=== PATIENT | female | born 1970 ===

== ENCOUNTER 2017-08-05 23:22 | Inpatient (IN) | payer OTHER ==
[2017-08-05 23:23] VITALS: BMI 22.8
--- NOTE | 2017-08-05 23:32 | ED PDOC ---
HPI:STROKE - Time Time: 23:30 Past Medical History - Allergies Allergies/Adverse Reactions: Allergies Allergy/AdvReac Type Severity Reaction Status Date / Time Unobtainable Allergy Verified 08/05/17 23:23 Disposition - Disposition
--- NOTE | 2017-08-05 23:36 | ED PDOC ---
HPI:STROKE - Time Time: 23:19 - Historian Historian: Partner (friend) - Chief Complaint Chief Complaint: other (Headache, Nausea, Vomiting) - Onset Date: 08/05/17 Time: 10:45 Onset: Today - Timing Timing: Currently Symptomatic - Notes: Notes:: 46 year old female who presents to the ED via EMS due to stroke x30 minutes. Per friend, patient was at a democr[employer] when she complained of a headache then fell to the ground at 22:45. Friend also reports nausea and vomiting en route to ED. As per friend, patient has no medical problems. PMD: Provider TBD NIHSS Stroke Scale - Date/Time Evaluation Performed Date Performed: 08/05/17 Time Performed: 23:19 When Was NIHSS Performed: Code Stroke - How Severe is the Stroke Level of Consciousness: 1=Drowsy LOC to Questions: 1=One correct LOC to commands: 0=Obeys both correctly Best Gaze: 0=Normal Visual: 0=No visual loss Facial: 3=Complete unilateral paralysis Motor Arm - Left: 4=No movement Motor Arm - Right: 0=No drift Motor Leg - Left: 3=No effort against gravity (falls immediately) Motor Leg - Right: 0=No drift Limb Ataxia: 0=Absent Sensory: 0=Normal Best Language: 0=No aphasia Dysarthia: 1=Mild to moderate slurring Extinction & Inattention (Neglect): 0=Normal, no object Score: 13 rTPA Inclusion/Exclusion - Refusal of Treatment Patient Refused Treatment: No - Inclusion Criteria for Altepase Patient is 18 years or Older: Yes The Clinical Diagnosis of Ischemic Stroke That is Causing a Potentially Disabling Neurological Deficit: Yes Time of Onset is Well Established to be Less Than 270 Minute Before Treatment Would Begin: Yes Risk/Benefit Discussed With Patient/Family Member Present: No - Exclusion Criteria for Altepase Evidence of an Intracranial Hemorrhage: Yes Past Medical History Reviewed: Historical Data, Nursing Documentation, Vital Signs - Medical History PMH: No Chronic Diseases - Surgical History Surgical History: No Surg Hx - Family History Family History: States: Unknown Family Hx - Home Medications Home Medications: Ambulatory Orders Medication Instructions Recorded Multivitamins [Hexavitamin] 1 tab PO DAILY 08/06/17 - Allergies Allergies/Adverse Reactions: Allergies Allergy/AdvReac Type Severity Reaction Status Date / Time No Known Allergies Allergy Verified 08/06/17 08:39 Review of Systems ROS Statement: Except As Marked, All Systems Reviewed And Found Negative Gastrointestinal: Positive for: Nausea, Vomiting Neurological: Positive for: Headache Physical Exam - Reviewed Nursing Documentation Reviewed: Yes Vital Signs Reviewed: Yes - Physical Exam Appears: Positive for: Non-toxic, No Acute Distress (drowsy, but responsive to verbal stimuli) Head Exam: Positive for: ATRAUMATIC, NORMAL INSPECTION, NORMOCEPHALIC Skin: Positive for: Normal Color, Warm, Dry. Negative for: Rash Eye Exam: Positive for: EOMI, Normal appearance, PERRL Neck: Positive for: Normal, Painless ROM, Supple Cardiovascular/Chest: Positive for: Regular Rate, Rhythm. Negative for: Murmur Respiratory: Positive for: Normal Breath Sounds. Negative for: Respiratory Distress Gastrointestinal/Abdominal: Positive for: Normal Exam, Bowel Sounds, Soft. Negative for: Tenderness Back: Positive for: Normal Inspection. Negative for: L CVA Tenderness, R CVA Tenderness, Vertebral Tenderness Extremity: Positive for: Other (not moving LLE/LUE). Negative for: Pedal Edema , Deformity Neurologic/Psych: Positive for: Alert (drowsy, but responsive to verbal stimuli) , Oriented, Motor/Sensory Deficits (not moving LUE or LLE), Facial Droop (left) - Laboratory Results Result Diagrams: 08/10/17 04:30 08/10/17 04:30 - ECG O2 Sat by Pulse Oximetry: 100 (RA) Pulse Ox Interpretation: Normal - Core Measure Core Measure Indicators: Code Stroke - Critical Care Total Time (In Min): 60 Medical Decision Making Medical Decision Making: Time: 23:19 Code stroke called. Time: 23:24 Initial Impression: Stroke Initial Plan: --CT Head w/o contrast --EKG --Alcohol serum --CMP --Drug screen --Lipid panel --Troponin I --CBC w/ differential --PTT/PT --Accucheck --Swallow screen --Morejon catheter --Urinalysis --Reevaluation Time: 23:26 Spoke to benoit Salmon stroke. Time: 23:[address] Ribeiro. Recommends transfer. Accession No. 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 no. Patient Name: JUAN JOSE CHAN Pt. Address: [facility] #: [id number] Ordering Dr: Ree MIN,Miguel Ángel Johnson Pt Phone: Order Location: [facility] [place] : 1970 Female Age: 46 Order #: [id number] Reason for exam: CVA CT Scan HEAD W/O CONTRAST Exam Date: 08/05/17 This imaging exam was performed at [facility] ADDENDUM Addendum created by Alden Loyd MD on 08/05/2017 11:48:24 PM EDT THIS REPORT CONTAINS FINDINGS THAT MAY BE CRITICAL TO PATIENT CARE. The findings were verbally communicated via telephone conference with Dr. Song at 11:48 PM EDT on 08/05/2017. The findings were acknowledged and understood. Initial report created on 08/05/2017 11:45:02 PM EDT EXAM: CT Head Without Intravenous Contrast CLINICAL HISTORY: 46 years old, female; Signs and symptoms; Other: Lt weakness n v; Patient HX : Stroke; Additional info: CVA TECHNIQUE: Axial computed tomography images of the head/brain without intravenous contrast. All CT scans at this facility use one or more dose reduction techniques, viz.: automated exposure control; ma/kV adjustment per patient size (including targeted exams where dose is matched to indication; i.e. head); or iterative reconstruction technique. Coronal and sagittal reformatted images were created and reviewed. COMPARISON: No relevant prior studies available. FINDINGS: Limitations: Motion artifact - mild. Brain: Minimal atrophy. 3.5 x 2.7 x 3.9 cm hemorrhage within right basal ganglia. Few smaller satellite areas of hemorrhage and minimal surrounding edema. No mass. Grossly preserved leigh-white matter differentiation. Midline shift: 0.4 cm RIGHT to LEFT shift. Ventricles: No hydrocephalus. Bones/joints: No acute fracture. Soft tissues: Unremarkable. Sinuses: No acute sinusitis. Mastoid air cells: No mastoid effusion. Orbits: Unremarkable as visualized. IMPRESSION: 1. Intraparenchymal hemorrhage within right basal ganglia, likely hypertensive. 2. Incidental/non-acute findings are described above. Addendum Dictated By: Alden Loyd MD Addendum Dictated Date Time:08/05/17 Addendum Signed by:Alden Loyd MD Addendum signed Date Time: 08/05/172347 Addendum Transcribed By: LAURA Addendum Transcribed Date Time: 08/05/17 ACYP02/VRD EXAM: CT Head Without Intravenous Contrast CLINICAL HISTORY: 46 years old, female; Signs and symptoms; Other: Lt weakness n v; Patient HX : Stroke; Additional info: CVA TECHNIQUE: Axial computed tomography images of the head/brain without intravenous contrast. All CT scans at this facility use one or more dose reduction techniques, viz.: automated exposure control; ma/kV adjustment per patient size (including targeted exams where dose is matched to indication; i.e. head); or iterative reconstruction technique. Coronal and sagittal reformatted images were created and reviewed. COMPARISON: No relevant prior studies available. FINDINGS: Limitations: Motion artifact - mild. Brain: Minimal atrophy. 3.5 x 2.7 x 3.9 cm hemorrhage within right basal ganglia. Few smaller satellite areas of hemorrhage and minimal surrounding edema. No mass. Grossly preserved leigh-white matter differentiation. Midline shift: 0.4 cm RIGHT to LEFT shift. Ventricles: No hydrocephalus. Bones/joints: No acute fracture. Soft tissues: Unremarkable. Sinuses: No acute sinusitis. Mastoid air cells: No mastoid effusion. Orbits: Unremarkable as visualized. IMPRESSION: 1. Intraparenchymal hemorrhage within right basal ganglia, likely hypertensive. 2. Incidental/non-acute findings are described above. Dictated By: Alden Loyd MD Dictated Date/Time: 08/05/172344 Signed By: Alden Loyd MD Date Signed: [id number] Transcribed By: LAURA Transcribe Date/Time : 08/05/172344 ACYP02/REMIGIO Time: 23:40 Dr. Keenan spoke with Dr. Sheppard, Neurointerventionalist. Will view images remotely and report back. Time: 23:50 --Swallow eval Time: 23:[address] Shepp[address]. [address] CT consistent with a hypertensive bleed. Wants BP to remain 100-140. If higher, start Cardene drip. Neuro checks. Repeat CT in [address] Ribeiro notified by Dr. Sheppard. Scribe Attestation: Documented by Bienvenido Jaeger, acting as a scribe for Sandy Song MD. Provider Scribe Attestation: All medical record entries made by the Scribe were at my direction and personally dictated by me. I have reviewed the chart and agree that the record accurately reflects my personal performance of the history, physical exam, medical decision making, and the department course for this patient. I have also personally directed, reviewed, and agree with the discharge instructions and disposition. Disposition - Clinical Impression Clinical Impression: Hemorrhagic cerebrovascular accident (CVA) - Disposition Disposition Time: 23:55 Condition: CRITICAL - Pt Status Changed To: Hospital Disposition Of: Inpatient - Admit Certification Admit to Inpatient:: After my assessment, the patient will require hospitalization for at least two midnights. This is because of the severity of symptoms shown, intensity of services needed, and/or the medical risk in this patient being treated as an outpatient. - POA Present On Arrival: None
--- NOTE | 2017-08-05 23:45 | CT ---
EXAM: CT Head Without Intravenous Contrast CLINICAL HISTORY: 46 years old, female; Signs and symptoms; Other: Lt weakness n v; Patient HX: Stroke; Additional info: CVA TECHNIQUE: Axial computed tomography images of the head/brain without intravenous contrast. All CT scans at this facility use one or more dose reduction techniques, viz.: automated exposure control; ma/kV adjustment per patient size (including targeted exams where dose is matched to indication; i.e. head); or iterative reconstruction technique. Coronal and sagittal reformatted images were created and reviewed. COMPARISON: No relevant prior studies available. FINDINGS: Limitations: Motion artifact - mild. Brain: Minimal atrophy. 3.5 x 2.7 x 3.9 cm hemorrhage within right basal ganglia. Few smaller satellite areas of hemorrhage and minimal surrounding edema. No mass. Grossly preserved leigh-white matter differentiation. Midline shift: 0.4 cm RIGHT to LEFT shift. Ventricles: No hydrocephalus. Bones/joints: No acute fracture. Soft tissues: Unremarkable. Sinuses: No acute sinusitis. Mastoid air cells: No mastoid effusion. Orbits: Unremarkable as visualized. IMPRESSION: 1. Intraparenchymal hemorrhage within right basal ganglia, likely hypertensive. 2. Incidental/non-acute findings are described above.
[2017-08-05 23:51] LABS: BASO % 0.3 % (0.0-2.0); EOS # 0.2 K/uL (0.0-0.7); EOS % 1.5 % (0.0-4.0); LYMPH # 1.9 K/uL (1.0-4.3); LYMPH % 17.9 % (20.0-40.0); MEAN CELL VOLUME 92.8 fl (81.0-99.0); MEAN CORPUSCULAR HGB CONC 33.4 g/dL (33.0-37.0); MEAN PLATELET VOLUME 9.5 fl (7.2-11.7); MONO # 0.5 K/uL (0.0-0.8); NEUT # 7.8 K/uL (1.8-7.0); NEUT % 75.3 % (50.0-75.0); RBC 4.51 Mil/uL (3.80-5.20); RED CELL DISTRIBUTION WIDTH 13.3 % (11.5-14.5); WHITE BLOOD COUNT 10.4 K/uL (4.8-10.8)
[2017-08-06 00:03] LABS: PROTHROMBIN TIME 11.3 Seconds (9.8-13.1)
[2017-08-06 00:04] LABS: PARTIAL THROMBOPLASTIN TIME 25.4 Seconds (25.6-37.1)
--- NOTE | 2017-08-06 00:21 | CP.PCM.HP ---
History of Present Illness - History of Present Illness History of Present Illness: PMD: None Chief Complaint: Headache with left side weakness The patient was seen and examined in the ED HPI: The Hx is obtained from thee patients friend and after review of the medical records. She is a 46 years old female with no significant past medical Hx, brought to the ED with less than one hour of new unset headache and left side weakness. 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 She fell to the ground with nausea and vomits. The EMS noted that she had a right gaze, left facial droop and left side weakness. In the ED she was alert but not answering questioning and her NIHSS was 13. PMH: Pre Diabetic PSH: C Section X2; Hysterectomy? SH: never smoked; No illegal drug use; Frequent Alcohol use;; FH: No known Family hx Allergies: Unobtainable Medications: Unobtainable Present on Admission - Present on Admission Any Indicators Present on Admission: No History of DVT/PE: No History of Uncontrolled Diabetes: No Urinary Catheter: No Decubitus Ulcer Present: No Review of Systems - Review of Systems Review of Systems: Review of systems is limited as the patient is with severe headache and Probably with motor aphasia. Past Patient History - Past Medical History & Family History Past Medical History?: Yes - Past Social History Smoking Status: Never Smoked Chewing Tobacco Use: No Cigar Use: No Alcohol: Occasional Home Situation {Lives}: With Family - CARDIAC Hx Cardiac Disorders: No - PULMONARY Hx Respiratory Disorders: No - NEUROLOGICAL Hx Neurological Disorder: No - HEENT Hx HEENT Problems: No - RENAL Hx Chronic Kidney Disease: No - ENDOCRINE/METABOLIC Hx Endocrine Disorders: Yes Other/Comment: Pre Diabetes - HEMATOLOGICAL/ONCOLOGICAL Hx Blood Disorders: No - INTEGUMENTARY Hx Dermatological Problems: No - MUSCULOSKELETAL/RHEUMATOLOGICAL Hx Musculoskeletal Disorders: No - GASTROINTESTINAL Hx Gastrointestinal Disorders: No Meds Allergies/Adverse Reactions: Allergies Allergy/AdvReac Type Severity Reaction Status Date / Time Unobtainable Allergy Verified 08/05/17 23:23 Physical Exam - Constitutional Appears: No Acute Distress - Head Exam Head Exam: ATRAUMATIC, NORMOCEPHALIC - Eye Exam Additional comments: Right pupil two centimeters in diameter while the left pupil is 4cm. - ENT Exam ENT Exam: Mucous Membranes Moist, Normal Exam, Normal External Ear Exam, Normal Oropharynx - Neck Exam Neck exam: Positive for: Full Rom, Normal Inspection. Negative for: Lymphadenopathy, Tenderness - Respiratory Exam Respiratory Exam: Clear to Auscultation Bilateral. absent: Rales, Rhonchi, Wheezes - Cardiovascular Exam Cardiovascular Exam: REGULAR RHYTHM, RRR, +S1, +S2. absent: Gallop - GI/Abdominal Exam GI & Abdominal Exam: Normal Bowel Sounds, Soft. absent: Mass, Tenderness - Rectal Exam Rectal Exam: Deferred - Extremities Exam Extremities exam: Positive for: normal capillary refill, normal inspection. Negative for: calf tenderness, pedal edema - Back Exam Back exam: NORMAL INSPECTION. absent: CVA tenderness (L), CVA tenderness (R) - Neurological Exam Additional comments: Awake and alert. Understand when being spoken to. follow some commands with the left side of the body but she is non verbal. Left facial droop, motor strength is 0/5 at the left upper extremity and 1/5 at the left lower extremity. left plantar reflex is upward while at the right side it is down wards . - Psychiatric Exam Psychiatric exam: Normal Affect, Normal Mood - Skin Skin Exam: Dry, Intact, Normal Color, Warm Results - Vital Signs Recent Vital Signs: Last Vital Signs Temp 98.6 F 08/05/17 23:31 Pulse 63 08/05/17 23:31 Resp 19 08/05/17 23:31 BP 137/79 08/05/17 23:31 Pulse Ox 100 08/06/17 00:13 - Labs Result Diagrams: 08/05/17 23:47 08/05/17 23:40 Labs: Laboratory Results - last 24 hr 08/05/17 08/05/17 23:47 23:47 WBC 10.4 RBC 4.51 Hgb 14.0 Hct 41.9 MCV 92.8 MCH 31.0 MCHC 33.4 RDW 13.3 Plt Count 185 MPV 9.5 Neut % (Auto) 75.3 H Lymph % (Auto) 17.9 L [place] % (Auto) 5.0 Eos % (Auto) 1.5 Baso % (Auto) 0.3 Neut # (Auto) 7.8 H Lymph # (Auto) 1.9 [place] # (Auto) 0.5 Eos # (Auto) 0.2 Baso # (Auto) 0.0 PT 11.3 INR 1.0 APTT 25.4 L - Imaging and Cardiology CT scan - head Status: Image reviewed by me, Report reviewed by me Additional comment: EXAM: CT Head Without Intravenous Contrast FINDINGS: Limitations: Motion artifact - mild. Brain: Minimal atrophy. 3.5 x 2.7 x 3.9 cm hemorrhage within right basal ganglia. Few smaller satellite areas of hemorrhage and minimal surrounding edema. No mass. Grossly preserved graywhite matter differentiation. Midline shift: 0.4 cm RIGHT to LEFT shift. Ventricles: No hydrocephalus. Bones/joints: No acute fracture. Soft tissues: Unremarkable. Sinuses: No acute sinusitis. Mastoid air cells: No mastoid effusion. Orbits: Unremarkable as visualized. IMPRESSION: 1. Intraparenchymal hemorrhage within right basal ganglia, likely hypertensive. 2. Incidental/non-acute findings are described above. Assessment & Plan - Assessment and Plan (Free Text) Plan: 46 years old female with no significant past medical Hx, brought to the ED with less than one hour of new unset headache and left side weakness. 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 She fell to the ground with nausea and vomits. The EMS noted that she had a right gaze, left facial droop and left side weakness. In the ED she was alert but not answering questioning and her NIHSS was 13. #. Hemorrhagic CVA with left Hemiplegia - Consult Neurology Dr Ribeiro - consult Neuro surgery Dr Sheppard - Admit to ICU - Neuro checks Q1H - Maintain Systolic Blood pressure 100-140mmHg. If higher start Cardene as per neuro surgery - IV fluids D5/NS at 44Mls/hr. could increase if SBP falls below 100mmHg - Tylenol Supp for Headache - Swallow eval - Speech therapy - PT/OT - Follow lipid panel/RPR #. Stress Ulcer prophylaxis with Pantoprazole #. DVT prophylaxis with SCD #. Code Status: Full Critical Care Time: 55 minutes Willaim Nation MD - Date & Time Date: 08/06/17 Time: 00:21
[2017-08-06 01:50] LABS: ALB/GLOB RATIO 1.3 (1.0-2.1); ALBUMIN 4.3 g/dL (3.5-5.0); ALT/SGPT 34 U/L (9-52); AST/SGOT 25 U/L (14-36); BLOOD UREA NITROGEN 15 mg/dl (7-17); CALCIUM 8.7 mg/dL (8.4-10.2); GFR AFRICAN-AMERICAN > 60; GFR NON-AFRICAN AMERICAN > 60; HDL CHOLESTEROL 43 MG/DL (30-70)
[2017-08-06 02:01] LABS: LDL CHOLESTEROL 124 mg/dL (0-129)
[2017-08-06] MEDS: Dextrose 5%/0.9% NS 1,000 ML IV SCH (02:55)
[2017-08-06 03:33] LABS: BARBITURATES, UR NEGATIVE (NEGATIVE); BENZODIAZEPINES, UR NEGATIVE (NEGATIVE); OPIATES, UR NEGATIVE (NEGATIVE); PHENCYCLIDINE, UR NEGATIVE (NEGATIVE)
[2017-08-06 03:40] LABS: SQUAMOUS EPITHIAL 1 /hpf (0-5); URINE BACTERIA RARE (<OCC); URINE BILIRUBIN NEGATIVE (NEGATIVE); URINE BLOOD NEGATIVE (NEGATIVE); URINE CLARITY CLOUDY (Clear); URINE COLOR YELLOW (YELLOW); URINE GLUCOSE (UA) NEG (Normal); URINE LEUKOCYTE ESTERASE NEG Leu/uL (Negative); URINE PROTEIN NEGATIVE (NEGATIVE); URINE UROBILINOGEN 0.2-1.0 mg/dL (0.2-1.0)
[2017-08-06 07:11] LABS: BLOOD UREA NITROGEN 12 mg/dl (7-17); CALCIUM 8.4 mg/dL (8.4-10.2); GFR AFRICAN-AMERICAN > 60; GFR NON-AFRICAN AMERICAN > 60
--- NOTE | 2017-08-06 08:22 | RAD ---
HISTORY: CVA COMPARISON: No prior. FINDINGS: LUNGS: No active pulmonary disease. PLEURA: No significant pleural effusion identified, no pneumothorax apparent. CARDIOVASCULAR: Normal. OSSEOUS STRUCTURES: No significant abnormalities. VISUALIZED UPPER ABDOMEN: Normal. OTHER FINDINGS: None. IMPRESSION: No active disease.
--- NOTE | 2017-08-06 09:08 | CARD ---
APPROVED REPORT EKG Measurement Heart [id number] <Conclusion> Normal sinus rhythm Normal ECG
[2017-08-06] MEDS ORDERED: Dexamethasone 10 MG in Sodium Chloride 0.9% 50 ML IVPB ONE (09:20)
--- NOTE | 2017-08-06 09:24 | CP.PCM.PN ---
Subjective - Date & Time of Evaluation Date of Evaluation: 08/06/17 Time of Evaluation: 09:00 - Subjective Subjective: Patient seen and examined bedside. With left side hemiplegia , left facial droop. Complains of headache. waiting on CTA head and neck and repeat CT head ( still imaging in process after speaking with central sterile supply technician. BP controlled 114/72 afebrile , saturating well in RA Objective - Vital Signs/Intake and Output Vital Signs (last 24 hours): Temp Pulse Resp BP Pulse Ox 98.4 F 59 L 16 114/72 100 08/06/17 06:49 08/06/17 06:49 08/06/17 06:49 08/06/17 06:49 08/06/17 06:49 Intake and Output: 08/06/17 08/06/17 06:59 18:59 Intake Total 100 Output Total 360 Balance -260 - Medications Medications: Current Medications Acetaminophen (Tylenol 650 Mg Supp) 650 mg CO Q4 PRN PRN Reason: Headache Last Admin: 08/06/17 02:55 Dose: 650 mg Dextrose/Sodium Chloride (Dextrose 5%/0.9% Ns 1000 Ml) 1,000 mls @ 44 mls/hr IV .[id number] [facility] Stop: 08/07/17 01:25 Last Admin: 08/06/17 02:55 Dose: 44 mls/hr Dexamethasone 10 mg/ Sodium (Chloride) 51 mls @ 102 mls/hr IVPB ONCE ONE Stop: 08/06/17 09:49 Magnesium Sulfate 2 gm/ Sodium (Chloride) 104 mls @ 104 mls/hr IVPB ONCE ONE PRN Reason: 2 GM/HR Stop: 08/06/17 10:20 Pantoprazole Sodium (Protonix Inj) 40 mg IVP DAILY CYN - Labs Labs: 08/05/17 23:47 08/06/17 06:15 PT 11.3 Seconds (9.8-13.1) 08/05/17 23:47 INR 1.0 (0.9-1.2) 08/05/17 23:47 APTT 25.4 Seconds (25.6-37.1) L 08/05/17 23:47 - Constitutional Appears: Non-toxic, No Acute Distress - Head Exam Head Exam: ATRAUMATIC, NORMOCEPHALIC - Eye Exam Eye Exam: EOMI, PERRL Pupil Exam: NORMAL ACCOMODATION - ENT Exam ENT Exam: Mucous Membranes Moist, Normal Exam - Neck Exam Neck Exam: Full ROM, Normal Inspection - Respiratory Exam Respiratory Exam: Clear to Ausculation Bilateral, NORMAL BREATHING PATTERN. absent: Rales, Rhonchi, Wheezes - Cardiovascular Exam Cardiovascular Exam: REGULAR RHYTHM, RRR, +S1, +S2. absent: JVD - GI/Abdominal Exam GI & Abdominal Exam: Soft, Normal Bowel Sounds. absent: Distended, Guarding, Tenderness, Rebound - Rectal Exam Rectal Exam: Deferred - Extremities Exam Extremities Exam: Full ROM, Normal Capillary Refill, Normal Inspection. absent : Calf Tenderness, Pedal Edema - Neurological Exam Neurological Exam: Alert, Awake Additional comments: left facial droop left side hemiplegia - Psychiatric Exam Psychiatric exam: Flat Affect - Skin Skin Exam: Dry, Intact, Normal Color, Warm Assessment and Plan - Assessment and Plan (Free Text) Assessment: 46 years old female with no significant past medical history , brought to the ED with less than one hour of new unset headache and left side weakness. According to the friend the patient was at a alliance party when she complained of headache. She fell to the ground with nausea and vomits. The EMS noted that she had a right gaze, left facial droop and left side weakness. In the ED she was alert but not answering questioning and her NIHSS was 13.CT head showed left basal ganglia bleed. Neurology and neuro internationalist were consulted. 1.Left basal ganglia Hemorrhagic CVA with left Hemiplegia after sudden headache most likely aneurismal rupture or AVM ( patient does not have hypertension ) CTA head and neck still pending results ( spoke with tech to send imaging [facility]ANG to [facility] and be notified with the readings) Neurology and interventional neuro were consulted. Called and discussed case with Dr. Ribeiro about delay in CTA imaging. Will give 2 unit FFP to try slow down the bleeding.Will give Decadron IV and Magnesium sulfate for JACKSON BP is well controlled so there is no need for any antihypertensives at present waiting CTA report . Will make decision about patient dispo after results Avoid any ASa, anticoagulations Speech / swallow eval IVF 2. DVt prophylaxis SCD 3. Stress Ulcer prophylaxis with Pantoprazole
[2017-08-06] MEDS ORDERED: Magnesium Sulfate 2 gm/50 ml 2 GM/50 ML BAG IVPB ONE (10:15)
[2017-08-06] MEDS ORDERED: Magnesium Sulfate 2 gm/50 ml 2 GM/50 ML BAG ONE (10:27)
--- NOTE | 2017-08-06 13:58 | CP.PCM.CON ---
History of Present Illness - History of Present Illness History of Present Illness: Patient was admitted last night, now transferred to ICU. She is a 46 years old female with no significant past medical Hx, brought to the ED with less than one hour of new unset headache and left side weakness. Patient was at a constitution party when she complained of headache. She fell to the ground with nausea and vomits. The EMS noted that she had a right gaze, left facial droop and left side weakness. In the ED she was alert but not answering questioning and her NIHSS was 13.Hd a CT head done which showed she had left basal ganglia heamorrhage . Pt did not have high BP and even now BP is stable 128/72. Review of Systems - Constitutional Constitutional: As Per HPI - EENT Eyes: As Per HPI Nose/Mouth/Throat: As Per HPI - Cardiovascular Cardiovascular: As Per HPI - Neurological Neurological: Numbness, Focal Weakness, Headaches Past Patient History - Past Medical History & Family History Past Medical History?: Yes - Past Social History Smoking Status: Never Smoked - CARDIAC Hx Cardiac Disorders: No - PULMONARY Hx Respiratory Disorders: No - NEUROLOGICAL Hx Neurological Disorder: No - HEENT Hx HEENT Problems: No - RENAL Hx Chronic Kidney Disease: No - ENDOCRINE/METABOLIC Hx Endocrine Disorders: Yes - HEMATOLOGICAL/ONCOLOGICAL Hx Blood Disorders: No Hx AIDS: No Hx Human Immunodeficiency Virus (HIV): No - INTEGUMENTARY Hx Dermatological Problems: No - MUSCULOSKELETAL/RHEUMATOLOGICAL Hx Musculoskeletal Disorders: No Hx Falls: No - GASTROINTESTINAL Hx Gastrointestinal Disorders: No - PSYCHIATRIC Hx Substance Use: No - SURGICAL HISTORY Hx Surgeries: Yes Hx Section: Yes Meds Allergies/Adverse Reactions: Allergies Allergy/AdvReac Type Severity Reaction Status Date / Time No Known Allergies Allergy Verified 08/06/17 08:39 - Medications Medications: Current Medications Acetaminophen (Tylenol 650 Mg Supp) 650 mg [place] Q4 PRN PRN Reason: Headache Last Admin: 08/06/17 02:55 Dose: 650 mg Dextrose/Sodium Chloride (Dextrose 5%/0.9% Ns 1000 Ml) 1,000 mls @ 44 mls/hr IV .[id number] [facility] Stop: 08/07/17 01:25 Last Admin: 08/06/17 02:55 Dose: 44 mls/hr Pantoprazole Sodium (Protonix Inj) 40 mg IVP DAILY [facility] Last Admin: 08/06/17 10:33 Dose: 40 mg Physical Exam - Head Exam Head Exam: ATRAUMATIC - ENT Exam ENT Exam: Normal Exam - Neck Exam Neck exam: Positive for: Full Rom - Respiratory Exam Respiratory Exam: NORMAL BREATHING PATTERN - Cardiovascular Exam Cardiovascular Exam: REGULAR RHYTHM Results - Vital Signs Recent Vital Signs: Last Vital Signs Temp 97.6 F 08/06/17 12:00 Pulse 60 08/06/17 12:00 Resp 16 08/06/17 12:00 BP 132/63 08/06/17 12:00 Pulse Ox 100 08/06/17 12:11 - Labs Result Diagrams: 08/05/17 23:47 08/06/17 06:15 Labs: Laboratory Results - last 24 hr 08/05/17 08/05/17 08/05/17 03:00 23:40 23:47 WBC 10.4 RBC 4.51 Hgb 14.0 Hct 41.9 MCV 92.8 MCH 31.0 MCHC 33.4 RDW 13.3 Plt Count 185 MPV 9.5 Neut % (Auto) 75.3 H Lymph % (Auto) 17.9 L [place] % (Auto) 5.0 Eos % (Auto) 1.5 Baso % (Auto) 0.3 Neut # (Auto) 7.8 H Lymph # (Auto) 1.9 [place] # (Auto) 0.5 Eos # (Auto) 0.2 Baso # (Auto) 0.0 PT INR APTT Sodium 139 Potassium 3.8 Chloride 99 Carbon Dioxide 25 Anion Gap 19 BUN 15 Creatinine 0.6 L Est GFR ( Amer) > 60 Est GFR (Non-Af Amer) > 60 Random Glucose 104 Calcium 8.7 Total Bilirubin 0.3 AST 25 ALT 34 Alkaline Phosphatase 66 Troponin I < 0.0120 Total Protein 7.5 Albumin 4.3 Globulin 3.2 Albumin/Globulin Ratio 1.3 Triglycerides 210 H Cholesterol 192 LDL Cholesterol Direct 124 HDL Cholesterol 43 Urine Color Urine Clarity Urine pH Ur Specific [place] Urine Protein Urine Glucose (UA) Urine Ketones Urine Blood Urine Nitrate Urine Bilirubin Urine Urobilinogen Ur Leukocyte Esterase Urine RBC (Auto) Urine Microscopic WBC Ur Squamous Epith Cells Urine Bacteria Urine Opiates Screen Negative Urine Methadone Screen Negative Ur Barbiturates Screen Negative Ur Phencyclidine Scrn Negative Ur Amphetamines Screen Negative U Benzodiazepines Scrn Negative U Oth Cocaine Metabols Negative U Cannabinoids Screen Negative Alcohol, Quantitative < 10 Blood Type Blood Type Confirm Antibody Screen BBK History Checked 08/05/17 08/06/17 08/06/17 23:47 03:00 06:15 WBC RBC Hgb Hct MCV MCH MCHC RDW Plt Count MPV Neut % (Auto) Lymph % (Auto) [place] % (Auto) Eos % (Auto) Baso % (Auto) Neut # (Auto) Lymph # (Auto) [place] # (Auto) Eos # (Auto) Baso # (Auto) PT 11.3 INR 1.0 APTT 25.4 L Sodium 138 Potassium 3.9 Chloride 101 Carbon Dioxide 22 Anion Gap 19 BUN 12 Creatinine 0.4 L Est GFR ( Amer) > 60 Est GFR (Non-Af Amer) > 60 Random Glucose 115 H Calcium 8.4 Total Bilirubin AST ALT Alkaline Phosphatase Troponin I Total Protein Albumin Globulin Albumin/Globulin Ratio Triglycerides Cholesterol LDL Cholesterol Direct HDL Cholesterol Urine Color Yellow Urine Clarity Cloudy Urine pH 7.0 Ur Specific [place] 1.016 Urine Protein Negative Urine Glucose (UA) Neg Urine Ketones Negative Urine Blood Negative Urine Nitrate Negative Urine Bilirubin Negative Urine Urobilinogen 0.2-1.0 Ur Leukocyte Esterase Neg Urine RBC (Auto) 3 Urine Microscopic WBC < 1 Ur Squamous Epith Cells 1 Urine Bacteria Rare Urine Opiates Screen Urine Methadone Screen Ur Barbiturates Screen Ur Phencyclidine Scrn Ur Amphetamines Screen U Benzodiazepines Scrn U Oth Cocaine Metabols U Cannabinoids Screen Alcohol, Quantitative Blood Type Blood Type Confirm Antibody Screen BBK History Checked 08/06/17 08/06/17 09:29 09:30 WBC RBC Hgb Hct MCV MCH MCHC RDW Plt Count MPV Neut % (Auto) Lymph % (Auto) [place] % (Auto) Eos % (Auto) Baso % (Auto) Neut # (Auto) Lymph # (Auto) [place] # (Auto) Eos # (Auto) Baso # (Auto) PT INR APTT Sodium Potassium Chloride Carbon Dioxide Anion Gap BUN Creatinine Est GFR ( Amer) Est GFR (Non-Af Amer) Random Glucose Calcium Total Bilirubin AST ALT Alkaline Phosphatase Troponin I Total Protein Albumin Globulin Albumin/Globulin Ratio Triglycerides Cholesterol LDL Cholesterol Direct HDL Cholesterol Urine Color Urine Clarity Urine pH Ur Specific [place] Urine Protein Urine Glucose (UA) Urine Ketones Urine Blood Urine Nitrate Urine Bilirubin Urine Urobilinogen Ur Leukocyte Esterase Urine RBC (Auto) Urine Microscopic WBC Ur Squamous Epith Cells Urine Bacteria Urine Opiates Screen Urine Methadone Screen Ur Barbiturates Screen Ur Phencyclidine Scrn Ur Amphetamines Screen U Benzodiazepines Scrn U Oth Cocaine Metabols U Cannabinoids Screen Alcohol, Quantitative Blood Type O POSITIVE Blood Type Confirm O POSITIVE Antibody Screen Negative BBK History Checked No verified bt Assessment & Plan - Assessment and Plan (Free Text) Assessment: Assessment: 1.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 CTA head and neck still pending results, neurosurgery and neurologist following. Will give 2 unit FFP to try slow down the bleeding.Will give Decadron IV and Magnesium sulfate for [place] BP is well controlled so there is no need for any antihypertensives at present waiting CTA report . Will make decision about patient dispo after results IVF : avoid hypotonic fluid 2. DVt prophylaxis SCD 3. Stress Ulcer prophylaxis with Pantoprazole
--- NOTE | 2017-08-06 15:50 | CT ---
PROCEDURE: CT HEAD WITHOUT CONTRAST. HISTORY: stroke COMPARISON: CT scan yesterday. CT angiography 08/06/2017 TECHNIQUE: Axial computed tomography images were obtained through the head/brain without intravenous contrast. Radiation dose: Total exam DLP = 854 mGy-cm. This CT exam was performed using one or more of the following dose reduction techniques: Automated exposure control, adjustment of the mA and/or kV according to patient size, and/or use of iterative reconstruction technique. FINDINGS: HEMORRHAGE: There is once again evidence of a large right basal ganglia hemorrhage with mass effect on the surrounding structures. There appears to be mild interval increase in size of the hemorrhage with interval increase in mass effect from the prior study. Area of hemorrhage now measures 5.1 x 3.3 x 4.2 cm versus 4.1 x 2.9 x 3.8 cm. There is interval increase in right to left midline shift and effacement of the right frontal horn and right lateral ventricle. Shift now measures 7 millimeters versus 4-5 millimeters. No other new area of hemorrhage is noted. There is increasing edema noted in the white matter tracts superior to the hemorrhage as well as some new areas of effacement of the right sylvian fissure. Posterior fossa is unchanged. Bony structures are stable. BRAIN: See above. See above. VENTRICLES: See above. CALVARIUM: Unremarkable. PARANASAL SINUSES: Unremarkable as visualized. No significant inflammatory changes. MASTOID AIR CELLS: Unremarkable as visualized. No inflammatory changes. OTHER FINDINGS: None. IMPRESSION: Interval increase in a large right basal ganglia hemorrhage. There is interval increase in mass effect and midline shift. This represents a critical finding and was called to the patient's Nurse Joelle at the time of this dictation. Report was repeated back and confirmed.
[2017-08-06] MEDS ORDERED: levETIRAcetam 1,000 MG in Sodium Chloride 0.9% 100 ML IVPB STA (16:39)
[2017-08-06] MEDS: Mannitol 12.5 gm/50 ml Inj IV SCH (16:44)
[2017-08-06] MEDS ORDERED: Mannitol 12.5 gm/50 ml Inj IV SCH (17:00)
--- NOTE | 2017-08-06 17:09 | CP.PCM.CON ---
History of Present Illness - History of Present Illness History of Present Illness: 46 yr old woman with no past medical history presents to the ER as a code stroke, and found to have a intracerebral bleed. Patient was at a republican when she complained of severe headache and collapsed at 22:45, with nausea and vomiting following shortly thereafter. There was no seizure noted, and she was not a TPA candidate as she had an intracerebral bleed. Miss Lobo was admitted to the ICU and is being monitored, with FFPS running currenlty. I spoke to Dr. Sheppard, neurointerventionalist who did not recommend intervention at this time, and we admitted her to ICU. On examination today, she has severe headache, and some nausea, as well as complete left plegia with left facial droop. PMH/PSH: borderline DM FH/SH:drinks alcohol, no tobacco, profession not known All: nkda on exam: lethargic but barely arouseable. she is able to tell me her name and that she is in pain, and is following commands in tuvaluan. Pupils 3mm-2mm with light. +gag, +corneals, Has left sided neglect. +dolls eyes , left facial droop, left sided plegia, 0/0, arm and leg. There is no finger or toe movement on the left side, whereas on the right side, the patient has 5/5 strength. She is quite drowsy so sensory exam is not possible. +2 dtr ul and ll bl. Toes downgoing, bilateral clonus. Past Patient History - Past Medical History & Family History Past Medical History?: Yes - Past Social History Smoking Status: Never Smoked - CARDIAC Hx Cardiac Disorders: No - PULMONARY Hx Respiratory Disorders: No - NEUROLOGICAL Hx Neurological Disorder: No - HEENT Hx HEENT Problems: No - RENAL Hx Chronic Kidney Disease: No - ENDOCRINE/METABOLIC Hx Endocrine Disorders: Yes - HEMATOLOGICAL/ONCOLOGICAL Hx Blood Disorders: No Hx AIDS: No Hx Human Immunodeficiency Virus (HIV): No - INTEGUMENTARY Hx Dermatological Problems: No - MUSCULOSKELETAL/RHEUMATOLOGICAL Hx Musculoskeletal Disorders: No Hx Falls: No - GASTROINTESTINAL Hx Gastrointestinal Disorders: No - PSYCHIATRIC Hx Substance Use: No - SURGICAL HISTORY Hx Surgeries: Yes Hx Section: Yes Meds Allergies/Adverse Reactions: Allergies Allergy/AdvReac Type Severity Reaction Status Date / Time No Known Allergies Allergy Verified 08/06/17 08:39 - Medications Medications: Current Medications Acetaminophen (Tylenol 650 Mg Supp) 650 mg [place] Q4 PRN PRN Reason: Headache Last Admin: 08/06/17 02:55 Dose: 650 mg Dextrose/Sodium Chloride (Dextrose 5%/0.9% Ns 1000 Ml) 1,000 mls @ 44 mls/hr IV .[id number] [facility] Stop: 08/07/17 01:25 Last Admin: 08/06/17 02:55 Dose: 44 mls/hr Pantoprazole Sodium (Protonix Inj) 40 mg IVP DAILY [facility] Last Admin: 08/06/17 10:33 Dose: 40 mg Results - Vital Signs Recent Vital Signs: Last Vital Signs Temp 97.6 F 08/06/17 12:00 Pulse 64 08/06/17 14:00 Resp 18 08/06/17 14:00 BP 124/71 08/06/17 14:00 Pulse Ox 100 08/06/17 14:00 - Labs Result Diagrams: 08/05/17 23:47 08/06/17 06:15 Labs: Laboratory Results - last 24 hr 08/05/17 08/05/17 08/05/17 03:00 23:40 23:47 WBC 10.4 RBC 4.51 Hgb 14.0 Hct 41.9 MCV 92.8 MCH 31.0 MCHC 33.4 RDW 13.3 Plt Count 185 MPV 9.5 Neut % (Auto) 75.3 H Lymph % (Auto) 17.9 L [place] % (Auto) 5.0 Eos % (Auto) 1.5 Baso % (Auto) 0.3 Neut # (Auto) 7.8 H Lymph # (Auto) 1.9 [place] # (Auto) 0.5 Eos # (Auto) 0.2 Baso # (Auto) 0.0 PT INR APTT Sodium 139 Potassium 3.8 Chloride 99 Carbon Dioxide 25 Anion Gap 19 BUN 15 Creatinine 0.6 L Est GFR ( Amer) > 60 Est GFR (Non-Af Amer) > 60 Random Glucose 104 Calcium 8.7 Total Bilirubin 0.3 AST 25 ALT 34 Alkaline Phosphatase 66 Troponin I < 0.0120 Total Protein 7.5 Albumin 4.3 Globulin 3.2 Albumin/Globulin Ratio 1.3 Triglycerides 210 H Cholesterol 192 LDL Cholesterol Direct 124 HDL Cholesterol 43 Urine Color Urine Clarity Urine pH Ur Specific [place] Urine Protein Urine Glucose (UA) Urine Ketones Urine Blood Urine Nitrate Urine Bilirubin Urine Urobilinogen Ur Leukocyte Esterase Urine RBC (Auto) Urine Microscopic WBC Ur Squamous Epith Cells Urine Bacteria Urine Opiates Screen Negative Urine Methadone Screen Negative Ur Barbiturates Screen Negative Ur Phencyclidine Scrn Negative Ur Amphetamines Screen Negative U Benzodiazepines Scrn Negative U Oth Cocaine Metabols Negative U Cannabinoids Screen Negative Alcohol, Quantitative < 10 Blood Type Blood Type Confirm Antibody Screen BBK History Checked 08/05/17 08/06/17 08/06/17 23:47 03:00 06:15 WBC RBC Hgb Hct MCV MCH MCHC RDW Plt Count MPV Neut % (Auto) Lymph % (Auto) [place] % (Auto) Eos % (Auto) Baso % (Auto) Neut # (Auto) Lymph # (Auto) [place] # (Auto) Eos # (Auto) Baso # (Auto) PT 11.3 INR 1.0 APTT 25.4 L Sodium 138 Potassium 3.9 Chloride 101 Carbon Dioxide 22 Anion Gap 19 BUN 12 Creatinine 0.4 L Est GFR ( Amer) > 60 Est GFR (Non-Af Amer) > 60 Random Glucose 115 H Calcium 8.4 Total Bilirubin AST ALT Alkaline Phosphatase Troponin I Total Protein Albumin Globulin Albumin/Globulin Ratio Triglycerides Cholesterol LDL Cholesterol Direct HDL Cholesterol Urine Color Yellow Urine Clarity Cloudy Urine pH 7.0 Ur Specific [place] 1.016 Urine Protein Negative Urine Glucose (UA) Neg Urine Ketones Negative Urine Blood Negative Urine Nitrate Negative Urine Bilirubin Negative Urine Urobilinogen 0.2-1.0 Ur Leukocyte Esterase Neg Urine RBC (Auto) 3 Urine Microscopic WBC < 1 Ur Squamous Epith Cells 1 Urine Bacteria Rare Urine Opiates Screen Urine Methadone Screen Ur Barbiturates Screen Ur Phencyclidine Scrn Ur Amphetamines Screen U Benzodiazepines Scrn U Oth Cocaine Metabols U Cannabinoids Screen Alcohol, Quantitative Blood Type Blood Type Confirm Antibody Screen BBK History Checked 08/06/17 08/06/17 09:29 09:30 WBC RBC Hgb Hct MCV MCH MCHC RDW Plt Count MPV Neut % (Auto) Lymph % (Auto) [place] % (Auto) Eos % (Auto) Baso % (Auto) Neut # (Auto) Lymph # (Auto) [place] # (Auto) Eos # (Auto) Baso # (Auto) PT INR APTT Sodium Potassium Chloride Carbon Dioxide Anion Gap BUN Creatinine Est GFR ( Amer) Est GFR (Non-Af Amer) Random Glucose Calcium Total Bilirubin AST ALT Alkaline Phosphatase Troponin I Total Protein Albumin Globulin Albumin/Globulin Ratio Triglycerides Cholesterol LDL Cholesterol Direct HDL Cholesterol Urine Color Urine Clarity Urine pH Ur Specific [place] Urine Protein Urine Glucose (UA) Urine Ketones Urine Blood Urine Nitrate Urine Bilirubin Urine Urobilinogen Ur Leukocyte Esterase Urine RBC (Auto) Urine Microscopic WBC Ur Squamous Epith Cells Urine Bacteria Urine Opiates Screen Urine Methadone Screen Ur Barbiturates Screen Ur Phencyclidine Scrn Ur Amphetamines Screen U Benzodiazepines Scrn U Oth Cocaine Metabols U Cannabinoids Screen Alcohol, Quantitative Blood Type O POSITIVE Blood Type Confirm O POSITIVE Antibody Screen Negative BBK History Checked No verified bt - Imaging and Cardiology CT scan - head Status: Image reviewed by me, Report reviewed by me (CTA: reviewed by myself and ,--no aneurysm intracranial portionm) Additional comment: CT head: first one last night: shows medium sized intracranial hemorrhage, within in the basal ganglia, with some mild mass effect. Ventricles are open, no herniation noted. CT head : from one hour ago: shows interval increase in size of above intracranial hemorrhage in basal ganglia, and more significant mass effect and midline shift, with no herniation. Hemorrhagic products varying ages, from my evaluation. MRI/MRA Brain: pending. Assessment & Plan - Assessment and Plan (Free Text) Assessment: 46 yr old woman who has a moderately large sized, circumscribed basal ganglia hemorrhage that may be secondary to cavernoma burst, differntial of aneurysmal burst, hypertensive bleed or intracranial lesion ( less likely). She is progressively becoming more lethargic due to mass effect and midline shift, and we have evaluated for possible intubation. At this time, I will start mannitol, and decadron and antiseizure medication. If LOC deteriorates, would intubate and hyperventilate to decrease cerebral edema. In addition, MRI MRA brain would be helpful to clearly delineate the etiology of this bleed. plan: 1. Mannitol 1gm/kg IV 2. Start decadron IV 8 mg q 8 hours. 3. Start keppra IV 1000 mg now and continue on 500 mg IV keppra bid. 4. EEG for one hour in am. 5. Repeat CT scan head in AM 6. MRI/MRA Brain with and without contrast. Thank you for this consult. Our team will follow. Dr. Quintin MD, DPN
[2017-08-06] MEDS ORDERED: Gadodiamide 287 MG/ML VIAL (15ML) IV ONE (17:19)
--- NOTE | 2017-08-06 20:15 | CP.PCM.PN ---
Subjective - Date & Time of Evaluation Date of Evaluation: 08/06/17 Time of Evaluation: 20:13 - Subjective Subjective: 46 r o female with large R lat basal ganglion hemmorhage Second CT shows slight increas in size Pt remains awake at present This needs to be maximmally treated medically before any surgical consideration At this time no indication for any type of surgery Objective - Vital Signs/Intake and Output Vital Signs (last 24 hours): Temp Pulse Resp BP Pulse Ox 98.6 F 60 12 120/71 100 08/06/17 16:27 08/06/17 18:00 08/06/17 18:00 08/06/17 18:00 08/06/17 18:00 Intake and Output: 08/06/17 08/07/17 18:59 06:59 Intake Total 1336 Output Total 800 Balance 536 - Medications Medications: Current Medications Acetaminophen (Tylenol 650 Mg Supp) 650 mg [place] Q4 PRN PRN Reason: Headache Last Admin: 08/06/17 02:55 Dose: 650 mg Dextrose/Sodium Chloride (Dextrose 5%/0.9% Ns 1000 Ml) 1,000 mls @ 44 mls/hr IV .[id number] [facility] Stop: 08/07/17 01:25 Last Admin: 08/06/17 02:55 Dose: 44 mls/hr Levetiracetam 500 mg/ Sodium (Chloride) 105 mls @ 105 mls/hr IVPB Q12 CYN Mannitol (Mannitol) 37.5 gm IV Q8 CYN Last Admin: 08/06/17 16:44 Dose: 37.5 gm Pantoprazole Sodium (Protonix Inj) 40 mg IVP DAILY [facility] Last Admin: 08/06/17 10:33 Dose: 40 mg - Labs Labs: 08/05/17 23:47 08/06/17 06:15 PT 11.3 Seconds (9.8-13.1) 08/05/17 23:47 INR 1.0 (0.9-1.2) 08/05/17 23:47 APTT 25.4 Seconds (25.6-37.1) L 08/05/17 23:47
[2017-08-06] MEDS: levETIRAcetam 500 MG in Sodium Chloride 0.9% 100 ML IVPB SCH (22:12)
[2017-08-07] MEDS: Mannitol 12.5 gm/50 ml Inj IV SCH ×3 (01:45→16:44)
[2017-08-07 05:21] LABS: HEMOGLOBIN 13.4 g/dL (12.0-16.0); MEAN CELL VOLUME 92.5 fl (81.0-99.0); MEAN CORPUSCULAR HEMOGLOBIN 31.2 pg (27.0-31.0); MEAN CORPUSCULAR HGB CONC 33.7 g/dL (33.0-37.0); RBC 4.31 Mil/uL (3.80-5.20); RED CELL DISTRIBUTION WIDTH 13.9 % (11.5-14.5); WHITE BLOOD COUNT 9.5 K/uL (4.8-10.8)
[2017-08-07 05:31] LABS: BLOOD UREA NITROGEN 8 mg/dl (7-17); CALCIUM 8.6 mg/dL (8.4-10.2); GFR AFRICAN-AMERICAN > 60; GFR NON-AFRICAN AMERICAN > 60
--- NOTE | 2017-08-07 07:27 | CP.PCM.PN ---
Subjective - Date & Time of Evaluation Date of Evaluation: 08/07/17 Time of Evaluation: 07:30 - Subjective Subjective: Patient seen and examined bedside. Lying in bed in NAD.Appears sleepy.Easily responsive to verbal command, opens eyes and responds to questions.Complains of headache but better than yesterday with left facial droop , left hemiplegia and left neglect No acute issues overnight Repeat CT head today showed stable right basal ganglia bleed with midline shift and edema on scheduled decadron and manitol IV Objective - Vital Signs/Intake and Output Vital Signs (last 24 hours): Temp Pulse Resp BP Pulse Ox 97.6 F 59 L 20 130/80 100 08/07/17 04:00 08/07/17 06:00 08/07/17 06:00 08/07/17 06:00 08/07/17 06:00 Intake and Output: 08/07/17 08/07/17 06:59 18:59 Intake Total 502 Balance 502 - Medications Medications: Current Medications Acetaminophen (Tylenol 650 Mg Supp) 650 mg [place] Q4 PRN PRN Reason: Headache Last Admin: 08/06/17 02:55 Dose: 650 mg Levetiracetam 500 mg/ Sodium (Chloride) 105 mls @ 105 mls/hr IVPB Q12 CYN Last Admin: 08/06/17 22:12 Dose: 105 mls/hr Mannitol (Mannitol) 37.5 gm IV Q8 CYN Last Admin: 08/07/17 01:45 Dose: 37.5 gm Pantoprazole Sodium (Protonix Inj) 40 mg IVP DAILY [facility] Last Admin: 08/06/17 10:33 Dose: 40 mg - Labs Labs: 08/07/17 04:45 08/07/17 04:45 PT 11.3 Seconds (9.8-13.1) 08/05/17 23:47 INR 1.0 (0.9-1.2) 08/05/17 23:47 APTT 25.4 Seconds (25.6-37.1) L 08/05/17 23:47 - Constitutional Appears: No Acute Distress - Head Exam Head Exam: ATRAUMATIC, NORMOCEPHALIC - Eye Exam Eye Exam: EOMI Additional comments: right pupil sluggish - ENT Exam ENT Exam: Mucous Membranes Moist, Normal Exam - Neck Exam Neck Exam: Full ROM, Normal Inspection - Respiratory Exam Respiratory Exam: Clear to Ausculation Bilateral, NORMAL BREATHING PATTERN. absent: Rales, Rhonchi, Wheezes - Cardiovascular Exam Cardiovascular Exam: REGULAR RHYTHM, RRR, +S1, +S2. absent: JVD - GI/Abdominal Exam GI & Abdominal Exam: Soft, Normal Bowel Sounds. absent: Distended, Guarding, Tenderness, Rebound - Rectal Exam Rectal Exam: Deferred - Extremities Exam Extremities Exam: Full ROM, Normal Capillary Refill, Normal Inspection. absent : Pedal Edema - Neurological Exam Neurological Exam: Alert, Awake Additional comments: left facial droop left hemiplegia left neglect - Psychiatric Exam Psychiatric exam: Flat Affect - Skin Skin Exam: Dry, Normal Color, Warm Assessment and Plan - Assessment and Plan (Free Text) Assessment: 46 years old female with no significant past medical history , brought to the ED with less than one hour of new unset headache and left side weakness. According to the friend the patient was at a libertarian when she complained of headache. She fell to the ground with nausea and vomits. The EMS noted that she had a right gaze, left facial droop and left side weakness. In the ED she was alert but not answering questioning and her NIHSS was 13.CT head showed right basal ganglia bleed. Neurology , neurosurgery and neuro internationalist were consulted. repeat Ct head showed increased bleed with edema and midline shift CTA head and neck showed no aneurysmal dilatation nor AVM MRI showed no underlying lesion At present in ICU . hemodynamically stable, with left hemiplegia and neglect, on manitol and decadron IV 1.Right basal ganglia Hemorrhagic CVA with left Hemiplegia after sudden headache with edema and midline shift with left hemiplegia and neglect CTA head and neck showing no aneurysm , no AVM Repeat CT head showed increased bleed , edema and midline shift received 2 unit FFP Neuro, neurosurgery and interventional neuro consulted. patient is not a candidate for any surgery or intervention MRI showed no underlying lesion Started on Decadron and manitol IV Continue neurochecks, icu monitoring Check serum Osm Q4 hours and urine output Started Keppra for seizure prophylaxis passed swallow eval Start PT Avoid any ASa, anticoagulations 2. DVt prophylaxis SCD 3. Stress Ulcer prophylaxis with Pantoprazole
--- NOTE | 2017-08-07 07:40 | CP.CCUPN ---
CCU Subjective - Physician Review Events Since Last Encounter (Free Text): 08/07/17 13:49 The patient was Seen/interviewed and examined by me at the bedside during ICU round, Medical records reviewed and Management issues were discussed and formulated with the house staff. Events reviewed Doing better, Awake, Evaluated by Joseph therepist, pt passed swallow evaluation Evaluated by PT/OT No Vasopressors Awake, comfortable, NAD No neuro deficits, Alert, follows commands Scheduled for 2 units of FFP Scheduled for repeat CT head CCU Objective - Vital Signs / Intake & Output Vital Signs (Last 4 hours): Vital Signs Temp Pulse Resp BP Pulse Ox 08/07/17 06:00 59 L 20 130/80 100 08/07/17 04:00 97.6 F 89 32 H 120/63 99 Intake and Output (Last 8hrs): Intake & Output 08/06/17 08/07/17 08/07/17 22:59 06:59 14:59 Intake Total 814 502 Output Total 500 700 Balance 314 -198 Intake: IV 264 352 Intake, Piggyback 250 150 Blood Product 300 Output: Urine 500 700 Urethral ([place]jon) 500 700 - Physical Exam Physical Exam Limitations: Positive for: Altered Mental Status Head: Positive for: Atraumatic, Normocephalic Pupils: Positive for: PERRL Extroacular Muscles: Positive for: EOMI Conjunctiva: Positive for: Normal. Negative for: Injected, Icteric Nose (Internal): Positive for: Normal Inspection Neck: Positive for: Normal Range of Motion, Trachea Midline. Negative for: Meningeal Signs, MIDLINE TENDERNESS, Paraspinal Tenderness, JVD, Lymphadenopathy , Bruit, Other Respiratory/Chest: Positive for: Clear to Auscultation, Good Air Exchange. Negative for: Respiratory Distress, Accessory Muscle Use, Decreased Breath Sounds, Rales, Retracting, Rhonchi Cardiovascular: Positive for: Regular Rate and Rhythm, Normal S1, S2, Peripheal Pulses Present. Negative for: Murmurs, Irregular Rhythm, Tachycardic, Bradycardic Abdomen: Positive for: Normal Bowel Sounds. Negative for: Tenderness, Distention Back: Positive for: Normal Inspection. Negative for: CVA Tenderness, Midline Tenderness Upper Extremity: Positive for: Normal Inspection, NORMAL PULSES. Negative for: Cyanosis, Edema, Normal ROM Lower Extremity: Positive for: Normal Inspection, NORMAL PULSES. Negative for: Edema, CALF TENDERNESS Neurological: Negative for: Motor Func Grossly Intact (Left hemiparesis), Normal Sensory Function - Medications Active Medications: Active Medications Generic Name Dose Route Start Last Admin Trade Name Freq PRN Reason Stop Dose Admin Acetaminophen 650 mg 08/06/17 02:01 08/06/17 02:55 Tylenol 650 Mg Supp [place] 650 mg Q4 PRN Administration Headache Levetiracetam 500 mg/ Sodium 105 mls @ 105 mls/hr 08/06/17 21:00 08/06/17 22: 12 Chloride IVPB 105 mls/hr Q12 CYN Administration Mannitol 37.5 gm 08/06/17 17:00 08/07/17 01:45 Mannitol IV 37.5 gm Q8 CYN Administration Pantoprazole Sodium 40 mg 08/06/17 09:00 08/06/17 10:33 Protonix Inj IVP 40 mg DAILY CYN Administration - Patient Studies Lab Studies: Lab Studies 08/07/17 08/07/17 08/06/17 Range/Units 04:45 04:45 09:30 WBC 9.5 (4.8-10.8) K/uL RBC 4.31 (3.80-5.20) Mil/uL Hgb 13.4 (12.0-16.0) g/dL Hct 39.8 (34.0-47.0) % MCV 92.5 (81.0-99.0) fl MCH 31.2 H (27.0-31.0) pg MCHC 33.7 (33.0-37.0) g/dL RDW 13.9 (11.5-14.5) % Plt Count 186 (130-400) K/uL Sodium 143 (132-148) mmol/l Potassium 3.7 (3.6-5.0) MMOL/L Chloride 105 (98-107) mmol/L Carbon Dioxide 23 (22-30) mmol/L Anion Gap 19 (10-20) BUN 8 (7-17) mg/dl Creatinine 0.4 L (0.7-1.2) mg/dl Est GFR ( Amer) > 60 Est GFR (Non-Af Amer) > 60 Random Glucose 114 H (65-105) mg/dL Calcium 8.6 (8.4-10.2) mg/dL RPR (NONREACTIVE) Blood Type Blood Type Confirm O POSITIVE Antibody Screen BBK History Checked 08/06/17 08/06/17 Range/Units 09:29 06:15 WBC (4.8-10.8) K/uL RBC (3.80-5.20) Mil/uL Hgb (12.0-16.0) g/dL Hct (34.0-47.0) % MCV (81.0-99.0) fl MCH (27.0-31.0) pg MCHC (33.0-37.0) g/dL RDW (11.5-14.5) % Plt Count (130-400) K/uL Sodium (132-148) mmol/l Potassium (3.6-5.0) MMOL/L Chloride (98-107) mmol/L Carbon Dioxide (22-30) mmol/L Anion Gap (10-20) BUN (7-17) mg/dl Creatinine (0.7-1.2) mg/dl Est GFR ( Amer) Est GFR (Non-Af Amer) Random Glucose (65-105) mg/dL Calcium (8.4-10.2) mg/dL RPR Nonreactive (NONREACTIVE) Blood Type O POSITIVE Blood Type Confirm Antibody Screen Negative BBK History Checked No verified bt Laboratory Results - last 24 hr 08/06/17 08/06/17 08/06/17 06:15 09:29 09:30 WBC RBC Hgb Hct MCV MCH MCHC RDW Plt Count Sodium Potassium Chloride Carbon Dioxide Anion Gap BUN Creatinine Est GFR ( Amer) Est GFR (Non-Af Amer) Random Glucose Calcium RPR Nonreactive Blood Type O POSITIVE Blood Type Confirm O POSITIVE Antibody Screen Negative BBK History Checked No verified bt 08/07/17 08/07/17 04:45 04:45 WBC 9.5 RBC 4.31 Hgb 13.4 Hct 39.8 MCV 92.5 MCH 31.2 H MCHC 33.7 RDW 13.9 Plt Count 186 Sodium 143 Potassium 3.7 Chloride 105 Carbon Dioxide 23 Anion Gap 19 BUN 8 Creatinine 0.4 L Est GFR ( Amer) > 60 Est GFR (Non-Af Amer) > 60 Random Glucose 114 H Calcium 8.6 RPR Blood Type Blood Type Confirm Antibody Screen BBK History Checked Fingerstick Blood Sugar Results: 109 Critical Care Progress Note - Nutrition Nutrition: Nutrition Category Date Time Status NPO Diet [DIET] Diets 08/06/17 Breakfast Active Assessment/Plan (1) Intracerebral bleed Current Visit: Yes Status: Acute Priority: High Comment: Scheduled for 2 units of FFP Scheduled for repeat CT head Physical and occupational therapies Speech therapies Continue Mannitol 37.5 gm IV Q8 Continue frequent neuro check (2) Prophylactic measure Current Visit: Yes Status: Acute Priority: Medium Comment: SCD Stress Ulcer prophylaxis with Pantoprazole
[2017-08-07] MEDS: levETIRAcetam 500 MG in Sodium Chloride 0.9% 100 ML IVPB SCH ×2 (08:47→21:54)
--- NOTE | 2017-08-07 09:10 | CP.PCM.PN ---
Subjective - Date & Time of Evaluation Date of Evaluation: 08/07/17 Time of Evaluation: 09:09 - Subjective Subjective: Ms. Lobo was seen and examined at the bedside in ICU. She is awake, able to answer yes and no to some questions. She claims of experiencing headache in the right side of her head, non-radiating, with pain scale 7/10, pressure-like in character. She denies any blurred vision, but left sided neglect, positive dolls eyes, left facial droop,left sided plegia, 0/0, arm and leg. There is no finger or toe movement on the left side. Her pupils are 3 mm with the left eye brisk in response and right eye is very sluggish. She is able to follow some commands such as raising her right side extremities. There was no untoward events overnight. Objective - Vital Signs/Intake and Output Vital Signs (last 24 hours): Temp Pulse Resp BP Pulse Ox 98.9 F 62 20 120/75 98 08/07/17 08:00 08/07/17 08:00 08/07/17 06:00 08/07/17 08:00 08/07/17 08:00 Intake and Output: 08/07/17 08/07/17 06:59 18:59 Intake Total 590 Output Total 700 Balance -110 - Medications Medications: Current Medications Acetaminophen (Tylenol 650 Mg Supp) 650 mg RI Q4 PRN PRN Reason: Headache Last Admin: 08/06/17 02:55 Dose: 650 mg Levetiracetam 500 mg/ Sodium (Chloride) 105 mls @ 105 mls/hr IVPB Q12 [facility] Last Admin: 08/07/17 08:47 Dose: 105 mls/hr Mannitol (Mannitol) 37.5 gm IV Q8 CYN Last Admin: 08/07/17 08:48 Dose: 37.5 gm Pantoprazole Sodium (Protonix Inj) 40 mg IVP DAILY [facility] Last Admin: 08/07/17 08:49 Dose: 40 mg - Labs Labs: 08/07/17 04:45 08/07/17 04:45 PT 11.3 Seconds (9.8-13.1) 08/05/17 23:47 INR 1.0 (0.9-1.2) 08/05/17 23:47 APTT 25.4 Seconds (25.6-37.1) L 08/05/17 23:47 - Constitutional Appears: No Acute Distress - Head Exam Head Exam: NORMAL INSPECTION - Eye Exam Pupil Exam: Irregular Additional comments: left eye- brisk in response and right eye very sluggish. Assessment and Plan (1) Intracerebral bleed Assessment & Plan: Case discussed with Dr. Ribeiro, continue all current medical, physical, occupational, and speech therapies. Pending results of repeat CT scan of the head. Recommend EEG. Recommend blood pressure control with systolic blood pressure not above 160 and diastolic blood pressure not above 110. Status: Acute (2) Headache Assessment & Plan: Case discussed with Dr. Ribeiro, recommend Magnesium 2 gms IVPB for one dose. The patient is receiving schedule dexamethasone dose. Recommend to repeat CT scan of the head if the headache worsen. Status: Acute
[2017-08-07] MEDS ORDERED: Magnesium Sulfate 2 gm/50 ml 2 GM/50 ML BAG IVPB ONE (09:17)
--- NOTE | 2017-08-07 09:41 | CT ---
PROCEDURE: CT HEAD WITHOUT CONTRAST. HISTORY: follow hemorrhagic CVA COMPARISON: Unenhanced head CT 08/06/2017 TECHNIQUE: Axial computed tomography images were obtained through the head/brain without intravenous contrast. Radiation dose: Total exam DLP = 858.86 mGy-cm. This CT exam was performed using one or more of the following dose reduction techniques: Automated exposure control, adjustment of the mA and/or kV according to patient size, and/or use of iterative reconstruction technique. FINDINGS: HEMORRHAGE: Right basal ganglia intraparenchymal hemorrhage is again identified and measures 4.8 x 3.1 x 4.5 cm (anteroposterior by transverse by superoinferior dimensions). Limited leftward midline shift is again appreciated of 5.6 mm compared to 7 mm previously, not significantly changed. Mild local edema is appreciated once again with partial face of the right lateral ventricle and 3rd ventricle. Right cerebral hemisphere diminished sulcation persists reflecting relatively limited but widespread mass effect at the right cerebral hemisphere. BRAIN: Basilar cisterns remain adequately patent. No interval brain parenchymal findings appreciated at this time. VENTRICLES: Unremarkable. No hydrocephalus. CALVARIUM: Unremarkable. PARANASAL SINUSES: Unremarkable as visualized. No significant inflammatory changes. MASTOID AIR CELLS: Unremarkable as visualized. No inflammatory changes. OTHER FINDINGS: None. IMPRESSION: Stable right basal ganglia intraparenchymal hemorrhage with local edema and mass effect as described above. Possibly diminished leftward midline shift stable. No significant interval change in volume of hemorrhagic collection or extent of mass effect.
--- NOTE | 2017-08-07 10:03 | CT ---
PROCEDURE: CT Angiography of the Brain. HISTORY: Hemorrhagic CVA COMPARISON: None available. TECHNIQUE: CT angiography of the intracranial and cervical arteries was performed. Coronal and sagittal maximum intensity projection reformated images were generated. Contrast Dose: Omnipaque 300, 98 cc Radiation dose:Total exam DLP = 497.68 mGy-cm. This CT exam was performed using one or more of the following dose reduction techniques: Automated exposure control, adjustment of the mA and/or kV according to patient size, and/or use of iterative reconstruction technique. FINDINGS: INTERNAL CEREBRAL ARTERIES: Unremarkable. The bilateral skull base, petrous, cavernous and left supraclinoid segment are widely patent. A 2 mm aneurysm is difficult to differentiate from potential infundibulum of a branching artery related to the inferior margins of the right ICA supraclinoid segment. ANTERIOR CEREBRAL ARTERIES: Unremarkable. A1 and A2 segments are widely patent. Smaller distal branches unremarkable, as visualized. MIDDLE CEREBRAL ARTERIES: Unremarkable. M1 and M2 segments are widely patent. Perisylvian branches grossly symmetric. POSTERIOR CIRCULATION: Basilar Artery: Unremarkable. Distal Vertebral Arteries: Unremarkable. Posterior Cerebral Arteries: Unremarkable. Posterior Inferior Cerebellar Arteries: Unremarkable. NECK CTA: Common Carotid arteries: The bilateral common carotid appear widely patent from their origins to their bifurcations with no significant stenosis appreciated. No evidence to suggest common carotid artery dissection. Internal Carotid arteries: No significant stenosis is appreciated throughout the cervical internal carotid artery segments bilaterally and there is no evidence of dissection either. External Carotid arteries: Appear unremarkable bilaterally. Vertebral arteries: The bilateral vertebral arteries appear normal in caliber from their origins to their junction with the basilar artery. No significant stenosis or definite pattern of dissection. ANEURYSM/ VASCULAR MALFORMATIONS: None. OTHER FINDINGS: None. IMPRESSION: Potential 2 mm supraclinoid right ICA segment aneurysm versus infundibulum of a branching artery. Remainder the intracranial CT angiogram appears normal. This was not be considered at the origin of the patient's intracranial hemorrhage right basal ganglia. Unremarkable CT Angiography of the Neck. Concordant preliminary report from [facility], 08/06/2017.
--- NOTE | 2017-08-07 11:38 | MRI ---
PROCEDURE: MRI of the brain dated 08/06/2017 1st HISTORY: Rule out aneurysm COMPARISON: Comparison made with concurrent MRA of the brain and prior CT scan and CTA of the brain both dated 08/06/2017. TECHNIQUE: Multiplanar, multisequence MR images of the brain were obtained with and without intravenous contrast enhancement. Approximately 13 cc of Omniscan contrast material injected for this examination FINDINGS: HEMORRHAGE: Re- demonstrated is a large (approximately 5.2 x 3.5 x 4.5 cm) elliptical shaped hemorrhage located within the epicenter of which appears to be located in the right basal ganglia. There is a small intra hemorrhage fluid levels which can be seen in a coagulopathy and therefore clinical correlation recommended. History history of bleeding diathesis in this patient? . Clinical correlation recommended. The hemorrhage and a thin rim of surrounding edema exert considerable mass effect with overlying sulcal effacement and compression of the right lateral ventricle which is shifted to the right of midline. Septum pellucidum is shifted from right to left by approximately 7.3 mm. No obstructive hydrocephalus. No evidence of underlying abnormal enhancement. There are no additional hemorrhages. There are multiple tiny focal areas of nonspecific nonenhancing increased T2 signal scattered about the subcortical white matter both frontal lobes ; rule out sequela of small vessel disease. . Differential diagnosis would include sequela of migraine headache, old trauma, post infectious/inflammatory etiologies. Atypical presentation of a demyelinating disease process would be less likely in the absence of a pertinent clinical history however not completely excluded. DWI: No evidence of an acute or early subacute infarction seen on diffusion imaging. . BRAIN PARENCHYMA: No mass,mass effect or edema. No atrophy or chronic microvascular ischemic changes. ENHANCEMENT: No abnormal intracranial enhancement. VENTRICLES: Unremarkable. No hydrocephalus. CRANIUM: Unremarkable. ORBITS: Grossly unremarkable. PARANASAL SINUSES/MASTOIDS: Clear VASCULAR SYSTEM: Skull base flow voids intact. OTHER FINDINGS: None . IMPRESSION: Large elliptical shaped hemorrhage right basal ganglia with fluid fluid level ; is there a history of coagulopathy in this patient? . The hematoma and its attendant surrounding edema exert considerable mass effect with overlying sulcal effacement and compression of the right lateral ventricle with mild shift of the septum pellucidum from right to left as above. Multiple small nonspecific nonenhancing foci of increased T2 signal scattered about the subcortical white matter both frontal lobes of uncertain etiology though changes may represent sequela of small vessel disease. . See above discussion for additional differential diagnostic considerations
--- NOTE | 2017-08-07 12:40 | MRI ---
PROCEDURE: Magnetic Resonance Angiography Brain HISTORY: intracranial bleed COMPARISON: None available. TECHNIQUE: 3D time of flight MR angiography of the intracranial arteries was performed. Rotating maximum intensity projection images were generated. FINDINGS: INTERNAL CAROTID ARTERIES: The skull base, petrous, cavernous and right supraclinoid segments are bilaterally widely patient. However, it remains difficult to exclude a small 2 mm aneurysm at the inferoposterior intracranial left ICA segment. A small vessel may be extending inferiorly off this segment of the left ICA and therefore this may represent a small infundibulum. ANTERIOR CEREBRAL ARTERIES: Unremarkable. A1 and A2 segments are widely patent. Smaller distal branches unremarkable, as visualized. MIDDLE CEREBRAL ARTERIES: Unremarkable. M1 and M2 segments are widely patent. Perisylvian branches grossly symmetric. POSTERIOR CIRCULATION: Basilar Artery: Unremarkable. Distal Vertebral Arteries: Unremarkable. Posterior Cerebral Arteries: Unremarkable. Posterior Inferior Cerebellar Arteries: Unremarkable. ANEURYSM/ VASCULAR MALFORMATIONS: None. OTHER FINDINGS: None. IMPRESSION: A small 2 mm aneurysm is difficult to exclude at the intracranial left ICA segment just proximal to its bifurcation though this may represent an infundibulum. This is separate from the area of hemorrhage at the right basal ganglia ganglia epicenter a follow-up Digital Subtraction Angiography is advised for more definitive diagnosis here. The remainder the examination is unremarkable.
[2017-08-07] MEDS: Acetaminophen 650mg/20.3ml solution UD PO PRN ×2 (16:46→22:57)
[2017-08-07] MEDS: Metoclopramide 10 mg/10 ml Cup PO SCH (21:54)
[2017-08-08] MEDS: Dextrose 5%/0.9% NS 1,000 ML IV SCH (00:25)
[2017-08-08] MEDS: Mannitol 12.5 gm/50 ml Inj IV SCH ×3 (02:15→20:08)
[2017-08-08 05:32] LABS: HEMOGLOBIN 12.4 g/dL (12.0-16.0); MEAN CELL VOLUME 93.2 fl (81.0-99.0); MEAN CORPUSCULAR HEMOGLOBIN 31.3 pg (27.0-31.0); MEAN CORPUSCULAR HGB CONC 33.5 g/dL (33.0-37.0); RBC 3.95 Mil/uL (3.80-5.20); RED CELL DISTRIBUTION WIDTH 13.7 % (11.5-14.5); WHITE BLOOD COUNT 5.9 K/uL (4.8-10.8)
[2017-08-08 05:35] LABS: BLOOD UREA NITROGEN 7 mg/dl (7-17); CALCIUM 8.3 mg/dL (8.4-10.2); GFR AFRICAN-AMERICAN > 60; GFR NON-AFRICAN AMERICAN > 60
[2017-08-08] MEDS: Metoclopramide 10 mg/10 ml Cup PO SCH ×4 (06:57→21:57)
--- NOTE | 2017-08-08 08:54 | CP.CCUPN ---
CCU Subjective - Physician Review Events Since Last Encounter (Free Text): 08/08/17 16:44 The patient was Seen/interviewed and examined by me at the bedside during ICU round, Medical records reviewed and Management issues were discussed and formulated with the house staff. Events reviewed Doing better, Hemodynamically stable No Vasopressors More Awake, comfortable, NAD No neuro deficits, Alert, follows commands One episode of c/o headache 10/29 at 2257 AM, resolved by Tylenol 650mg susp Evaluated by Joseph molina, pt passed swallow evaluation, Tolerating Dysphagia diet Evaluated by Physical and Occupational therapy Received 2 more units of FFP yesterday Scheduled for repeat CT head # 4 today Patient is a candidate for [facility] CCU Objective - Vital Signs / Intake & Output Vital Signs (Last 4 hours): Vital Signs Temp Pulse Resp BP Pulse Ox 08/08/17 08:00 98.9 F 71 18 130/76 99 08/08/17 06:00 64 10 L 125/76 100 Intake and Output (Last 8hrs): Intake & Output 08/07/17 08/08/17 08/08/17 22:59 06:59 14:59 Intake Total 752 502 Output Total 200 1000 Balance 552 -498 Intake: IV 352 352 Intake, Piggyback 250 150 Oral 150 Output: Urine 200 1000 Urethral ([place]) 200 1000 - Physical Exam Head: Positive for: Atraumatic, Normocephalic Pupils: Positive for: PERRL Extroacular Muscles: Positive for: EOMI Conjunctiva: Positive for: Normal. Negative for: Injected, Icteric Nose (Internal): Positive for: Normal Inspection Neck: Positive for: Normal Range of Motion, Trachea Midline. Negative for: Meningeal Signs, MIDLINE TENDERNESS, Paraspinal Tenderness, JVD, Lymphadenopathy , Bruit, Other Respiratory/Chest: Positive for: Clear to Auscultation, Good Air Exchange. Negative for: Respiratory Distress, Accessory Muscle Use, Decreased Breath Sounds, Rales, Retracting, Rhonchi Cardiovascular: Positive for: Regular Rate and Rhythm, Normal S1, S2, Peripheal Pulses Present. Negative for: Murmurs, Irregular Rhythm, Tachycardic, Bradycardic Abdomen: Positive for: Normal Bowel Sounds. Negative for: Tenderness, Distention Back: Positive for: Normal Inspection. Negative for: CVA Tenderness, Midline Tenderness Upper Extremity: Positive for: Normal Inspection, NORMAL PULSES. Negative for: Cyanosis, Edema, Normal ROM Lower Extremity: Positive for: Normal Inspection, NORMAL PULSES. Negative for: Edema, CALF TENDERNESS Neurological: Negative for: Motor Func Grossly Intact (Left hemiparesis), Normal Sensory Function - Medications Active Medications: Active Medications Generic Name Dose Route Start Last Admin Trade Name Freq PRN Reason Stop Dose Admin Acetaminophen 650 mg 08/07/17 16:39 08/07/17 22:57 Tylenol 650mg/20.3ml Solution Ud PO 650 mg Q4 PRN Administration Headache Levetiracetam 500 mg/ Sodium 105 mls @ 105 mls/hr 08/06/17 21:00 08/07/17 21: 54 Chloride IVPB 105 mls/hr Q12 CYN Administration Mannitol 37.5 gm 08/06/17 17:00 08/08/17 02:15 Mannitol IV 37.5 gm Q8 CYN Administration Metoclopramide HCl 10 mg 08/07/17 22:00 08/08/17 06:57 Reglan PO 10 mg ACHS CYN Administration Pantoprazole Sodium 40 mg 08/06/17 09:00 08/07/17 08:49 Protonix Inj IVP 40 mg DAILY CYN Administration Potassium Chloride 40 meq 08/08/17 09:00 Potassium Chloride Oral Soln PO 08/08/17 09:01 ONCE ONE - Patient Studies Lab Studies: Microbiology Studies 08/06/17 17:29 MRSA Culture (Admit) - Final Nose MRSA NOT DETECTED Lab Studies 08/08/17 08/08/17 08/07/17 Range/Units 04:45 04:45 16:43 WBC 5.9 (4.8-10.8) K/uL RBC 3.95 (3.80-5.20) Mil/uL Hgb 12.4 (12.0-16.0) g/dL Hct 36.9 (34.0-47.0) % MCV 93.2 (81.0-99.0) fl MCH 31.3 H (27.0-31.0) pg MCHC 33.5 (33.0-37.0) g/dL RDW 13.7 (11.5-14.5) % Plt Count 163 (130-400) K/uL Sodium 143 (132-148) mmol/l Potassium 3.3 L (3.6-5.0) MMOL/L Chloride 108 H (98-107) mmol/L Carbon Dioxide 24 (22-30) mmol/L Anion Gap 14 (10-20) BUN 7 (7-17) mg/dl Creatinine 0.4 L (0.7-1.2) mg/dl Est GFR ( Amer) > 60 Est GFR (Non-Af Amer) > 60 Random Glucose 100 (65-105) mg/dL Serum Osmolality 294 (272-300) mosm/kg Calcium 8.3 L (8.4-10.2) mg/dL Laboratory Results - last 24 hr 08/07/17 08/08/17 08/08/17 16:43 04:45 04:45 WBC 5.9 RBC 3.95 Hgb 12.4 Hct 36.9 MCV 93.2 MCH 31.3 H MCHC 33.5 RDW 13.7 Plt Count 163 Sodium 143 Potassium 3.3 L Chloride 108 H Carbon Dioxide 24 Anion Gap 14 BUN 7 Creatinine 0.4 L Est GFR ( Amer) > 60 Est GFR (Non-Af Amer) > 60 Random Glucose 100 Serum Osmolality 294 Calcium 8.3 L Fingerstick Blood Sugar Results: 109 Critical Care Progress Note - Nutrition Nutrition: Nutrition Category Date Time Status Dysphagia/Modified Consistency Diet [DIET] Diets 08/07/17 Lunch Active Assessment/Plan (1) Intracerebral bleed Current Visit: Yes Status: Acute Priority: High Comment: Scheduled for 2 units of FFP Scheduled for repeat CT head Physical and occupational therapies Speech therapies Continue Mannitol 37.5 gm IV Q8 Continue frequent neuro check (2) Prophylactic measure Current Visit: Yes Status: Acute Priority: Medium Comment: SCD Stress Ulcer prophylaxis with Pantoprazole
[2017-08-08] MEDS ORDERED: Potassium Chloride 20 mEq/15 ml LIQ UD PO ONE (09:00)
[2017-08-08] MEDS: levETIRAcetam 500 MG in Sodium Chloride 0.9% 100 ML IVPB SCH ×2 (09:02→20:09)
[2017-08-08] MEDS ORDERED: Iohexol 300 100 ML IJ ONE (12:41)
--- NOTE | 2017-08-08 12:48 | CP.PCM.PN ---
Subjective - Date & Time of Evaluation Date of Evaluation: 08/08/17 Time of Evaluation: 12:00 - Subjective Subjective: no fever lethargic responds appropriately to questions oriented x 3 denies headache has left sided weakness denies CP no SOB no abd pain Objective - Vital Signs/Intake and Output Vital Signs (last 24 hours): Temp Pulse Resp BP Pulse Ox 98.7 F 89 20 100/56 L 100 08/08/17 12:00 08/08/17 12:00 08/08/17 12:00 08/08/17 12:00 08/08/17 12:00 Intake and Output: 08/08/17 08/08/17 06:59 18:59 Intake Total 778 870 Output Total 1000 500 Balance -222 370 - Medications Medications: Current Medications Acetaminophen (Tylenol 650mg/20.3ml Solution Ud) 650 mg PO Q4 PRN PRN Reason: Headache Last Admin: 08/07/17 22:57 Dose: 650 mg Levetiracetam 500 mg/ Sodium (Chloride) 105 mls @ 105 mls/hr IVPB Q12 [facility] Last Admin: 08/08/17 09:02 Dose: 105 mls/hr Mannitol (Mannitol) 37.5 gm IV Q8 CYN Last Admin: 08/08/17 09:02 Dose: 37.5 gm Metoclopramide HCl (Reglan) 10 mg PO ACHS [facility] Last Admin: 08/08/17 06:57 Dose: 10 mg Pantoprazole Sodium (Protonix Inj) 40 mg IVP DAILY [facility] Last Admin: 08/08/17 09:03 Dose: 40 mg - Labs Labs: 08/08/17 04:45 08/08/17 04:45 PT 11.3 Seconds (9.8-13.1) 08/05/17 23:47 INR 1.0 (0.9-1.2) 08/05/17 23:47 APTT 25.4 Seconds (25.6-37.1) L 08/05/17 23:47 - Constitutional Appears: No Acute Distress - Head Exam Head Exam: NORMAL INSPECTION, NORMOCEPHALIC - Eye Exam Eye Exam: EOMI, Normal appearance, PERRL Pupil Exam: NORMAL ACCOMODATION - Neck Exam Neck Exam: Full ROM. absent: Meningismus - Respiratory Exam Respiratory Exam: NORMAL BREATHING PATTERN. absent: Respiratory Distress - Cardiovascular Exam Cardiovascular Exam: REGULAR RHYTHM, +S1, +S2 - GI/Abdominal Exam GI & Abdominal Exam: Soft, Normal Bowel Sounds. absent: Tenderness - Extremities Exam Extremities Exam: Normal Capillary Refill. absent: Calf Tenderness, Pedal Edema - Neurological Exam Neurological Exam: Awake, Oriented x3 Neuro motor strength exam: Left Upper Extremity: 0, Right Upper Extremity: 5, Left Lower Extremity: 0, Right Lower Extremity: 5 Additional comments: lethargic dysarthric but comprehensible - Psychiatric Exam Psychiatric exam: Flat Affect - Skin Skin Exam: Dry, Normal Color, Warm Assessment and Plan - Assessment and Plan (Free Text) Assessment: 46 years old female with no significant past medical history , brought to the ED with less than one hour of new onset headache and left side weakness. According to the friend the patient was at a [employer] when she complained of headache. She fell to the ground had nausea and vomited. The EMS noted that she had a right gaze, left facial droop and left side weakness. In the ED she was alert but not answering questions and her NIHSS was 13. CT head showed right basal ganglia bleed. 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 after sudden headache with edema and midline shift with left hemiplegia and neglect CTA head and neck showing no aneurysm , no AVM Repeat CT head 08/07 showed increased bleed , edema and midline shift- today rpt CT of head did not show any change received 2 unit FFP Neuro, neurosurgery and interventional neuro consulted - patient is not a candidate for any surgery or intervention MRI showed no underlying lesion cont Mannitol IV and IV Decadron Continue neurochecks, icu monitoring Check serum Osm Q4 hours and urine output cont Keppra for seizure prophylaxis passed Swallow eval, tolerating diet Avoid any ASa, anticoagulations Physical, Occupational and Speech therapy 2. DVt prophylaxis SCD - no anticoag sec to bleed 3. Stress Ulcer prophylaxis with Pantoprazole
--- NOTE | 2017-08-08 13:57 | CT ---
PROCEDURE: CT HEAD WITHOUT CONTRAST. HISTORY: subfalcine shift monitoring COMPARISON: 08/05/2017 CT head, 08/06/2018 CT head and MRI brain, 08/07/2017 CT head TECHNIQUE: Axial computed tomography images were obtained through the head/brain without intravenous contrast. Radiation dose: Total exam DLP = 860.78 mGy-cm. This CT exam was performed using one or more of the following dose reduction techniques: Automated exposure control, adjustment of the mA and/or kV according to patient size, and/or use of iterative reconstruction technique. FINDINGS: HEMORRHAGE: Stable parenchymal hemorrhagic process right basal ganglia. BRAIN: Considerable edema, mass effect. Stable midline shift. No atrophy or chronic microvascular ischemic changes. VENTRICLES: Unremarkable. No hydrocephalus. CALVARIUM: Unremarkable. PARANASAL SINUSES: Unremarkable as visualized. No significant inflammatory changes. MASTOID AIR CELLS: Unremarkable as visualized. No inflammatory changes. OTHER FINDINGS: None. IMPRESSION: Stable, acute intracranial right basal ganglia hemorrhage with associated edema and midline shift. No appreciable interval change compared to the prior CT scan 08/07/2017.
[2017-08-08] MEDS: Dexamethasone 4 mg/1 ml IVP SCH (16:48)
[2017-08-09] MEDS: Dexamethasone 4 mg/1 ml IVP SCH ×3 (00:11→16:13)
[2017-08-09] MEDS: Mannitol 12.5 gm/50 ml Inj IV SCH ×3 (00:12→16:35)
[2017-08-09 05:28] LABS: BLOOD UREA NITROGEN 8 mg/dl (7-17); CALCIUM 9.1 mg/dL (8.4-10.2); GFR AFRICAN-AMERICAN > 60; GFR NON-AFRICAN AMERICAN > 60
[2017-08-09] MEDS: Metoclopramide 10 mg/10 ml Cup PO SCH ×4 (06:36→21:01)
--- NOTE | 2017-08-09 08:40 | CT ---
PROCEDURE: CT HEAD WITHOUT CONTRAST. HISTORY: hemorrhagic CVA COMPARISON: 08/08/2017 at 12:44 hours TECHNIQUE: Axial computed tomography images were obtained through the head/brain without intravenous contrast. Radiation dose: Total exam DLP = 782 mGy-cm. This CT exam was performed using one or more of the following dose reduction techniques: Automated exposure control, adjustment of the mA and/or kV according to patient size, and/or use of iterative reconstruction technique. FINDINGS: HEMORRHAGE: The large right intraparenchymal basal ganglionic centered hemorrhage/hematoma with prominent surrounding edema and approximately 6 to 7 mm leftward midline shift/ mass effect on the right lateral ventricle is similar appearing no interval areas of new please or definitive increased edema noted. A right ipsilateral sulci here are effaced. BRAIN: As above VENTRICLES: As above. No increased ventricular dilatation suggested CALVARIUM: Unremarkable. PARANASAL SINUSES: Unremarkable as visualized. No significant inflammatory changes. MASTOID AIR CELLS: Unremarkable as visualized. No inflammatory changes. OTHER FINDINGS: None. IMPRESSION: Large right basal ganglionic ganglionic centered hemorrhage/hematoma with similar prominent surrounding edema, mass effect on the right lateral ventricle and similar leftward midline shift.
--- NOTE | 2017-08-09 08:57 | CP.CCUPN ---
CCU Subjective - Physician Review Subjective (Free Text): Already returned from repeat CT Brain this AM (unable to view images due to PACS failure). Awake, and when asleep, easily arousable, no distress, speech still slightly slurred, + facial; droop and left hemiplegia persists. Other Vitals and I/Os reviewed. No Fever spikes overnight. ROS: No other pertinent negs or positives on 10+ system review. PMSFH: All other historical Nursing and physician documentation reviewed to date; no new pertinent info noted relevant to current medical problems. CT head unable to be accessed due to PACS failure. EXAM- HEENT: no icterus, no gaze preference, pupils equal and reactive, no icterus NECK: No JVD, supple, carotids equal upstroke bilat/no bruits CHEST: decreased BS bases, otherwise clear bilat, no wheezes audible HEART: regular distant, S1S2, no rubs. ABD: soft, no distention, no tympany, no palp tenderness, BS hypoactive EXT: No edema. No peripheral/ digital cyanosis, no calf tenderness or palpable cords, distal pulses intact and symmetrical. NEURO: as above, Left hemiplegia, some spontaneous withdrawal of LUE to pain, Left facial asymmetry SKIN: no rashes, warm and dry. LABS: CBC yesterday: WBC= 5.9 HGB= 12.4 PLTs= 163K Na= 144 K= 4.0 CL= 108 HCO3= 22 BUN/Cr= 8/0.4 BS= 144 Serum Osmo 291 yesterday MAJOR PROBLEMS: 1. R basal ganglia ICH with local edema and midline shift 2. ICH etiology TBD PLAN: 1. Awaiting on this AMs serum osmo regarding any need to attenuate Mannitol dosing. 2. Maintain Neurochecks, HOB elevation, Seizure precautions. Airway reflexes appear intact and she is tolerating PO diet. 3. Prophylactic AED and steroids as per Neuro. 4. No definitive etiological pathology seen on multiple brain imaging to account for R-sided ICH 5. Daily PT/ OT CCU Objective - Vital Signs / Intake & Output Vital Signs (Last 4 hours): Vital Signs Pulse Resp BP Pulse Ox 08/09/17 06:00 62 15 108/59 L 99 08/09/17 05:00 61 18 106/62 99 Intake and Output (Last 8hrs): Intake & Output 03/08/09/17 08/09/17 22:59 06:59 14:59 Intake Total 1408 596 Output Total 200 1200 Balance 1208 -604 Intake: IV 308 396 Intake, Piggyback 400 150 Oral 700 50 Output: Urine 200 1200 Urethral (Morejon) 200 1200 - Physical Exam Head: Positive for: Atraumatic, Normocephalic Pupils: Positive for: PERRL Extroacular Muscles: Positive for: EOMI Conjunctiva: Positive for: Normal. Negative for: Injected, Icteric Nose (Internal): Positive for: Normal Inspection Neck: Positive for: Normal Range of Motion, Trachea Midline. Negative for: Meningeal Signs, MIDLINE TENDERNESS, Paraspinal Tenderness, JVD, Lymphadenopathy , Bruit, Other Respiratory/Chest: Positive for: Clear to Auscultation, Good Air Exchange. Negative for: Respiratory Distress, Accessory Muscle Use, Decreased Breath Sounds, Rales, Retracting, Rhonchi Cardiovascular: Positive for: Regular Rate and Rhythm, Normal S1, S2, Peripheal Pulses Present. Negative for: Murmurs, Irregular Rhythm, Tachycardic, Bradycardic Abdomen: Positive for: Normal Bowel Sounds. Negative for: Tenderness, Distention Back: Positive for: Normal Inspection. Negative for: CVA Tenderness, Midline Tenderness Upper Extremity: Positive for: Normal Inspection, NORMAL PULSES. Negative for: Cyanosis, Edema, Normal ROM Lower Extremity: Positive for: Normal Inspection, NORMAL PULSES. Negative for: Edema, CALF TENDERNESS Neurological: Negative for: Motor Func Grossly Intact (Left hemiparesis), Normal Sensory Function - Medications Active Medications: Active Medications Generic Name Dose Route Start Last Admin Trade Name Freq PRN Reason Stop Dose Admin Acetaminophen 650 mg 08/07/17 16:39 08/07/17 22:57 Tylenol 650mg/20.3ml Solution Ud PO 650 mg Q4 PRN Administration Headache Dexamethasone 8 mg 08/08/17 17:00 08/09/17 00:11 Decadron Inj IVP 8 mg Q8 CYN Administration Levetiracetam 500 mg/ Sodium 105 mls @ 105 mls/hr 08/06/17 21:00 08/08/17 20: 09 Chloride IVPB 105 mls/hr Q12 CYN Administration Mannitol 37.5 gm 08/06/17 17:00 08/09/17 00:12 Mannitol IV 37.5 gm Q8 CYN Administration Metoclopramide HCl 10 mg 08/07/17 22:00 08/09/17 06:36 Reglan PO 10 mg ACHS CYN Administration Pantoprazole Sodium 40 mg 08/06/17 09:00 08/08/17 09:03 Protonix Inj IVP 40 mg DAILY CYN Administration - Patient Studies Lab Studies: Lab Studies 08/09/17 08/09/17 08/08/17 Range/Units 08:04 04:40 08:36 Sodium 144 (132-148) mmol/l Potassium 4.0 (3.6-5.0) MMOL/L Chloride 108 H (98-107) mmol/L Carbon Dioxide 22 (22-30) mmol/L Anion Gap 18 (10-20) BUN 8 (7-17) mg/dl Creatinine 0.4 L (0.7-1.2) mg/dl Est GFR ( Amer) > 60 Est GFR (Non-Af Amer) > 60 Random Glucose 144 H (65-105) mg/dL Serum Osmolality 293 291 (272-300) mosm/kg Calcium 9.1 (8.4-10.2) mg/dL Phosphorus 3.0 (2.5-4.5) mg/dl Magnesium 2.1 (1.6-2.3) MG/DL Laboratory Results - last 24 hr 08/08/17 08/09/17 08/09/17 08:36 04:40 08:04 Sodium 144 Potassium 4.0 Chloride 108 H Carbon Dioxide 22 Anion Gap 18 BUN 8 Creatinine 0.4 L Est GFR ( Amer) > 60 Est GFR (Non-Af Amer) > 60 Random Glucose 144 H Serum Osmolality 291 293 Calcium 9.1 Phosphorus 3.0 Magnesium 2.1 Fingerstick Blood Sugar Results: 109 Review of Systems - Review of Systems All systems: reviewed and no additional remarkable complaints except (as above) Critical Care Progress Note - Ventilator Checklist Head of Bed 30 Degrees: Yes - Extremities/Vascular Does the Patient have a Central Venous Catheter?: No Does the Patient need a Central Venous Catheter?: No Does the Patient have a [place] Catheter?: Yes Does the Patient need a [place] Catheter?: Yes Catheter Insertion Criteria: Need for accurate measurement of output in critically ill patient - Prophylaxis GI Prophylaxis GI: PPI - Prophylaxis DVT Prophylaxis DVT: SCDs - Nutrition Nutrition: Nutrition Category Date Time Status Dysphagia/Modified Consistency Diet [DIET] Diets 08/07/17 Lunch Active
[2017-08-09] MEDS: levETIRAcetam 500 MG in Sodium Chloride 0.9% 100 ML IVPB SCH ×2 (09:26→20:30)
--- NOTE | 2017-08-09 11:33 | CP.PCM.PN ---
Subjective - Date & Time of Evaluation Date of Evaluation: 08/09/17 Time of Evaluation: 11:00 - Subjective Subjective: Pt seem better today , more alert follows commands she was sitted on a chair Left sided weakness Daughter at bedside - updated regarding test results and treatment plan denies CP no SOB no abd pain Tolerating Po diet Objective - Vital Signs/Intake and Output Vital Signs (last 24 hours): Temp Pulse Resp BP Pulse Ox 98.4 F 86 17 111/66 99 08/09/17 08:00 08/09/17 10:00 08/09/17 10:00 08/09/17 10:00 08/09/17 10:00 Intake and Output: 08/09/17 08/09/17 06:59 18:59 Intake Total 1028 1044 Output Total 1200 200 Balance -172 844 - Medications Medications: Current Medications Acetaminophen (Tylenol 650mg/20.3ml Solution Ud) 650 mg PO Q4 PRN PRN Reason: Headache Last Admin: 08/07/17 22:57 Dose: 650 mg Dexamethasone (Decadron Inj) 8 mg IVP Q8 [facility] Last Admin: 08/09/17 09:26 Dose: 8 mg Levetiracetam 500 mg/ Sodium (Chloride) 105 mls @ 105 mls/hr IVPB Q12 CYN Last Admin: 08/09/17 09:26 Dose: 105 mls/hr Mannitol (Mannitol) 37.5 gm IV Q8 [facility] Last Admin: 08/09/17 09:27 Dose: 37.5 gm Metoclopramide HCl (Reglan) 10 mg PO ACHS [facility] Last Admin: 08/09/17 06:36 Dose: 10 mg Pantoprazole Sodium (Protonix Inj) 40 mg IVP DAILY [facility] Last Admin: 08/09/17 09:27 Dose: 40 mg - Labs Labs: 08/08/17 04:45 08/09/17 04:40 PT 11.3 Seconds (9.8-13.1) 08/05/17 23:47 INR 1.0 (0.9-1.2) 08/05/17 23:47 APTT 25.4 Seconds (25.6-37.1) L 08/05/17 23:47 - Constitutional Appears: No Acute Distress - Head Exam Head Exam: NORMAL INSPECTION, NORMOCEPHALIC - Eye Exam Eye Exam: EOMI, Normal appearance, PERRL Pupil Exam: NORMAL ACCOMODATION - Neck Exam Neck Exam: Full ROM. absent: Meningismus - Respiratory Exam Respiratory Exam: NORMAL BREATHING PATTERN. absent: Respiratory Distress - Cardiovascular Exam Cardiovascular Exam: REGULAR RHYTHM, +S1, +S2 - GI/Abdominal Exam GI & Abdominal Exam: Soft, Normal Bowel Sounds. absent: Tenderness - Extremities Exam Extremities Exam: Normal Capillary Refill. absent: Calf Tenderness, Pedal Edema - Neurological Exam Neurological Exam: Awake, Oriented x3 Neuro motor strength exam: Left Upper Extremity: 0, Right Upper Extremity: 5, Left Lower Extremity: 0, Right Lower Extremity: 5 Additional comments: dysarthric but comprehensible - Psychiatric Exam Psychiatric exam: Flat Affect - Skin Skin Exam: Dry, Normal Color, Warm Assessment and Plan - Assessment and Plan (Free Text) Assessment: 46 years old female with no significant past medical history , brought to the ED with less than one hour of new onset headache and left side weakness. 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 She fell to the ground had nausea and vomited. The EMS noted that she had a right gaze, left facial droop and left side weakness. In the ED she was alert but not answering questions and her NIHSS was 13. CT head showed right basal ganglia bleed. 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 after sudden headache with edema and midline shift with left hemiplegia and neglect CTA head and neck showing no aneurysm , no AVM 08/[address] of head did not show any change received 2 unit FFP - Dr Ribeiro recs another 2 units FFP today since rpt CT did not show decrease in bleed ( unchanged) Neuro, neurosurgery and interventional neuro consulted - patient is not a candidate for any surgery or intervention MRI showed no underlying lesion cont Mannitol IV and IV Decadron Continue neurochecks, icu monitoring Check serum Osm Q4 hours and urine output cont Keppra for seizure prophylaxis passed Swallow eval, tolerating diet Avoid any ASa, anticoagulations Physical, Occupational and Speech therapy 2. DVt prophylaxis SCD - no anticoag sec to bleed 3. Stress Ulcer prophylaxis with Pantoprazole
[2017-08-10 05:36] LABS: HEMOGLOBIN 11.8 g/dL (12.0-16.0); MEAN CELL VOLUME 93.1 fl (81.0-99.0); MEAN CORPUSCULAR HGB CONC 33.2 g/dL (33.0-37.0); RBC 3.81 Mil/uL (3.80-5.20); RED CELL DISTRIBUTION WIDTH 13.5 % (11.5-14.5); WHITE BLOOD COUNT 13.3 K/uL (4.8-10.8)
[2017-08-10 05:52] LABS: BLOOD UREA NITROGEN 12 mg/dl (7-17); GFR AFRICAN-AMERICAN > 60; GFR NON-AFRICAN AMERICAN > 60
[2017-08-10] MEDS: Metoclopramide 10 mg/10 ml Cup PO SCH ×4 (06:32→21:11)
[2017-08-10 06:33] LABS: INR 1.1 (0.9-1.2); PARTIAL THROMBOPLASTIN TIME 24.8 Seconds (25.6-37.1)
[2017-08-10] MEDS: Dexamethasone 4 mg/1 ml IVP SCH ×3 (08:34→17:55)
[2017-08-10] MEDS: levETIRAcetam 500 MG in Sodium Chloride 0.9% 100 ML IVPB SCH ×2 (08:35→20:24)
--- NOTE | 2017-08-10 09:17 | CP.PCM.PN ---
Subjective - Date & Time of Evaluation Date of Evaluation: 08/10/17 Time of Evaluation: 09:17 - Subjective Subjective: Ms. Lobo was seen and examined at the bedside in ICU. She is awake, oriented able to verbalize place, time and person. She denies any headache, blurred vision,diplopia but left sided neglect, positive dolls eyes, left facial droop, left sided plegia, 0/0, arm and leg. There is no finger or toe movement on the left side. Her pupils are 3 mm with the left eye brisk in response and right eye is very sluggish. She is able to follow some commands such as raising her right side extremities. According to the daughter, she is able to tolerate physical therapy session.CT scan result from 08/09/2080 showed large right basal ganglionic centered hemorrhagic/hematoma with similar prominent surrounding edema, mass effect on the right lateral ventricle and similar leftward midline shift. The latest serum osmolality is 300.There was no untoward events overnight. Objective - Vital Signs/Intake and Output Vital Signs (last 24 hours): Temp Pulse Resp BP Pulse Ox 98.5 F 60 25 H 102/62 96 08/10/17 08:00 08/10/17 08:00 08/10/17 08:00 08/10/17 08:00 08/10/17 08:00 Intake and Output: 08/10/17 08/10/17 06:59 18:59 Intake Total 400 360 Output Total 900 Balance -500 360 - Medications Medications: Current Medications Acetaminophen (Tylenol 650mg/20.3ml Solution Ud) 650 mg PO Q4 PRN PRN Reason: Headache Last Admin: 08/07/17 22:57 Dose: 650 mg Dexamethasone (Decadron Inj) 8 mg IVP Q8 [facility] Last Admin: 08/10/17 08:34 Dose: 8 mg Levetiracetam 500 mg/ Sodium (Chloride) 105 mls @ 105 mls/hr IVPB Q12 [facility] Last Admin: 08/10/17 08:35 Dose: 105 mls/hr Mannitol (Mannitol) 37.5 gm IV Q8 CYN Last Admin: 08/10/17 00:00 Dose: 37.5 gm Metoclopramide HCl (Reglan) 10 mg PO ACHS [facility] Last Admin: 08/10/17 06:32 Dose: 10 mg Pantoprazole Sodium (Protonix Inj) 40 mg IVP DAILY CYN Last Admin: 08/10/17 08:30 Dose: 40 mg - Labs Labs: 08/10/17 04:30 08/10/17 04:30 PT 12.0 Seconds (9.8-13.1) 08/10/17 04:30 INR 1.1 (0.9-1.2) 08/10/17 04:30 APTT 24.8 Seconds (25.6-37.1) L 08/10/17 04:30 - Constitutional Appears: No Acute Distress - Head Exam Head Exam: NORMAL INSPECTION - Neurological Exam Neurological Exam: Alert, Awake, Oriented x3 Neuro motor strength exam: Left Upper Extremity: 0, Right Upper Extremity: 4, Left Lower Extremity: 0, Right Lower Extremity: 4 Additional comments: She is awake, oriented able to verbalize place, time and person. She denies any headache, blurred vision,diplopia but left sided neglect, positive dolls eyes, left facial droop,left sided plegia, 0/0, arm and leg. There is no finger or toe movement on the left side. Her pupils are 3 mm with the left eye brisk in response and right eye is very sluggish. She is able to follow some commands such as raising her right side extremities. Assessment and Plan (1) Intracerebral bleed Assessment & Plan: Case discussed with Dr. Hammer, continue all current medical, physical, occupational, and speech therapies. Recommend blood pressure control, monitoring serum osmolality. Status: Acute
--- NOTE | 2017-08-10 10:20 | CT ---
PROCEDURE: CT HEAD WITHOUT CONTRAST. HISTORY: hemorrhagic CVA COMPARISON: Unenhanced head CT 08/09/2017. TECHNIQUE: Axial computed tomography images were obtained through the head/brain without intravenous contrast. Radiation dose: Total exam DLP = 1530.68 mGy-cm. This CT exam was performed using one or more of the following dose reduction techniques: Automated exposure control, adjustment of the mA and/or kV according to patient size, and/or use of iterative reconstruction technique. FINDINGS: HEMORRHAGE: Note interval changes appreciated in right basal ganglia intraparenchymal hemorrhage measuring 4.7 x 3.1 x 3.4 cm with stable localized, peripheral edema and mass effect primarily exerted at the right cerebral hemisphere with sulci remaining effaced. Limited of edema is identified extending into the upper right temporal lobe. This is also a stable finding. No interval change in leftward approximate 7 mm midline shift. No interval acute intracranial hemorrhage is appreciable otherwise. BRAIN: Mass-effect is described above caused by right intracranial hemorrhage. Remaining brain parenchyma is stable in overall density with corticomedullary differentiation remaining good. No significant crowding of the basilar cisterns is appreciated. No atrophy or chronic microvascular ischemic changes. VENTRICLES: Unremarkable. No hydrocephalus. CALVARIUM: Unremarkable. PARANASAL SINUSES: Unremarkable as visualized. No significant inflammatory changes. MASTOID AIR CELLS: Unremarkable as visualized. No inflammatory changes. OTHER FINDINGS: None. IMPRESSION: Stable intraparenchymal hemorrhage right basal ganglia with local edema and mass-effect appearing unchanged including a limited leftward midline shift of approximately 7 mm.
[2017-08-10] MEDS: Mannitol 12.5 gm/50 ml Inj IV SCH ×3 (10:36→18:25)
--- NOTE | 2017-08-10 12:30 | CP.PCM.PN ---
Subjective - Date & Time of Evaluation Date of Evaluation: 08/10/17 Time of Evaluation: 11:45 - Subjective Subjective: Pt is more alert, sitted on chair denies headache mild dysarthria follows commands, answers questions appropriately denies headache nor dizzines denies CP, no SOB no abd pain Objective - Vital Signs/Intake and Output Vital Signs (last 24 hours): Temp Pulse Resp BP Pulse Ox 98.5 F 84 19 102/59 L 100 08/10/17 08:00 08/10/17 10:00 08/10/17 10:00 08/10/17 10:00 08/10/17 10:21 Intake and Output: 08/10/17 08/10/17 06:59 18:59 Intake Total 400 360 Output Total 900 Balance -500 360 - Medications Medications: Current Medications Acetaminophen (Tylenol 650mg/20.3ml Solution Ud) 650 mg PO Q4 PRN PRN Reason: Headache Last Admin: 08/07/17 22:57 Dose: 650 mg Dexamethasone (Decadron Inj) 8 mg IVP Q8 [facility] Last Admin: 08/10/17 08:34 Dose: 8 mg Fluticasone Propionate (Flonase) 1 spr TREE BID [facility] Levetiracetam 500 mg/ Sodium (Chloride) 105 mls @ 105 mls/hr IVPB Q12 [facility] Last Admin: 08/10/17 08:35 Dose: 105 mls/hr Loratadine (Claritin) 10 mg PO DAILY [facility] Mannitol (Mannitol) 37.5 gm IV Q8 [facility] Last Admin: 08/10/17 10:36 Dose: 37.5 gm Metoclopramide HCl (Reglan) 10 mg PO ACHS [facility] Last Admin: 08/10/17 06:32 Dose: 10 mg Pantoprazole Sodium (Protonix Inj) 40 mg IVP DAILY [facility] Last Admin: 08/10/17 08:30 Dose: 40 mg - Labs Labs: 08/10/17 04:30 08/10/17 04:30 PT 12.0 Seconds (9.8-13.1) 08/10/17 04:30 INR 1.1 (0.9-1.2) 08/10/17 04:30 APTT 24.8 Seconds (25.6-37.1) L 08/10/17 04:30 - Constitutional Appears: No Acute Distress - Head Exam Head Exam: NORMAL INSPECTION, NORMOCEPHALIC - Eye Exam Eye Exam: EOMI, Normal appearance, PERRL Pupil Exam: NORMAL ACCOMODATION - Neck Exam Neck Exam: Full ROM. absent: Meningismus - Respiratory Exam Respiratory Exam: NORMAL BREATHING PATTERN. absent: Respiratory Distress - Cardiovascular Exam Cardiovascular Exam: REGULAR RHYTHM, +S1, +S2 - GI/Abdominal Exam GI & Abdominal Exam: Soft, Normal Bowel Sounds. absent: Tenderness - Extremities Exam Extremities Exam: Normal Capillary Refill. absent: Calf Tenderness, Pedal Edema - Neurological Exam Neurological Exam: Awake, Oriented x3 Neuro motor strength exam: Left Upper Extremity: 0, Right Upper Extremity: 5, Left Lower Extremity: 0, Right Lower Extremity: 5 Additional comments: mild dysarthria - Psychiatric Exam Psychiatric exam: Flat Affect - Skin Skin Exam: Dry, Normal Color, Warm Assessment and Plan - Assessment and Plan (Free Text) Assessment: 46 years old female with no significant past medical history , brought to the ED with less than one hour of new onset headache and left side weakness. According to the friend the patient was at a [employer] when she complained of headache. She fell to the ground had nausea and vomited. The EMS noted that she had a right gaze, left facial droop and left side weakness. In the ED she was alert but not answering questions and her NIHSS was 13. CT head showed right basal ganglia bleed. 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 after sudden headache with edema and midline shift with left hemiplegia and neglect CTA head and neck showing no aneurysm , no AVM 08/[address] of head did not show any change received 6 units FFP total Neuro, neurosurgery and interventional neuro consulted - patient is not a candidate for any surgery or intervention MRI showed no underlying lesion cont Mannitol IV and IV Decadron Continue neurochecks, icu monitoring Check serum Osm and urine output while on Mannitol cont Keppra for seizure prophylaxis passed Swallow eval, tolerating diet Avoid any ASa, anticoagulations Physical, Occupational and Speech therapy consulted 2. DVt prophylaxis SCD - no anticoag sec to bleed 3. Stress Ulcer prophylaxis with Pantoprazole
--- NOTE | 2017-08-10 13:40 | CP.CCUPN ---
CCU Subjective - Physician Review Subjective (Free Text): Continues to be able to get out of bed with physical therapy assistance; had another repeat CT of the brain today, remains on mannitol. Other Vitals and I/Os reviewed. No Fever spikes overnight. ROS: No other pertinent negs or positives on 10+ system review. PMSFH: All other historical Nursing and physician documentation reviewed to date; no new pertinent info noted relevant to current medical problems. EXAM- HEENT: no icterus, no gaze preference, pupils equal and reactive, no icterus NECK: No JVD, supple, carotids equal upstroke bilat/no bruits CHEST: decreased BS bases, otherwise clear bilat, no wheezes audible HEART: regular distant, S1S2, no rubs. ABD: soft, no distention, no tympany, no palp tenderness, BS hypoactive EXT: No edema. No peripheral/ digital cyanosis, no calf tenderness or palpable cords, distal pulses intact and symmetrical. NEURO: as above, Left hemiplegia, some spontaneous withdrawal of LUE to pain, Left facial asymmetry SKIN: no rashes, warm and dry. LABS: WBC= 13.3 HGB= 11.8 PLTs= 159 K Na= 144 K= 3.7 CL= 107 HCO3= 23 BUN/Cr= 12/0.4 BS= 28 Serum Osmo 301 MAJOR PROBLEMS: 1. R basal ganglia ICH with local edema and midline shift 2. ICH etiology TBD PLAN: 1. Will continue mannitol unless serum osmolarity exceeds 325. 2. Maintain Neurochecks, HOB elevation, Seizure precautions. Airway reflexes appear intact and she is tolerating PO diet. 3. Prophylactic AED and steroids as per Neuro. 4. No definitive etiological pathology seen on multiple brain imaging to account for R-sided ICH 5. Daily PT/ OT CCU Objective - Vital Signs / Intake & Output Vital Signs (Last 4 hours): Vital Signs Temp Pulse Resp BP Pulse Ox 08/10/17 12:00 98.5 F 81 18 112/51 L 99 08/10/17 10:21 100 08/10/17 10:00 84 19 102/59 L 98 Intake and Output (Last 8hrs): Intake & Output 08/09/17 08/10/17 08/10/17 22:59 06:59 14:59 Intake Total 1250 250 360 Output Total 300 900 Balance 950 -650 360 Intake: Intake, Piggyback 100 150 120 Oral 550 100 240 Tube Feeding 0 Blood Product 600 Output: Urine 300 900 Urethral (Morejon) 300 900 Critical Care Progress Note - Nutrition Nutrition: Nutrition Category Date Time Status Dysphagia/Modified Consistency Diet [DIET] Diets 08/07/17 Lunch Active
[2017-08-11] MEDS: Dexamethasone 4 mg/1 ml IVP SCH ×3 (00:02→17:20)
[2017-08-11] MEDS: Mannitol 12.5 gm/50 ml Inj IV SCH ×3 (00:04→18:18)
[2017-08-11 05:41] LABS: HEMOGLOBIN 12.4 g/dL (12.0-16.0); MEAN CELL VOLUME 93.1 fl (81.0-99.0); MEAN CORPUSCULAR HEMOGLOBIN 31.1 pg (27.0-31.0); MEAN CORPUSCULAR HGB CONC 33.4 g/dL (33.0-37.0); RBC 3.98 Mil/uL (3.80-5.20); RED CELL DISTRIBUTION WIDTH 13.5 % (11.5-14.5)
[2017-08-11 05:46] LABS: BLOOD UREA NITROGEN 13 mg/dl (7-17); CALCIUM 8.6 mg/dL (8.4-10.2); GFR AFRICAN-AMERICAN > 60; GFR NON-AFRICAN AMERICAN > 60
[2017-08-11] MEDS: Metoclopramide 10 mg/10 ml Cup PO SCH ×4 (06:31→23:08)
--- NOTE | 2017-08-11 08:22 | CP.PCM.PN ---
Subjective - Date & Time of Evaluation Date of Evaluation: 08/11/17 Time of Evaluation: 08:22 - Subjective Subjective: doing well this morning answering questions appropriately states she feels the same, no neurological changes from yesterday HD stable NAD CT head unchanged. Objective - Vital Signs/Intake and Output Vital Signs (last 24 hours): Temp Pulse Resp BP Pulse Ox 97.6 F 66 17 102/66 97 08/11/17 08:00 08/11/17 08:00 08/11/17 08:00 08/11/17 08:00 08/11/17 08:00 GEN: WDWN, ALERT, COOPERATIVE HEENT: NCAT, PERRL, EOMI HEART: RRR, +S1S2, NO MRG LUNG: CTAB, NO WRR ABD: SOFT, NT, ND, NO HSM, NO MASSES EXT: NORMAL PEDAL PULSES, GOOD CAPILLARY REFILL NEURO: L SIDED NEGLECT, +L FACIAL DROOP, L SIDED PLEGIA SKIN: WARM, DRY PSYCH: NORMAL MOOD, NORMAL AFFECT Intake and Output: 08/11/17 08/11/17 06:59 18:59 Intake Total 382 Output Total 1999 Balance -1618 - Medications Medications: Current Medications Acetaminophen (Tylenol 650mg/20.3ml Solution Ud) 650 mg PO Q4 PRN PRN Reason: Headache Last Admin: 08/07/17 22:57 Dose: 650 mg Dexamethasone (Decadron Inj) 8 mg IVP Q8 [facility] Last Admin: 08/11/17 00:02 Dose: 8 mg Fluticasone Propionate (Flonase) 1 spr TREE BID [facility] Last Admin: 08/10/17 17:52 Dose: 1 spr Levetiracetam 500 mg/ Sodium (Chloride) 105 mls @ 105 mls/hr IVPB Q12 [facility] Last Admin: 08/10/17 20:24 Dose: 105 mls/hr Loratadine (Claritin) 10 mg PO DAILY [facility] Last Admin: 08/10/17 13:59 Dose: 10 mg Mannitol (Mannitol) 37.5 gm IV Q8 [facility] Last Admin: 08/11/17 00:04 Dose: 37.5 gm Metoclopramide HCl (Reglan) 10 mg PO ACHS [facility] Last Admin: 08/11/17 06:31 Dose: 10 mg Pantoprazole Sodium (Protonix Inj) 40 mg IVP DAILY [facility] Last Admin: 08/10/17 08:30 Dose: 40 mg - Labs Labs: 08/11/17 04:40 08/11/17 04:40 PT 12.0 Seconds (9.8-13.1) 08/10/17 04:30 INR 1.1 (0.9-1.2) 08/10/17 04:30 APTT 24.8 Seconds (25.6-37.1) L 08/10/17 04:30 Assessment and Plan - Assessment and Plan (Free Text) Plan: 46 years old female with no significant past medical history , brought to the ED with less than one hour of new onset headache and left side weakness. According to the friend the patient was at a [employer] party when she complained of headache. She fell to the ground had nausea and vomited. The EMS noted that she had a right gaze, left facial droop and left side weakness. In the ED she was alert but not answering questions and her NIHSS was 13. CT head showed right basal ganglia bleed. 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 after sudden headache with edema and midline shift with left hemiplegia and neglect CTA head and neck showing no aneurysm , no AVM 08/[address] of head did not show any change received 6 units FFP total Neuro, neurosurgery and interventional neuro consulted - patient is not a candidate for any surgery or intervention MRI showed no underlying lesion cont Mannitol IV and IV Decadron with serial serium Osm checks and urine output Continue neurochecks, icu monitoring cont Keppra for seizure prophylaxis passed Swallow eval, tolerating diet Avoid any ASa, anticoagulations Physical, Occupational and Speech therapy consulted 2. DVt prophylaxis SCD - no anticoag sec to bleed 3. Stress Ulcer prophylaxis with Pantoprazole
[2017-08-11] MEDS: levETIRAcetam 500 MG in Sodium Chloride 0.9% 100 ML IVPB SCH ×2 (09:27→20:54)
--- NOTE | 2017-08-11 10:49 | CP.PCM.PN ---
Subjective - Date & Time of Evaluation Date of Evaluation: 08/11/17 Time of Evaluation: 10:48 - Subjective Subjective: Ms. Lobo was seen and examined at the bedside in ICU. She is awake, oriented able to verbalize place, time and person. She denies any headache, blurred vision,diplopia but left sided neglect, positive dolls eyes, left facial droop, left sided plegia, 0/0, arm and leg. There is no finger or toe movement on the left side. Her pupils are 3 mm with the left eye brisk in response and right eye is very sluggish. She is able to follow some commands such as raising her right side extremities and finger to nose test. Serum osmolality today is 300. CT scan done yesterday showed stable intraparenchymal hemorrhage in the right basal ganglia with local edema and mass effect appearing unchanged including a limited leftward midline shift of approx. 7 mm.There was no untoward events overnight. Objective - Vital Signs/Intake and Output Vital Signs (last 24 hours): Temp Pulse Resp BP Pulse Ox 97.6 F 66 17 102/66 97 08/11/17 08:00 08/11/17 08:00 08/11/17 08:00 08/11/17 08:00 08/11/17 08:00 Intake and Output: 08/11/17 08/11/17 06:59 18:59 Intake Total 382 Output Total 2000 Balance -1618 - Medications Medications: Current Medications Acetaminophen (Tylenol 650mg/20.3ml Solution Ud) 650 mg PO Q4 PRN PRN Reason: Headache Last Admin: 08/07/17 22:57 Dose: 650 mg Dexamethasone (Decadron Inj) 8 mg IVP Q8 [facility] Last Admin: 08/11/17 09:26 Dose: 8 mg Fluticasone Propionate (Flonase) 1 spr TREE BID [facility] Last Admin: 08/11/17 09:26 Dose: 1 spr Levetiracetam 500 mg/ Sodium (Chloride) 105 mls @ 105 mls/hr IVPB Q12 [facility] Last Admin: 08/11/17 09:27 Dose: 105 mls/hr Loratadine (Claritin) 10 mg PO DAILY [facility] Last Admin: 08/11/17 09:25 Dose: 10 mg Mannitol (Mannitol) 37.5 gm IV Q8 [facility] Last Admin: 08/11/17 09:28 Dose: 37.5 gm Metoclopramide HCl (Reglan) 10 mg PO ACHS [facility] Last Admin: 08/11/17 06:31 Dose: 10 mg Pantoprazole Sodium (Protonix Inj) 40 mg IVP DAILY [facility] Last Admin: 08/11/17 09:28 Dose: 40 mg - Labs Labs: 08/11/17 04:40 08/11/17 04:40 PT 12.0 Seconds (9.8-13.1) 08/10/17 04:30 INR 1.1 (0.9-1.2) 08/10/17 04:30 APTT 24.8 Seconds (25.6-37.1) L 08/10/17 04:30 - Constitutional Appears: No Acute Distress - Head Exam Head Exam: NORMAL INSPECTION - Eye Exam Pupil Exam: PERRL Additional comments: 3 mm, sluggish to response. Assessment and Plan (1) Intracerebral bleed Assessment & Plan: CAse discussed with Dr. Hammer, continue all current medical, physical, occupational, and speech therapies. Recommend blood pressure control and repeat CT scan of the head without contrast to follow up intraparenchymal hemorrhage. Status: Acute
--- NOTE | 2017-08-11 17:26 | CT ---
PROCEDURE: NONCONTRAST HEAD CT HISTORY: hemorrhagic CVA COMPARISON: Unenhanced head CT 08/10/2017. TECHNIQUE: Axial computed tomography images were obtained through the head/brain without intravenous contrast. Radiation dose: Total exam DLP = 872.23 mGy-cm. This CT exam was performed using one or more of the following dose reduction techniques: Automated exposure control, adjustment of the mA and/or kV according to patient size, and/or use of iterative reconstruction technique. FINDINGS: Right-sided intracranial hemorrhage with an epicenter at the right basal ganglia is again appreciated with overall measurements of 4.7 x 3.3 x 3.2 cm, not simply changed in volume in the interval overall. Various densities of hemorrhagic degradation products are reiterated as well as peripheral edema and limited leftward shift of approximately 7 mm. Sulci throughout the right cerebral hemisphere for the most part remain effaced with exception of those entering the vertex region. No definitive interval acute hemorrhage appreciated bilaterally with the left cerebral hemisphere remaining unremarkable grossly other than the limited shift described above. No suspicious extra-axial fluid collection the posterior fossa contents stable. The basilar cisterns remain widely patent lucency at the right cerebral peduncle may reflect on set of Wallerian degeneration. IMPRESSION: No significant interval change in intraparenchymal hemorrhage centered at the right basal ganglia with local and limited leftward midline shift again evident. No interval acute intracranial hemorrhage. Continued clinical and CT vigilance is advised.
[2017-08-12] MEDS: Dexamethasone 4 mg/1 ml IVP SCH ×3 (00:28→16:56)
[2017-08-12] MEDS: Mannitol 12.5 gm/50 ml Inj IV SCH ×3 (00:32→17:31)
[2017-08-12 06:30] LABS: HEMOGLOBIN 12.7 g/dL (12.0-16.0); MEAN CELL VOLUME 93.6 fl (81.0-99.0); MEAN CORPUSCULAR HEMOGLOBIN 31.5 pg (27.0-31.0); MEAN CORPUSCULAR HGB CONC 33.6 g/dL (33.0-37.0); RBC 4.03 Mil/uL (3.80-5.20); RED CELL DISTRIBUTION WIDTH 13.7 % (11.5-14.5); WHITE BLOOD COUNT 10.2 K/uL (4.8-10.8)
[2017-08-12 06:36] LABS: BLOOD UREA NITROGEN 13 mg/dl (7-17); CALCIUM 8.7 mg/dL (8.4-10.2); GFR AFRICAN-AMERICAN > 60; GFR NON-AFRICAN AMERICAN > 60
--- NOTE | 2017-08-12 07:07 | CP.PCM.PN ---
Subjective - Date & Time of Evaluation Date of Evaluation: 08/12/17 Time of Evaluation: 07:06 - Subjective Subjective: pt states she is feeling well this morning no complaints states she does not feel worse, nor better participating wtih PT well anxious to be discharged to rehab HD stable NAD Objective - Vital Signs/Intake and Output Vital Signs (last 24 hours): Temp Pulse Resp BP Pulse Ox 98.1 F 56 L 24 99/49 L 96 08/12/17 04:00 08/12/17 06:00 08/12/17 06:00 08/12/17 06:00 08/12/17 06:00 Vitals Reviewed GEN: WDWN, alert, cooperative HEENT: NCAT, PERRL, EOMI HEART: RRR, +S1S2, NO MRG LUNG: CTAB, NO WRR ABD: soft, NT, ND, No HSM, No masses EXT: normal pedal pulses, normal capillary refill NEURO: awake, alert, no changes SKIN: warm, dry PSYCH: normal mood, normal affect Intake and Output: 08/12/17 08/12/17 06:59 18:59 Intake Total 490 Balance 490 - Medications Medications: Current Medications Acetaminophen (Tylenol 650mg/20.3ml Solution Ud) 650 mg PO Q4 PRN PRN Reason: Headache Last Admin: 08/07/17 22:57 Dose: 650 mg Dexamethasone (Decadron Inj) 8 mg IVP Q8 [facility] Last Admin: 08/12/17 00:28 Dose: 8 mg Fluticasone Propionate (Flonase) 1 spr TREE BID [facility] Last Admin: 08/11/17 17:21 Dose: 1 spr Levetiracetam 500 mg/ Sodium (Chloride) 105 mls @ 105 mls/hr IVPB Q12 [facility] Last Admin: 08/11/17 20:54 Dose: 105 mls/hr Loratadine (Claritin) 10 mg PO DAILY [facility] Last Admin: 08/11/17 09:25 Dose: 10 mg Mannitol (Mannitol) 37.5 gm IV Q8 [facility] Last Admin: 08/12/17 00:32 Dose: 37.5 gm Metoclopramide HCl (Reglan) 10 mg PO ACHS [facility] Last Admin: 08/11/17 23:08 Dose: 10 mg Pantoprazole Sodium (Protonix Inj) 40 mg IVP DAILY [facility] Last Admin: 08/11/17 09:28 Dose: 40 mg - Labs Labs: 08/12/17 05:30 08/12/17 05:30 PT 12.0 Seconds (9.8-13.1) 08/10/17 04:30 INR 1.1 (0.9-1.2) 08/10/17 04:30 APTT 24.8 Seconds (25.6-37.1) L 08/10/17 04:30 Assessment and Plan - Assessment and Plan (Free Text) Plan: 46 years old female with no significant past medical history , brought to the ED with less than one hour of new onset headache and left side weakness. 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 She fell to the ground had nausea and vomited. The EMS noted that she had a right gaze, left facial droop and left side weakness. In the ED she was alert but not answering questions and her NIHSS was 13. CT head showed right basal ganglia bleed. 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 after sudden headache with edema and midline shift with left hemiplegia and neglect CTA head and neck showing no aneurysm , no AVM 08/[address] of head did not show any change received 6 units FFP total Neuro, neurosurgery and interventional neuro consulted - patient is not a candidate for any surgery or intervention MRI showed no underlying lesion cont Mannitol IV and IV Decadron with serial serium Osm checks and urine output Continue neurochecks, icu monitoring cont Keppra for seizure prophylaxis passed Swallow eval, tolerating diet Avoid any ASa, anticoagulations Physical, Occupational and Speech therapy consulted 2. DVt prophylaxis SCD - no anticoag sec to bleed 3. Stress Ulcer prophylaxis with Pantoprazole
[2017-08-12] MEDS: Metoclopramide 10 mg/10 ml Cup PO SCH ×4 (09:19→21:09)
[2017-08-12] MEDS: levETIRAcetam 500 MG in Sodium Chloride 0.9% 100 ML IVPB SCH ×2 (09:38→20:29)
--- NOTE | 2017-08-12 12:04 | CP.CCUPN ---
CCU Subjective - Physician Review Events Since Last Encounter (Free Text): 08/12/17 11:58 alert and awake, in no distress, no headache, CCU Objective - Vital Signs / Intake & Output Vital Signs (Last 4 hours): Vital Signs Temp Pulse Resp BP Pulse Ox 08/12/17 10:00 61 16 98/53 L 97 08/12/17 08:00 97.8 F 73 22 101/61 98 Intake and Output (Last 8hrs): Intake & Output 08/11/17 08/12/17 08/12/17 22:59 06:59 14:59 Intake Total 580 390 150 Output Total 500 Balance 80 390 150 Weight 115 lb 0.4 oz Intake: Intake, Piggyback 400 150 150 Oral 180 240 Output: Urine 500 Urine, Voided 500 Other: # Voids Urethral ([place]jon) 1 1 # Bowel Movements 0 1 - Physical Exam Narrative Physical Exam (Free Text): 08/12/17 11:58 P/E Neck; No JVD Lungs: No ronchi and crackles Abdomen: soft, non-tender Ext: No edema Heart: No gallop Head: Positive for: Atraumatic, Normocephalic Pupils: Positive for: PERRL Extroacular Muscles: Positive for: EOMI Conjunctiva: Positive for: Normal. Negative for: Injected, Icteric Nose (Internal): Positive for: Normal Inspection Neck: Positive for: Normal Range of Motion, Trachea Midline. Negative for: Meningeal Signs, MIDLINE TENDERNESS, Paraspinal Tenderness, JVD, Lymphadenopathy , Bruit, Other Respiratory/Chest: Positive for: Clear to Auscultation, Good Air Exchange. Negative for: Respiratory Distress, Accessory Muscle Use, Decreased Breath Sounds, Rales, Retracting, Rhonchi Cardiovascular: Positive for: Regular Rate and Rhythm, Normal S1, S2, Peripheal Pulses Present. Negative for: Murmurs, Irregular Rhythm, Tachycardic, Bradycardic Abdomen: Positive for: Normal Bowel Sounds. Negative for: Tenderness, Distention Back: Positive for: Normal Inspection. Negative for: CVA Tenderness, Midline Tenderness Upper Extremity: Positive for: Normal Inspection, NORMAL PULSES. Negative for: Cyanosis, Edema, Normal ROM Lower Extremity: Positive for: Normal Inspection, NORMAL PULSES. Negative for: Edema, CALF TENDERNESS Neurological: Negative for: Motor Func Grossly Intact (Left hemiparesis), Normal Sensory Function - Medications Active Medications: Active Medications Generic Name Dose Route Start Last Admin Trade Name Freq PRN Reason Stop Dose Admin Acetaminophen 650 mg 08/07/17 16:39 08/07/17 22:57 Tylenol 650mg/20.3ml Solution Ud PO 650 mg Q4 PRN Administration Headache Dexamethasone 8 mg 08/08/17 17:00 08/12/17 09:16 Decadron Inj IVP 8 mg Q8 [facility] Administration Fluticasone Propionate 1 spr 08/10/17 10:00 08/12/17 09:15 Flonase TREE 1 spr BID [facility] Administration Levetiracetam 500 mg/ Sodium 105 mls @ 105 mls/hr 08/06/17 21:00 08/12/17 09: 38 Chloride IVPB 105 mls/hr Q12 [facility] Administration Loratadine 10 mg 08/10/17 10:00 08/12/17 09:17 Claritin PO 10 mg DAILY [facility] Administration Mannitol 37.5 gm 08/06/17 17:00 08/12/17 09:17 Mannitol IV 37.5 gm Q8 [facility] Administration Metoclopramide HCl 10 mg 08/07/17 22:00 08/12/17 09:19 Reglan PO 10 mg ACHS [facility] Administration Pantoprazole Sodium 40 mg 08/06/17 09:00 08/12/17 09:18 Protonix Inj IVP 40 mg DAILY [facility] Administration - Patient Studies Lab Studies: Lab Studies 08/12/17 08/12/17 08/12/17 Range/Units 05:30 05:30 05:30 WBC 10.2 (4.8-10.8) K/uL RBC 4.03 (3.80-5.20) Mil/uL Hgb 12.7 (12.0-16.0) g/dL Hct 37.7 (34.0-47.0) % MCV 93.6 (81.0-99.0) fl MCH 31.5 H (27.0-31.0) pg MCHC 33.6 (33.0-37.0) g/dL RDW 13.7 (11.5-14.5) % Plt Count 182 (130-400) K/uL Sodium 139 (132-148) mmol/l Potassium 4.1 (3.6-5.0) MMOL/L Chloride 99 (98-107) mmol/L Carbon Dioxide 26 (22-30) mmol/L Anion Gap 18 (10-20) BUN 13 (7-17) mg/dl Creatinine 0.4 L (0.7-1.2) mg/dl Est GFR ( Amer) > 60 Est GFR (Non-Af Amer) > 60 Random Glucose 123 H (65-105) mg/dL Serum Osmolality 297 (272-300) mosm/kg Calcium 8.7 (8.4-10.2) mg/dL Laboratory Results - last 24 hr 08/12/17 08/12/17 08/12/17 05:30 05:30 05:30 WBC 10.2 RBC 4.03 Hgb 12.7 Hct 37.7 MCV 93.6 MCH 31.5 H MCHC 33.6 RDW 13.7 Plt Count 182 Sodium 139 Potassium 4.1 Chloride 99 Carbon Dioxide 26 Anion Gap 18 BUN 13 Creatinine 0.4 L Est GFR ( Amer) > 60 Est GFR (Non-Af Amer) > 60 Random Glucose 123 H Serum Osmolality 297 Calcium 8.7 Fingerstick Blood Sugar Results: 109 Critical Care Progress Note - Nutrition Nutrition: Nutrition Category Date Time Status Dysphagia/Modified Consistency Diet [DIET] Diets 08/07/17 Lunch Active Assessment/Plan - Assessment and Plan (Free Text) Assessment: 1.Right basal ganglia Hemorrhagic CVA with left hemiplegia and neglect CTA head and neck showing no aneurysm , no AVM , daily CT, today;s CT will be done shortly Yesterdays CT: no change Neuro, neurosurgery and interventional neuro consulted - patient is not a candidate for any surgery or intervention MRI showed no underlying lesion On Mannitol IV and IV Decadron with serial serium Osm checks and urine output: monitoring serum osmolality: 297 this AM Continue neurochecks, icu monitoring On [facility] for seizure prophylaxis Physical, Occupational and Speech therapy consulted 2. DVt prophylaxis SCD - no anticoag sec to bleed 3. Stress Ulcer prophylaxis with Pantoprazole
--- NOTE | 2017-08-12 12:26 | CT ---
PROCEDURE: CT HEAD WITHOUT CONTRAST. HISTORY: Hemorrhagic CVA COMPARISON: Comparison made with prior CT scan brain 08/11/2017. . Comparison also made with MRI brain dated 08/06/2017 TECHNIQUE: Axial computed tomography images were obtained through the head/brain without intravenous contrast. Radiation dose: Total exam DLP = 973.97 mGy-cm. This CT exam was performed using one or more of the following dose reduction techniques: Automated exposure control, adjustment of the mA and/or kV according to patient size, and/or use of iterative reconstruction technique. FINDINGS: HEMORRHAGE: Current study re- demonstrates a large elliptical shaped hematoma with the epicenter of which located in the right basal ganglia. The hemorrhage exhibits varying degrees of evolution. There is a prominent rim of surrounding low-attenuation edema and or necrotic brain tissue again noted. The hematoma and surrounding low-attenuation edema or necrotic brain tissue exert considerable mass effect resulting in overlying sulcal effacement and compression of the right lateral ventricle. Re- demonstrated is shift of the midline from right to left estimated approximately 8.3 mm. No new hemorrhages. No obstructive hydrocephalus. Previously noted tiny focal areas of increased T2 signal that were seen scattered about the subcortical white matter on prior MRI and not appreciated on this exam. BRAIN: No mass effect or edema. No atrophy or chronic microvascular ischemic changes. VENTRICLES: Unremarkable. No hydrocephalus. CALVARIUM: Unremarkable. PARANASAL SINUSES: Unremarkable as visualized. No significant inflammatory changes. MASTOID AIR CELLS: Unremarkable as visualized. No inflammatory changes. OTHER FINDINGS: None. IMPRESSION: Expected unremarkable evolution of large right basal ganglia at hemorrhage surrounded by a fairly with prominent rim of low-attenuation edema and or necrotic brain tissue. Persistent surrounding mass effect with compression of the overlying sulci and right lateral ventricle and shift of midline from right to left. . No new hemorrhages or hydrocephalus. Chest bold
[2017-08-13] MEDS: Dexamethasone 4 mg/1 ml IVP SCH ×2 (00:18→09:47)
[2017-08-13] MEDS: Mannitol 12.5 gm/50 ml Inj IV SCH ×3 (00:32→20:38)
[2017-08-13 06:04] LABS: MEAN CELL VOLUME 92.9 fl (81.0-99.0); MEAN CORPUSCULAR HEMOGLOBIN 31.5 pg (27.0-31.0); MEAN CORPUSCULAR HGB CONC 33.9 g/dL (33.0-37.0); RBC 4.13 Mil/uL (3.80-5.20); RED CELL DISTRIBUTION WIDTH 13.4 % (11.5-14.5); WHITE BLOOD COUNT 11.9 K/uL (4.8-10.8)
[2017-08-13 06:17] LABS: BLOOD UREA NITROGEN 16 mg/dl (7-17); CALCIUM 8.5 mg/dL (8.4-10.2); GFR AFRICAN-AMERICAN > 60; GFR NON-AFRICAN AMERICAN > 60
[2017-08-13] MEDS: Metoclopramide 10 mg/10 ml Cup PO SCH ×4 (06:36→21:08)
--- NOTE | 2017-08-13 09:14 | CP.PCM.PN ---
Subjective - Date & Time of Evaluation Date of Evaluation: 08/13/17 Time of Evaluation: 09:14 - Subjective Subjective: Ms. Lobo was seen and examined at the bedside in ICU. She is awake, oriented able to verbalize place, time and person. She denies any headache, blurred vision,diplopia but left sided neglect, left facial droop,left sided plegia, 0/0 , arm and leg. There is no finger or toe movement on the left side. Her pupils are 3 mm with the left eye brisk in response and right eye is very sluggish. She is able to follow some commands such as raising her right side extremities and finger to nose test. The latest serum osmolality is 294. CT scan of the head done 08/12/2017 showed expected unremarkable evolution of large right basal ganglia at hemorrhage surrounded by a fairly with prominent rim of low- attenuation edema and or necrotic brain tissue. Persistent surrounding mass effect with compression of the overlying sulci and right lateral ventricle and shift of midline from right to left. No new hemorrhages or hydrocephalus. There was no untoward events overnight. Objective - Vital Signs/Intake and Output Vital Signs (last 24 hours): Temp Pulse Resp BP Pulse Ox 98.6 F 67 19 92/64 L 96 08/13/17 08:00 08/13/17 08:00 08/13/17 08:00 08/13/17 08:00 08/13/17 08:00 Intake and Output: 08/13/17 08/13/17 06:59 18:59 Intake Total 409 10 Output Total 1100 Balance -691 10 - Medications Medications: Current Medications Acetaminophen (Tylenol 650mg/20.3ml Solution Ud) 650 mg PO Q4 PRN PRN Reason: Headache Last Admin: 08/07/17 22:57 Dose: 650 mg Dexamethasone (Decadron Inj) 8 mg IVP Q8 [facility] Last Admin: 08/13/17 00:18 Dose: 8 mg Fluticasone Propionate (Flonase) 1 spr TREE BID [facility] Last Admin: 08/12/17 16:56 Dose: 1 spr Levetiracetam 500 mg/ Sodium (Chloride) 105 mls @ 105 mls/hr IVPB Q12 [facility] Last Admin: 08/12/17 20:29 Dose: 105 mls/hr Loratadine (Claritin) 10 mg PO DAILY [facility] Last Admin: 08/12/17 09:17 Dose: 10 mg Mannitol (Mannitol) 37.5 gm IV Q8 [facility] Last Admin: 08/13/17 00:32 Dose: 37.5 gm Metoclopramide HCl (Reglan) 10 mg PO ACHS [facility] Last Admin: 08/13/17 06:36 Dose: 10 mg - Labs Labs: 08/13/17 05:04 08/13/17 05:04 PT 12.0 Seconds (9.8-13.1) 08/10/17 04:30 INR 1.1 (0.9-1.2) 08/10/17 04:30 APTT 24.8 Seconds (25.6-37.1) L 08/10/17 04:30 - Constitutional Appears: No Acute Distress - Head Exam Head Exam: NORMAL INSPECTION - Neurological Exam Neurological Exam: Alert, Awake, Oriented x3 Neuro motor strength exam: Left Upper Extremity: 0, Right Upper Extremity: 4, Left Lower Extremity: 0, Right Lower Extremity: 4 Additional comments: Neurological unchanged from previous examination. Assessment and Plan (1) Intracerebral bleed Assessment & Plan: Case is discussed with Dr. Hammer, continue all current medical, physical, occupational therapies. Recommend decreasing dexamethasone 8 mg IV Q 12 and Mannitol 37.5 gm IV Q 12. Recommend continuous monitor cerebral hemorrhage through CT scan of the head. Status: Acute
[2017-08-13] MEDS: levETIRAcetam 500 MG in Sodium Chloride 0.9% 100 ML IVPB SCH ×2 (09:41→22:04)
--- NOTE | 2017-08-13 10:38 | CP.PCM.PN ---
Subjective - Date & Time of Evaluation Date of Evaluation: 08/13/17 Time of Evaluation: 10:38 - Subjective Subjective: feeling improved from yesterday hd stable no neuro changes nad may be downgraded to tele Objective - Vital Signs/Intake and Output Vital Signs (last 24 hours): Temp Pulse Resp BP Pulse Ox 98.6 F 67 19 92/64 L 96 08/13/17 08:00 08/13/17 08:00 08/13/17 08:00 08/13/17 08:00 08/13/17 08:00 vVitals Reviewed GEN: WDWN, alert, cooperative HEENT: NCAT, PERRL, EOMI HEART: RRR, +S1S2, NO MRG LUNG: CTAB, NO WRR ABD: soft, NT, ND, No HSM, No masses EXT: normal pedal pulses, normal capillary refill NEURO: awake, alert SKIN: warm, dry PSYCH: normal mood, normal affect Intake and Output: 08/13/17 08/13/17 06:59 18:59 Intake Total 409 10 Output Total 1100 Balance -691 10 - Medications Medications: Current Medications Acetaminophen (Tylenol 650mg/20.3ml Solution Ud) 650 mg PO Q4 PRN PRN Reason: Headache Last Admin: 08/07/17 22:57 Dose: 650 mg Dexamethasone (Decadron) 8 mg PO Q12 [facility] Fluticasone Propionate (Flonase) 1 spr TREE BID [facility] Last Admin: 08/13/17 09:49 Dose: 1 spr Levetiracetam 500 mg/ Sodium (Chloride) 105 mls @ 105 mls/hr IVPB Q12 [facility] Last Admin: 08/13/17 09:41 Dose: 105 mls/hr Loratadine (Claritin) 10 mg PO DAILY [facility] Last Admin: 08/13/17 09:49 Dose: 10 mg Mannitol (Mannitol) 37.5 gm IV Q12 [facility] Metoclopramide HCl (Reglan) 10 mg PO ACHS [facility] Last Admin: 08/13/17 06:36 Dose: 10 mg - Labs Labs: 08/13/17 05:04 08/13/17 05:04 PT 12.0 Seconds (9.8-13.1) 08/10/17 04:30 INR 1.1 (0.9-1.2) 08/10/17 04:30 APTT 24.8 Seconds (25.6-37.1) L 08/10/17 04:30 Assessment and Plan - Assessment and Plan (Free Text) Plan: 46 years old female with no significant past medical history , brought to the ED with less than one hour of new onset headache and left side weakness. According to the friend the patient was at a constitution party when she complained of headache. She fell to the ground had nausea and vomited. The EMS noted that she had a right gaze, left facial droop and left side weakness. In the ED she was alert but not answering questions and her NIHSS was 13. CT head showed right basal ganglia bleed. 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 after sudden headache with edema and midline shift with left hemiplegia and neglect CTA head and neck showing no aneurysm , no AVM 08/[address] of head did not show any change received 6 units FFP total Neuro, neurosurgery and interventional neuro consulted - patient is not a candidate for any surgery or intervention MRI showed no underlying lesion cont Mannitol IV and IV Decadron with serial serium Osm checks and urine output Continue neurochecks, icu monitoring cont Keppra for seizure prophylaxis passed Swallow eval, tolerating diet Avoid any ASa, anticoagulations Physical, Occupational and Speech therapy consulted 2. DVt prophylaxis SCD - no anticoag sec to bleed 3. Stress Ulcer prophylaxis with Pantoprazole
--- NOTE | 2017-08-13 14:48 | CT ---
PROCEDURE: CT brain dated 08/13/2017. HISTORY: Hemorrhage. COMPARISON: Comparison made with prior CT scan brain 08/12/2017 TECHNIQUE: Contiguous helical/transaxial computed tomography images were obtained through the head/brain without intravenous contrast. Radiation dose: Total exam DLP = 842.75 mGy-cm. This CT exam was performed using one or more of the following dose reduction techniques: Automated exposure control, adjustment of the mA and/or kV according to patient size, and/or use of iterative reconstruction technique. FINDINGS: Re- demonstrated is a large elliptical shaped hematoma the epicenter of which is located in the right basal ganglia. There is a rim of low-attenuation edema and or necrotic brain tissue surrounding the hemorrhage. Hemorrhage and its attendant edema continue to exert considerable mass effect with overlying sulcal effacement and compression of the right lateral ventricle as well as mild [id number] midline shift. No new hemorrhages or hydrocephalus. The the No other changes. IMPRESSION: Re- demonstrated is a large elliptical shaped right basal ganglia hematoma with surrounding rim of low-attenuation edema or necrotic brain tissue. Persistent mass-effect and mild shift of the midline from right to left as above. .
[2017-08-14 05:32] LABS: BASO % 0.1 % (0.0-2.0); LYMPH % 8.5 % (20.0-40.0); MEAN CORPUSCULAR HEMOGLOBIN 31.2 pg (27.0-31.0); MEAN CORPUSCULAR HGB CONC 33.5 g/dL (33.0-37.0); MEAN PLATELET VOLUME 10.5 fl (7.2-11.7); MONO # 0.7 K/uL (0.0-0.8); MONO % 5.6 % (0.0-10.0); NEUT # 10.3 K/uL (1.8-7.0); NEUT % 85.8 % (50.0-75.0); NRBC % 0.3 % (0.0-0.0); PLATELET COUNT 177 K/uL (130-400); RBC 4.17 Mil/uL (3.80-5.20); RED CELL DISTRIBUTION WIDTH 13.3 % (11.5-14.5)
[2017-08-14] MEDS: Metoclopramide 10 mg/10 ml Cup PO SCH ×4 (06:32→23:51)
[2017-08-14 07:50] LABS: LYMPHOCYTE 7 % (20-50); MONOCYTE 5 % (0-10); NEUTROPHIL 88 % (42-75); PLATELET ESTIMATE NORMAL (NORMAL); TOTAL CELLS COUNTED 100
[2017-08-14] MEDS: levETIRAcetam 500 MG in Sodium Chloride 0.9% 100 ML IVPB SCH ×2 (08:18→23:51)
[2017-08-14] MEDS: Mannitol 12.5 gm/50 ml Inj IV SCH ×2 (08:20→23:49)
--- NOTE | 2017-08-14 08:48 | CP.PCM.PN ---
Subjective - Date & Time of Evaluation Date of Evaluation: 08/14/17 Time of Evaluation: 08:48 - Subjective Subjective: Ms. Lobo was seen and examined at the bedside in ICU. She is awake, oriented able to verbalize place, time and person. She denies any headache, blurred vision,diplopia but left sided neglect, left facial droop,left sided plegia, 0/0 , arm and leg. There is no finger or toe movement on the left side. Her sensation remains dimish in her left side.Her pupils are 3 mm with the left eye brisk in response and right eye is very sluggish. She is able to follow some commands such as raising her right side extremities and finger to nose test. She is able to tolerate PO intake with no s/s of aspiration.The latest serum osmolality is 294. CT scan of the head done 08/13/2017 showed re-demonstration of a large elliptical shaped right basal ganglia hematoma with surrounding rim of low-attentuation edema or necrotic brain tissue. Persistent mass-effect and mild shift of the midline from right to left. Objective - Vital Signs/Intake and Output Vital Signs (last 24 hours): Temp Pulse Resp BP Pulse Ox 98.2 F 56 L 16 110/58 L 97 08/14/17 06:00 08/14/17 06:00 08/14/17 06:00 08/14/17 06:00 08/14/17 06:00 Intake and Output: 08/14/17 08/14/17 06:59 18:59 Intake Total 430 Output Total 1050 Balance -620 - Medications Medications: Current Medications Acetaminophen (Tylenol 650mg/20.3ml Solution Ud) 650 mg PO Q4 PRN PRN Reason: Headache Last Admin: 08/07/17 22:57 Dose: 650 mg Dexamethasone (Decadron) 8 mg PO Q12 [facility] Last Admin: 08/13/17 21:08 Dose: 8 mg Fluticasone Propionate (Flonase) 1 spr TREE BID [facility] Last Admin: 08/14/17 08:19 Dose: 1 spr Levetiracetam 500 mg/ Sodium (Chloride) 105 mls @ 105 mls/hr IVPB Q12 [facility] Last Admin: 08/14/17 08:18 Dose: 105 mls/hr Loratadine (Claritin) 10 mg PO DAILY [facility] Last Admin: 08/14/17 08:19 Dose: 10 mg Mannitol (Mannitol) 37.5 gm IV Q12 [facility] Last Admin: 08/14/17 08:20 Dose: 37.5 gm Metoclopramide HCl (Reglan) 10 mg PO ACHS [facility] Last Admin: 08/14/17 06:32 Dose: 10 mg - Labs Labs: 08/14/17 05:05 08/14/17 05:05 PT 12.0 Seconds (9.8-13.1) 08/10/17 04:30 INR 1.1 (0.9-1.2) 08/10/17 04:30 APTT 24.8 Seconds (25.6-37.1) L 08/10/17 04:30 - Constitutional Appears: No Acute Distress - Head Exam Head Exam: NORMAL INSPECTION - Neurological Exam Neurological Exam: Alert, Awake, Oriented x3 Neuro motor strength exam: Left Upper Extremity: 0, Right Upper Extremity: 5, Left Lower Extremity: 0, Right Lower Extremity: 5 Additional comments: Neurological unchanged from previous examination. Assessment and Plan (1) Intracerebral bleed Assessment & Plan: Case is discussed with Dr. Hammer, continue all current medical, physical, occupational therapies. Recommend continuous monitor cerebral hemorrhage through CT scan of the head without contrast and continuos serum osmolality level monitoring. Status: Acute
[2017-08-14 08:52] LABS: BLOOD UREA NITROGEN 21 mg/dl (7-17); CALCIUM 8.3 mg/dL (8.4-10.2); GFR AFRICAN-AMERICAN > 60; GFR NON-AFRICAN AMERICAN > 60
--- NOTE | 2017-08-14 09:28 | CP.PCM.PN ---
Subjective - Date & Time of Evaluation Date of Evaluation: 08/14/17 Time of Evaluation: 09:30 - Subjective Subjective: Patient seen and examined bedside. Lying in bed in NAD. Denies any pain or discomfort . Still with left side hemiplegia, left facial droop, sensory loss Hemodynamically stable afebrile No acute issues overnight Tolerating Po intake CT head still showing right basal ganglia hematoma with edema and midline shift Objective - Vital Signs/Intake and Output Vital Signs (last 24 hours): Temp Pulse Resp BP Pulse Ox 97.9 F 79 20 103/59 L 96 08/14/17 08:00 08/14/17 08:00 08/14/17 08:00 08/14/17 08:00 08/14/17 08:00 Intake and Output: 08/14/17 08/14/17 06:59 18:59 Intake Total 430 Output Total 1050 Balance -620 - Medications Medications: Current Medications Acetaminophen (Tylenol 650mg/20.3ml Solution Ud) 650 mg PO Q4 PRN PRN Reason: Headache Last Admin: 08/07/17 22:57 Dose: 650 mg Dexamethasone (Decadron) 8 mg PO Q12 [facility] Last Admin: 08/13/17 21:08 Dose: 8 mg Fluticasone Propionate (Flonase) 1 spr TREE BID [facility] Last Admin: 08/14/17 08:19 Dose: 1 spr Levetiracetam 500 mg/ Sodium (Chloride) 105 mls @ 105 mls/hr IVPB Q12 [facility] Last Admin: 08/14/17 08:18 Dose: 105 mls/hr Loratadine (Claritin) 10 mg PO DAILY [facility] Last Admin: 08/14/17 08:19 Dose: 10 mg Mannitol (Mannitol) 37.5 gm IV Q12 [facility] Last Admin: 08/14/17 08:20 Dose: 37.5 gm Metoclopramide HCl (Reglan) 10 mg PO ACHS [facility] Last Admin: 08/14/17 06:32 Dose: 10 mg - Labs Labs: 08/14/17 05:05 08/14/17 05:05 PT 12.0 Seconds (9.8-13.1) 08/10/17 04:30 INR 1.1 (0.9-1.2) 08/10/17 04:30 APTT 24.8 Seconds (25.6-37.1) L 08/10/17 04:30 - Constitutional Appears: Non-toxic, No Acute Distress - Head Exam Head Exam: ATRAUMATIC, NORMAL INSPECTION, NORMOCEPHALIC - Eye Exam Eye Exam: EOMI, PERRL Pupil Exam: NORMAL ACCOMODATION - ENT Exam ENT Exam: Mucous Membranes Moist, Normal Exam - Neck Exam Neck Exam: Full ROM, Normal Inspection - Respiratory Exam Respiratory Exam: Clear to Ausculation Bilateral, NORMAL BREATHING PATTERN. absent: Rales, Rhonchi, Wheezes - Cardiovascular Exam Cardiovascular Exam: REGULAR RHYTHM, RRR, +S1, +S2. absent: JVD - GI/Abdominal Exam GI & Abdominal Exam: Soft, Normal Bowel Sounds. absent: Distended, Guarding, Tenderness, Rebound - Rectal Exam Rectal Exam: Deferred - Extremities Exam Extremities Exam: Full ROM, Normal Capillary Refill, Normal Inspection. absent : Calf Tenderness, Pedal Edema - Back Exam Back Exam: NORMAL INSPECTION - Neurological Exam Neurological Exam: Alert, Awake Additional comments: left facial droop left side hemiplegia - Psychiatric Exam Psychiatric exam: Normal Affect - Skin Skin Exam: Dry, Intact, Normal Color, Warm Assessment and Plan - Assessment and Plan (Free Text) Assessment: 46 years old female with no significant past medical history , brought to the ED with less than one hour of new onset headache and left side weakness. According to the friend the patient was at a [place] party when she complained of headache. She fell to the ground had nausea and vomited. The EMS noted that she had a right gaze, left facial droop and left side weakness. In the ED she was alert but not answering questions and her NIHSS was 13. CT head showed right basal ganglia bleed. Neurology , neurosurgery , Neuro-interventionalist consulted. 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 after sudden headache with edema and midline shift with left hemiplegia, left facial droop and neglect CTA head and neck showing no aneurysm , no AVM received total 6 units FFP Neuro, neurosurgery and interventional neuro consulted - patient is not a candidate for any surgical intervention MRI showed no underlying lesion Repeat CT head today still showing basal ganglia bleed with edema and midline shift cont Mannitol IV and IV Decadron with serial serium Osmolality monitor Transferred to telemetry cont Lea for seizure prophylaxis passed Swallow eval, tolerating diet Avoid any ASa, anticoagulations continue Physical, Occupational and Speech therapy Follow up with neuro for clearance before transfer to rehab 2. DVt prophylaxis SCD - no anticoag sec to bleed 3. Stress Ulcer prophylaxis with Pantoprazole
--- NOTE | 2017-08-14 15:04 | CP.CCUPN ---
CCU Subjective - Physician Review Subjective (Free Text): 08/14/17 18:31 The patient was Seen/interviewed and examined by me at the bedside during ICU round, Medical records reviewed and Management issues were discussed and formulated with the house staff. Events reviewed Doing better, Hemodynamically stable No Vasopressors More Awake, comfortable, NAD No neuro deficits, Alert, follows commands No further episodes of c/o headache Evaluated by Speach therepist, pt passed swallow evaluation, Tolerating PO diet Evaluated by Physical and Occupational therapy Rerepeat CT head: Persistent mass-effect and mild shift of the midline from right to left. Continue Mannitol and continuos serum osmolality level monitoring. Patient is a candidate for [facility] CCU Objective - Vital Signs / Intake & Output Vital Signs (Last 4 hours): Vital Signs Temp Pulse Resp BP Pulse Ox 08/14/17 13:55 73 96/54 L 96 08/14/17 12:00 98.4 F 73 21 96/54 L 96 Intake and Output (Last 8hrs): Intake & Output 08/14/17 08/14/17 08/14/17 06:59 14:59 22:59 Intake Total 160 260 Output Total 600 400 Balance -440 -140 Weight 112 lb Intake: IV 0 10 Intake, Piggyback 100 250 Oral 60 Output: Urine 600 400 Urine, Voided 600 400 - Physical Exam Head: Positive for: Atraumatic, Normocephalic Pupils: Positive for: PERRL Extroacular Muscles: Positive for: EOMI Conjunctiva: Positive for: Normal. Negative for: Injected, Icteric Nose (Internal): Positive for: Normal Inspection Neck: Positive for: Normal Range of Motion, Trachea Midline. Negative for: Meningeal Signs, MIDLINE TENDERNESS, Paraspinal Tenderness, JVD, Lymphadenopathy , Bruit, Other Respiratory/Chest: Positive for: Clear to Auscultation, Good Air Exchange. Negative for: Respiratory Distress, Accessory Muscle Use, Decreased Breath Sounds, Rales, Retracting, Rhonchi Cardiovascular: Positive for: Regular Rate and Rhythm, Normal S1, S2, Peripheal Pulses Present. Negative for: Murmurs, Irregular Rhythm, Tachycardic, Bradycardic Abdomen: Positive for: Normal Bowel Sounds. Negative for: Tenderness, Distention Back: Positive for: Normal Inspection. Negative for: CVA Tenderness, Midline Tenderness Upper Extremity: Positive for: Normal Inspection, NORMAL PULSES. Negative for: Cyanosis, Edema, Normal ROM Lower Extremity: Positive for: Normal Inspection, NORMAL PULSES. Negative for: Edema, CALF TENDERNESS Neurological: Negative for: Motor Func Grossly Intact (Left hemiparesis), Normal Sensory Function - Medications Active Medications: Active Medications Generic Name Dose Route Start Last Admin Trade Name Freq PRN Reason Stop Dose Admin Acetaminophen 650 mg 08/07/17 16:39 08/07/17 22:57 Tylenol 650mg/20.3ml Solution Ud PO 650 mg Q4 PRN Administration Headache Dexamethasone 8 mg 08/13/17 21:00 08/13/17 21:08 Decadron PO 8 mg Q12 [facility] Administration Fluticasone Propionate 1 spr 08/10/17 10:00 08/14/17 08:19 Flonase TREE 1 spr BID [facility] Administration Levetiracetam 500 mg/ Sodium 105 mls @ 105 mls/hr 08/06/17 21:00 08/14/17 08: 18 Chloride IVPB 105 mls/hr Q12 [facility] Administration Loratadine 10 mg 08/10/17 10:00 08/14/17 08:19 Claritin PO 10 mg DAILY [facility] Administration Mannitol 37.5 gm 08/13/17 21:00 08/14/17 08:20 Mannitol IV 37.5 gm Q12 [facility] Administration Metoclopramide HCl 10 mg 08/07/17 22:00 08/14/17 11:55 Reglan PO 10 mg ACHS [facility] Administration - Patient Studies Lab Studies: Lab Studies 08/14/17 08/14/17 08/14/17 Range/Units 06:00 05:05 05:05 WBC 12.0 H (4.8-10.8) K/uL RBC 4.17 (3.80-5.20) Mil/uL Hgb 13.0 (12.0-16.0) g/dL Hct 38.7 (34.0-47.0) % MCV 93.0 (81.0-99.0) fl MCH 31.2 H (27.0-31.0) pg MCHC 33.5 (33.0-37.0) g/dL RDW 13.3 (11.5-14.5) % Plt Count 177 (130-400) K/uL MPV 10.5 (7.2-11.7) fl Neut % (Auto) 85.8 H (50.0-75.0) % Lymph % (Auto) 8.5 L (20.0-40.0) % Long % (Auto) 5.6 (0.0-10.0) % Eos % (Auto) 0.0 (0.0-4.0) % Baso % (Auto) 0.1 (0.0-2.0) % Neut # (Auto) 10.3 H (1.8-7.0) K/uL Lymph # (Auto) 1.0 (1.0-4.3) K/uL Long # (Auto) 0.7 (0.0-0.8) K/uL Eos # (Auto) 0.0 (0.0-0.7) K/uL Baso # (Auto) 0.0 (0.0-0.2) K/uL Neutrophils % (Manual) 88 H (42-75) % Lymphocytes % (Manual) 7 L (20-50) % Monocytes % (Manual) 5 (0-10) % Platelet Estimate Normal (NORMAL) RBC Morphology Normal (NORMAL) Sodium 137 (132-148) mmol/l Potassium 4.2 (3.6-5.0) MMOL/L Chloride 98 (98-107) mmol/L Carbon Dioxide 28 (22-30) mmol/L Anion Gap 15 (10-20) BUN 21 H (7-17) mg/dl Creatinine 0.6 L (0.7-1.2) mg/dl Est GFR ( Amer) > 60 Est GFR (Non-Af Amer) > 60 Random Glucose 134 H (65-105) mg/dL Serum Osmolality 295 (272-300) mosm/kg Calcium 8.3 L (8.4-10.2) mg/dL Laboratory Results - last 24 hr 08/14/17 08/14/17 08/14/17 05:05 05:05 06:00 WBC 12.0 H RBC 4.17 Hgb 13.0 Hct 38.7 MCV 93.0 MCH 31.2 H MCHC 33.5 RDW 13.3 Plt Count 177 MPV 10.5 Neut % (Auto) 85.8 H Lymph % (Auto) 8.5 L Long % (Auto) 5.6 Eos % (Auto) 0.0 Baso % (Auto) 0.1 Neut # (Auto) 10.3 H Lymph # (Auto) 1.0 Long # (Auto) 0.7 Eos # (Auto) 0.0 Baso # (Auto) 0.0 Neutrophils % (Manual) 88 H Lymphocytes % (Manual) 7 L Monocytes % (Manual) 5 Platelet Estimate Normal RBC Morphology Normal Sodium 137 Potassium 4.2 Chloride 98 Carbon Dioxide 28 Anion Gap 15 BUN 21 H Creatinine 0.6 L Est GFR ( Amer) > 60 Est GFR (Non-Af Amer) > 60 Random Glucose 134 H Serum Osmolality 295 Calcium 8.3 L Fingerstick Blood Sugar Results: 109 Critical Care Progress Note - Nutrition Nutrition: Nutrition Category Date Time Status Dysphagia/Modified Consistency Diet [DIET] Diets 08/07/17 Lunch Active Assessment/Plan (1) Intracerebral bleed Current Visit: Yes Status: Acute Priority: High Comment: Physical and occupational therapies Speech therapies Continue Mannitol and continues serum osmolality level monitoring for Persistent mass-effect and mild shift of the midline from right to left. Continue frequent neuro check On Keppra for seizure prophylaxis (2) Prophylactic measure Current Visit: Yes Status: Acute Priority: Medium Comment: SCD On Keppra for seizure prophylaxis
--- NOTE | 2017-08-14 15:09 | CT ---
PROCEDURE: CT HEAD WITHOUT CONTRAST. HISTORY: hemorrhagic CVA COMPARISON: 08/07/2017-08/13/[address] scans of the brain TECHNIQUE: Axial computed tomography images were obtained through the head/brain without intravenous contrast. Radiation dose: Total exam DLP = 843.88 mGy-cm. This CT exam was performed using one or more of the following dose reduction techniques: Automated exposure control, adjustment of the mA and/or kV according to patient size, and/or use of iterative reconstruction technique. FINDINGS: HEMORRHAGE: Stable parenchymal hemorrhage right hemisphere. Adjacent edema, effacement of cortical sulci, midline shift and the impression upon the lateral ventricle again identified. No new areas of hemorrhage or additional abnormalities identified. BRAIN: No mass effect or edema. No atrophy or chronic microvascular ischemic changes. VENTRICLES: Unremarkable. No hydrocephalus. CALVARIUM: Unremarkable. PARANASAL SINUSES: Unremarkable as visualized. No significant inflammatory changes. MASTOID AIR CELLS: Unremarkable as visualized. No inflammatory changes. OTHER FINDINGS: None. IMPRESSION: Stable intracranial hemorrhage with adjacent edema and mass effect as well as midline shift. No new intracranial abnormalities
[2017-08-15 05:56] LABS: BLOOD UREA NITROGEN 17 mg/dl (7-17); CALCIUM 8.5 mg/dL (8.4-10.2); GFR AFRICAN-AMERICAN > 60; GFR NON-AFRICAN AMERICAN > 60
[2017-08-15 06:02] LABS: HEMOGLOBIN 12.9 g/dL (12.0-16.0); MEAN CELL VOLUME 92.6 fl (81.0-99.0); MEAN CORPUSCULAR HEMOGLOBIN 31.4 pg (27.0-31.0); MEAN CORPUSCULAR HGB CONC 33.9 g/dL (33.0-37.0); RBC 4.11 Mil/uL (3.80-5.20); RED CELL DISTRIBUTION WIDTH 13.6 % (11.5-14.5); WHITE BLOOD COUNT 11.5 K/uL (4.8-10.8)
--- NOTE | 2017-08-15 07:24 | CP.PCM.PN ---
Objective - Vital Signs/Intake and Output Vital Signs (last 24 hours): Temp Pulse Resp BP Pulse Ox 98.0 F 56 L 18 99/56 L 97 08/15/17 05:27 08/15/17 05:27 08/15/17 05:27 08/15/17 05:27 08/15/17 05:27 - Medications Medications: Current Medications Acetaminophen (Tylenol 650mg/20.3ml Solution Ud) 650 mg PO Q4 PRN PRN Reason: Headache Last Admin: 08/07/17 22:57 Dose: 650 mg Dexamethasone (Decadron) 8 mg PO Q12 [facility] Last Admin: 08/14/17 23:50 Dose: 8 mg Fluticasone Propionate (Flonase) 1 spr TREE BID [facility] Last Admin: 08/14/17 17:10 Dose: 1 spr Levetiracetam 500 mg/ Sodium (Chloride) 105 mls @ 105 mls/hr IVPB Q12 [facility] Last Admin: 08/14/17 23:51 Dose: 105 mls/hr Loratadine (Claritin) 10 mg PO DAILY [facility] Last Admin: 08/14/17 08:19 Dose: 10 mg Mannitol (Mannitol) 37.5 gm IV Q12 [facility] Last Admin: 08/14/17 23:49 Dose: 37.5 gm Metoclopramide HCl (Reglan) 10 mg PO ACHS [facility] Last Admin: 08/14/17 23:51 Dose: 10 mg - Labs Labs: 08/15/17 04:20 08/15/17 04:20 PT 12.0 Seconds (9.8-13.1) 08/10/17 04:30 INR 1.1 (0.9-1.2) 08/10/17 04:30 APTT 24.8 Seconds (25.6-37.1) L 08/10/17 04:30 Assessment and Plan - Assessment and Plan (Free Text) Assessment: 46 years old female with no significant past medical history , brought to the ED with less than one hour of new onset headache and left side weakness. According to the friend the patient was at a [employer] when she complained of headache. She fell to the ground had nausea and vomited. The EMS noted that she had a right gaze, left facial droop and left side weakness. In the ED she was alert but not answering questions and her NIHSS was 13. CT head showed right basal ganglia bleed. Neurology , neurosurgery , Neuro-interventionalist consulted. 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 after sudden headache with edema and midline shift with left hemiplegia, left facial droop and neglect CTA head and neck showing no aneurysm , no AVM received total 6 units FFP Neuro, neurosurgery and interventional neuro consulted - patient is not a candidate for any surgical intervention MRI showed no underlying lesion Repeat CT head today still showing basal ganglia bleed with edema and midline shift cont Mannitol IV and IV Decadron with serial serium Osmolality monitor Transferred to telemetry cont [facility] for seizure prophylaxis passed Swallow eval, tolerating diet Avoid any ASa, anticoagulations continue Physical, Occupational and Speech therapy Follow up with neuro for clearance before transfer to rehab 2. DVt prophylaxis SCD - no anticoag sec to bleed 3. Stress Ulcer prophylaxis with Pantoprazole
[2017-08-15] MEDS: Mannitol 12.5 gm/50 ml Inj IV SCH (08:50)
[2017-08-15] MEDS: levETIRAcetam 500 MG in Sodium Chloride 0.9% 100 ML IVPB SCH (08:51)
[2017-08-15] MEDS: Metoclopramide 10 mg/10 ml Cup PO SCH ×2 (08:51→12:30)
[2017-08-15] MEDS: Acetaminophen 650mg/20.3ml solution UD PO PRN (09:03)
--- NOTE | 2017-08-15 11:59 | CT ---
PROCEDURE: CT HEAD WITHOUT CONTRAST. HISTORY: hemorrhagic CVA COMPARISON: Noncontrast head CT 08/14/2017. TECHNIQUE: Axial computed tomography images were obtained through the head/brain without intravenous contrast. Radiation dose: Total exam DLP = 839.19 mGy-cm. This CT exam was performed using one or more of the following dose reduction techniques: Automated exposure control, adjustment of the mA and/or kV according to patient size, and/or use of iterative reconstruction technique. FINDINGS: HEMORRHAGE: A stable right basal ganglia intraparenchymal hemorrhage is appreciated with an epicenter the right basal ganglia causing stable sub cm leftward midline shift, local parenchymal edema/ gliosis and right hemispheric sulcal loss. No interval new acute intracranial hemorrhage. BRAIN: Stable mass effect as described above with no interval lucency or hemorrhage noted separate from the right basal ganglia including the entire left cerebral hemisphere, posterior fossa contents and brainstem. Mass effect is again seen insert on the right lateral ventricle with the ventricular assist remaining patent nevertheless overall. No atrophy or chronic microvascular ischemic changes. VENTRICLES: As above CALVARIUM: Unremarkable. PARANASAL SINUSES: Unremarkable as visualized. No significant inflammatory changes. MASTOID AIR CELLS: Unremarkable as visualized. No inflammatory changes. OTHER FINDINGS: None. IMPRESSION: Stable intracranial hemorrhage centered at the right basal ganglia once again with local mass effect and minimal leftward midline shift again evident. Continued clinical and CT monitoring are advised.
[2017-08-15 12:14] VITALS: BP 100/44; PULSE 79; RESP 20; TEMP 98.3; O2SAT 96
--- NOTE | 2017-08-15 13:46 | CP.PCM.DIS ---
Provider - Provider Date of Admission: 08/05/17 23:55 Attending physician: William Nation Primary care physician: None Consults: neurology consult Neurosurgery consult Neuro IR consult Critical care consult PT/OT / speech therapy consult Time Spent in preparation of Discharge (in minutes): 20 Hospital Course - Lab Results Lab Results: Micro Results 08/06/17 17:29 Nose MRSA Culture (Admit) - Final MRSA NOT DETECTED Most Recent Lab Values WBC 11.5 K/uL (4.8-10.8) H 08/15/17 04:20 RBC 4.11 Mil/uL (3.80-5.20) 08/15/17 04:20 Hgb 12.9 g/dL (12.0-16.0) 08/15/17 04:20 Hct 38.1 % (34.0-47.0) 08/15/17 04:20 MCV 92.6 fl (81.0-99.0) 08/15/17 04:20 MCH 31.4 pg (27.0-31.0) H 08/15/17 04:20 MCHC 33.9 g/dL (33.0-37.0) 08/15/17 04:20 RDW 13.6 % (11.5-14.5) 08/15/17 04:20 Plt Count 179 K/uL (130-400) 08/15/17 04:20 MPV 10.5 fl (7.2-11.7) 08/14/17 05:05 Neut % (Auto) 85.8 % (50.0-75.0) H 08/14/17 05:05 Lymph % (Auto) 8.5 % (20.0-40.0) L 08/14/17 05:05 [place] % (Auto) 5.6 % (0.0-10.0) 08/14/17 05:05 Eos % (Auto) 0.0 % (0.0-4.0) 08/14/17 05:05 Baso % (Auto) 0.1 % (0.0-2.0) 08/14/17 05:05 Neut # (Auto) 10.3 K/uL (1.8-7.0) H 08/14/17 05:05 Lymph # (Auto) 1.0 K/uL (1.0-4.3) 08/14/17 05:05 [place] # (Auto) 0.7 K/uL (0.0-0.8) 08/14/17 05:05 Eos # (Auto) 0.0 K/uL (0.0-0.7) 08/14/17 05:05 Baso # (Auto) 0.0 K/uL (0.0-0.2) 08/14/17 05:05 Neutrophils % (Manual) 88 % (42-75) H 08/14/17 05:05 Lymphocytes % (Manual) 7 % (20-50) L 08/14/17 05:05 Monocytes % (Manual) 5 % (0-10) 08/14/17 05:05 Platelet Estimate Normal (NORMAL) 08/14/17 05:05 RBC Morphology Normal (NORMAL) 08/14/17 05:05 PT 12.0 Seconds (9.8-13.1) 08/10/17 04:30 INR 1.1 (0.9-1.2) 08/10/17 04:30 APTT 24.8 Seconds (25.6-37.1) L 08/10/17 04:30 Sodium 139 mmol/l (132-148) 08/15/17 04:20 Potassium 4.1 MMOL/L (3.6-5.0) 08/15/17 04:20 Chloride 99 mmol/L (98-107) 08/15/17 04:20 Carbon Dioxide 26 mmol/L (22-30) 08/15/17 04:20 Anion Gap 18 (10-20) 08/15/17 04:20 BUN 17 mg/dl (7-17) 08/15/17 04:20 Creatinine 0.4 mg/dl (0.7-1.2) L 08/15/17 04:20 Est GFR ( Amer) > 60 08/15/17 04:20 Est GFR (Non-Af Amer) > 60 08/15/17 04:20 Random Glucose 123 mg/dL (65-105) H 08/15/17 04:20 Serum Osmolality 293 mosm/kg (272-300) 08/15/17 04:20 Calcium 8.5 mg/dL (8.4-10.2) 08/15/17 04:20 Phosphorus 3.0 mg/dl (2.5-4.5) 08/09/17 04:40 Magnesium 2.1 MG/DL (1.6-2.3) 08/09/17 04:40 Total Bilirubin 0.3 mg/dl (0.2-1.3) 08/05/17 23:40 AST 25 U/L (14-36) 08/05/17 23:40 ALT 34 U/L (9-52) 08/05/17 23:40 Alkaline Phosphatase 66 U/L (38-126) 08/05/17 23:40 Troponin I < 0.0120 ng/mL (0.00-0.120) 08/05/17 23:40 Total Protein 7.5 G/DL (6.3-8.2) 08/05/17 23:40 Albumin 4.3 g/dL (3.5-5.0) 08/05/17 23:40 Globulin 3.2 gm/dL (2.2-3.9) 08/05/17 23:40 Albumin/Globulin Ratio 1.3 (1.0-2.1) 08/05/17 23:40 Triglycerides 210 mg/DL (0-149) H 08/05/17 23:40 Cholesterol 192 mg/dL (0-199) 08/05/17 23:40 LDL Cholesterol Direct 124 mg/dL (0-129) 08/05/17 23:40 HDL Cholesterol 43 MG/DL (30-70) 08/05/17 23:40 Urine Color Yellow (YELLOW) 08/06/17 03:00 Urine Clarity Cloudy (Clear) 08/06/17 03:00 Urine pH 7.0 (5.0-8.0) 08/06/17 03:00 Ur Specific [place] 1.016 (1.003-1.030) 08/06/17 03:00 Urine Protein Negative mg/dL (NEGATIVE) 08/06/17 03:00 Urine Glucose (UA) Neg mg/dL (Normal) 08/06/17 03:00 Urine Ketones Negative mg/dL (NEGATIVE) 08/06/17 03:00 Urine Blood Negative (NEGATIVE) 08/06/17 03:00 Urine Nitrate Negative (NEGATIVE) 08/06/17 03:00 Urine Bilirubin Negative (NEGATIVE) 08/06/17 03:00 Urine Urobilinogen 0.2-1.0 mg/dL (0.2-1.0) 08/06/17 03:00 Ur Leukocyte Esterase Neg [place]/uL (Negative) 08/06/17 03:00 Urine RBC (Auto) 3 /hpf (0-3) 08/06/17 03:00 Urine Microscopic WBC < 1 /hpf (0-5) 08/06/17 03:00 Ur Squamous Epith Cells 1 /hpf (0-5) 08/06/17 03:00 Urine Bacteria Rare (<OCC) 08/06/17 03:00 Urine Opiates Screen Negative (NEGATIVE) 08/05/17 03:00 Urine Methadone Screen Negative (NEGATIVE) 08/05/17 03:00 Ur Barbiturates Screen Negative (NEGATIVE) 08/05/17 03:00 Ur Phencyclidine Scrn Negative (NEGATIVE) 08/05/17 03:00 Ur Amphetamines Screen Negative (NEGATIVE) 08/05/17 03:00 U Benzodiazepines Scrn Negative (NEGATIVE) 08/05/17 03:00 U Oth Cocaine Metabols Negative (NEGATIVE) 08/05/17 03:00 U Cannabinoids Screen Negative (NEGATIVE) 08/05/17 03:00 Alcohol, Quantitative < 10 mg/dl (0-10) 08/05/17 23:40 RPR Nonreactive (NONREACTIVE) 08/06/17 06:15 Blood Type O POSITIVE 08/06/17 09:29 Blood Type Confirm O POSITIVE 08/06/17 09:30 Antibody Screen Negative 08/06/17 09:29 BBK History Checked No verified bt 08/06/17 09:29 - Hospital Course Hospital Course: 46 years old female with no significant past medical history , brought to the ED with less than one hour of new onset headache and left side weakness. 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 She fell to the ground had nausea and vomited. The EMS noted that she had a right gaze, left facial droop and left side weakness. In the ED she was alert but not answering questions and her NIHSS was 13. CT head showed right basal ganglia bleed. Neurology , neurosurgery , Neuro-interventionalist consulted. Patient was not a surgical candidate Repeat CT head showed increased bleed with edema and midline shift CTA head and neck showed no aneurysmal dilatation nor AVM MRI showed no underlying lesion She was started on Mannitol drip and Decadron IV Repeat CT head 08/14 still showing basal ganglia bleed with edema and midline shift Still with left facial droop and left side hemiplegia . 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 after sudden headache with edema and midline shift with left hemiplegia, left facial droop and neglect CTA head and neck showing no aneurysm , no AVM received total 6 units FFP Neuro, neurosurgery and interventional neuro consulted - patient is not a candidate for any surgical intervention MRI showed no underlying lesion Repeat CT head 08/14 still showing basal ganglia bleed with edema and midline shift Received Mannitol IV and IV Decadron with serial serium Osmolality monitoring cont Keppra for seizure prophylaxis passed Swallow eval, tolerating diet Avoid any ASA, anticoagulations continue Physical, Occupational and Speech therapy in acute rehab Cleared by neuro for discharge . Will d/c manitol Neuro to follow up patient in rehab 2. DVt prophylaxis SCD - no anticoag sec to bleed 3. Stress Ulcer prophylaxis with Pantoprazole Discharge Exam - Head Exam Head Exam: ATRAUMATIC, NORMAL INSPECTION, NORMOCEPHALIC - Eye Exam Eye Exam: EOMI, PERRL Pupil Exam: NORMAL ACCOMODATION - ENT Exam ENT Exam: Mucous Membranes Moist, Normal Exam - Neck Exam Neck exam: Full Rom, Normal Inspection - Respiratory Exam Respiratory Exam: Clear to PA & Lateral, NORMAL BREATHING PATTERN. absent: Rales, Rhonchi, Wheezes - Cardiovascular Exam Cardiovascular Exam: REGULAR RHYTHM, RRR, +S1, +S2. absent: JVD - GI/Abdominal Exam GI & Abdominal Exam: Normal Bowel Sounds, Soft. absent: Distended, Guarding, Rebound, Tenderness - Rectal Exam Rectal Exam: Deferred - Extremities Exam Extremities exam: normal capillary refill, normal inspection, pedal pulses present - Back Exam Back exam: NORMAL INSPECTION - Neurological Exam Neurological exam: Alert, Oriented x3 Additional comments: left facial droop left side hemiplegia - Psychiatric Exam Psychiatric exam: Normal Affect, Normal Mood - Skin Skin Exam: Dry, Normal Color, Warm Discharge Plan - Discharge Medications Prescriptions: levETIRAcetam [Keppra] 500 mg PO BID #60 tab - Follow Up Plan Condition: CRITICAL Disposition: REHAB FACILITY/REHAB UNIT Patient education suggested?: Yes Instructions: Stroke (DC), Hemorrhagic Stroke Referrals: Tay Hammer MD [Medical Doctor] -
== END 2017-08-15 13:50 | DRG 810 ==
LOC: H.ER 23:22 → H.ERHOLD 23:55 → H.ICU/CCU 08-06 11:50 → H.TEL 08-14 18:27
PROVIDERS: ADMIT Internal Medicine; ATTEND Internal Medicine
PROC: F07 Physical Rehabilitation and Diagnostic Audiology, Rehabilitation, Motor Treatment (ICD-10-PCS; principal; 2017-08-07)
PROC: F07M6FZ Therapeutic Exercise Treatment of Musculoskeletal System - Whole Body using Assistive, Adaptive, Supportive or Protective Equipment (ICD-10-PCS; 2017-08-07)
PROC: F08Z4FZ Home Management Treatment using Assistive, Adaptive, Supportive or Protective Equipment (ICD-10-PCS; 2017-08-07)
DX: I61.0 Nontraumatic intracerebral hemorrhage in hemisphere, subcortical (principal); G93.6 Cerebral edema; G81.94 Hemiplegia, unspecified affecting left nondominant side; R41.4 Neurologic neglect syndrome; R29.810 Facial weakness; R73.03 Prediabetes; Z91.81 History of falling; R47.1 Dysarthria and anarthria

== ENCOUNTER 2017-08-15 12:34 | Inpatient (IN) | payer OTHER ==
[2017-08-15 12:43] VITALS: BMI 27.0
[2017-08-15] MEDS ORDERED: Acetaminophen 325 MG/10.15 ML PO PRN (16:02)
[2017-08-15] MEDS: Metoclopramide 10 mg/10 ml Cup PO SCH ×2 (17:00→21:46)
[2017-08-16] MEDS: Metoclopramide 10 mg/10 ml Cup PO SCH ×4 (07:03→22:18)
--- NOTE | 2017-08-16 07:22 | CON ---
DATE: 08/15/2017 PHYSIATRY CONSULTATION HISTORY OF PRESENT ILLNESS: The patient is a 46-year-old friendly female admitted for acute Inpatient Rehab Program. The patient with left lower extremity weakness with status post right basal ganglia hemorrhage ICD code 02.1, also history of diabetes, and hypertension. PAST SURGICAL HISTORY: Cesarian section and hysterectomy. ALLERGIES: NO KNOWN ALLERGIES. MEDICATIONS: As per medical physician. FUNCTIONAL STATUS: The patient was independent in all activities previously at home, employed as [employer]. The patient status post acute onset of headache and left-sided weakness. The patient was at [employer] party and started to complain of headache and fell to the ground with vomiting and facial droop. REVIEW OF SYSTEMS: The patient with left arm and left leg weakness. No other acute complaint at present. PHYSICAL EXAMINATION: VITAL SIGNS: Stable. NECK: Supple. CHEST: Symmetrical. HEART: S1 and S2. ABDOMEN: Benign. EXTREMITIES: No clubbing, cyanosis or edema. Left upper and left lower extremity tone is decreased, range of motion is limited, and muscle strength is zero. Right upper and right lower extremity, tone normal, range of motion is functional, and muscle strength is good. Sensation to pinprick, light touch intact. Deep tendon reflexes 1+ left upper, left lower extremity and 2+ right upper and right lower extremity. Sensation grossly intact. IMPRESSION: Right basal ganglia hemorrhage, left hemiplegia, history of diabetes, hypertension, and gait difficulty. PLAN: Physical Therapy, Occupational Therapy, Recreational Therapy, Speech Therapy, full range of motion, strengthening, transfers, ambulation, gait training. Estimated length to stay for this patient is 3 weeks. Anticipated discharge plan to go back to live at home with supportive service. Treatment goal is independent to supervision, function and positional changes, supervision and contact guard for bed mobility, supervision and contract guard for simple transverse, contact guard to min assist for complex transverse, contact guard to min assist to ambulation with assisted devices. Further goals to be modified depending on the patient's return on muscle strength in the left arm and left leg. Jasen Muniz MD
--- NOTE | 2017-08-16 11:23 | CP.PCM.HP ---
History of Present Illness - History of Present Illness History of Present Illness: 46 yo female with no significant PMH was brought to [facility] ED because of sudden onset of headache associated with left sided weakness and left facial droop. CT of head showed right basal ganglia bleed with mass effect and left midline shift. Neurosurgery was consulted and advised conservative management. Neurology was consulted and advised initially IV Mannitol and Decadron. She was later transferred to Acute Rehab for PT/OT. Present on Admission - Present on Admission Any Indicators Present on Admission: No History of DVT/PE: No History of Uncontrolled Diabetes: No Urinary Catheter: No Decubitus Ulcer Present: No Review of Systems - Review of Systems All systems: reviewed and no additional remarkable complaints except (aside from those mentioned above, 12 point system review were negative by me) Past Patient History - Past Medical History & Family History Past Medical History?: Yes - Past Social History Smoking Status: Never Smoked Alcohol: Social Drugs: Denies - CARDIAC Hx Cardiac Disorders: No - PULMONARY Hx Respiratory Disorders: No - NEUROLOGICAL Hx Neurological Disorder: No - HEENT Hx HEENT Problems: No - RENAL Hx Chronic Kidney Disease: No - HEMATOLOGICAL/ONCOLOGICAL Hx Blood Disorders: No Hx AIDS: No Hx Human Immunodeficiency Virus (HIV): No - INTEGUMENTARY Hx Dermatological Problems: No - MUSCULOSKELETAL/RHEUMATOLOGICAL Hx Musculoskeletal Disorders: No Hx Falls: No - GASTROINTESTINAL Hx Gastrointestinal Disorders: No - GENITOURINARY/GYNECOLOGICAL Hx Genitourinary Disorders: No - PSYCHIATRIC Hx Psychophysiologic Disorder: No Hx Substance Use: No - SURGICAL HISTORY Hx Surgeries: Yes Hx Section: Yes - ANESTHESIA Hx Anesthesia: Yes Hx Anesthesia Reactions: No Meds Allergies/Adverse Reactions: Allergies Allergy/AdvReac Type Severity Reaction Status Date / Time No Known Allergies Allergy Verified 08/06/17 08:39 Physical Exam - Constitutional Appears: No Acute Distress - Head Exam Head Exam: ATRAUMATIC - Eye Exam Eye Exam: absent: Scleral icterus - ENT Exam ENT Exam: Mucous Membranes Moist - Neck Exam Neck exam: Negative for: Meningismus - Respiratory Exam Respiratory Exam: absent: Rales, Rhonchi, Wheezes, Respiratory Distress - Cardiovascular Exam Cardiovascular Exam: REGULAR RHYTHM, +S1, +S2 - GI/Abdominal Exam GI & Abdominal Exam: Soft. absent: Tenderness - Rectal Exam Rectal Exam: Deferred - Back Exam Back exam: NORMAL INSPECTION - Neurological Exam Neurological exam: Alert (appeared sleepy but very responsive), Oriented x3 - Psychiatric Exam Psychiatric exam: Normal Affect - Skin Skin Exam: Dry, Intact Results - Vital Signs Recent Vital Signs: Last Vital Signs Temp 97.3 F L 08/16/17 10:11 Pulse 76 08/16/17 10:11 Resp 19 08/16/17 10:11 BP 102/62 08/16/17 10:11 Pulse Ox 96 08/16/17 08:29 Assessment & Plan - Assessment and Plan (Free Text) Assessment: 46 yo female with no significant PMH was brought to [facility] ED because of sudden onset of headache associated with left sided weakness and left facial droop. CT of head showed right basal ganglia bleed with mass effect and left midline shift. Neurosurgery was consulted and advised conservative management. Neurology was consulted and advised initially IV Mannitol and Decadron. She was later transferred to Acute Rehab for PT/OT. 1. Right basal ganglia hemorrhage with mass effect and left midline shift appeared sleepy today but promptly responsive CTA head and neck: no aneurysm, no AVM patient received a total 6 units FFP neurosurgery advised no surgical intervention initially received IV Mannitol and IV Decadron on [facility] for seizure prophylaxis tolerating diet avoid antiplatelets and anticoagulants continue PT/OT Dr Hammer on neuro consults 2. DVT prophylaxis venodyne boots while in bed
--- NOTE | 2017-08-16 12:31 | PSY.TMCNF ---
Nursing - Vital Signs Vital Signs (Last 8 hours): Vital Signs 08/16/17 08/16/17 08:29 10:11 Temperature 97.3 F L 97.3 F L Pulse Rate 76 76 Respiratory 19 19 Rate Blood Pressure 102/62 102/62 O2 Sat by Pulse 96 Oximetry Pain: 0 - Precautions: Precautions: Fall Prevention, Aspiration - Medications/Other Issues Comment: Flat affect - Consults Comment: Dr. Muniz - Skin Incision Site: Intact - Toileting Toileting: Dependent - Bladder Management Bladder Pattern: Normal Voiding Method: Toilet, Bedpan Bladder Management: Maximal Assistance Frequency of Accidents: 0 - Bowel Management Bowel Pattern: Normal Bowel Management: Maximal Assistance Frequency of Accidents: 0 - Transfers Transfers: Maximal Assistance - ADL's ADL's: Maximal Assistance - Patient/Family Teaching Comments: Care post CVA and safety precautions - Goals/Time Frame Comments: Per multidisciplinary care plan and goals - Provider Provider: Bessy PATRICK RN CRRN Physical Therapy - Pain Management Techniques: Position Change - Assessment/Plan Assessment: Alberta Lobo presents with 1.) mild-moderate dysarthria characterized by L facial droop resulting in impaired articulatory precision, as well as impaired respiration for phonation with low vocal volume, all negatively impacting intelligibility; 2.) mild cognitive deficits characterized by mildly impaired short-term recall, higher level problem solving, and thought organization; and 3.) moderate oral dysphagia characterized by prolonged mastication and A-P transit, impaired bolus control with suspected posterior leakage, and impaired oral clearance with L sided buccal pocketing for solids; no overt s/s aspiration on PO trials tested, though pt is at risk for aspiration secondary to oral deficits. Pt's speech and swallow skills were WFL prior to hemorrhage. She would benefit from speech and dysphagia tx with NMES 3- 5x/week to address deficits in these areas. - Provider Therapist: evelyn License Number: [id number] Occupational Therapy - Arousal/Attention/Orientation Patient Orientation: Person, Place, Time, Appropriate to Age, Appropriate to Situation - Pain Alleviating Techniques: Position Change - Assessment/Plan Assessment: Alberta Lobo presents with 1.) mild-moderate dysarthria characterized by L facial droop resulting in impaired articulatory precision, as well as impaired respiration for phonation with low vocal volume, all negatively impacting intelligibility; 2.) mild cognitive deficits characterized by mildly impaired short-term recall, higher level problem solving, and thought organization; and 3.) moderate oral dysphagia characterized by prolonged mastication and A-P transit, impaired bolus control with suspected posterior leakage, and impaired oral clearance with L sided buccal pocketing for solids; no overt s/s aspiration on PO trials tested, though pt is at risk for aspiration secondary to oral deficits. Pt's speech and swallow skills were WFL prior to hemorrhage. She would benefit from speech and dysphagia tx with NMES 3- 5x/week to address deficits in these areas. - Provider Therapist: DANITZA Wolff[facility] - Consult Information Patient on Program: Yes Medical Diagnosis: R hemorrhage Treatment Diagnosis: -mild cognitive deficits. -mild-moderate dysarthria. - moderate oral dysphagia - Assessment Problem Solving Impairment: Mild Memory Impairment: Mild Speech/Articulation Impairment: Moderate Dysphagia/Swallowing Impairment: Moderate Comment: finely chopped solids/thin liquids - Plan Assessment: Alberta Lobo presents with 1.) mild-moderate dysarthria characterized by L facial droop resulting in impaired articulatory precision, as well as impaired respiration for phonation with low vocal volume, all negatively impacting intelligibility; 2.) mild cognitive deficits characterized by mildly impaired short-term recall, higher level problem solving, and thought organization; and 3.) moderate oral dysphagia characterized by prolonged mastication and A-P transit, impaired bolus control with suspected posterior leakage, and impaired oral clearance with L sided buccal pocketing for solids; no overt s/s aspiration on PO trials tested, though pt is at risk for aspiration secondary to oral deficits. Pt's speech and swallow skills were WFL prior to hemorrhage. She would benefit from speech and dysphagia tx with NMES 3- 5x/week to address deficits in these areas. Plan: Continue Dysphagia Therapy, Continue Speech/Language Therapy Frequency: 3-5 times per week Duration: 1 week Goals/Timeframe: Please see IE completed 08/16/17 for complete tx goals/POC Recommendations: -Speech tx and dysphagia tx with VitalStim 3-5x/week. -Finely chopped solids/thin liquids - Provider Therapist: Vivian Veliz License Number: [id number] Recreational Therapy - Assessment Assessment/Plan: Alberta Lobo presents with 1.) mild-moderate dysarthria characterized by L facial droop resulting in impaired articulatory precision, as well as impaired respiration for phonation with low vocal volume, all negatively impacting intelligibility; 2.) mild cognitive deficits characterized by mildly impaired short-term recall, higher level problem solving, and thought organization; and 3.) moderate oral dysphagia characterized by prolonged mastication and A-P transit, impaired bolus control with suspected posterior leakage, and impaired oral clearance with L sided buccal pocketing for solids; no overt s/s aspiration on PO trials tested, though pt is at risk for aspiration secondary to oral deficits. Pt's speech and swallow skills were WFL prior to hemorrhage. She would benefit from speech and dysphagia tx with NMES 3- 5x/week to address deficits in these areas. Nutrition - Current Diet Current Diet/ Supplement/ Feedings: 2 gm Na, mech altered (finely chop) diet with thin liquids - Appetite Percent Meal Consumed: 75-100% - Comments Comments: Care post CVA and safety precautions - Assessment/Goals/Time Frame Assessment/Goals/Time Frame: Flat affect - Provider Provider: Fay Parikh MS, RD Case Management - Discharge Plan Discharge Plan: Home with significant other/family Rehabilitation Plan - Treatment Plan Treatment Plan: Physical Therapy, Occupational Therapy, Speech, Dietary - Recommendation Recommendation: Physical Therapy, Occupational Therapy, Speech, Dietary, Patient /Family Education - Discharge Plan Discharge to: Subacute
--- NOTE | 2017-08-16 14:35 | CP.PCM.PN ---
Subjective - Date & Time of Evaluation Date of Evaluation: 08/16/17 Time of Evaluation: 11:00 - Subjective Subjective: no acute complaints except being sleepy and tired Objective - Vital Signs/Intake and Output Vital Signs (last 24 hours): Temp Pulse Resp BP Pulse Ox 97.3 F L 76 19 102/62 96 08/16/17 10:11 08/16/17 10:11 08/16/17 10:11 08/16/17 10:11 08/16/17 08:29 - Medications Medications: Current Medications Acetaminophen (Tylenol 325mg/10.15ml Ud) 650 mg PO Q4 PRN PRN Reason: Headache Dexamethasone (Decadron) 4 mg PO Q12 [facility] Fluticasone Propionate (Flonase) 1 spr TREE Q12 [facility] Last Admin: 08/16/17 08:20 Dose: 1 spr Levetiracetam (Keppra) 500 mg PO BID [facility] Last Admin: 08/16/17 08:21 Dose: 500 mg Loratadine (Claritin) 10 mg PO DAILY [facility] Last Admin: 08/16/17 08:21 Dose: 10 mg Metoclopramide HCl (Reglan) 10 mg PO ACHS [facility] Last Admin: 08/16/17 12:25 Dose: 10 mg Nystatin (Nystatin Oral Susp) 5 ml PO QID [facility] - Head Exam Head Exam: ATRAUMATIC, NORMAL INSPECTION, NORMOCEPHALIC - Eye Exam Eye Exam: EOMI, Normal appearance, PERRL Pupil Exam: NORMAL ACCOMODATION - ENT Exam ENT Exam: Mucous Membranes Moist, Normal Exam - Neck Exam Neck Exam: Full ROM, Normal Inspection - Respiratory Exam Respiratory Exam: Clear to Ausculation Bilateral, NORMAL BREATHING PATTERN - Cardiovascular Exam Cardiovascular Exam: Gallop, REGULAR RHYTHM - GI/Abdominal Exam GI & Abdominal Exam: Soft, Normal Bowel Sounds - Rectal Exam Rectal Exam: NORMAL INSPECTION - Exam External exam: NORMAL EXTERNAL EXAM - Extremities Exam Extremities Exam: Full ROM, Normal Capillary Refill, Normal Inspection - Back Exam Back Exam: NORMAL INSPECTION - Neurological Exam Neurological Exam: Alert, Awake Neuro motor strength exam: Left Upper Extremity: 0, Right Upper Extremity: 3, Left Lower Extremity: 0, Right Lower Extremity: 3 - Psychiatric Exam Psychiatric exam: Normal Affect, Normal Mood - Skin Skin Exam: Dry, Intact Assessment and Plan (1) Headache Status: Acute (2) Hemorrhagic cerebrovascular accident (CVA) Assessment & Plan: plan for physical, occupational, rec therapy for patient for neurology consult regarding provigil Status: Acute (3) Intracerebral bleed Status: Acute (4) Prophylactic measure Status: Acute (5) Prophylactic measure Status: Acute
--- NOTE | 2017-08-16 15:53 | CP.PCM.CON ---
History of Present Illness - History of Present Illness History of Present Illness: Neurology Consultation Note: Mrs. Lobo is a 46-year-old woman who recently suffered a large right basal ganglia hemorrhage, with midline shift and significant edema resulting in left side hemiplegia and neglect. She was stabilized in the ICU and inpatient unit, and is now transferred to acute rehab for recovery efforts. I am familiar with the patient from the inpatient side and was consulted for continuity of care. The patient has been on hypertonics and decadron for edema. She developed oral thrush, likely due to steroids, which have been decreased and will be tapered off. She continues to have left side hemiplegia, with little improvement. Review of Systems - Review of Systems All systems: reviewed and no additional remarkable complaints except Past Patient History - Past Medical History & Family History Past Medical History?: Yes - Past Social History Smoking Status: Never Smoked Alcohol: Social Drugs: Denies - CARDIAC Hx Hypertension: Yes - PULMONARY Hx Respiratory Disorders: No - NEUROLOGICAL Hx Neurological Disorder: No - HEENT Hx HEENT Problems: No - RENAL Hx Chronic Kidney Disease: No - ENDOCRINE/METABOLIC Hx Diabetes Mellitus Type 2: Yes - HEMATOLOGICAL/ONCOLOGICAL Hx Blood Disorders: No Hx AIDS: No Hx Human Immunodeficiency Virus (HIV): No - INTEGUMENTARY Hx Dermatological Problems: No - MUSCULOSKELETAL/RHEUMATOLOGICAL Hx Musculoskeletal Disorders: No Hx Falls: No - GASTROINTESTINAL Hx Gastrointestinal Disorders: No - GENITOURINARY/GYNECOLOGICAL Hx Genitourinary Disorders: No - PSYCHIATRIC Hx Psychophysiologic Disorder: No Hx Substance Use: No - SURGICAL HISTORY Hx Surgeries: Yes Hx Section: Yes - ANESTHESIA Hx Anesthesia: Yes Hx Anesthesia Reactions: No Meds Allergies/Adverse Reactions: Allergies Allergy/AdvReac Type Severity Reaction Status Date / Time No Known Allergies Allergy Verified 08/06/17 08:39 - Medications Medications: Current Medications Acetaminophen (Tylenol 325mg/10.15ml Ud) 650 mg PO Q4 PRN PRN Reason: Headache Dexamethasone (Decadron) 4 mg PO Q12 [facility] Fluticasone Propionate (Flonase) 1 spr TREE Q12 [facility] Last Admin: 08/16/17 08:20 Dose: 1 spr Levetiracetam (Keppra) 500 mg PO BID [facility] Last Admin: 08/16/17 08:21 Dose: 500 mg Loratadine (Claritin) 10 mg PO DAILY [facility] Last Admin: 08/16/17 08:21 Dose: 10 mg Metoclopramide HCl (Reglan) 10 mg PO ACHS [facility] Last Admin: 08/16/17 12:25 Dose: 10 mg Nystatin (Nystatin Oral Susp) 5 ml PO QID [facility] Physical Exam - Constitutional Appears: Well - Respiratory Exam Respiratory Exam: Clear to Auscultation Bilateral, NORMAL BREATHING PATTERN - Cardiovascular Exam Cardiovascular Exam: REGULAR RHYTHM - GI/Abdominal Exam GI & Abdominal Exam: Normal Bowel Sounds, Soft. absent: Tenderness - Rectal Exam Rectal Exam: Deferred - Extremities Exam Extremities exam: Positive for: normal inspection - Neurological Exam Neurological exam: Alert, CN II-XII Intact, Oriented x3 Additional comments: Left side hemiplegia, but withdraws to painful stimulus. Sensation is diminished on the left to the degree of anesthesia. Reflexes are brisk on the left C5/6 and L4/5. Gait cannot be assessed. NIHSS = 10 - Psychiatric Exam Psychiatric exam: Depressed Results - Vital Signs Recent Vital Signs: Last Vital Signs Temp 97.3 F L 08/16/17 10:11 Pulse 76 08/16/17 10:11 Resp 19 08/16/17 10:11 BP 102/62 08/16/17 10:11 Pulse Ox 96 08/16/17 08:29 Assessment & Plan (1) Hemorrhagic cerebrovascular accident (CVA) Assessment and Plan: Likely due to hypertension. I recommend the followin. Taper off of decadron: decrease dose to 4 mg Q12 for one week, then decrease to 2 mg daily for one week, then decrease to 1 mg daily for one week. 2. May start SQ heparin for DVT Px 3. Control BP to normal range 4. PT/OT per rehab team 5. Avoid antiplatelet agents Neurology will follow. Thank you for this consultation. Status: Acute
[2017-08-16] MEDS ORDERED: Lactulose 10 gm/15 ml Syrup PO ONE (16:30)
[2017-08-16] MEDS: Nystatin 100,000 Units/ml Oral Susp 5 ml UD PO SCH ×2 (16:59→22:18)
[2017-08-17] MEDS: Metoclopramide 10 mg/10 ml Cup PO SCH ×4 (06:50→21:21)
[2017-08-17] MEDS: Nystatin 100,000 Units/ml Oral Susp 5 ml UD PO SCH ×4 (08:54→21:21)
--- NOTE | 2017-08-17 11:52 | CP.PCM.PN ---
Subjective - Date & Time of Evaluation Date of Evaluation: 08/17/17 Time of Evaluation: 11:47 - Subjective Subjective: ms. Lobo was seen and examined at the bedside. She is alert, oriented in all spheres but very sleepy. She is able to participate during assessment, but unable to maintain her eyes open. She is able to.follow simple commands. There was no untoward events overnight. Objective - Vital Signs/Intake and Output Vital Signs (last 24 hours): Temp Pulse Resp BP Pulse Ox 97 F L 62 20 97/54 L 98 08/17/17 07:30 08/17/17 07:30 08/17/17 07:30 08/17/17 07:30 08/17/17 07:30 - Medications Medications: Current Medications Acetaminophen (Tylenol 325mg/10.15ml Ud) 650 mg PO Q4 PRN PRN Reason: Headache Dexamethasone (Decadron) 4 mg PO Q12 [facility] Last Admin: 08/17/17 08:54 Dose: 4 mg Fluticasone Propionate (Flonase) 1 spr TREE Q12 [facility] Last Admin: 08/17/17 08:55 Dose: 1 spr Heparin Sodium (Porcine) (Heparin) 2,000 units SC Q12 [facility] PRN Reason: Protocol Levetiracetam (Keppra) 500 mg PO BID [facility] Last Admin: 08/17/17 08:55 Dose: 500 mg Loratadine (Claritin) 10 mg PO DAILY [facility] Last Admin: 08/17/17 08:55 Dose: 10 mg Metoclopramide HCl (Reglan) 10 mg PO ACHS [facility] Last Admin: 08/17/17 06:50 Dose: 10 mg Nystatin (Nystatin Oral Susp) 5 ml PO QID [facility] Last Admin: 08/17/17 08:54 Dose: 5 ml - Constitutional Appears: No Acute Distress - Head Exam Head Exam: NORMAL INSPECTION - Neurological Exam Neurological Exam: Alert, Awake, Oriented x3 Neuro motor strength exam: Left Upper Extremity: 0, Right Upper Extremity: 5, Left Lower Extremity: 0, Right Lower Extremity: 5 Additional comments: Left side hemiplegia, but withdraws to painful stimulus. Sensation is diminished on the left to the degree of anesthesia. Reflexes are brisk on the left C5/6 and L4/5. Assessment and Plan (1) Hemorrhagic cerebrovascular accident (CVA) Assessment & Plan: Case discussed with Dr. Hammer, continue all current medical, physical, occupational therapies. Recommend low dose of heparin 2000 units SC q 12 for DVT prophylaxis, repeat CT scan of the head after heparin started to evaluate both CVA and any after effect of heparin. Recommend Amantadine 100 mg PO Q 12 to help stay awake her during therapy session. Status: Acute
[2017-08-18] MEDS: Metoclopramide 10 mg/10 ml Cup PO SCH ×4 (06:53→21:11)
[2017-08-18] MEDS: Nystatin 100,000 Units/ml Oral Susp 5 ml UD PO SCH ×4 (08:16→21:11)
--- NOTE | 2017-08-18 10:10 | CP.PCM.PN ---
Subjective - Date & Time of Evaluation Date of Evaluation: 08/18/17 Time of Evaluation: 10:10 - Subjective Subjective: Ms. Lobo was seen and examined at the bedside. She is alert, oriented in all spheres but very sleepy. She is able to participate during assessment, but unable to maintain her eyes open. She further states of unable to help herself maintaining wakefulness. She is able to.follow simple commands. There was no untoward events overnight. Objective - Vital Signs/Intake and Output Vital Signs (last 24 hours): Temp Pulse Resp BP Pulse Ox 97.2 F L 53 L 18 96/55 L 97 08/18/17 07:35 08/18/17 07:35 08/18/17 07:35 08/18/17 07:35 08/18/17 07:35 - Medications Medications: Current Medications Acetaminophen (Tylenol 325mg/10.15ml Ud) 650 mg PO Q4 PRN PRN Reason: Headache Amantadine HCl (Amantadine 100 Mg Cap) 100 mg PO Q12 [facility] Last Admin: 08/18/17 08:16 Dose: 100 mg Dexamethasone (Decadron) 4 mg PO Q12 [facility] Last Admin: 08/18/17 08:14 Dose: 4 mg Fluticasone Propionate (Flonase) 1 spr TREE Q12 [facility] Last Admin: 08/18/17 08:15 Dose: 1 spr Heparin Sodium (Porcine) (Heparin) 2,000 units SC Q12 [facility] PRN Reason: Protocol Last Admin: 08/18/17 08:15 Dose: 2,000 units Levetiracetam (Keppra) 500 mg PO BID [facility] Last Admin: 08/18/17 08:16 Dose: 500 mg Loratadine (Claritin) 10 mg PO DAILY [facility] Last Admin: 08/18/17 08:37 Dose: Not Given Metoclopramide HCl (Reglan) 10 mg PO ACHS [facility] Last Admin: 08/18/17 06:53 Dose: 10 mg Nystatin (Nystatin Oral Susp) 5 ml PO QID [facility] Last Admin: 08/18/17 08:16 Dose: 5 ml - Constitutional Appears: No Acute Distress - Head Exam Head Exam: NORMAL INSPECTION - Neurological Exam Neurological Exam: Awake Neuro motor strength exam: Left Upper Extremity: 0, Right Upper Extremity: 4, Left Lower Extremity: 0, Right Lower Extremity: 4 Additional comments: She is very sleepy, but able to follow commands. Assessment and Plan (1) Hemorrhagic cerebrovascular accident (CVA) Assessment & Plan: Case discussed with Dr. Hammer, continue all current medical, physical, occupational therapies. Recommend a repeat CT scan of head to evaluate any brain pathology. Status: Acute
--- NOTE | 2017-08-18 10:40 | CT ---
PROCEDURE: CT HEAD WITHOUT CONTRAST. HISTORY: change of mental status COMPARISON: CT head dated 08/15/2017. TECHNIQUE: Axial computed tomography images were obtained through the head/brain without intravenous contrast. Radiation dose: Total exam DLP = 863.8 mGy-cm. This CT exam was performed using one or more of the following dose reduction techniques: Automated exposure control, adjustment of the mA and/or kV according to patient size, and/or use of iterative reconstruction technique. FINDINGS: HEMORRHAGE: Interval mild evolution of the right basal ganglia intraparenchymal hemorrhage causing stable leftward subfalcine herniation. BRAIN: Similar edema adjacent to the right basal ganglia hemorrhage causing mass effect and sulcal effacement. No atrophy or chronic microvascular ischemic changes. VENTRICLES: Mass-effect upon the right lateral ventricle by right basal ganglia intraparenchymal hemorrhage. No hydrocephalus. CALVARIUM: Unremarkable. PARANASAL SINUSES: Unremarkable as visualized. No significant inflammatory changes. MASTOID AIR CELLS: Unremarkable as visualized. No inflammatory changes. OTHER FINDINGS: None. IMPRESSION: Mild expected interval evolution of right basal ganglia parenchymal hemorrhage with similar mass effect and leftward subfalcine herniation. No new area of hemorrhage.
--- NOTE | 2017-08-18 12:33 | CP.PCM.PN ---
Subjective - Date & Time of Evaluation Date of Evaluation: 08/18/17 Time of Evaluation: 12:31 - Subjective Subjective: patient seen and examined bedside, appears to be mildly more lethargic despite ability to follow commands. Discussed with neurology, will send patient for repeat CAT scan of the head. Hemodynamically stable in no acute distress. Objective - Vital Signs/Intake and Output Vital Signs (last 24 hours): Temp Pulse Resp BP Pulse Ox 97.2 F L 53 L 18 96/55 L 97 08/18/17 07:35 08/18/17 07:35 08/18/17 07:35 08/18/17 07:35 08/18/17 07:35 Physical exam: Constitutional- cooperative, awake, alert Head- NCAT, PERRL Eye- PERRL, EOMI ENT- normal exam, MMM. Neck- normal inspection, supple, no JVD Respiratory- CTAB, no wheezes rales rhonchi Cardiovascular- RRR, +S1, +S2 no MRG GI/Abdominal- normal bowel sounds, soft, no mass, no hsm Skin- warm, dry Extremities Exam- normal capillary refill, normal inspection Neurological Exam- alert, awake, oriented Psych- normal mood, normal affect - Medications Medications: Current Medications Acetaminophen (Tylenol 325mg/10.15ml Ud) 650 mg PO Q4 PRN PRN Reason: Headache Amantadine HCl (Amantadine 100 Mg Cap) 100 mg PO Q12 [facility] Last Admin: 08/18/17 08:16 Dose: 100 mg Dexamethasone (Decadron) 4 mg PO Q12 [facility] Last Admin: 08/18/17 08:14 Dose: 4 mg Fluticasone Propionate (Flonase) 1 spr TREE Q12 [facility] Last Admin: 08/18/17 08:15 Dose: 1 spr Heparin Sodium (Porcine) (Heparin) 2,000 units SC Q12 [facility] PRN Reason: Protocol Last Admin: 08/18/17 08:15 Dose: 2,000 units Levetiracetam (Keppra) 500 mg PO BID [facility] Last Admin: 08/18/17 08:16 Dose: 500 mg Loratadine (Claritin) 10 mg PO DAILY [facility] Last Admin: 08/18/17 08:37 Dose: Not Given Metoclopramide HCl (Reglan) 10 mg PO ACHS [facility] Last Admin: 08/18/17 06:53 Dose: 10 mg Nystatin (Nystatin Oral Susp) 5 ml PO QID [facility] Last Admin: 08/18/17 08:16 Dose: 5 ml Assessment and Plan - Assessment and Plan (Free Text) Plan: 46 yo female with no significant PMH was brought to [facility] ED because of sudden onset of headache associated with left sided weakness and left facial droop. CT of head showed right basal ganglia bleed with mass effect and left midline shift. Neurosurgery was consulted and advised conservative management. Neurology was consulted and advised initially IV Mannitol and Decadron. She was later transferred to Acute Rehab for PT/OT. 1. Right basal ganglia hemorrhage with mass effect and left midline shift appearedmildly more lethargic, will send for repeat CAT scan of the head today. Discussed with neurology. CTA head and neck: no aneurysm, no AVM patient received a total 6 units FFP neurosurgery advised no surgical intervention initially received IV Mannitol and [facility] tolerating diet avoid antiplatelets and anticoagulants continue PT/OT Dr Hammer on neuro consults 2. DVT prophylaxis venodyne boots while in bed
--- NOTE | 2017-08-18 21:03 | PCM.OPOC ---
Physiatry Overall Plan of Care - Overall Plan of Care Estimated Length of Stay in Weeks: 3 Rehab Impairment: Mobility, Gait, Cognition, Balance, Coordination Etiologic Diagnosis: Cerebrovascular Accident Rehab/Medical Prognosis: Fair - Anticipated Interventions Physical Therapy:: Yes Occupational Therapy:: Yes Speech Therapy:: Yes Recreational Therapy:: Yes - Therapy Goals Bed Mobility: Independent Ambulation: Contact Guard Functional Positional Changes:: Supervision - Functional Outcomes Functional Outcomes: fair - Discharge Plan Identification of Barriers to Discharge: Cognition Discharge Destination: Subacute
--- NOTE | 2017-08-18 22:02 | CP.PCM.PN ---
Subjective - Date & Time of Evaluation Date of Evaluation: 08/18/17 Time of Evaluation: 20:10 - Subjective Subjective: patinet with no acute specific complaints Objective - Vital Signs/Intake and Output Vital Signs (last 24 hours): Temp Pulse Resp BP Pulse Ox 97.7 F 67 20 107/58 L 99 08/18/17 20:09 08/18/17 20:09 08/18/17 20:09 08/18/17 20:09 08/18/17 20:09 - Medications Medications: Current Medications Acetaminophen (Tylenol 325mg/10.15ml Ud) 650 mg PO Q4 PRN PRN Reason: Headache Amantadine HCl (Amantadine 100 Mg Cap) 100 mg PO Q12 [facility] [place] Last Admin: 08/18/17 21:09 Dose: 100 mg Dexamethasone (Decadron) 4 mg PO Q12 [facility] [place] Last Admin: 08/18/17 21:10 Dose: 4 mg Fluticasone Propionate (Flonase) 1 spr TREE Q12 [facility] [place] Last Admin: 08/18/17 21:10 Dose: 1 spr Heparin Sodium (Porcine) (Heparin) 2,000 units SC Q12 [facility] PRN Reason: Protocol Last Admin: 08/18/17 21:10 Dose: 2,000 units Levetiracetam (Keppra) 500 mg PO BID [facility] [place] Last Admin: 08/18/17 16:55 Dose: 500 mg Loratadine (Claritin) 10 mg PO DAILY [facility] [place] Last Admin: 08/18/17 08:37 Dose: Not Given Metoclopramide HCl (Reglan) 10 mg PO ACHS [facility] [place] Last Admin: 08/18/17 21:11 Dose: 10 mg Nystatin (Nystatin Oral Susp) 5 ml PO QID [facility] [place] Last Admin: 08/18/17 21:11 Dose: 5 ml - Head Exam Head Exam: ATRAUMATIC, NORMAL INSPECTION, NORMOCEPHALIC - Eye Exam Eye Exam: EOMI, Normal appearance Pupil Exam: NORMAL ACCOMODATION - ENT Exam ENT Exam: Mucous Membranes Moist - Neck Exam Neck Exam: Normal Inspection - Respiratory Exam Respiratory Exam: Clear to Ausculation Bilateral, NORMAL BREATHING PATTERN - Cardiovascular Exam Cardiovascular Exam: REGULAR RHYTHM - GI/Abdominal Exam GI & Abdominal Exam: Soft, Normal Bowel Sounds - Rectal Exam Rectal Exam: NORMAL INSPECTION - Exam External exam: NORMAL EXTERNAL EXAM - Extremities Exam Extremities Exam: Normal Capillary Refill - Back Exam Back Exam: CVA tenderness (R) - Neurological Exam Neurological Exam: Alert, Awake Neuro motor strength exam: Left Upper Extremity: 2/1, Right Upper Extremity: 4, Left Lower Extremity: 2/1, Right Lower Extremity: 4 - Psychiatric Exam Psychiatric exam: Normal Affect - Skin Skin Exam: Normal Color Assessment and Plan (1) Headache Status: Acute (2) Hemorrhagic cerebrovascular accident (CVA) Assessment & Plan: plan for physical, occupational, rec and speech therapy patinet for Ct scan as per medical, and nuerology . further medical treatment as per PMD and neurologist Status: Acute (3) Intracerebral bleed Status: Acute (4) Prophylactic measure Status: Acute (5) Prophylactic measure Status: Acute
[2017-08-19] MEDS: Metoclopramide 10 mg/10 ml Cup PO SCH ×4 (06:34→21:14)
[2017-08-19] MEDS: Nystatin 100,000 Units/ml Oral Susp 5 ml UD PO SCH ×4 (08:08→21:14)
--- NOTE | 2017-08-19 11:28 | CP.PCM.PN ---
Subjective - Date & Time of Evaluation Date of Evaluation: 08/19/17 Time of Evaluation: 10:15 - Subjective Subjective: st[place]ford is more alert Objective - Vital Signs/Intake and Output Vital Signs (last 24 hours): Temp Pulse Resp BP Pulse Ox 97.0 F L 55 L 20 98/56 L 97 08/19/17 07:53 08/19/17 07:53 08/19/17 07:53 08/19/17 07:53 08/19/17 07:53 - Medications Medications: Current Medications Acetaminophen (Tylenol 325mg/10.15ml Ud) 650 mg PO Q4 PRN PRN Reason: Headache Amantadine HCl (Amantadine 100 Mg Cap) 100 mg PO Q12 [facility] Last Admin: 08/19/17 08:06 Dose: 100 mg Dexamethasone (Decadron) 4 mg PO Q12 [facility] Last Admin: 08/19/17 08:07 Dose: 4 mg Fluticasone Propionate (Flonase) 1 spr TREE Q12 [facility] Last Admin: 08/19/17 08:07 Dose: 1 spr Heparin Sodium (Porcine) (Heparin) 2,000 units SC Q12 [facility] PRN Reason: Protocol Last Admin: 08/19/17 08:07 Dose: 2,000 units Levetiracetam (Keppra) 500 mg PO BID [facility] Last Admin: 08/19/17 08:08 Dose: 500 mg Loratadine (Claritin) 10 mg PO DAILY [facility] Last Admin: 08/19/17 08:07 Dose: Not Given Metoclopramide HCl (Reglan) 10 mg PO ACHS [facility] Last Admin: 08/19/17 06:34 Dose: 10 mg Nystatin (Nystatin Oral Susp) 5 ml PO QID [facility] Last Admin: 08/19/17 08:08 Dose: 5 ml - Head Exam Head Exam: ATRAUMATIC, NORMAL INSPECTION, NORMOCEPHALIC - Eye Exam Eye Exam: EOMI, Normal appearance, PERRL Pupil Exam: NORMAL ACCOMODATION - ENT Exam ENT Exam: Mucous Membranes Moist, Normal Exam - Neck Exam Neck Exam: Normal Inspection - Respiratory Exam Respiratory Exam: NORMAL BREATHING PATTERN - Cardiovascular Exam Cardiovascular Exam: REGULAR RHYTHM - GI/Abdominal Exam GI & Abdominal Exam: Soft, Normal Bowel Sounds - Rectal Exam Rectal Exam: NORMAL INSPECTION - Exam External exam: NORMAL EXTERNAL EXAM - Extremities Exam Extremities Exam: Full ROM, Normal Capillary Refill - Back Exam Back Exam: NORMAL INSPECTION - Neurological Exam Neurological Exam: Alert, Awake Neuro motor strength exam: Left Upper Extremity: 2/1, Right Upper Extremity: 4, Left Lower Extremity: 2/1, Right Lower Extremity: 4 - Psychiatric Exam Psychiatric exam: Normal Affect, Normal Mood - Skin Skin Exam: Intact, Normal Color Assessment and Plan (1) Headache Status: Acute (2) Hemorrhagic cerebrovascular accident (CVA) Assessment & Plan: pt, ot rec speech therapy neurology consult follow up Status: Acute (3) Intracerebral bleed Status: Acute (4) Prophylactic measure Status: Acute (5) Prophylactic measure Status: Acute
--- NOTE | 2017-08-19 14:41 | CP.PCM.PN ---
Subjective - Date & Time of Evaluation Date of Evaluation: 08/19/17 Time of Evaluation: 14:38 - Subjective Subjective: Mrs. Lobo was seen and examined today at bedside in acute rehab. According to report by nursing, the patient has been having increased somnolence that is intermittent. CT scan of the head was repeated yesterday and was normal. There were no acute events overnight. She was started on amantadine and it seems to be helping somewhat, but she continues to exhibit somnolence and may not be participating in rehab optimally. Objective - Vital Signs/Intake and Output Vital Signs (last 24 hours): Temp Pulse Resp BP Pulse Ox 97.0 F L 55 L 20 98/56 L 97 08/19/17 07:53 08/19/17 07:53 08/19/17 07:53 08/19/17 07:53 08/19/17 07:53 - Medications Medications: Current Medications Acetaminophen (Tylenol 325mg/10.15ml Ud) 650 mg PO Q4 PRN PRN Reason: Headache Amantadine HCl (Amantadine 100 Mg Cap) 100 mg PO Q12 [facility] Last Admin: 08/19/17 08:06 Dose: 100 mg Dexamethasone (Decadron) 4 mg PO Q12 [facility] Last Admin: 08/19/17 08:07 Dose: 4 mg Heparin Sodium (Porcine) (Heparin) 2,000 units SC Q12 [facility] PRN Reason: Protocol Last Admin: 08/19/17 08:07 Dose: 2,000 units Levetiracetam (Keppra) 500 mg PO BID [facility] Last Admin: 08/19/17 08:08 Dose: 500 mg Metoclopramide HCl (Reglan) 10 mg PO ACHS [facility] Last Admin: 08/19/17 11:30 Dose: 10 mg Nystatin (Nystatin Oral Susp) 5 ml PO QID [facility] Last Admin: 08/19/17 13:10 Dose: 5 ml - Neurological Exam Neurological Exam: Alert, Awake, CN II-XII Intact, Oriented x3 Neuro motor strength exam: Left Upper Extremity: 0, Right Upper Extremity: 4, Left Lower Extremity: 2/1, Right Lower Extremity: 4 Additional comments: Left facial droop. Assessment and Plan (1) Hemorrhagic cerebrovascular accident (CVA) Assessment & Plan: Continue current therapy. Will start methylphenidate 5 mg daily, in addition to amantadine to assist with wakefulness and improve participation in rehab. Status: Acute
[2017-08-20] MEDS: Metoclopramide 10 mg/10 ml Cup PO SCH ×4 (06:48→21:51)
[2017-08-20] MEDS: Nystatin 100,000 Units/ml Oral Susp 5 ml UD PO SCH ×4 (08:07→21:28)
[2017-08-21] MEDS: Metoclopramide 10 mg/10 ml Cup PO SCH ×4 (06:43→22:06)
[2017-08-21 07:13] LABS: BLOOD UREA NITROGEN 19 mg/dl (7-17); GFR AFRICAN-AMERICAN > 60; GFR NON-AFRICAN AMERICAN > 60
[2017-08-21 08:22] LABS: HEMOGLOBIN 12.9 g/dL (12.0-16.0); MEAN CELL VOLUME 94.8 fl (81.0-99.0); MEAN CORPUSCULAR HGB CONC 32.7 g/dL (33.0-37.0); RBC 4.18 Mil/uL (3.80-5.20); RED CELL DISTRIBUTION WIDTH 15.1 % (11.5-14.5); WHITE BLOOD COUNT 15.3 K/uL (4.8-10.8)
[2017-08-21] MEDS: Nystatin 100,000 Units/ml Oral Susp 5 ml UD PO SCH ×4 (09:03→22:05)
--- NOTE | 2017-08-21 10:12 | CP.PCM.PN ---
Subjective - Date & Time of Evaluation Date of Evaluation: 08/21/17 Time of Evaluation: 10:09 - Subjective Subjective: Ms. Lobo was seen and examined at the bedside. She is awake, oriented. She denies any headache, dizziness, lightheadedness, nausea, or vomiting. She still claims of inability to maintain her eyes open. She is able to participate during the assessment. She remains with left hemiplegia, but able to feed herself. There was no untoward events overnight. Objective - Vital Signs/Intake and Output Vital Signs (last 24 hours): Temp Pulse Resp BP Pulse Ox 97.3 F L 74 22 96/52 L 96 08/21/17 08:12 08/21/17 08:12 08/21/17 08:12 08/21/17 08:10 08/21/17 08:12 - Medications Medications: Current Medications Acetaminophen (Tylenol 325mg/10.15ml Ud) 650 mg PO Q4 PRN PRN Reason: Headache Amantadine HCl (Amantadine 100 Mg Cap) 100 mg PO BID [facility] Dexamethasone (Decadron) 4 mg PO Q12 [facility] Last Admin: 08/21/17 09:04 Dose: 4 mg Heparin Sodium (Porcine) (Heparin) 2,000 units SC Q12 [facility] PRN Reason: Protocol Last Admin: 08/21/17 09:04 Dose: 2,000 units Levetiracetam (Keppra) 500 mg PO BID [facility] Last Admin: 08/21/17 09:04 Dose: 500 mg Methylphenidate HCl (Ritalin) 5 mg PO DAILY@1700 [facility] Last Admin: 08/20/17 17:27 Dose: 5 mg Metoclopramide HCl (Reglan) 10 mg PO ACHS [facility] Last Admin: 08/21/17 06:43 Dose: 10 mg Nystatin (Nystatin Oral Susp) 5 ml PO QID [facility] Last Admin: 08/21/17 09:03 Dose: 5 ml - Labs Labs: 08/21/17 05:30 08/21/17 05:30 - Constitutional Appears: No Acute Distress - Head Exam Head Exam: NORMAL INSPECTION - Neurological Exam Neurological Exam: Awake Neuro motor strength exam: Left Upper Extremity: 0, Right Upper Extremity: 4, Left Lower Extremity: 0, Right Lower Extremity: 4 Additional comments: She is still sleepy, but able to participate during assessment. Assessment and Plan (1) Hemorrhagic cerebrovascular accident (CVA) Assessment & Plan: Case discussed with Dr. Ribeiro, continue all current medical, physical, occupational, and speech therapies. Recommend to monitor level of mental status , if patient getting lethargic to do a repeat CT scan of the head without contrast. Status: Acute
--- NOTE | 2017-08-21 18:21 | CP.PCM.PN ---
Subjective - Date & Time of Evaluation Date of Evaluation: 08/21/17 Time of Evaluation: 11:00 - Subjective Subjective: Patient seen and examined. Appeared more pleasant today and claimed her condition was improved. Objective - Vital Signs/Intake and Output Vital Signs (last 24 hours): Temp Pulse Resp BP Pulse Ox 97.3 F L 74 22 96/52 L 96 08/21/17 08:12 08/21/17 08:12 08/21/17 08:12 08/21/17 08:10 08/21/17 08:12 - Medications Medications: Current Medications Acetaminophen (Tylenol 325mg/10.15ml Ud) 650 mg PO Q4 PRN PRN Reason: Headache Amantadine HCl (Amantadine 100 Mg Cap) 100 mg PO BID [facility] Last Admin: 08/21/17 17:15 Dose: 100 mg Dexamethasone (Decadron) 4 mg PO Q12 [facility] Last Admin: 08/21/17 09:04 Dose: 4 mg Heparin Sodium (Porcine) (Heparin) 2,000 units SC Q12 [facility] PRN Reason: Protocol Last Admin: 08/21/17 09:04 Dose: 2,000 units Levetiracetam (Keppra) 500 mg PO BID [facility] Last Admin: 08/21/17 17:15 Dose: 500 mg Methylphenidate HCl (Ritalin) 5 mg PO DAILY@1700 [facility] Last Admin: 08/21/17 17:14 Dose: 5 mg Metoclopramide HCl (Reglan) 10 mg PO ACHS [facility] Last Admin: 08/21/17 17:15 Dose: 10 mg Nystatin (Nystatin Oral Susp) 5 ml PO QID [facility] Last Admin: 08/21/17 17:15 Dose: 5 ml - Labs Labs: 08/21/17 05:30 08/21/17 05:30 - Constitutional Appears: No Acute Distress - Head Exam Head Exam: ATRAUMATIC - Eye Exam Eye Exam: absent: Scleral icterus - ENT Exam ENT Exam: Mucous Membranes Moist - Neck Exam Neck Exam: absent: Meningismus - Respiratory Exam Respiratory Exam: absent: Rales, Rhonchi, Wheezes, Respiratory Distress - Cardiovascular Exam Cardiovascular Exam: REGULAR RHYTHM, +S1, +S2 - GI/Abdominal Exam GI & Abdominal Exam: Soft. absent: Tenderness - Rectal Exam Rectal Exam: Deferred - Back Exam Back Exam: NORMAL INSPECTION - Neurological Exam Neurological Exam: Alert, Oriented x3 - Psychiatric Exam Psychiatric exam: Normal Affect - Skin Skin Exam: Dry, Intact Assessment and Plan - Assessment and Plan (Free Text) Assessment: 46 yo female with no significant PMH was brought to [facility] ED because of sudden onset of headache associated with left sided weakness and left facial droop. CT of head showed right basal ganglia bleed with mass effect and left midline shift. Neurosurgery was consulted and advised conservative management. Neurology was consulted and advised initially IV Mannitol and Decadron. She was later transferred to Acute Rehab for PT/OT. 1. Right basal ganglia hemorrhage with mass effect and left midline shift appeared more active and admitted feeling better CTA head and neck: no aneurysm, no AVM patient received a total 6 units FFP neurosurgery advised no surgical intervention received IV Mannitol and IV Decadron, now on PO Decadron will taper Decadron tomorrow to 2mg PO q 12hrs continue Keppra for seizure prophylaxis avoid antiplatelets and anticoagulants continue PT/OT Dr Hammer on neuro consults 2. DVT prophylaxis venodyne boots while in bed
[2017-08-22] MEDS: Metoclopramide 10 mg/10 ml Cup PO SCH ×4 (07:20→22:10)
[2017-08-22] MEDS: Nystatin 100,000 Units/ml Oral Susp 5 ml UD PO SCH ×4 (08:16→22:10)
--- NOTE | 2017-08-22 15:39 | PN ---
DATE: PHYSIATRY PROGRESS NOTE SUBJECTIVE: The patient is a 46-year-old female with left-sided weakness. The patient is more alert. PHYSICAL EXAMINATION: VITAL SIGNS: Stable. NECK: Supple. CHEST: Symmetrical. HEART: Sounds S1 and S2. ABDOMEN: Abdominal area is benign. EXTREMITIES: No clubbing, cyanosis or edema. Left upper and left lower extremity tone is decreased, range of motion is limited, muscle strength is trace to zero. IMPRESSION: Left hemiplegia, secondary to basal ganglia hemorrhage, and diabetes. PLAN: Physical, occupational therapy, and speech therapy. Continue with range of motion, strengthening, transfers gait training and follow up with neurologist and medical physician as well. Jasen Muniz MD
[2017-08-23] MEDS: Metoclopramide 10 mg/10 ml Cup PO SCH ×4 (07:17→21:18)
[2017-08-23] MEDS: Nystatin 100,000 Units/ml Oral Susp 5 ml UD PO SCH ×4 (08:27→21:18)
--- NOTE | 2017-08-23 08:52 | CP.PCM.PN ---
Subjective - Date & Time of Evaluation Date of Evaluation: 08/23/17 Time of Evaluation: 08:49 - Subjective Subjective: Ms. Lobo was seen and examined at the bedside. She is awake, oriented. She denies any headache, dizziness, lightheadedness, nausea, or vomiting. She states of maintaining being wake during the day and sleep at nighttime.She is able to participate during the assessment. She remains with left hemiplegia, but able to feed herself. There was no untoward events overnight. Objective - Vital Signs/Intake and Output Vital Signs (last 24 hours): Temp Pulse Resp BP Pulse Ox 98.2 F 74 18 98/53 L 98 08/22/17 20:17 08/22/17 20:17 08/22/17 20:17 08/22/17 20:17 08/22/17 20:17 - Medications Medications: Current Medications Acetaminophen (Tylenol 325mg/10.15ml Ud) 650 mg PO Q4 PRN PRN Reason: Headache Amantadine HCl (Amantadine 100 Mg Cap) 100 mg PO BID [facility] Last Admin: 08/23/17 08:26 Dose: 100 mg Dexamethasone (Decadron) 4 mg PO Q12 [facility] Last Admin: 08/23/17 08:26 Dose: 4 mg Heparin Sodium (Porcine) (Heparin) 2,000 units SC Q12 [facility] PRN Reason: Protocol Last Admin: 08/23/17 08:26 Dose: 2,000 units Levetiracetam (Keppra) 500 mg PO BID [facility] Last Admin: 08/23/17 08:27 Dose: 500 mg Methylphenidate HCl (Ritalin) 5 mg PO DAILY@1700 [facility] Last Admin: 08/22/17 17:14 Dose: 5 mg Metoclopramide HCl (Reglan) 10 mg PO ACHS [facility] Last Admin: 08/23/17 07:17 Dose: 10 mg Nystatin (Nystatin Oral Susp) 5 ml PO QID [facility] Last Admin: 08/23/17 08:27 Dose: 5 ml - Labs Labs: 08/21/17 05:30 08/21/17 05:30 - Constitutional Appears: No Acute Distress - Head Exam Head Exam: NORMAL INSPECTION - Neurological Exam Neurological Exam: Alert, Awake, Oriented x3 Neuro motor strength exam: Left Upper Extremity: 0, Right Upper Extremity: 4, Left Lower Extremity: 0, Right Lower Extremity: 4 Additional comments: Neurological improved from previous examination. She is able to maintain being awake during the day, follows commands. Sensation remains asymmetrical especially her left side. Assessment and Plan (1) Hemorrhagic cerebrovascular accident (CVA) Assessment & Plan: Case discussed with Dr. Ribeiro, continue all current medical, physical, speech, and occupational therapies. Recommend MRI of the brain to monitor ICH. Status: Acute
--- NOTE | 2017-08-23 11:08 | MRI ---
PROCEDURE: MRI BRAIN WITHOUT CONTRAST HISTORY: Follow up ICH COMPARISON: Noncontrast head CT from 08/18 2017 and MRI brain without contrast from 08/06/2017. TECHNIQUE: Multiplanar, multisequence MR images of the brain were obtained without intravenous contrast enhancement. FINDINGS: HEMORRHAGE: Since the prior examination, there has been expected evolution of known large right basal ganglia hematoma which now demonstrates a peripheral T1 and T2 hyperintense signal with late subacute hemorrhagic products. DWI: No evidence of an acute or early subacute infarction. BRAIN PARENCHYMA: There is moderate vasogenic edema surrounding the right basal ganglia hematoma extending into the parietal and temporal lobes with local and regional mass effect, effacement of the ipsilateral cortical sulci and right lateral ventricle and 1.1 cm midline shift from right to left. No uncal or transtentorial herniation. The vasogenic edema also extends in the right internal capsule, thalamus and right cerebral peduncle. VENTRICLES: No hydrocephalus. CRANIUM: There is normal bone marrow signal pattern. ORBITS: Grossly unremarkable. PARANASAL SINUSES/MASTOIDS: Predominantly clear. VASCULAR SYSTEM: There are normal signal voids in the larger intracranial arteries. OTHER FINDINGS: None. IMPRESSION: Interval expected evolution of known large right basal ganglia subacute hematoma with moderate surrounding vasogenic edema, local and regional mass effect and 1.1 cm midline shift from right to left. No uncal or transtentorial herniation. No hydrocephalus.
--- NOTE | 2017-08-23 12:02 | CP.PCM.PN ---
Subjective - Date & Time of Evaluation Date of Evaluation: 08/23/17 Time of Evaluation: 09:00 - Subjective Subjective: no acute complaints of any pain Objective - Vital Signs/Intake and Output Vital Signs (last 24 hours): Temp Pulse Resp BP Pulse Ox 96.8 F L 72 20 99/50 L 98 08/23/17 09:49 08/23/17 09:49 08/23/17 09:49 08/23/17 09:49 08/22/17 20:17 - Medications Medications: Current Medications Acetaminophen (Tylenol 325mg/10.15ml Ud) 650 mg PO Q4 PRN PRN Reason: Headache Amantadine HCl (Amantadine 100 Mg Cap) 100 mg PO BID [facility] Last Admin: 08/23/17 08:26 Dose: 100 mg Dexamethasone (Decadron) 4 mg PO Q12 [facility] Last Admin: 08/23/17 08:26 Dose: 4 mg Heparin Sodium (Porcine) (Heparin) 2,000 units SC Q12 [facility] PRN Reason: Protocol Last Admin: 08/23/17 08:26 Dose: 2,000 units Levetiracetam (Keppra) 500 mg PO BID [facility] Last Admin: 08/23/17 08:27 Dose: 500 mg Methylphenidate HCl (Ritalin) 5 mg PO DAILY@1700 [facility] Last Admin: 08/22/17 17:14 Dose: 5 mg Metoclopramide HCl (Reglan) 10 mg PO ACHS [facility] [place] Last Admin: 08/23/17 07:17 Dose: 10 mg Nystatin (Nystatin Oral Susp) 5 ml PO QID [facility] Last Admin: 08/23/17 08:27 Dose: 5 ml - Labs Labs: 08/21/17 05:30 08/21/17 05:30 - Head Exam Head Exam: ATRAUMATIC, NORMAL INSPECTION, NORMOCEPHALIC - Eye Exam Eye Exam: EOMI, Normal appearance, PERRL Pupil Exam: NORMAL ACCOMODATION - ENT Exam ENT Exam: Mucous Membranes Moist, Normal Exam - Neck Exam Neck Exam: Normal Inspection - Respiratory Exam Respiratory Exam: NORMAL BREATHING PATTERN - Cardiovascular Exam Cardiovascular Exam: REGULAR RHYTHM - GI/Abdominal Exam GI & Abdominal Exam: Soft, Normal Bowel Sounds - Exam External exam: NORMAL EXTERNAL EXAM - Extremities Exam Extremities Exam: Full ROM, Normal Capillary Refill, Normal Inspection - Back Exam Back Exam: NORMAL INSPECTION - Neurological Exam Neurological Exam: Alert, Awake Neuro motor strength exam: Left Upper Extremity: 2/1, Right Upper Extremity: 3, Left Lower Extremity: 2/1, Right Lower Extremity: 3 - Psychiatric Exam Psychiatric exam: Normal Affect, Normal Mood Assessment and Plan (1) Headache Status: Acute (2) Hemorrhagic cerebrovascular accident (CVA) Assessment & Plan: plan for ot, pt, rec and speech for team conference Status: Acute (3) Intracerebral bleed Status: Acute (4) Prophylactic measure Status: Acute (5) Prophylactic measure Status: Acute
--- NOTE | 2017-08-23 12:12 | PSY.TMCNF ---
Nursing - Vital Signs Vital Signs (Last 8 hours): Vital Signs 08/23/17 09:49 Temperature 96.8 F L Pulse Rate 72 Respiratory 20 Rate Blood Pressure 99/50 L Pain: 0 - Precautions: Precautions: Fall Prevention, Aspiration - Medications/Other Issues Comment: - CT Scan done, no changes. Dr. Hammer started pt on Ritalin and Amantidine. Pt now fully awake during the day and sleeps well at night. - Repeat MRI done this am , result pending. - Consults Comment: Dr. Muniz, Dr. Hammer - Skin Incision Site: Intact - Toileting Toileting: Maximal Assistance - Bladder Management Bladder Pattern: Normal Voiding Method: Toilet, Bedpan Bladder Management: Maximal Assistance Frequency of Accidents: >5 - Bowel Management Bowel Pattern: Normal Bowel Management: Supervision Frequency of Accidents: 0 - Transfers Transfers: Maximal Assistance - ADL's ADL's: Maximal Assistance - Patient/Family Teaching Comments: Care post CVA and safety precautions - Goals/Time Frame Comments: Per multidisciplinary care plan and goals - Provider Provider: Bessy THACKERN RN CRRN Physical Therapy - Bed Mobility Bed Mobility: Moderate Assistance, Maximum Assistance - Transfers Wheelchair to Mat: Moderate Assistance, Maximum Assistance Sit to Stand: Verbal Cues, Minimal Assistance - Ambulation Level of Assistance: Maximum Assistance, Dependent Distance (ft.): 5 - Stair Negotiation Stairs: Level of Assistance: Not Tested - Standing Balance Static Stand: Moderate Assistance Dynamic Stand: Moderate Assistance, Maximal Assistance - Pain Pain (assessed during therapy session): 0 - Insight/Carryover Insight/Carryover: Fair - Patient/Family Education Comment: Pt education provided for increased safety awareness and proper techniques during functional mobility training. Pt /family ed with pts daughter on CVA recovery - Assessment/Plan Assessment: Pt participating in PT tx sessions focusing on BLE strengthening exercises, NMES to LLE, balance and endurance activities, and functional mobility training. Pt has not displayed motor return to LLE. Pt requires mod/ max A for bed mobility., min A for sit < > stand transfers, mod < > max A for pivot transfers, total A for ambulation. Alertness fluctuates during sessions, with pt continuing to report "I'm tired". Pt will continue to benefit from skilled PT intervention to address deficits, reduce fall risk, and maximize functional independence. - Goals Timeframe: 3 weeks Goals: Sit < > supine CGA. Sit < > stand transfers with CGA using AD. BEd < > chair trnasfers with CGA. Pt will ambulate 100 ft with min A using appropriate AD - Provider Therapist: Nicky Lopez PT DPT License Number: [id number] Occupational Therapy - Arousal/Attention/Orientation Patient Orientation: Person, Place, Time, Appropriate to Age - ADL/IADL Self Feeding: Independent, Verbal Cues, Set-up Help Grooming: Verbal Cues, Set-up Help, Minimal Assistance Bathing-Upper Extremity: Verbal Cues, Set-up Help, Moderate Assistance Bathing-Lower Extremity: Verbal Cues, Set-up Help, Maximum Assistance Dressing-Upper Extremity: Verbal Cues, Set-up Help, Moderate Assistance, Maximum Assistance Dressing-Lower Extremity: Maximum Assistance, Dependent - Sitting Balance Static Sitting: Minimal Assistance Dynamic Sitting: Reaches across midline, Reaches out of base of support, Reaches within base of support, Moderate Assistance, Maximal Assistance Comment: seated, unsupported at edge of bed - Transfers Wheelchair to Bed Transfers: Verbal Cues, Set-up Help, Moderate Assistance Toilet Transfers: Verbal Cues, Set-up Help, Moderate Assistance Comment: shower transfers: mod assist and verbal cues - Wheelchair Management Level of Assistance: Dependent Distance (ft.): 0 - Upper Extremity Status Right Upper Extremity Comment: AROM is WNLS Left Upper Extremity Comment: PROM IS WNLS; pt has NO AROM at this time ojeda to impaired motor control - Pain Pain (assessed during therapy session): 0 - Insight/Carryover Insight/Carryover: Fair - Patient/Family Education Comment: Pt education provided for increased safety awareness and proper techniques during functional mobility training. Pt /family ed with pts daughter on CVA recovery - Assessment/Plan Assessment: Pt participating in PT tx sessions focusing on BLE strengthening exercises, NMES to LLE, balance and endurance activities, and functional mobility training. Pt has not displayed motor return to LLE. Pt requires mod/ max A for bed mobility., min A for sit < > stand transfers, mod < > max A for pivot transfers, total A for ambulation. Alertness fluctuates during sessions, with pt continuing to report "I'm tired". Pt will continue to benefit from skilled PT intervention to address deficits, reduce fall risk, and maximize functional independence. - Goals Timeframe: 3 weeks Goals: Sit < > supine CGA. Sit < > stand transfers with CGA using AD. BEd < > chair trnasfers with CGA. Pt will ambulate 100 ft with min A using appropriate AD - Provider Therapist: DANITZA Malin/L License Number: [id number] Speech Therapy - Consult Information Patient on Program: Yes Medical Diagnosis: R hemorrhage Treatment Diagnosis: -mild cognitive deficits. -mild-moderate dysarthria. - moderate oral dysphagia - Assessment Problem Solving Impairment: Mild Memory Impairment: Mild Speech/Articulation Impairment: Moderate Comment: mild-moderate Dysphagia/Swallowing Impairment: Moderate - Plan Assessment: Pt participating in PT tx sessions focusing on BLE strengthening exercises, NMES to LLE, balance and endurance activities, and functional mobility training. Pt has not displayed motor return to LLE. Pt requires mod/ max A for bed mobility., min A for sit < > stand transfers, mod < > max A for pivot transfers, total A for ambulation. Alertness fluctuates during sessions, with pt continuing to report "I'm tired". Pt will continue to benefit from skilled PT intervention to address deficits, reduce fall risk, and maximize functional independence. - Provider Therapist: Vivian Veliz License Number: [id number] Recreational Therapy - Participation Participation: Participates in Individual and/or Group Sessions - Attendance Attendance: 3-5 times per week - Activities Leisure Activities: Television - Socialization Level of Socialization: Responds freely, but does not initiate, Requires 1:1 guidance to respond - Diversional Time Diversional Time: television, likes playing bingo - Assessment Assessment/Plan: Pt participating in PT tx sessions focusing on BLE strengthening exercises, NMES to LLE, balance and endurance activities, and functional mobility training. Pt has not displayed motor return to LLE. Pt requires mod/max A for bed mobility., min A for sit < > stand transfers, mod < > max A for pivot transfers, total A for ambulation. Alertness fluctuates during sessions, with pt continuing to report "I'm tired". Pt will continue to benefit from skilled PT intervention to address deficits, reduce fall risk, and maximize functional independence. - Provider Therapist: Adry Goldberg, [employer] OPERATOR #[id number] Nutrition - Current Diet Current Diet/ Supplement/ Feedings: 2 gram Na mech altered(finely chopped) thin liquids - Appetite Percent Meal Consumed: 75-100% - Comments Comments: Care post CVA and safety precautions - Assessment/Goals/Time Frame Assessment/Goals/Time Frame: - CT Scan done, no changes. Dr. Hammer started pt on Ritalin and Amantidine. Pt now fully awake during the day and sleeps well at night. - Repeat MRI done this am , result pending. - Provider Provider: Abril Coker RD Case Management - Psychosocial Assessment Support Systems: Daughter Keila/Mother Karly [phone] Psychological Interventions/Needs: Pt is alert and oriented x3, but with difficulty keeping eyes open Discharge Concerns: Pt has stairs to negotiate; May require [facility] Patient/Family Meeting: CM met with pt and rehab team Intervention/Goal/Outcome:: 1. Plan: Tentative d/c date to be determined; Will reteam 2. Continued stay review LAD 08/21/17 3. GOAL: Intermittent supervision 4. Caregiver training/educaiton 5. Plan: home with skilled homecare vs [facility] 6. DME needs TBD - Discharge Plan Discharge Plan: Home with services, Subacute snf Services: [facility] Care - Provider Provider: CHRIS Potter, [employer]EE RO[employer]ER License Number: [id number] Rehabilitation Plan - Treatment Plan Treatment Plan: Physical Therapy, Occupational Therapy, Speech, Dietary, Patient /Family Education - Recommendation Recommendation: Physical Therapy, Occupational Therapy, Speech, Dietary - Discharge Plan Discharge to: Subacute (dc 20)
--- NOTE | 2017-08-23 15:51 | CP.PCM.PN ---
Subjective - Date & Time of Evaluation Date of Evaluation: 08/23/17 Time of Evaluation: 14:00 - Subjective Subjective: Patient seen and examined today. Reports feeling weaker and more lethargic today than previous. Cooperating well with her therapy. States she is eating and drinking well. Denies any cp, sob, headache, n,v,d. Objective - Vital Signs/Intake and Output Vital Signs (last 24 hours): Temp Pulse Resp BP Pulse Ox 96.8 F L 74 20 99/50 L 99 08/23/17 09:49 08/23/17 13:36 08/23/17 09:49 08/23/17 09:49 08/23/17 13:36 - Medications Medications: Current Medications Acetaminophen (Tylenol 325mg/10.15ml Ud) 650 mg PO Q4 PRN PRN Reason: Headache Amantadine HCl (Amantadine 100 Mg Cap) 100 mg PO BID [facility] Last Admin: 08/23/17 08:26 Dose: 100 mg Dexamethasone (Decadron) 2 mg PO Q12 [facility] Heparin Sodium (Porcine) (Heparin) 2,000 units SC Q12 [facility] PRN Reason: Protocol Last Admin: 08/23/17 08:26 Dose: 2,000 units Levetiracetam (Keppra) 500 mg PO BID [facility] Last Admin: 08/23/17 08:27 Dose: 500 mg Methylphenidate HCl (Ritalin) 5 mg PO DAILY@1700 [facility] Last Admin: 08/22/17 17:14 Dose: 5 mg Metoclopramide HCl (Reglan) 10 mg PO ACHS [facility] Last Admin: 08/23/17 12:25 Dose: 10 mg Nystatin (Nystatin Oral Susp) 5 ml PO QID [facility] Last Admin: 08/23/17 12:37 Dose: 5 ml - Labs Labs: 08/21/17 05:30 08/21/17 05:30 - Additional Findings Additional findings: Physical exam: Constitutional- cooperative, awake, although less alert than previous. Head- NCAT, PERRL Eye- PERRL, EOMI ENT- normal exam, MMM. Neck- normal inspection, supple, no JVD Respiratory- CTAB, no wheezes rales rhonchi Cardiovascular- RRR, +S1, +S2 no MRG GI/Abdominal- normal bowel sounds, soft, no mass, no hsm Skin- warm, dry Extremities Exam- normal capillary refill, normal inspection Neurological Exam- alert, awake, oriented Psych- normal mood, normal affect Assessment and Plan - Assessment and Plan (Free Text) Plan: 46 yo female with no significant PMH was brought to [facility] ED because of sudden onset of headache associated with left sided weakness and left facial droop. CT of head showed right basal ganglia bleed with mass effect and left midline shift. Neurosurgery was consulted and advised conservative management. Neurology was consulted and advised initially IV Mannitol and Decadron. She was later transferred to Acute Rehab for PT/OT. 1. Right basal ganglia hemorrhage with mass effect and left midline shift - more lethargic today than when last seen, however overall her weakness has improved - MRI shows expected evolution of her hematoma with moderate surrounding vasogenic edema, local and regional mass effect and 1.1 cm midline shift from right to left. No uncal or transtentorial herniation. No hydrocephalus - CTA head and neck: no aneurysm, no AVM - patient received a total 6 units FFP - neurosurgery advised no surgical intervention - received IV Mannitol and IV Decadron, now on PO Decadron - Decadron tapered from 4 mg po q 12 hours to 2 mg po q 12 hours - continue Keppra for seizure prophylaxis - avoid antiplatelets and anticoagulants - continue PT/OT - Dr Hammer/Quintin on for neurology consultation 2. DVT prophylaxis venodyne boots while in bed
[2017-08-24] MEDS: Metoclopramide 10 mg/10 ml Cup PO SCH ×4 (06:33→21:32)
[2017-08-24 07:46] LABS: HEMOGLOBIN 12.6 g/dL (12.0-16.0); MEAN CELL VOLUME 95.1 fl (81.0-99.0); MEAN CORPUSCULAR HEMOGLOBIN 31.9 pg (27.0-31.0); MEAN CORPUSCULAR HGB CONC 33.5 g/dL (33.0-37.0); RBC 3.95 Mil/uL (3.80-5.20); RED CELL DISTRIBUTION WIDTH 15.2 % (11.5-14.5); WHITE BLOOD COUNT 12.6 K/uL (4.8-10.8)
[2017-08-24 08:02] LABS: BLOOD UREA NITROGEN 15 mg/dl (7-17); CALCIUM 8.1 mg/dL (8.4-10.2); GFR AFRICAN-AMERICAN > 60; GFR NON-AFRICAN AMERICAN > 60
--- NOTE | 2017-08-24 08:39 | CP.PCM.PN ---
Subjective - Date & Time of Evaluation Date of Evaluation: 08/24/17 Time of Evaluation: 08:39 - Subjective Subjective: Ms. Lobo was seen and examined at the bedside. She is awake, oriented. She denies any headache, dizziness, lightheadedness, nausea, or vomiting. She states of maintaining being wake during the day and sleep at nighttime.She is able to participate during the assessment. She remains with left hemiplegia, but able to feed herself. MRI of the brain showed interval expected evolution of known large right basal ganglia subacute hematoma with moderate surrounding vasogenic edema, local and regional mass effect and 1.1 cm mu=idline shift from right to left. No uncal or trantentorial herniation, or hydrocephalus. There was no untoward events overnight. Objective - Vital Signs/Intake and Output Vital Signs (last 24 hours): Temp Pulse Resp BP Pulse Ox 97.5 F L 84 19 86/51 L 96 08/24/17 08:17 08/24/17 08:17 08/24/17 08:17 08/24/17 08:17 08/24/17 08:17 - Medications Medications: Current Medications Acetaminophen (Tylenol 325mg/10.15ml Ud) 650 mg PO Q4 PRN PRN Reason: Headache Amantadine HCl (Amantadine 100 Mg Cap) 100 mg PO BID [facility] Dexamethasone (Decadron) 2 mg PO Q12 [facility] Last Admin: 08/23/17 21:18 Dose: 2 mg Heparin Sodium (Porcine) (Heparin) 2,000 units SC Q12 [facility] PRN Reason: Protocol Last Admin: 08/23/17 21:18 Dose: 2,000 units Levetiracetam (Keppra) 500 mg PO BID [facility] Last Admin: 08/23/17 16:48 Dose: 500 mg Methylphenidate HCl (Ritalin) 5 mg PO DAILY@1700 [facility] Last Admin: 08/23/17 16:47 Dose: 5 mg Metoclopramide HCl (Reglan) 10 mg PO ACHS [facility] Last Admin: 08/24/17 06:33 Dose: 10 mg Nystatin (Nystatin Oral Susp) 5 ml PO QID [facility] Last Admin: 08/23/17 21:18 Dose: 5 ml - Labs Labs: 08/24/17 05:30 08/24/17 05:30 Assessment and Plan (1) Hemorrhagic cerebrovascular accident (CVA) Assessment & Plan: Case discussed with Dr. Ribeiro, continue all current medical, physical, occupational, and speech therapies. If there is a change of mental status, to repeat CT of the head without contrast. Status: Acute
[2017-08-24] MEDS: Nystatin 100,000 Units/ml Oral Susp 5 ml UD PO SCH ×4 (08:53→21:32)
[2017-08-25] MEDS: Metoclopramide 10 mg/10 ml Cup PO SCH ×4 (06:54→21:48)
[2017-08-25] MEDS: Nystatin 100,000 Units/ml Oral Susp 5 ml UD PO SCH ×4 (08:00→21:48)
--- NOTE | 2017-08-25 08:54 | CP.PCM.PN ---
Subjective - Date & Time of Evaluation Date of Evaluation: 08/25/17 Time of Evaluation: 08:53 - Subjective Subjective: Ms. Lobo was seen and examined at the bedside. She is awake, oriented. She denies any headache, dizziness, lightheadedness, nausea, or vomiting. She states of maintaining being wake during the day and sleep at nighttime.She is able to participate during the assessment. She remains with left hemiplegia, but able to feed herself and able finished 100% of her breakfast tray. There was no untoward events overnight. Objective - Vital Signs/Intake and Output Vital Signs (last 24 hours): Temp Pulse Resp BP Pulse Ox 97.5 F L 54 L 20 93/53 L 99 08/25/17 08:04 08/25/17 08:04 08/25/17 08:04 08/25/17 08:04 08/25/17 08:04 - Medications Medications: Current Medications Acetaminophen (Tylenol 325mg/10.15ml Ud) 650 mg PO Q4 PRN PRN Reason: Headache Amantadine HCl (Amantadine 100 Mg Cap) 100 mg PO BID [facility] Last Admin: 08/25/17 08:00 Dose: 100 mg Dexamethasone (Decadron) 2 mg PO Q12 [facility] Last Admin: 08/25/17 08:00 Dose: 2 mg Heparin Sodium (Porcine) (Heparin) 2,000 units SC Q12 [facility] PRN Reason: Protocol Last Admin: 08/25/17 08:01 Dose: 2,000 units Levetiracetam (Keppra) 500 mg PO BID [facility] Last Admin: 08/25/17 08:00 Dose: 500 mg Methylphenidate HCl (Ritalin) 5 mg PO DAILY@1700 [facility] Last Admin: 08/24/17 17:26 Dose: 5 mg Metoclopramide HCl (Reglan) 10 mg PO ACHS [facility] Last Admin: 08/25/17 06:54 Dose: 10 mg Nystatin (Nystatin Oral Susp) 5 ml PO QID [facility] Last Admin: 08/25/17 08:00 Dose: 5 ml - Labs Labs: 08/24/17 05:30 08/24/17 05:30 - Constitutional Appears: No Acute Distress - Head Exam Head Exam: NORMAL INSPECTION - Neurological Exam Neurological Exam: Alert, Awake, Oriented x3 Neuro motor strength exam: Left Upper Extremity: 0, Right Upper Extremity: 4, Left Lower Extremity: 0, Right Lower Extremity: 4 Additional comments: Neurological unchanged from previous examination. Assessment and Plan (1) Hemorrhagic cerebrovascular accident (CVA) Assessment & Plan: Case discussed with Dr. Ribeiro, continue all current medical, physical, occupational, and speech therapies. If there is a change of mental status, to repeat CT of the head without contrast. Status: Acute
--- NOTE | 2017-08-25 11:55 | CP.PCM.PN ---
Subjective - Date & Time of Evaluation Date of Evaluation: 08/25/17 Time of Evaluation: 09:30 - Subjective Subjective: no acute complaints of nay headache or any pain Objective - Vital Signs/Intake and Output Vital Signs (last 24 hours): Temp Pulse Resp BP Pulse Ox 97.5 F L 54 L 20 93/53 L 99 08/25/17 08:04 08/25/17 08:04 08/25/17 08:04 08/25/17 08:04 08/25/17 08:04 - Medications Medications: Current Medications Acetaminophen (Tylenol 325mg/10.15ml Ud) 650 mg PO Q4 PRN PRN Reason: Headache Amantadine HCl (Amantadine 100 Mg Cap) 100 mg PO BID [facility] Last Admin: 08/25/17 08:00 Dose: 100 mg Dexamethasone (Decadron) 2 mg PO Q12 [facility] Last Admin: 08/25/17 08:00 Dose: 2 mg Heparin Sodium (Porcine) (Heparin) 2,000 units SC Q12 [facility] PRN Reason: Protocol Last Admin: 08/25/17 08:01 Dose: 2,000 units Levetiracetam (Keppra) 500 mg PO BID [facility] Last Admin: 08/25/17 08:00 Dose: 500 mg Methylphenidate HCl (Ritalin) 5 mg PO DAILY@1700 [facility] Last Admin: 08/24/17 17:26 Dose: 5 mg Metoclopramide HCl (Reglan) 10 mg PO ACHS [facility] Last Admin: 08/25/17 06:54 Dose: 10 mg Nystatin (Nystatin Oral Susp) 5 ml PO QID [facility] Last Admin: 08/25/17 08:00 Dose: 5 ml - Labs Labs: 08/24/17 05:30 08/24/17 05:30 - Head Exam Head Exam: ATRAUMATIC, NORMAL INSPECTION, NORMOCEPHALIC - Eye Exam Eye Exam: EOMI, Normal appearance, PERRL Pupil Exam: NORMAL ACCOMODATION - ENT Exam ENT Exam: Mucous Membranes Moist, Normal Exam - Neck Exam Neck Exam: Full ROM, Normal Inspection - Respiratory Exam Respiratory Exam: NORMAL BREATHING PATTERN - Cardiovascular Exam Cardiovascular Exam: REGULAR RHYTHM - GI/Abdominal Exam GI & Abdominal Exam: Soft, Normal Bowel Sounds - Rectal Exam Rectal Exam: NORMAL INSPECTION - Exam External exam: NORMAL EXTERNAL EXAM - Extremities Exam Extremities Exam: Full ROM, Normal Capillary Refill - Back Exam Back Exam: NORMAL INSPECTION - Neurological Exam Neurological Exam: Alert, Awake Neuro motor strength exam: Left Upper Extremity: 2/1, Right Upper Extremity: 3, Left Lower Extremity: 2/1, Right Lower Extremity: 3 - Psychiatric Exam Psychiatric exam: Normal Affect, Normal Mood - Skin Skin Exam: Dry, Intact, Normal Color Assessment and Plan (1) Headache Status: Acute (2) Hemorrhagic cerebrovascular accident (CVA) Assessment & Plan: plan for physical, occupational, rec and speech therapy for patient MRI for patien PMD and neurology following patinet and status post Ct previosly Status: Acute (3) Intracerebral bleed Status: Acute (4) Prophylactic measure Status: Acute (5) Prophylactic measure Status: Acute
--- NOTE | 2017-08-25 16:01 | CP.PCM.PN ---
Subjective - Date & Time of Evaluation Date of Evaluation: 08/25/17 Time of Evaluation: 13:40 - Subjective Subjective: Patient seen and examined. RN claimed she appeared lethargic and depressed but I do not agree. Patient appeared more awake and admitted feeling improvement. Objective - Vital Signs/Intake and Output Vital Signs (last 24 hours): Temp Pulse Resp BP Pulse Ox 97.5 F L 83 20 93/53 L 99 08/25/17 08:04 08/25/17 08:50 08/25/17 08:04 08/25/17 08:04 08/25/17 08:50 - Medications Medications: Current Medications Acetaminophen (Tylenol 325mg/10.15ml Ud) 650 mg PO Q4 PRN PRN Reason: Headache Amantadine HCl (Amantadine 100 Mg Cap) 100 mg PO BID [facility] Last Admin: 08/25/17 08:00 Dose: 100 mg Dexamethasone (Decadron) 2 mg PO Q12 [facility] Last Admin: 08/25/17 08:00 Dose: 2 mg Heparin Sodium (Porcine) (Heparin) 2,000 units SC Q12 [facility] PRN Reason: Protocol Last Admin: 08/25/17 08:01 Dose: 2,000 units Levetiracetam (Keppra) 500 mg PO BID [facility] Last Admin: 08/25/17 08:00 Dose: 500 mg Methylphenidate HCl (Ritalin) 5 mg PO DAILY@1700 [facility] Last Admin: 08/24/17 17:26 Dose: 5 mg Metoclopramide HCl (Reglan) 10 mg PO ACHS [facility] Last Admin: 08/25/17 06:54 Dose: 10 mg Nystatin (Nystatin Oral Susp) 5 ml PO QID [facility] Last Admin: 08/25/17 08:00 Dose: 5 ml - Labs Labs: 08/24/17 05:30 08/24/17 05:30 - Constitutional Appears: No Acute Distress - Head Exam Head Exam: ATRAUMATIC - Eye Exam Eye Exam: absent: Scleral icterus - ENT Exam ENT Exam: Mucous Membranes Moist - Neck Exam Neck Exam: absent: Meningismus - Respiratory Exam Respiratory Exam: absent: Rales, Rhonchi, Wheezes, Respiratory Distress - Cardiovascular Exam Cardiovascular Exam: REGULAR RHYTHM, +S1, +S2 - GI/Abdominal Exam GI & Abdominal Exam: Soft. absent: Tenderness - Rectal Exam Rectal Exam: Deferred - Neurological Exam Neurological Exam: Alert, Oriented x3 - Psychiatric Exam Psychiatric exam: Normal Affect - Skin Skin Exam: Dry, Intact Assessment and Plan - Assessment and Plan (Free Text) Assessment: 46 yo female with no significant PMH was brought to [facility] ED because of sudden onset of headache associated with left sided weakness and left facial droop. CT of head showed right basal ganglia bleed with mass effect and left midline shift. Neurosurgery was consulted and advised conservative management. Neurology was consulted and advised initially IV Mannitol and Decadron. She was later transferred to Acute Rehab for PT/OT. 1. Right basal ganglia hemorrhage with mass effect and left midline shift appeared more active but RN concerned that she appeared a little depressed CTA head and neck: no aneurysm, no AVM patient received a total 6 units FFP neurosurgery advised no surgical intervention Decadron 2mg PO q 12hrs continue Keppra for seizure prophylaxis avoid antiplatelets and anticoagulants continue PT/OT Dr Hammer on neuro consults 2. DVT prophylaxis venodyne boots while in bed
[2017-08-26] MEDS: Metoclopramide 10 mg/10 ml Cup PO SCH ×4 (06:29→21:47)
[2017-08-26] MEDS: Nystatin 100,000 Units/ml Oral Susp 5 ml UD PO SCH ×4 (09:28→21:47)
[2017-08-27] MEDS: Metoclopramide 10 mg/10 ml Cup PO SCH ×4 (06:33→21:32)
[2017-08-27] MEDS: Nystatin 100,000 Units/ml Oral Susp 5 ml UD PO SCH ×4 (09:35→21:32)
--- NOTE | 2017-08-27 17:10 | CP.PCM.PN ---
Subjective - Date & Time of Evaluation Date of Evaluation: 08/26/17 Time of Evaluation: 08:00 - Subjective Subjective: no acute complaints noted Objective - Vital Signs/Intake and Output Vital Signs (last 24 hours): Temp Pulse Resp BP Pulse Ox 97.5 F L 63 19 85/52 L 99 08/27/17 08:55 08/27/17 08:55 08/27/17 08:55 08/27/17 08:55 08/27/17 08:55 - Medications Medications: Current Medications Acetaminophen (Tylenol 325mg/10.15ml Ud) 650 mg PO Q4 PRN PRN Reason: Headache Amantadine HCl (Amantadine 100 Mg Cap) 100 mg PO BID [facility] Last Admin: 08/27/17 09:34 Dose: 100 mg Dexamethasone (Decadron) 2 mg PO Q12 [facility] Last Admin: 08/27/17 09:35 Dose: 2 mg Heparin Sodium (Porcine) (Heparin) 2,000 units SC Q12 [facility] PRN Reason: Protocol Last Admin: 08/27/17 09:35 Dose: 2,000 units Levetiracetam (Keppra) 500 mg PO BID [facility] Last Admin: 08/27/17 09:35 Dose: 500 mg Methylphenidate HCl (Ritalin) 5 mg PO DAILY@1700 [facility] Last Admin: 08/26/17 18:05 Dose: 5 mg Metoclopramide HCl (Reglan) 10 mg PO ACHS [facility] Last Admin: 08/27/17 12:31 Dose: 10 mg Nystatin (Nystatin Oral Susp) 5 ml PO QID [facility] Last Admin: 08/27/17 12:31 Dose: 5 ml - Labs Labs: 08/24/17 05:30 08/24/17 05:30 - Head Exam Head Exam: ATRAUMATIC, NORMAL INSPECTION, NORMOCEPHALIC - Eye Exam Eye Exam: EOMI, Normal appearance Pupil Exam: NORMAL ACCOMODATION, PERRL - ENT Exam ENT Exam: Mucous Membranes Moist - Neck Exam Neck Exam: Normal Inspection - Respiratory Exam Respiratory Exam: Clear to Ausculation Bilateral, NORMAL BREATHING PATTERN - Cardiovascular Exam Cardiovascular Exam: REGULAR RHYTHM - GI/Abdominal Exam GI & Abdominal Exam: Normal Bowel Sounds - Rectal Exam Rectal Exam: NORMAL INSPECTION - Exam External exam: Erythema - Extremities Exam Extremities Exam: Normal Capillary Refill, Normal Inspection - Back Exam Back Exam: rash noted - Neurological Exam Neurological Exam: Alert, Awake Neuro motor strength exam: Left Upper Extremity: 2/1, Right Upper Extremity: 3, Left Lower Extremity: 2/1, Right Lower Extremity: 3 - Psychiatric Exam Psychiatric exam: Normal Affect, Normal Mood - Skin Skin Exam: Normal Color Assessment and Plan (1) Headache Status: Acute (2) Hemorrhagic cerebrovascular accident (CVA) Assessment & Plan: plan to continue with physical, occupational, rec and speech therapy program status Ct and other testing followed up by PMd and neurology. Monitor skin. Status: Acute (3) Intracerebral bleed Status: Acute (4) Prophylactic measure Status: Acute (5) Prophylactic measure Status: Acute
[2017-08-28] MEDS: Metoclopramide 10 mg/10 ml Cup PO SCH ×3 (06:37→16:50)
--- NOTE | 2017-08-28 08:15 | CP.PCM.CON ---
History of Present Illness - History of Present Illness History of Present Illness: Pt is a 46 year old female admitted to [facility] and referred to the automobile and property underwriter for evaluation. Med history positive for CVA. See med record for complete medical history and medications. Social History: pt lives with her mother and two children 11 and 24. Pt reported positive relationships with friends and family members. Ed.Voc: pt raised in [facility], in the since [place]. 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 Psych history denied, pt denied a history of alcohol/substance abuse. Pt spoke of initial depression with the CVA , improved mood with improved physical functioning. MSE: Pt alert, oriented x1, unable to state month/day/date. Affect full in range, mood less dysphoric, no si no hi ideation, no psychosis. Pt spoke of need for recovery to return to lifestyle. Dx: Adjustment Dx Plan: Continued Sup therapy Past Patient History - Past Medical History & Family History Past Medical History?: Yes - Past Social History Smoking Status: Never Smoked Alcohol: Social Drugs: Denies - CARDIAC Hx Hypertension: Yes - PULMONARY Hx Respiratory Disorders: No - NEUROLOGICAL Hx Neurological Disorder: No - HEENT Hx HEENT Problems: No - RENAL Hx Chronic Kidney Disease: No - ENDOCRINE/METABOLIC Hx Diabetes Mellitus Type 2: Yes - HEMATOLOGICAL/ONCOLOGICAL Hx Blood Disorders: No Hx AIDS: No Hx Human Immunodeficiency Virus (HIV): No - INTEGUMENTARY Hx Dermatological Problems: No - MUSCULOSKELETAL/RHEUMATOLOGICAL Hx Musculoskeletal Disorders: No Hx Falls: No - GASTROINTESTINAL Hx Gastrointestinal Disorders: No - GENITOURINARY/GYNECOLOGICAL Hx Genitourinary Disorders: No - PSYCHIATRIC Hx Psychophysiologic Disorder: No Hx Substance Use: No - SURGICAL HISTORY Hx Surgeries: Yes Hx Section: Yes - ANESTHESIA Hx Anesthesia: Yes Hx Anesthesia Reactions: No Meds Allergies/Adverse Reactions: Allergies Allergy/AdvReac Type Severity Reaction Status Date / Time No Known Allergies Allergy Verified 08/06/17 08:39 - Medications Medications: Current Medications Acetaminophen (Tylenol 325mg/10.15ml Ud) 650 mg PO Q4 PRN PRN Reason: Headache Amantadine HCl (Amantadine 100 Mg Cap) 100 mg PO BID [facility] Last Admin: 08/27/17 17:39 Dose: 100 mg Dexamethasone (Decadron) 2 mg PO Q12 [facility] Last Admin: 08/27/17 21:32 Dose: 2 mg Heparin Sodium (Porcine) (Heparin) 2,000 units SC Q12 [facility] PRN Reason: Protocol Last Admin: 08/27/17 21:32 Dose: 2,000 units Levetiracetam (Keppra) 500 mg PO BID [facility] Last Admin: 08/27/17 17:39 Dose: 500 mg Methylphenidate HCl (Ritalin) 5 mg PO DAILY@1700 [facility] Last Admin: 08/27/17 17:42 Dose: 5 mg Metoclopramide HCl (Reglan) 10 mg PO ACHS [facility] Last Admin: 08/28/17 06:37 Dose: 10 mg Nystatin (Nystatin Oral Susp) 5 ml PO QID [facility] Last Admin: 08/27/17 21:32 Dose: 5 ml Results - Vital Signs Recent Vital Signs: Last Vital Signs Temp 97.7 F 08/27/17 22:00 Pulse 74 08/27/17 22:00 Resp 20 08/27/17 22:00 BP 95/55 L 08/27/17 22:00 Pulse Ox 100 08/27/17 22:00 - Labs Result Diagrams: 08/24/17 05:30 08/24/17 05:30
[2017-08-28] MEDS: Nystatin 100,000 Units/ml Oral Susp 5 ml UD PO SCH ×4 (08:59→21:57)
--- NOTE | 2017-08-28 11:37 | CP.PCM.PN ---
Subjective - Date & Time of Evaluation Date of Evaluation: 08/28/17 Time of Evaluation: 09:00 - Subjective Subjective: Patient was seen and examined. Patient states "I feel much better". She is awake and alert and states she feels well. No complaints today. Objective - Vital Signs/Intake and Output Vital Signs (last 24 hours): Temp Pulse Resp BP Pulse Ox 97.3 F L 63 20 87/52 L 99 08/28/17 09:33 08/28/17 09:33 08/28/17 09:33 08/28/17 09:33 08/28/17 09:33 - Medications Medications: Current Medications Acetaminophen (Tylenol 325mg/10.15ml Ud) 650 mg PO Q4 PRN PRN Reason: Headache Amantadine HCl (Amantadine 100 Mg Cap) 100 mg PO BID [facility] Last Admin: 08/28/17 08:58 Dose: 100 mg Dexamethasone (Decadron) 2 mg PO Q12 [facility] Last Admin: 08/28/17 08:58 Dose: 2 mg Heparin Sodium (Porcine) (Heparin) 2,000 units SC Q12 [facility] PRN Reason: Protocol Last Admin: 08/28/17 08:58 Dose: 2,000 units Levetiracetam (Keppra) 500 mg PO BID [facility] Last Admin: 08/28/17 08:59 Dose: 500 mg Methylphenidate HCl (Ritalin) 5 mg PO DAILY@1700 [facility] Last Admin: 08/27/17 17:42 Dose: 5 mg Metoclopramide HCl (Reglan) 10 mg PO ACHS [facility] Last Admin: 08/28/17 06:37 Dose: 10 mg Nystatin (Nystatin Oral Susp) 5 ml PO QID [facility] Last Admin: 08/28/17 08:59 Dose: 5 ml - Labs Labs: 08/24/17 05:30 08/24/17 05:30 - Additional Findings Additional findings: Physical exam: Constitutional- cooperative, awake, alert Head- NCAT, PERRL Eye- PERRL, EOMI ENT- normal exam, MMM. Neck- normal inspection, supple, no JVD Respiratory- CTAB, no wheezes rales rhonchi Cardiovascular- RRR, +S1, +S2 no MRG GI/Abdominal- normal bowel sounds, soft, no mass, no hsm Skin- warm, dry Extremities Exam- normal capillary refill, normal inspection Neurological Exam- alert, awake, oriented Psych- normal mood, normal affect Assessment and Plan - Assessment and Plan (Free Text) Plan: 46 yo female with no significant PMH was brought to [facility] ED because of sudden onset of headache associated with left sided weakness and left facial droop. CT of head showed right basal ganglia bleed with mass effect and left midline shift. Neurosurgery was consulted and advised conservative management. Neurology was consulted and advised initially IV Mannitol and Decadron. She was later transferred to Acute Rehab for PT/OT. 1. Right basal ganglia hemorrhage with mass effect and left midline shift More active, mood improved, clinically improved CTA head and neck: no aneurysm, no AVM MRI shows expected evolution of the right basal ganglia hemorrhage patient received a total 6 units FFP neurosurgery advised no surgical intervention Decadron 2mg PO q 12hrs continue Keppra for seizure prophylaxis avoid antiplatelets and anticoagulants continue PT/OT Dr Hammer on neuro consults 2. DVT prophylaxis venodyne boots while in bed
[2017-08-29] MEDS: Nystatin 100,000 Units/ml Oral Susp 5 ml UD PO SCH ×4 (08:20→21:27)
--- NOTE | 2017-08-29 13:34 | CP.PCM.PN ---
Subjective - Date & Time of Evaluation Date of Evaluation: 08/29/17 Time of Evaluation: 09:00 - Subjective Subjective: no acute complaints Objective - Vital Signs/Intake and Output Vital Signs (last 24 hours): Temp Pulse Resp BP Pulse Ox 98.3 F 60 19 82/46 L 99 08/29/17 08:29 08/29/17 08:29 08/29/17 08:29 08/29/17 08:29 08/29/17 08:29 - Medications Medications: Current Medications Acetaminophen (Tylenol 325mg/10.15ml Ud) 650 mg PO Q4 PRN PRN Reason: Headache Amantadine HCl (Amantadine 100 Mg Cap) 100 mg PO Q12H [facility] Last Admin: 08/29/17 12:28 Dose: Not Given Dexamethasone (Decadron) 2 mg PO Q12 [facility] Last Admin: 08/29/17 08:18 Dose: 2 mg Heparin Sodium (Porcine) (Heparin) 2,000 units SC Q12 [facility] PRN Reason: Protocol Last Admin: 08/29/17 08:19 Dose: 2,000 units Levetiracetam (Keppra) 500 mg PO BID [facility] Last Admin: 08/29/17 08:20 Dose: 500 mg Methylphenidate HCl (Ritalin) 5 mg PO DAILY@1700 [facility] Last Admin: 08/28/17 16:50 Dose: 5 mg Nystatin (Nystatin Oral Susp) 5 ml PO QID [facility] Last Admin: 08/29/17 08:20 Dose: 5 ml - Labs Labs: 08/24/17 05:30 08/24/17 05:30 - Head Exam Head Exam: ATRAUMATIC, NORMAL INSPECTION, NORMOCEPHALIC - Eye Exam Eye Exam: EOMI, Normal appearance, PERRL Pupil Exam: NORMAL ACCOMODATION - ENT Exam ENT Exam: Mucous Membranes Moist, Normal Exam - Neck Exam Neck Exam: Normal Inspection - Respiratory Exam Respiratory Exam: Clear to Ausculation Bilateral, NORMAL BREATHING PATTERN - Cardiovascular Exam Cardiovascular Exam: REGULAR RHYTHM - GI/Abdominal Exam GI & Abdominal Exam: Soft, Normal Bowel Sounds - Rectal Exam Rectal Exam: NORMAL INSPECTION - Exam External exam: NORMAL EXTERNAL EXAM - Extremities Exam Extremities Exam: Full ROM, Normal Capillary Refill, Normal Inspection - Back Exam Back Exam: NORMAL INSPECTION - Neurological Exam Neurological Exam: Alert, Awake Neuro motor strength exam: Left Upper Extremity: 2/1, Right Upper Extremity: 4, Left Lower Extremity: 2/1, Right Lower Extremity: 4 - Psychiatric Exam Psychiatric exam: Normal Affect, Normal Mood - Skin Skin Exam: Dry, Intact Assessment and Plan (1) Headache Status: Acute (2) Hemorrhagic cerebrovascular accident (CVA) Assessment & Plan: plan to continue with physical, occupational, rec and speech therapy for team conference tomorrow Status: Acute (3) Intracerebral bleed Status: Acute (4) Prophylactic measure Status: Acute (5) Prophylactic measure Status: Acute
[2017-08-30] MEDS: Nystatin 100,000 Units/ml Oral Susp 5 ml UD PO SCH (09:09)
--- NOTE | 2017-08-30 12:14 | PSY.TMCNF ---
Nursing - Vital Signs Vital Signs (Last 8 hours): Vital Signs 08/30/17 08:31 Temperature 97.8 F Pulse Rate 59 L Respiratory 19 Rate Blood Pressure 109/46 L O2 Sat by Pulse 97 Oximetry Pain: 0 - Precautions: Precautions: Fall Prevention, Aspiration - Medications/Other Issues Comment: Pt at moderate nutritional risk. goal: 1. Pt to consume 75-100% of meals(met, continue). Follow-up due on 08/31/2017 - Consults Comment: Dr. Muniz, Dr. Hammer - Skin Incision Site: Intact - Toileting Toileting: Maximal Assistance - Bladder Management Bladder Pattern: Normal Voiding Method: Toilet, Bedpan - Bowel Management Bowel Pattern: Normal Bowel Management: Supervision Frequency of Accidents: 0 - Transfers Transfers: Maximal Assistance - ADL's ADL's: Maximal Assistance - Patient/Family Teaching Comments: Care post CVA and safety precautions - Goals/Time Frame Comments: Per multidisciplinary care plan and goals - Provider Provider: Bessy THACKERN RN CRRN Physical Therapy - Bed Mobility Bed Mobility: Moderate Assistance - Transfers Sit to Stand: Minimal Assistance - Ambulation Level of Assistance: Maximum Assistance Assistive Devices: Narrow base quad cane - Stair Negotiation Stairs: Level of Assistance: Not Tested - Standing Balance Static Stand: Moderate Assistance Dynamic Stand: Maximal Assistance - Pain Pain (assessed during therapy session): 0 - Insight/Carryover Insight/Carryover: Good - Patient/Family Education Comment: Pt/family education for CVA recovery; pt education for increased safety awareness and proper techniques during functional mobility training - Assessment/Plan Assessment: Pt is actively participating in PT tx sessions focusing on BLE strengthening exercises, balance and endurance activities, and functional mobility training. Pt presents with overall improved alertness compared to prior week. Pt performs bed mobility with mod A, sit < > stand transfers with min A , stand pivot transfers with mod/max A, gait with max A with NBQC. Pt displays trace muscle contraction in L hip, 0/5 muscle strength in knee and ankle. Pt will continue to benefit from skilled PT intervention to address deficits, reduce fall risk, and maximize functional independence. - Goals Timeframe: 3 weeks Goals: Sit < > supine CGA. Sit < > stand CGA. Bed < > chair transfers with CGA. Pt will ambulate 100 ft with NBQC and min A - Provider Therapist: evelyn License Number: [id number] Occupational Therapy - Arousal/Attention/Orientation Patient Orientation: Person, Place, Time - ADL/IADL Self Feeding: Independent, Verbal Cues, Set-up Help Grooming: Verbal Cues, Set-up Help, Minimal Assistance Bathing-Upper Extremity: Verbal Cues, Set-up Help, Moderate Assistance Bathing-Lower Extremity: Verbal Cues, Set-up Help, Maximum Assistance Dressing-Upper Extremity: Verbal Cues, Set-up Help, Moderate Assistance Dressing-Lower Extremity: Verbal Cues, Set-up Help, Moderate Assistance Comment: lower bidy dressing long sitting in bed with adptive/compensatory strategies - Sitting Balance Static Sitting: Contact Guard Assist Dynamic Sitting: Reaches across midline, Reaches out of base of support, Reaches within base of support, Minimal Assistance, Moderate Assistance Comment: seated, unsupported at edge of bed - Transfers Wheelchair to Bed Transfers: Verbal Cues, Set-up Help, Moderate Assistance Toilet Transfers: Verbal Cues, Set-up Help, Moderate Assistance Comment: shower transfers: mod assist and verbal cues - Wheelchair Management Level of Assistance: Minimal Assistance, Moderate Assistance Distance (ft.): 150 - Upper Extremity Status Right Upper Extremity Comment: AROM is WNLS Left Upper Extremity Comment: PROM IS WNLS; pt has NO AROM at this time ojeda to impaired motor control - Pain Pain (assessed during therapy session): 0 - Insight/Carryover Insight/Carryover: Good - Patient/Family Education Comment: Pt/family education for CVA recovery; pt education for increased safety awareness and proper techniques during functional mobility training - Assessment/Plan Assessment: Pt is actively participating in PT tx sessions focusing on BLE strengthening exercises, balance and endurance activities, and functional mobility training. Pt presents with overall improved alertness compared to prior week. Pt performs bed mobility with mod A, sit < > stand transfers with min A , stand pivot transfers with mod/max A, gait with max A with NBQC. Pt displays trace muscle contraction in L hip, 0/5 muscle strength in knee and ankle. Pt will continue to benefit from skilled PT intervention to address deficits, reduce fall risk, and maximize functional independence. - Goals Timeframe: 3 weeks Goals: Sit < > supine CGA. Sit < > stand CGA. Bed < > chair transfers with CGA. Pt will ambulate 100 ft with NBQC and min A - Provider Therapist: DANITZA Malin/L License Number: [id number] Speech Therapy - Consult Information Patient on Program: Yes Medical Diagnosis: R hemorrhage Treatment Diagnosis: -mild dysarthria. -mild oral dysphagia - Assessment Speech/Articulation Impairment: Mild Dysphagia/Swallowing Impairment: Mild Comment: bite-sized/thin liquids - Plan Assessment: Pt is actively participating in PT tx sessions focusing on BLE strengthening exercises, balance and endurance activities, and functional mobility training. Pt presents with overall improved alertness compared to prior week. Pt performs bed mobility with mod A, sit < > stand transfers with min A , stand pivot transfers with mod/max A, gait with max A with NBQC. Pt displays trace muscle contraction in L hip, 0/5 muscle strength in knee and ankle. Pt will continue to benefit from skilled PT intervention to address deficits, reduce fall risk, and maximize functional independence. - Provider Therapist: Vivian Veliz License Number: [id number] Recreational Therapy - Participation Participation: Participates in Individual and/or Group Sessions - Attendance Attendance: 3-5 times per week - Activities Leisure Activities: Cards and Games - Socialization Level of Socialization: Initiates/interacts with caregivers but not with peer, Responds freely, but does not initiate - Diversional Time Diversional Time: television, likes playing binEpyon - Assessment Assessment/Plan: Pt is actively participating in PT tx sessions focusing on BLE strengthening exercises, balance and endurance activities, and functional mobility training. Pt presents with overall improved alertness compared to prior week. Pt performs bed mobility with mod A, sit < > stand transfers with min A , stand pivot transfers with mod/max A, gait with max A with NBQC. Pt displays trace muscle contraction in L hip, 0/5 muscle strength in knee and ankle. Pt will continue to benefit from skilled PT intervention to address deficits, reduce fall risk, and maximize functional independence. - Provider Therapist: Adry Goldberg, CRIMINAL JUSTICE PROFESSOR #[id number] Nutrition - Current Diet Current Diet/ Supplement/ Feedings: 2 gram Na advanced bite size thin liquids - Appetite Percent Meal Consumed: 75-100% - Comments Comments: Care post CVA and safety precautions - Assessment/Goals/Time Frame Assessment/Goals/Time Frame: Pt at moderate nutritional risk. goal: 1. Pt to consume 75-100% of meals(met, continue). Follow-up due on 08/31/2017 - Provider Provider: Abril Coker RD Case Management - Psychosocial Assessment Support Systems: Daughter Keila/Mother Karly [phone] Psychological Interventions/Needs: Pt is alert and oriented x3, but with difficulty keeping eyes open Discharge Concerns: Pt has stairs to negotiate; May require [facility] Patient/Family Meeting: CM met with pt and rehab team Intervention/Goal/Outcome:: 1. Plan: Tentative d/c date to be determined; Will reteam 2. Continued stay review LAD 08/21/17 3. GOAL: Intermittent supervision 4. Caregiver training/educaiton 5. Plan: home with skilled homecare vs [facility] 6. DME needs TBD - Discharge Plan Discharge Plan: Home with services, Subacute senior care Services: [facility] - Provider Provider: CHRIS Potter, FEEDER OPERATOR [employer] License Number: [id number] Rehabilitation Plan - Treatment Plan Treatment Plan: Physical Therapy, Occupational Therapy, Speech, Dietary - Recommendation Recommendation: Physical Therapy, Occupational Therapy, Speech, Dietary, Patient /Family Education - Discharge Plan Discharge to: Subacute Comment: Dc 20
--- NOTE | 2017-08-30 13:20 | CP.PCM.PN ---
Subjective - Date & Time of Evaluation Date of Evaluation: 08/30/17 Time of Evaluation: 10:00 - Subjective Subjective: no acute complaints at present Objective - Vital Signs/Intake and Output Vital Signs (last 24 hours): Temp Pulse Resp BP Pulse Ox 97.8 F 59 L 19 109/46 L 97 08/30/17 08:31 08/30/17 08:31 08/30/17 08:31 08/30/17 08:31 08/30/17 08:31 - Medications Medications: Current Medications Acetaminophen (Tylenol 325mg/10.15ml Ud) 650 mg PO Q4 PRN PRN Reason: Headache Amantadine HCl (Amantadine 100 Mg Cap) 100 mg PO Q12@0900,2100 [facility] Last Admin: 08/30/17 09:08 Dose: 100 mg Dexamethasone (Decadron) 2 mg PO Q12 [facility] Last Admin: 08/30/17 09:08 Dose: 2 mg Heparin Sodium (Porcine) (Heparin) 2,000 units SC Q12 [facility] PRN Reason: Protocol Last Admin: 08/30/17 09:08 Dose: 2,000 units Levetiracetam (Keppra) 500 mg PO BID [facility] Last Admin: 08/30/17 09:08 Dose: 500 mg Methylphenidate HCl (Ritalin) 5 mg PO DAILY@1700 [facility] Last Admin: 08/29/17 17:13 Dose: 5 mg - Labs Labs: 08/24/17 05:30 08/24/17 05:30 - Head Exam Head Exam: ATRAUMATIC, NORMAL INSPECTION, NORMOCEPHALIC - Eye Exam Eye Exam: EOMI, Normal appearance, PERRL Pupil Exam: NORMAL ACCOMODATION - ENT Exam ENT Exam: Mucous Membranes Moist, Normal Exam - Neck Exam Neck Exam: Full ROM, Normal Inspection - Respiratory Exam Respiratory Exam: NORMAL BREATHING PATTERN - Cardiovascular Exam Cardiovascular Exam: REGULAR RHYTHM - GI/Abdominal Exam GI & Abdominal Exam: Soft, Normal Bowel Sounds - Rectal Exam Rectal Exam: NORMAL INSPECTION - Exam External exam: NORMAL EXTERNAL EXAM - Extremities Exam Extremities Exam: Full ROM, Normal Capillary Refill, Normal Inspection - Back Exam Back Exam: NORMAL INSPECTION - Neurological Exam Neurological Exam: Alert, Awake Neuro motor strength exam: Left Upper Extremity: 2/1, Right Upper Extremity: 3, Left Lower Extremity: 2/1, Right Lower Extremity: 3 - Psychiatric Exam Psychiatric exam: Normal Affect, Normal Mood - Skin Skin Exam: Dry, Intact Assessment and Plan (1) Headache Status: Acute (2) Hemorrhagic cerebrovascular accident (CVA) Assessment & Plan: plan fo rpt, ot and rec for Dc for 09/08 then subacute Status: Acute (3) Intracerebral bleed Status: Acute (4) Prophylactic measure Status: Acute (5) Prophylactic measure Status: Acute
--- NOTE | 2017-08-30 15:17 | CP.PCM.PN ---
Subjective - Date & Time of Evaluation Date of Evaluation: 08/30/17 Time of Evaluation: 12:00 - Subjective Subjective: Patient seen and examined during physical therapy. States she is doing well with no complaints. Per PT and nursing staff patient is demonstrating improvement. Plan for KRYSTIAN on 09/08. Objective - Vital Signs/Intake and Output Vital Signs (last 24 hours): Temp Pulse Resp BP Pulse Ox 97.8 F 59 L 19 109/46 L 97 08/30/17 08:31 08/30/17 08:31 08/30/17 08:31 08/30/17 08:31 08/30/17 08:31 - Medications Medications: Current Medications Acetaminophen (Tylenol 325mg/10.15ml Ud) 650 mg PO Q4 PRN PRN Reason: Headache Amantadine HCl (Amantadine 100 Mg Cap) 100 mg PO Q12@0900,2100 [facility] Last Admin: 08/30/17 09:08 Dose: 100 mg Dexamethasone (Decadron) 2 mg PO Q12 [facility] Last Admin: 08/30/17 09:08 Dose: 2 mg Heparin Sodium (Porcine) (Heparin) 2,000 units SC Q12 [facility] PRN Reason: Protocol Last Admin: 08/30/17 09:08 Dose: 2,000 units Levetiracetam (Keppra) 500 mg PO BID [facility] Last Admin: 08/30/17 09:08 Dose: 500 mg Methylphenidate HCl (Ritalin) 5 mg PO DAILY@1700 [facility] Last Admin: 08/29/17 17:13 Dose: 5 mg - Labs Labs: 08/24/17 05:30 08/24/17 05:30 - Additional Findings Additional findings: Physical exam: Constitutional- cooperative, awake, alert Head- NCAT, PERRL Eye- PERRL, EOMI ENT- normal exam, MMM. Neck- normal inspection, supple, no JVD Respiratory- CTAB, no wheezes rales rhonchi Cardiovascular- RRR, +S1, +S2 no MRG GI/Abdominal- normal bowel sounds, soft, no mass, no hsm Skin- warm, dry Extremities Exam- normal capillary refill, normal inspection Neurological Exam- alert, awake, oriented Psych- normal mood, normal affect Assessment and Plan - Assessment and Plan (Free Text) Plan: 46 yo female with no significant PMH was brought to [facility] ED because of sudden onset of headache associated with left sided weakness and left facial droop. CT of head showed right basal ganglia bleed with mass effect and left midline shift. Neurosurgery was consulted and advised conservative management. Neurology was consulted and advised initially IV Mannitol and Decadron. She was later transferred to Acute Rehab for PT/OT. 1. Right basal ganglia hemorrhage with mass effect and left midline shift More active, mood improved, clinically improved CTA head and neck: no aneurysm, no AVM MRI shows expected evolution of the right basal ganglia hemorrhage patient received a total 6 units FFP neurosurgery advised no surgical intervention Decadron 2mg PO q 12hrs continue Lea for seizure prophylaxis avoid antiplatelets and anticoagulants continue PT/OT Dr Hammer on neuro consultation 2. DVT prophylaxis venodyne boots while in bed
[2017-08-31 06:50] LABS: HEMOGLOBIN 12.8 g/dL (12.0-16.0); MEAN CELL VOLUME 96.6 fl (81.0-99.0); MEAN CORPUSCULAR HEMOGLOBIN 32.3 pg (27.0-31.0); MEAN CORPUSCULAR HGB CONC 33.5 g/dL (33.0-37.0); RBC 3.95 Mil/uL (3.80-5.20); RED CELL DISTRIBUTION WIDTH 16.8 % (11.5-14.5); WHITE BLOOD COUNT 6.6 K/uL (4.8-10.8)
[2017-08-31 07:03] LABS: BLOOD UREA NITROGEN 15 mg/dl (7-17); CALCIUM 8.3 mg/dL (8.4-10.2); GFR AFRICAN-AMERICAN > 60; GFR NON-AFRICAN AMERICAN > 60
[2017-09-01] MEDS ORDERED: Acetaminophen 650mg/20.3ml solution UD PO PRN ×2 (06:07→06:11)
--- NOTE | 2017-09-01 08:05 | CP.PCM.CON ---
History of Present Illness - History of Present Illness History of Present Illness: Pt seen for supportive therapy. Pt discussed gratitude and feeling fortunate to "think, speak, and experience." Pt discussed discharge next week and looking forward to continued therapy a [employer]- her place of work. Dysphoria acknowledged but reduced. plan: Continued sup therapy Past Patient History - Past Medical History & Family History Past Medical History?: Yes - Past Social History Smoking Status: Never Smoked Alcohol: Social Drugs: Denies - CARDIAC Hx Hypertension: Yes - PULMONARY Hx Respiratory Disorders: No - NEUROLOGICAL Hx Neurological Disorder: No - HEENT Hx HEENT Problems: No - RENAL Hx Chronic Kidney Disease: No - ENDOCRINE/METABOLIC Hx Diabetes Mellitus Type 2: Yes - HEMATOLOGICAL/ONCOLOGICAL Hx Blood Disorders: No Hx AIDS: No Hx Human Immunodeficiency Virus (HIV): No - INTEGUMENTARY Hx Dermatological Problems: No - MUSCULOSKELETAL/RHEUMATOLOGICAL Hx Musculoskeletal Disorders: No Hx Falls: No - GASTROINTESTINAL Hx Gastrointestinal Disorders: No - GENITOURINARY/GYNECOLOGICAL Hx Genitourinary Disorders: No - PSYCHIATRIC Hx Psychophysiologic Disorder: No Hx Substance Use: No - SURGICAL HISTORY Hx Surgeries: Yes Hx Section: Yes - ANESTHESIA Hx Anesthesia: Yes Hx Anesthesia Reactions: No Meds Allergies/Adverse Reactions: Allergies Allergy/AdvReac Type Severity Reaction Status Date / Time No Known Allergies Allergy Verified 08/06/17 08:39 - Medications Medications: Current Medications Acetaminophen (Tylenol 325mg/10.15ml Ud) 650 mg PO Q4 PRN PRN Reason: Headache Acetaminophen (Tylenol 650mg/20.3ml Solution Ud) 650 mg PO Q4 PRN PRN Reason: Pain, moderate (4-7) Last Admin: 09/01/17 06:27 Dose: 650 mg Amantadine HCl (Amantadine 100 Mg Cap) 100 mg PO Q12@0900,2100 [facility] Last Admin: 08/31/17 20:10 Dose: 100 mg Dexamethasone (Decadron) 2 mg PO Q12 [facility] Last Admin: 08/31/17 20:10 Dose: 2 mg Heparin Sodium (Porcine) (Heparin) 2,000 units SC Q12 [facility] PRN Reason: Protocol Last Admin: 08/31/17 20:10 Dose: 2,000 units Levetiracetam (Keppra) 500 mg PO BID [facility] Last Admin: 08/31/17 17:16 Dose: 500 mg Methylphenidate HCl (Ritalin) 5 mg PO DAILY@1700 [facility] Last Admin: 08/31/17 17:15 Dose: 5 mg Results - Vital Signs Recent Vital Signs: Last Vital Signs Temp 96.8 F L 08/31/17 20:20 Pulse 74 08/31/17 20:20 Resp 20 08/31/17 20:20 BP 116/64 08/31/17 20:20 Pulse Ox 99 08/31/17 20:20 - Labs Result Diagrams: 08/31/17 05:25 08/31/17 05:25
--- NOTE | 2017-09-01 12:10 | CP.PCM.PN ---
Subjective - Date & Time of Evaluation Date of Evaluation: 09/01/17 Time of Evaluation: 09:30 - Subjective Subjective: stanford is more awake and alert Objective - Vital Signs/Intake and Output Vital Signs (last 24 hours): Temp Pulse Resp BP Pulse Ox 97.8 F 60 19 90/48 L 98 09/01/17 08:12 09/01/17 08:12 09/01/17 08:12 09/01/17 08:12 09/01/17 08:12 - Medications Medications: Current Medications Acetaminophen (Tylenol 325mg/10.15ml Ud) 650 mg PO Q4 PRN PRN Reason: Headache Acetaminophen (Tylenol 650mg/20.3ml Solution Ud) 650 mg PO Q4 PRN PRN Reason: Pain, moderate (4-7) Last Admin: 09/01/17 06:27 Dose: 650 mg Amantadine HCl (Amantadine 100 Mg Cap) 100 mg PO Q12@0900,2100 [facility] Last Admin: 09/01/17 08:43 Dose: 100 mg Dexamethasone (Decadron) 2 mg PO Q12 [facility] Last Admin: 09/01/17 08:43 Dose: 2 mg Heparin Sodium (Porcine) (Heparin) 2,000 units SC Q12 [facility] PRN Reason: Protocol Last Admin: 09/01/17 08:43 Dose: 2,000 units Levetiracetam (Keppra) 500 mg PO BID [facility] Last Admin: 09/01/17 08:43 Dose: 500 mg Methylphenidate HCl (Ritalin) 5 mg PO DAILY@1700 [facility] Last Admin: 08/31/17 17:15 Dose: 5 mg - Labs Labs: 08/31/17 05:25 08/31/17 05:25 - Head Exam Head Exam: ATRAUMATIC, NORMAL INSPECTION, NORMOCEPHALIC - Eye Exam Eye Exam: EOMI, Normal appearance, PERRL Pupil Exam: NORMAL ACCOMODATION - ENT Exam ENT Exam: Mucous Membranes Moist, Normal Exam - Neck Exam Neck Exam: Full ROM, Normal Inspection - Respiratory Exam Respiratory Exam: NORMAL BREATHING PATTERN - Cardiovascular Exam Cardiovascular Exam: REGULAR RHYTHM - GI/Abdominal Exam GI & Abdominal Exam: Soft, Normal Bowel Sounds - Rectal Exam Rectal Exam: NORMAL INSPECTION - Exam External exam: NORMAL EXTERNAL EXAM - Extremities Exam Extremities Exam: Full ROM, Normal Capillary Refill, Normal Inspection - Back Exam Back Exam: NORMAL INSPECTION - Neurological Exam Neurological Exam: Alert, Awake Neuro motor strength exam: Left Upper Extremity: 2/1, Right Upper Extremity: 3, Left Lower Extremity: 2/1, Right Lower Extremity: 3 - Psychiatric Exam Psychiatric exam: Normal Affect, Normal Mood - Skin Skin Exam: Dry, Intact Assessment and Plan (1) Headache Status: Acute (2) Hemorrhagic cerebrovascular accident (CVA) Assessment & Plan: plan to continue with physical, occupational, rec and speech therapy Status: Acute (3) Intracerebral bleed Status: Acute (4) Prophylactic measure Status: Acute (5) Prophylactic measure Status: Acute
--- NOTE | 2017-09-01 13:41 | CP.PCM.PN ---
Subjective - Date & Time of Evaluation Date of Evaluation: 09/01/17 Time of Evaluation: 14:30 - Subjective Subjective: Patient seen and examined .Sitting in chair in NAD. Feeling sad .Hemodynamically stable, afebrile Still with left side hemiplegia No acute issues overnight Objective - Vital Signs/Intake and Output Vital Signs (last 24 hours): Temp Pulse Resp BP Pulse Ox 97.8 F 60 19 90/48 L 98 09/01/17 08:12 09/01/17 08:12 09/01/17 08:12 09/01/17 08:12 09/01/17 08:12 - Medications Medications: Current Medications Acetaminophen (Tylenol 325mg/10.15ml Ud) 650 mg PO Q4 PRN PRN Reason: Headache Acetaminophen (Tylenol 650mg/20.3ml Solution Ud) 650 mg PO Q4 PRN PRN Reason: Pain, moderate (4-7) Last Admin: 09/01/17 06:27 Dose: 650 mg Amantadine HCl (Amantadine 100 Mg Cap) 100 mg PO Q12@0900,2100 [facility] Last Admin: 09/01/17 08:43 Dose: 100 mg Dexamethasone (Decadron) 2 mg PO Q12 [facility] Last Admin: 09/01/17 08:43 Dose: 2 mg Heparin Sodium (Porcine) (Heparin) 2,000 units SC Q12 [facility] PRN Reason: Protocol Last Admin: 09/01/17 08:43 Dose: 2,000 units Levetiracetam (Keppra) 500 mg PO BID [facility] Last Admin: 09/01/17 08:43 Dose: 500 mg Methylphenidate HCl (Ritalin) 5 mg PO DAILY@1700 [facility] Last Admin: 08/31/17 17:15 Dose: 5 mg - Labs Labs: 08/31/17 05:25 08/31/17 05:25 - Constitutional Appears: Non-toxic, No Acute Distress - Head Exam Head Exam: ATRAUMATIC, NORMAL INSPECTION, NORMOCEPHALIC - Eye Exam Eye Exam: EOMI, Normal appearance, PERRL Pupil Exam: NORMAL ACCOMODATION - ENT Exam ENT Exam: Mucous Membranes Moist, Normal Exam - Neck Exam Neck Exam: Full ROM, Normal Inspection - Respiratory Exam Respiratory Exam: Clear to Ausculation Bilateral, NORMAL BREATHING PATTERN. absent: Rales, Rhonchi, Wheezes - Cardiovascular Exam Cardiovascular Exam: REGULAR RHYTHM, RRR, +S1, +S2. absent: JVD - GI/Abdominal Exam GI & Abdominal Exam: Soft, Normal Bowel Sounds. absent: Distended, Guarding, Tenderness, Rebound - Rectal Exam Rectal Exam: Deferred - Extremities Exam Extremities Exam: Full ROM, Normal Capillary Refill, Normal Inspection. absent : Calf Tenderness, Pedal Edema - Back Exam Back Exam: NORMAL INSPECTION - Neurological Exam Neurological Exam: Alert, Awake, CN II-XII Intact Neuro motor strength exam: Left Upper Extremity: 0, Right Upper Extremity: 5, Left Lower Extremity: 0, Right Lower Extremity: 5 - Psychiatric Exam Psychiatric exam: Normal Affect - Skin Skin Exam: Dry, Normal Color, Warm Assessment and Plan - Assessment and Plan (Free Text) Assessment: 46 yo female with no significant PMH was brought to [facility] ED because of sudden onset of headache associated with left sided weakness and left facial droop. CT of head showed right basal ganglia bleed with mass effect and left midline shift. Neurosurgery was consulted and advised conservative management. Neurology was consulted and advised initially IV Mannitol and Decadron. She was later transferred to Acute Rehab for PT/OT. At present still with left side hemiplegia 1. 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 Started Amantadine and Ritalin since patient was very lethargic. D/c Ritalin since patient is more awake ands participating with PT 2. DVT prophylaxis venodyne boots while in bed Heparin
--- NOTE | 2017-09-02 14:37 | CP.PCM.PN ---
Subjective - Date & Time of Evaluation Date of Evaluation: 09/02/17 Time of Evaluation: 14:36 - Subjective Subjective: Mrs. Lobo was seen and examined today at bedside. She appeared to be more vibrant and awake. She did complain of difficulty with sleeping at night. She did not have significant improvement in left side weakness. There were no other complaints. Objective - Vital Signs/Intake and Output Vital Signs (last 24 hours): Temp Pulse Resp BP Pulse Ox 97.7 F 65 18 96/70 L 100 09/02/17 07:36 09/02/17 07:36 09/02/17 07:36 09/02/17 07:36 09/02/17 07:36 - Medications Medications: Current Medications Acetaminophen (Tylenol 325mg/10.15ml Ud) 650 mg PO Q4 PRN PRN Reason: Headache Acetaminophen (Tylenol 650mg/20.3ml Solution Ud) 650 mg PO Q4 PRN PRN Reason: Pain, moderate (4-7) Last Admin: 09/01/17 06:27 Dose: 650 mg Amantadine HCl (Amantadine 100 Mg Cap) 100 mg PO Q12@0900,2100 [facility] Last Admin: 09/02/17 08:36 Dose: 100 mg Dexamethasone (Decadron) 1 mg PO Q12 [facility] Heparin Sodium (Porcine) (Heparin) 2,000 units SC Q12 [facility] PRN Reason: Protocol Last Admin: 09/02/17 08:37 Dose: 2,000 units Levetiracetam (Keppra) 500 mg PO BID [facility] Last Admin: 09/02/17 08:37 Dose: 500 mg Trazodone HCl (Desyrel) 50 mg PO HS [facility] - Labs Labs: 08/31/17 05:25 08/31/17 05:25 - Neurological Exam Neurological Exam: Alert, Awake, Oriented x3 Neuro motor strength exam: Left Upper Extremity: 0, Right Upper Extremity: 4, Left Lower Extremity: 0, Right Lower Extremity: 4 Additional comments: Left facial droop Assessment and Plan (1) Hemorrhagic cerebrovascular accident (CVA) Assessment & Plan: May continue heparin for DVT Px. PT/OT per primary team. Will decrease decadron to 1 mg Q12 and continue amantadine. May start trazodone 50 mg QHS for insomnia. Status: Acute
--- NOTE | 2017-09-04 10:35 | CP.PCM.PN ---
Subjective - Date & Time of Evaluation Date of Evaluation: 09/04/17 Time of Evaluation: 10:34 - Subjective Subjective: spoke with patient at lent this morning regarding slow progress and adjustment post CVA. patient appears depressed, however redirected easily regarding condition hd stable nad Objective - Vital Signs/Intake and Output Vital Signs (last 24 hours): Temp Pulse Resp BP Pulse Ox 97.6 F 74 20 95/52 L 98 09/04/17 08:43 09/04/17 08:43 09/04/17 08:43 09/04/17 08:43 09/04/17 08:43 - Medications Medications: Current Medications Acetaminophen (Tylenol 325mg Tab) 650 mg PO Q4 PRN PRN Reason: Headache Acetaminophen (Tylenol 325mg Tab) 650 mg PO Q4 PRN PRN Reason: FOR PAIN LEVEL 4-10 Amantadine HCl (Amantadine 100 Mg Cap) 100 mg PO Q12@0900,2100 [facility] Last Admin: 09/04/17 08:21 Dose: 100 mg Dexamethasone (Decadron) 1 mg PO Q12 [facility] Last Admin: 09/04/17 08:21 Dose: 1 mg Heparin Sodium (Porcine) (Heparin) 2,000 units SC Q12 [facility] PRN Reason: Protocol Last Admin: 09/04/17 08:21 Dose: 2,000 units Levetiracetam (Keppra) 500 mg PO BID [facility] Last Admin: 09/04/17 08:21 Dose: 500 mg Trazodone HCl (Desyrel) 50 mg PO HS [facility] Last Admin: 09/03/17 21:11 Dose: 50 mg - Labs Labs: 08/31/17 05:25 08/31/17 05:25 - Constitutional Appears: Non-toxic, No Acute Distress - Head Exam Head Exam: ATRAUMATIC, NORMOCEPHALIC - Eye Exam Eye Exam: EOMI, Normal appearance, PERRL - ENT Exam ENT Exam: Mucous Membranes Moist, Normal Exam - Neck Exam Neck Exam: Full ROM, Normal Inspection - Respiratory Exam Respiratory Exam: Clear to Ausculation Bilateral, NORMAL BREATHING PATTERN - Cardiovascular Exam Cardiovascular Exam: RRR, +S1, +S2 - GI/Abdominal Exam GI & Abdominal Exam: Soft, Normal Bowel Sounds. absent: Tenderness, Mass - Extremities Exam Extremities Exam: Normal Capillary Refill. absent: Pedal Edema - Back Exam Back Exam: NORMAL INSPECTION. absent: rash noted - Neurological Exam Neurological Exam: Alert, Awake, Oriented x3 - Psychiatric Exam Psychiatric exam: Normal Affect, Normal Mood - Skin Skin Exam: Dry, Warm Assessment and Plan - Assessment and Plan (Free Text) Plan: Assessment: 46 yo female with no significant PMH was brought to [facility] ED because of sudden onset of headache associated with left sided weakness and left facial droop. CT of head showed right basal ganglia bleed with mass effect and left midline shift. Neurosurgery was consulted and advised conservative management. Neurology was consulted and advised initially IV Mannitol and Decadron. She was later transferred to Acute Rehab for PT/OT. At present still with left side hemiplegia, depressed/adjusting to post CVA. discussed with Psychiatry, Dr. Teresa, no psych rx indicated at this time, as pt requires time to adjust to new deficits post CVA. 1. 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 Started Amantadine and Ritalin since patient was very lethargic. D/c Ritalin since patient is more awake ands participating with PT 2. DVT prophylaxis venodyne boots while in bed Heparin
--- NOTE | 2017-09-04 10:46 | CP.PCM.CON ---
History of Present Illness - History of Present Illness History of Present Illness: Psychiatry consult note CC: "I'm sad." HPI: 46 yo female admitted to acute rehab s/p large right basal ganglia hemorrhage, with midline shift and significant edema resulting in left side hemiplegia and neglect. Patient reports that she feels depressed since having the CVA. She reports that sometimes she feels that life isn't worth living because she does not want to be a burden to her family, but denies active SI. She reports normal appetite. She reports poor sleep at times. No AH/VH/ paranoia/delusions. PMHx: CVA PPHx: No h/o psychiatric treatment or hospitalizations. SHx: Lives w/ mother and children (24 and 11). 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 No drugs/etoh/ MSE: A + O x 3, calm, cooperative, psychomotor retarded due to physical limitations, good eye contact, tearful at times, well groomed, speech slurred at times, mood "sad", affect- constricted, thought process- linear coherent, thought content- no delusions, no AH/VH/SI/HI, good I/J Impression: 46 yo female s/p CVA, now with adjustment disorder w/ depressive features. -Continue Trazodone 50 mg PO HS for treatment of insomnia and depression; can consider increasing dosage if patient continues to have depressive symptoms -No acute inpatient psychiatric admission or 1:1 indicated at this time Past Patient History - Past Medical History & Family History Past Medical History?: Yes - Past Social History Smoking Status: Never Smoked Alcohol: Social Drugs: Denies - CARDIAC Hx Hypertension: Yes - PULMONARY Hx Respiratory Disorders: No - NEUROLOGICAL Hx Neurological Disorder: No - HEENT Hx HEENT Problems: No - RENAL Hx Chronic Kidney Disease: No - ENDOCRINE/METABOLIC Hx Diabetes Mellitus Type 2: Yes - HEMATOLOGICAL/ONCOLOGICAL Hx Blood Disorders: No Hx AIDS: No Hx Human Immunodeficiency Virus (HIV): No - INTEGUMENTARY Hx Dermatological Problems: No - MUSCULOSKELETAL/RHEUMATOLOGICAL Hx Musculoskeletal Disorders: No Hx Falls: No - GASTROINTESTINAL Hx Gastrointestinal Disorders: No - GENITOURINARY/GYNECOLOGICAL Hx Genitourinary Disorders: No - PSYCHIATRIC Hx Psychophysiologic Disorder: No Hx Substance Use: No - SURGICAL HISTORY Hx Surgeries: Yes Hx Section: Yes - ANESTHESIA Hx Anesthesia: Yes Hx Anesthesia Reactions: No Meds Allergies/Adverse Reactions: Allergies Allergy/AdvReac Type Severity Reaction Status Date / Time No Known Allergies Allergy Verified 08/06/17 08:39 - Medications Medications: Current Medications Acetaminophen (Tylenol 325mg Tab) 650 mg PO Q4 PRN PRN Reason: Headache Acetaminophen (Tylenol 325mg Tab) 650 mg PO Q4 PRN PRN Reason: FOR PAIN LEVEL 4-10 Amantadine HCl (Amantadine 100 Mg Cap) 100 mg PO Q12@0900,2100 [facility] Last Admin: 09/04/17 08:21 Dose: 100 mg Dexamethasone (Decadron) 1 mg PO Q12 [facility] Last Admin: 09/04/17 08:21 Dose: 1 mg Heparin Sodium (Porcine) (Heparin) 2,000 units SC Q12 [facility] PRN Reason: Protocol Last Admin: 09/04/17 08:21 Dose: 2,000 units Levetiracetam (Keppra) 500 mg PO BID [facility] Last Admin: 09/04/17 08:21 Dose: 500 mg Trazodone HCl (Desyrel) 50 mg PO HS [facility] Last Admin: 09/03/17 21:11 Dose: 50 mg Results - Vital Signs Recent Vital Signs: Last Vital Signs Temp 97.6 F 09/04/17 08:43 Pulse 74 09/04/17 08:43 Resp 20 09/04/17 08:43 BP 95/52 L 09/04/17 08:43 Pulse Ox 98 09/04/17 08:43 - Labs Result Diagrams: 08/31/17 05:25 08/31/17 05:25
--- NOTE | 2017-09-04 12:19 | CP.PCM.PN ---
Subjective - Date & Time of Evaluation Date of Evaluation: 09/04/17 Time of Evaluation: 12:16 - Subjective Subjective: Ms. Lobo was seen and examined at the therapy room. She is alert, oriented x 3, denies any headache, dizziness, lightheadedness, blurred vision, diplopia, but claims of having episodes of crying. There is a psychiatry consult. She is able to follow simple commands with her left side paraplegia and left facial droop. She is participating during her therapy session. There was no untoward events overnight. Objective - Vital Signs/Intake and Output Vital Signs (last 24 hours): Temp Pulse Resp BP Pulse Ox 97.6 F 74 20 95/52 L 98 09/04/17 08:43 09/04/17 08:43 09/04/17 08:43 09/04/17 08:43 09/04/17 08:43 - Medications Medications: Current Medications Acetaminophen (Tylenol 325mg Tab) 650 mg PO Q4 PRN PRN Reason: Headache Acetaminophen (Tylenol 325mg Tab) 650 mg PO Q4 PRN PRN Reason: FOR PAIN LEVEL 4-10 Amantadine HCl (Amantadine 100 Mg Cap) 100 mg PO Q12@0900,2100 [facility] Last Admin: 09/04/17 08:21 Dose: 100 mg Dexamethasone (Decadron) 1 mg PO Q12 [facility] Last Admin: 09/04/17 08:21 Dose: 1 mg Heparin Sodium (Porcine) (Heparin) 2,000 units SC Q12 [facility] PRN Reason: Protocol Last Admin: 09/04/17 08:21 Dose: 2,000 units Levetiracetam (Keppra) 500 mg PO BID [facility] Last Admin: 09/04/17 08:21 Dose: 500 mg Trazodone HCl (Desyrel) 50 mg PO HS [facility] Last Admin: 09/03/17 21:11 Dose: 50 mg - Labs Labs: 08/31/17 05:25 08/31/17 05:25 - Constitutional Appears: No Acute Distress - Head Exam Head Exam: NORMAL INSPECTION - Neurological Exam Neurological Exam: Alert, Awake Neuro motor strength exam: Left Upper Extremity: 0, Right Upper Extremity: 4, Left Lower Extremity: 0, Right Lower Extremity: 4 Additional comments: Neurological examination unchanged from previous examination. Assessment and Plan (1) Hemorrhagic cerebrovascular accident (CVA) Assessment & Plan: Case discussed with Dr. Hammer, continue all current medical, physical, occupational, and speech therapies. Recommend repeat CT of the head without contrast to evaluate ICH. Dexamethasone was already decrease to ease some of her crying spells. Recommend to follow any orders from psychiatry. Status: Acute
--- NOTE | 2017-09-04 17:41 | CT ---
PROCEDURE: CT HEAD WITHOUT CONTRAST. HISTORY: follow up [facility] COMPARISON: 08/18/2017. CT head. 08/23/2017 MRI brain TECHNIQUE: Axial computed tomography images were obtained through the head/brain without intravenous contrast. Coronal and sagittal reconstructed images. Radiation dose: Total exam DLP = 770.52 mGy-cm. This CT exam was performed using one or more of the following dose reduction techniques: Automated exposure control, adjustment of the mA and/or kV according to patient size, and/or use of iterative reconstruction technique. FINDINGS: HEMORRHAGE: Involving acute parenchymal hemorrhage affecting right basal ganglia and adjacent brain parenchyma. BRAIN: Vasogenic edema has diminished slightly. VENTRICLES: Diminished midline shift. The adjacent anterior horn of the right lateral ventricle is less effaced on the current study. CALVARIUM: Unremarkable. PARANASAL SINUSES: Unremarkable as visualized. No significant inflammatory changes. MASTOID AIR CELLS: Unremarkable as visualized. No inflammatory changes. OTHER FINDINGS: None. IMPRESSION: Involving parenchymal hemorrhage right hemisphere. Modest diminution a in midline shift and effacement of the ipsilateral right lateral ventricle. No new/ acute findings.
--- NOTE | 2017-09-06 10:16 | CP.PCM.PN ---
Subjective - Date & Time of Evaluation Date of Evaluation: 09/06/17 Time of Evaluation: 10:16 - Subjective Subjective: Ms. Lboo was seen and examined at the therapy room. She is alert, oriented x 3, denies any headache, dizziness, lightheadedness, blurred vision, diplopia. She is able to follow simple commands with her left side paraplegia and left facial droop. She is participating during her therapy session. There was no untoward events overnight. Objective - Vital Signs/Intake and Output Vital Signs (last 24 hours): Temp Pulse Resp BP Pulse Ox 97.5 F L 62 20 94/61 L 97 09/06/17 08:19 09/06/17 08:19 09/06/17 08:19 09/06/17 08:19 09/06/17 08:19 - Medications Medications: Current Medications Acetaminophen (Tylenol 325mg Tab) 650 mg PO Q4 PRN PRN Reason: Headache Acetaminophen (Tylenol 325mg Tab) 650 mg PO Q4 PRN PRN Reason: FOR PAIN LEVEL 4-10 Amantadine HCl (Amantadine 100 Mg Cap) 100 mg PO Q12@0900,2100 [facility] Last Admin: 09/06/17 08:47 Dose: 100 mg Dexamethasone (Decadron) 1 mg PO Q12 [facility] Last Admin: 09/06/17 08:46 Dose: 1 mg Heparin Sodium (Porcine) (Heparin) 2,000 units SC Q12 [facility] PRN Reason: Protocol Last Admin: 09/06/17 08:47 Dose: 2,000 units Levetiracetam (Keppra) 500 mg PO BID [facility] Last Admin: 09/06/17 08:46 Dose: 500 mg Trazodone HCl (Desyrel) 50 mg PO HS [facility] Last Admin: 09/05/17 21:48 Dose: 50 mg - Labs Labs: 08/31/17 05:25 08/31/17 05:25 - Constitutional Appears: No Acute Distress - Head Exam Head Exam: NORMAL INSPECTION - Neurological Exam Neurological Exam: Alert, Awake Neuro motor strength exam: Left Upper Extremity: 0, Right Upper Extremity: 4, Left Lower Extremity: 0, Right Lower Extremity: 4 Additional comments: Neurological unchanged from previous examination. Assessment and Plan (1) Hemorrhagic cerebrovascular accident (CVA) Assessment & Plan: Case discussed with Dr. Ribeiro, continue all current medical, physical, occupational, and speech therapies. There is no new recommendations from neurology. Status: Acute
--- NOTE | 2017-09-06 12:04 | PSY.TMCNF ---
Nursing - Vital Signs Vital Signs (Last 8 hours): Vital Signs 09/06/17 09/06/17 08:19 11:44 Temperature 97.5 F L 97.5 F L Pulse Rate 62 62 Respiratory 20 20 Rate Blood Pressure 94/61 L 94/61 L O2 Sat by Pulse 97 Oximetry Pain: 0 - Precautions: Precautions: Fall Prevention, Aspiration - Medications/Other Issues Comment: Safety - Consults Comment: Dr. Muniz, Dr. Hammer - Skin Incision Site: Intact - Toileting Toileting: Maximal Assistance - Bladder Management Bladder Pattern: Normal Voiding Method: Toilet Bladder Management: Minimal Assistance - Bowel Management Bowel Pattern: Normal Bowel Management: Supervision Frequency of Accidents: 0 - Transfers Transfers: Moderate Assistance - ADL's ADL's: Moderate Assistance - Pain Management Comments: denies pain - Patient/Family Teaching Comments: Care post CVA and safety precautions - Goals/Time Frame Comments: Per multidisciplinary care plan and goals - Provider Provider: Bessy PATRICK RN CRRN Physical Therapy - Bed Mobility Bed Mobility: Moderate Assistance - Transfers Wheelchair to Mat: Moderate Assistance Sit to Stand: Minimal Assistance - Ambulation Level of Assistance: Maximum Assistance Distance (ft.): 40 Assistive Devices: Narrow base quad cane Orthoses: LUE GivMohr sling and LLE dorsiflex assist GRECIA wrap or trial AFO donned - Stair Negotiation Stairs: Level of Assistance: Not Tested - Standing Balance Static Stand: Minimal Assistance Dynamic Stand: Moderate Assistance, Maximal Assistance - Pain Pain (assessed during therapy session): 0 - Insight/Carryover Insight/Carryover: Good - Patient/Family Education Comment: safety awareness, CVA recovery, proper techniques during functional mobility training - Assessment/Plan Assessment: Pt is actively participating in PT tx sessions focusing on BLE strengthening exercises, balance and endurance activities, and functional mobiltiy training. Pt with trace muscle strength return to L hip, 0/5 to L knee and L ankle, limiting her progress in functional mobility skills. Pt currently requires mod A bed mobility, min/mod A transfers, max A for ambulating with NBQC. Pt will continue to benefit from skilled PT intervention to address deficits, reduce fall risk, and maximize functional independence. Pt will benefit from d/c to [facility] following acute rehab stay to continue to progress towards rehab goals. - Goals Timeframe: 3 weeks Goals: SIt < > supine CGA. Sit < > stand CGA. BEd < > chair transfers with CGA. Pt will ambulate 100 ft with NBQC and CGA - Provider License Number: [id number] Occupational Therapy - Arousal/Attention/Orientation Patient Orientation: Person, Place, Time, Appropriate to Age, Appropriate to Situation - ADL/IADL Self Feeding: Independent, Verbal Cues, Set-up Help Grooming: Verbal Cues, Set-up Help, Minimal Assistance Bathing-Upper Extremity: Verbal Cues, Set-up Help, Moderate Assistance Bathing-Lower Extremity: Verbal Cues, Set-up Help, Maximum Assistance Dressing-Upper Extremity: Verbal Cues, Set-up Help, Moderate Assistance Dressing-Lower Extremity: Verbal Cues, Set-up Help, Moderate Assistance Comment: lower body dressing seateds at eob with compensatory strategies - Sitting Balance Static Sitting: Contact Guard Assist Dynamic Sitting: Reaches across midline, Reaches out of base of support, Reaches within base of support, Minimal Assistance, Moderate Assistance - Transfers Wheelchair to Bed Transfers: Verbal Cues, Set-up Help, Minimal Assistance, Moderate Assistance Toilet Transfers: Verbal Cues, Set-up Help, Minimal Assistance, Moderate Assistance Comment: shower transfers: mod assist and verbal cues - Wheelchair Management Level of Assistance: Minimal Assistance, Moderate Assistance - Upper Extremity Status Right Upper Extremity Comment: AROM is WNLS Left Upper Extremity Comment: PROM IS WNLS; pt has NO AROM at this time ojeda to impaired motor control - Pain Pain (assessed during therapy session): 0 - Insight/Carryover Insight/Carryover: Good - Patient/Family Education Comment: safety awareness, CVA recovery, proper techniques during functional mobility training - Assessment/Plan Assessment: Pt is actively participating in PT tx sessions focusing on BLE strengthening exercises, balance and endurance activities, and functional mobiltiy training. Pt with trace muscle strength return to L hip, 0/5 to L knee and L ankle, limiting her progress in functional mobility skills. Pt currently requires mod A bed mobility, min/mod A transfers, max A for ambulating with NBQC. Pt will continue to benefit from skilled PT intervention to address deficits, reduce fall risk, and maximize functional independence. Pt will benefit from d/c to [facility] following acute rehab stay to continue to progress towards rehab goals. - Goals Timeframe: 3 weeks Goals: SIt < > supine CGA. Sit < > stand CGA. BEd < > chair transfers with CGA. Pt will ambulate 100 ft with NBQC and CGA - Provider Therapist: sourav Speech Therapy - Consult Information Patient on Program: Yes Medical Diagnosis: R hemorrhage Treatment Diagnosis: -minimal to mild dysarthria. -mild oral dysphagia - Assessment Speech/Articulation Impairment: Mild Comment: minimal-mild dysarthria Dysphagia/Swallowing Impairment: Mild - Plan Assessment: Pt is actively participating in PT tx sessions focusing on BLE strengthening exercises, balance and endurance activities, and functional mobiltiy training. Pt with trace muscle strength return to L hip, 0/5 to L knee and L ankle, limiting her progress in functional mobility skills. Pt currently requires mod A bed mobility, min/mod A transfers, max A for ambulating with NBQC. Pt will continue to benefit from skilled PT intervention to address deficits, reduce fall risk, and maximize functional independence. Pt will benefit from d/c to [facility] following acute rehab stay to continue to progress towards rehab goals. - Provider Therapist: Vivian Veliz License Number: [id number] Recreational Therapy - Participation Participation: Participates in Individual and/or Group Sessions - Attendance Attendance: 3-5 times per week - Activities Leisure Activities: Cards and Games - Socialization Level of Socialization: Initiates/interacts freely with care givers and peer - Diversional Time Diversional Time: television, likes playing [employer] - Assessment Assessment/Plan: Pt is actively participating in PT tx sessions focusing on BLE strengthening exercises, balance and endurance activities, and functional mobiltiy training. Pt with trace muscle strength return to L hip, 0/5 to L knee and L ankle, limiting her progress in functional mobility skills. Pt currently requires mod A bed mobility, min/mod A transfers, max A for ambulating with NBQC. Pt will continue to benefit from skilled PT intervention to address deficits, reduce fall risk, and maximize functional independence. Pt will benefit from d/c to [facility] following acute rehab stay to continue to progress towards rehab goals. - Provider Therapist: Adry Goldberg, MAINTENANCE PERSON #[id number] Nutrition - Current Diet Current Diet/ Supplement/ Feedings: 2 gram Na advanced bite size thin liquids - Appetite Percent Meal Consumed: 75-100% - Comments Comments: Care post CVA and safety precautions - Assessment/Goals/Time Frame Assessment/Goals/Time Frame: Safety - Provider Provider: Abril Coker RD Case Management - Psychosocial Assessment Support Systems: Daughter Keila/Mother Karly [phone] Psychological Interventions/Needs: Pt is alert and oriented x3, but with difficulty keeping eyes open Discharge Concerns: Pt has stairs to negotiate; May require [facility] Patient/Family Meeting: CM met with pt and rehab team Intervention/Goal/Outcome:: 1. Plan: Tentative d/c date to be determined; Will reteam 2. Continued stay review LAD 08/21/17 3. GOAL: Intermittent supervision 4. Caregiver training/educaiton 5. Plan: home with skilled homecare vs [facility] 6. DME needs TBD - Discharge Plan Discharge Plan: Home with services, Subacute group home Services: [facility] - Provider Provider: Shannan Carlson, MINING TEACHER, CLIENT DELIVERY MANAGER License Number: [id number] Rehabilitation Plan - Treatment Plan Treatment Plan: Physical Therapy, Occupational Therapy, Speech, Dietary, Patient /Family Education - Recommendation Recommendation: Physical Therapy, Occupational Therapy, Speech, Dietary, Patient /Family Education - Discharge Plan Discharge to: Subacute ([facility] [place])
--- NOTE | 2017-09-06 12:33 | CP.PCM.PN ---
Subjective - Date & Time of Evaluation Date of Evaluation: 09/06/17 Time of Evaluation: 12:15 - Subjective Subjective: Patient seen and examined. Admitted feeling better although still with weakness on the left limbs with paresthesia on the left leg and left facial droop. Objective - Vital Signs/Intake and Output Vital Signs (last 24 hours): Temp Pulse Resp BP Pulse Ox 97.5 F L 62 20 94/61 L 97 09/06/17 11:44 09/06/17 11:44 09/06/17 11:44 09/06/17 11:44 09/06/17 08:19 - Medications Medications: Current Medications Acetaminophen (Tylenol 325mg Tab) 650 mg PO Q4 PRN PRN Reason: Headache Acetaminophen (Tylenol 325mg Tab) 650 mg PO Q4 PRN PRN Reason: FOR PAIN LEVEL 4-10 Amantadine HCl (Amantadine 100 Mg Cap) 100 mg PO Q12@0900,2100 [facility] Last Admin: 09/06/17 08:47 Dose: 100 mg Dexamethasone (Decadron) 1 mg PO Q12 [facility] Heparin Sodium (Porcine) (Heparin) 2,000 units SC Q12 [facility] PRN Reason: Protocol Last Admin: 09/06/17 08:47 Dose: 2,000 units Levetiracetam (Keppra) 500 mg PO BID [facility] Last Admin: 09/06/17 08:46 Dose: 500 mg Trazodone HCl (Desyrel) 50 mg PO HS [facility] Last Admin: 09/05/17 21:48 Dose: 50 mg - Labs Labs: 08/31/17 05:25 08/31/17 05:25 - Constitutional Appears: No Acute Distress - Head Exam Head Exam: ATRAUMATIC - Eye Exam Eye Exam: absent: Scleral icterus - ENT Exam ENT Exam: Mucous Membranes Moist - Neck Exam Neck Exam: absent: Meningismus - Respiratory Exam Respiratory Exam: absent: Rales, Rhonchi, Wheezes, Respiratory Distress - Cardiovascular Exam Cardiovascular Exam: REGULAR RHYTHM, +S1, +S2 - GI/Abdominal Exam GI & Abdominal Exam: Soft. absent: Tenderness - Rectal Exam Rectal Exam: Deferred - Extremities Exam Extremities Exam: absent: Full ROM (weakness on right upper and lower extremities, worse on the lower limb) - Neurological Exam Neurological Exam: Alert, Oriented x3 - Psychiatric Exam Psychiatric exam: Normal Affect - Skin Skin Exam: Dry, Intact Assessment and Plan - Assessment and Plan (Free Text) Assessment: 46 yo female with no significant PMH was brought to [facility] ED because of sudden onset of headache associated with left sided weakness and left facial droop. CT of head showed right basal ganglia bleed with mass effect and left midline shift. Neurosurgery was consulted and advised conservative management only. Neurology on board advised initially IV Mannitol and Decadron. She was later transferred to Acute Rehab for PT/OT. 1. Right basal ganglia hemorrhage with mass effect and left midline shift appeared more active and uplifted. Aware she will be discharged to [facility] for continued rehabilitation on Monday CTA head and neck: no aneurysm, no AVM patient received a total 6 units FFP neurosurgery advised no surgical intervention Decadron 1mg PO q 12hrs continue [facility] for seizure prophylaxis continue PT/OT Dr Hammer on neuro consults 2. DVT prophylaxis Heparin 2000 units SC q 12hrs
--- NOTE | 2017-09-06 13:58 | CP.PCM.PN ---
Subjective - Date & Time of Evaluation Date of Evaluation: 09/05/17 Time of Evaluation: 20:00 - Subjective Subjective: no acute complaints at present Objective - Vital Signs/Intake and Output Vital Signs (last 24 hours): Temp Pulse Resp BP Pulse Ox 97.5 F L 62 20 94/61 L 97 09/06/17 11:44 09/06/17 11:44 09/06/17 11:44 09/06/17 11:44 09/06/17 08:19 - Medications Medications: Current Medications Acetaminophen (Tylenol 325mg Tab) 650 mg PO Q4 PRN PRN Reason: Headache Acetaminophen (Tylenol 325mg Tab) 650 mg PO Q4 PRN PRN Reason: FOR PAIN LEVEL 4-10 Amantadine HCl (Amantadine 100 Mg Cap) 100 mg PO Q12@0900,2100 [facility] Last Admin: 09/06/17 08:47 Dose: 100 mg Dexamethasone (Decadron) 1 mg PO Q12 [facility] Heparin Sodium (Porcine) (Heparin) 2,000 units SC Q12 [facility] PRN Reason: Protocol Last Admin: 09/06/17 08:47 Dose: 2,000 units Levetiracetam (Keppra) 500 mg PO BID [facility] Last Admin: 09/06/17 08:46 Dose: 500 mg Trazodone HCl (Desyrel) 50 mg PO HS [facility] Last Admin: 09/05/17 21:48 Dose: 50 mg - Labs Labs: 08/31/17 05:25 08/31/17 05:25 - Head Exam Head Exam: ATRAUMATIC, NORMAL INSPECTION, NORMOCEPHALIC - Eye Exam Eye Exam: EOMI, Normal appearance, PERRL Pupil Exam: NORMAL ACCOMODATION - ENT Exam ENT Exam: Mucous Membranes Moist, Normal Exam - Neck Exam Neck Exam: Full ROM, Normal Inspection - Respiratory Exam Respiratory Exam: Clear to Ausculation Bilateral, NORMAL BREATHING PATTERN - Cardiovascular Exam Cardiovascular Exam: REGULAR RHYTHM - GI/Abdominal Exam GI & Abdominal Exam: Soft, Normal Bowel Sounds - Rectal Exam Rectal Exam: NORMAL INSPECTION - Exam External exam: NORMAL EXTERNAL EXAM - Extremities Exam Extremities Exam: Full ROM, Normal Capillary Refill, Normal Inspection Additional comments: left leg and left arm weakness - Back Exam Back Exam: NORMAL INSPECTION - Neurological Exam Neurological Exam: Alert, Awake Neuro motor strength exam: Left Upper Extremity: 2/1, Right Upper Extremity: 3, Left Lower Extremity: 2/1, Right Lower Extremity: 3 - Psychiatric Exam Psychiatric exam: Normal Affect, Normal Mood - Skin Skin Exam: Dry, Intact Assessment and Plan (1) Headache Status: Acute (2) Hemorrhagic cerebrovascular accident (CVA) Assessment & Plan: plan for pt, ot rec and speech therapy Status: Acute (3) Intracerebral bleed Status: Acute (4) Prophylactic measure Status: Acute (5) Prophylactic measure Status: Acute
--- NOTE | 2017-09-06 14:01 | CP.PCM.PN ---
Subjective - Date & Time of Evaluation Date of Evaluation: 09/06/17 Time of Evaluation: 11:00 - Subjective Subjective: no complaints of any pain Objective - Vital Signs/Intake and Output Vital Signs (last 24 hours): Temp Pulse Resp BP Pulse Ox 97.5 F L 62 20 94/61 L 97 09/06/17 11:44 09/06/17 11:44 09/06/17 11:44 09/06/17 11:44 09/06/17 08:19 - Medications Medications: Current Medications Acetaminophen (Tylenol 325mg Tab) 650 mg PO Q4 PRN PRN Reason: Headache Acetaminophen (Tylenol 325mg Tab) 650 mg PO Q4 PRN PRN Reason: FOR PAIN LEVEL 4-10 Amantadine HCl (Amantadine 100 Mg Cap) 100 mg PO Q12@0900,2100 [facility] Last Admin: 09/06/17 08:47 Dose: 100 mg Dexamethasone (Decadron) 1 mg PO Q12 [facility] Heparin Sodium (Porcine) (Heparin) 2,000 units SC Q12 [facility] PRN Reason: Protocol Last Admin: 09/06/17 08:47 Dose: 2,000 units Levetiracetam (Keppra) 500 mg PO BID [facility] Last Admin: 09/06/17 08:46 Dose: 500 mg Trazodone HCl (Desyrel) 50 mg PO HS [facility] Last Admin: 09/05/17 21:48 Dose: 50 mg - Labs Labs: 08/31/17 05:25 08/31/17 05:25 - Head Exam Head Exam: ATRAUMATIC, NORMAL INSPECTION, NORMOCEPHALIC - Eye Exam Eye Exam: EOMI, Normal appearance, PERRL Pupil Exam: NORMAL ACCOMODATION - ENT Exam ENT Exam: Mucous Membranes Moist, Normal Exam - Neck Exam Neck Exam: Full ROM, Normal Inspection - Respiratory Exam Respiratory Exam: Clear to Ausculation Bilateral, NORMAL BREATHING PATTERN - Cardiovascular Exam Cardiovascular Exam: REGULAR RHYTHM - GI/Abdominal Exam GI & Abdominal Exam: Soft, Normal Bowel Sounds - Rectal Exam Rectal Exam: NORMAL INSPECTION - Exam External exam: NORMAL EXTERNAL EXAM - Extremities Exam Extremities Exam: Normal Capillary Refill - Back Exam Back Exam: NORMAL INSPECTION - Neurological Exam Neurological Exam: Alert, Awake Neuro motor strength exam: Left Upper Extremity: 2/1, Right Upper Extremity: 3, Left Lower Extremity: 2/1, Right Lower Extremity: 3 - Psychiatric Exam Psychiatric exam: Normal Affect, Normal Mood - Skin Skin Exam: Dry, Intact Assessment and Plan (1) Headache Status: Acute (2) Hemorrhagic cerebrovascular accident (CVA) Assessment & Plan: plan fo rpt, ot and rec and speech therapy for subacute reahab on monday patinet and family agreeable Status: Acute (3) Intracerebral bleed Status: Acute (4) Prophylactic measure Status: Acute (5) Prophylactic measure Status: Acute
--- NOTE | 2017-09-06 14:08 | CP.PCM.PN ---
Subjective - Date & Time of Evaluation Date of Evaluation: 09/03/17 Time of Evaluation: 20:00 - Subjective Subjective: no acute complaints Objective - Vital Signs/Intake and Output Vital Signs (last 24 hours): Temp Pulse Resp BP Pulse Ox 97.5 F L 62 20 94/61 L 97 09/06/17 11:44 09/06/17 11:44 09/06/17 11:44 09/06/17 11:44 09/06/17 08:19 - Medications Medications: Current Medications Acetaminophen (Tylenol 325mg Tab) 650 mg PO Q4 PRN PRN Reason: Headache Acetaminophen (Tylenol 325mg Tab) 650 mg PO Q4 PRN PRN Reason: FOR PAIN LEVEL 4-10 Amantadine HCl (Amantadine 100 Mg Cap) 100 mg PO Q12@0900,2100 [facility] Last Admin: 09/06/17 08:47 Dose: 100 mg Dexamethasone (Decadron) 1 mg PO Q12 [facility] Heparin Sodium (Porcine) (Heparin) 2,000 units SC Q12 [facility] PRN Reason: Protocol Last Admin: 09/06/17 08:47 Dose: 2,000 units Levetiracetam (Keppra) 500 mg PO BID [facility] Last Admin: 09/06/17 08:46 Dose: 500 mg Trazodone HCl (Desyrel) 50 mg PO HS [facility] Last Admin: 09/05/17 21:48 Dose: 50 mg - Labs Labs: 08/31/17 05:25 08/31/17 05:25 - Head Exam Head Exam: ATRAUMATIC, NORMAL INSPECTION, NORMOCEPHALIC - Eye Exam Eye Exam: EOMI, Normal appearance, PERRL Pupil Exam: NORMAL ACCOMODATION - ENT Exam ENT Exam: Mucous Membranes Moist, Normal Exam - Neck Exam Neck Exam: Full ROM, Normal Inspection - Respiratory Exam Respiratory Exam: Clear to Ausculation Bilateral, NORMAL BREATHING PATTERN - Cardiovascular Exam Cardiovascular Exam: REGULAR RHYTHM - GI/Abdominal Exam GI & Abdominal Exam: Soft, Normal Bowel Sounds - Rectal Exam Rectal Exam: NORMAL INSPECTION - Exam External exam: NORMAL EXTERNAL EXAM - Extremities Exam Extremities Exam: Full ROM, Normal Capillary Refill - Back Exam Back Exam: NORMAL INSPECTION - Neurological Exam Neurological Exam: Alert, Awake Neuro motor strength exam: Left Upper Extremity: 2/1, Right Upper Extremity: 3, Left Lower Extremity: 2/1, Right Lower Extremity: 3 - Psychiatric Exam Psychiatric exam: Normal Affect, Normal Mood - Skin Skin Exam: Dry Assessment and Plan (1) Headache Status: Acute (2) Hemorrhagic cerebrovascular accident (CVA) Assessment & Plan: plan for physical, occupational rec and speech therapy continue to monitor skin and vitals Status: Acute (3) Intracerebral bleed Status: Acute (4) Prophylactic measure Status: Acute (5) Prophylactic measure Status: Acute
--- NOTE | 2017-09-07 10:20 | CP.PCM.PN ---
Subjective - Date & Time of Evaluation Date of Evaluation: 09/07/17 Time of Evaluation: 10:20 - Subjective Subjective: Ms. Lobo was seen and examined at the therapy room. She is alert, oriented x 3, denies any headache, dizziness, lightheadedness, blurred vision, diplopia. She participates well during her therapy. She is able to follow simple commands with her left side paraplegia and left facial droop. She is participating during her therapy session. There was no untoward events overnight. Objective - Vital Signs/Intake and Output Vital Signs (last 24 hours): Temp Pulse Resp BP Pulse Ox 98.4 F 72 20 104/66 97 09/06/17 20:32 09/06/17 20:32 09/06/17 20:32 09/06/17 20:32 09/06/17 20:32 - Medications Medications: Current Medications Acetaminophen (Tylenol 325mg Tab) 650 mg PO Q4 PRN PRN Reason: Headache Acetaminophen (Tylenol 325mg Tab) 650 mg PO Q4 PRN PRN Reason: FOR PAIN LEVEL 4-10 Amantadine HCl (Amantadine 100 Mg Cap) 100 mg PO Q12@0900,2100 [facility] Last Admin: 09/07/17 08:36 Dose: 100 mg Dexamethasone (Decadron) 1 mg PO Q12 [facility] Stop: 09/08/17 22:00 Last Admin: 09/07/17 08:36 Dose: 1 mg Heparin Sodium (Porcine) (Heparin) 2,000 units SC Q12 [facility] PRN Reason: Protocol Last Admin: 09/07/17 08:36 Dose: 2,000 units Levetiracetam (Keppra) 500 mg PO BID [facility] Last Admin: 09/07/17 08:37 Dose: 500 mg Trazodone HCl (Desyrel) 50 mg PO HS [facility] Last Admin: 09/06/17 21:54 Dose: 50 mg - Labs Labs: 08/31/17 05:25 08/31/17 05:25 - Constitutional Appears: No Acute Distress - Head Exam Head Exam: NORMAL INSPECTION - Neurological Exam Neurological Exam: Alert, Awake, Oriented x3 Neuro motor strength exam: Left Upper Extremity: 0, Right Upper Extremity: 4, Left Lower Extremity: 0, Right Lower Extremity: 4 Additional comments: Neurological unchanged from previous examination. Assessment and Plan (1) Hemorrhagic cerebrovascular accident (CVA) Assessment & Plan: Case discussed with Dr. Ribeiro, continue all current medical, physical, occupational, and speech therapies. Recommend to follow up with an outpatient neurologist upon discharge with Dr. Hammer at [address] [place] [address]. [address] [facility], [address]. Tel. [phone]. Status: Acute
--- NOTE | 2017-09-08 11:07 | CP.PCM.PN ---
Subjective - Date & Time of Evaluation Date of Evaluation: 09/08/17 Time of Evaluation: 11:04 - Subjective Subjective: Ms. Lobo was seen and examined at the therapy room. She is alert, oriented x 3, denies any headache, dizziness, lightheadedness, blurred vision, diplopia. She participates well during her therapy. She is able to follow simple commands with her left side paraplegia and left facial droop. She is participating during her therapy session. There was no untoward events overnight. Objective - Vital Signs/Intake and Output Vital Signs (last 24 hours): Temp Pulse Resp BP Pulse Ox 97.7 F 58 L 18 98/61 L 99 09/08/17 07:37 09/08/17 07:37 09/08/17 07:37 09/08/17 07:37 09/08/17 07:37 - Medications Medications: Current Medications Acetaminophen (Tylenol 325mg Tab) 650 mg PO Q4 PRN PRN Reason: Headache Acetaminophen (Tylenol 325mg Tab) 650 mg PO Q4 PRN PRN Reason: FOR PAIN LEVEL 4-10 Amantadine HCl (Amantadine 100 Mg Cap) 100 mg PO Q12@0900,2100 [facility] Last Admin: 09/08/17 08:04 Dose: 100 mg Dexamethasone (Decadron) 1 mg PO Q12 [facility] Stop: 09/10/17 10:00 Heparin Sodium (Porcine) (Heparin) 2,000 units SC Q12 [facility] PRN Reason: Protocol Levetiracetam (Keppra) 500 mg PO BID [facility] Last Admin: 09/08/17 08:03 Dose: 500 mg Trazodone HCl (Desyrel) 50 mg PO HS [facility] Last Admin: 09/07/17 21:37 Dose: 50 mg - Labs Labs: 08/31/17 05:25 08/31/17 05:25 - Constitutional Appears: No Acute Distress - Head Exam Head Exam: NORMAL INSPECTION - Neurological Exam Neurological Exam: Alert, Awake, Oriented x3 Neuro motor strength exam: Left Upper Extremity: 0, Right Upper Extremity: 5, Left Lower Extremity: 0, Right Lower Extremity: 5 Additional comments: Neurological examination from previous examination. Assessment and Plan (1) Hemorrhagic cerebrovascular accident (CVA) Assessment & Plan: Case discussed with Dr. Ribeiro, continue all current medical, physical, occupational, and speech therapies. Recommend CT scan of the head without contrast on Monday to evaluate and follow up ICH. Status: Acute
--- NOTE | 2017-09-08 12:07 | CP.PCM.PN ---
Subjective - Date & Time of Evaluation Date of Evaluation: 09/08/17 Time of Evaluation: 10:00 - Subjective Subjective: no acute complaints at present Objective - Vital Signs/Intake and Output Vital Signs (last 24 hours): Temp Pulse Resp BP Pulse Ox 97.7 F 58 L 18 98/61 L 99 09/08/17 07:37 09/08/17 07:37 09/08/17 07:37 09/08/17 07:37 09/08/17 07:37 - Medications Medications: Current Medications Acetaminophen (Tylenol 325mg Tab) 650 mg PO Q4 PRN PRN Reason: Headache Acetaminophen (Tylenol 325mg Tab) 650 mg PO Q4 PRN PRN Reason: FOR PAIN LEVEL 4-10 Amantadine HCl (Amantadine 100 Mg Cap) 100 mg PO Q12@0900,2100 [facility] Last Admin: 09/08/17 08:04 Dose: 100 mg Dexamethasone (Decadron) 1 mg PO Q12 [facility] Stop: 09/10/17 10:00 Heparin Sodium (Porcine) (Heparin) 2,000 units SC Q12 [facility] PRN Reason: Protocol Levetiracetam (Keppra) 500 mg PO BID [facility] Last Admin: 09/08/17 08:03 Dose: 500 mg Trazodone HCl (Desyrel) 50 mg PO HS [facility] Last Admin: 09/07/17 21:37 Dose: 50 mg - Labs Labs: 08/31/17 05:25 08/31/17 05:25 - Head Exam Head Exam: ATRAUMATIC, NORMAL INSPECTION, NORMOCEPHALIC - Eye Exam Eye Exam: EOMI, Normal appearance, PERRL Pupil Exam: NORMAL ACCOMODATION - ENT Exam ENT Exam: Mucous Membranes Moist, Normal Exam - Neck Exam Neck Exam: Full ROM, Normal Inspection - Respiratory Exam Respiratory Exam: NORMAL BREATHING PATTERN - Cardiovascular Exam Cardiovascular Exam: REGULAR RHYTHM - GI/Abdominal Exam GI & Abdominal Exam: Soft, Normal Bowel Sounds - Rectal Exam Rectal Exam: NORMAL INSPECTION - Exam Exam: NORMAL INSPECTION External exam: NORMAL EXTERNAL EXAM - Extremities Exam Extremities Exam: Full ROM, Normal Capillary Refill, Normal Inspection - Back Exam Back Exam: NORMAL INSPECTION - Neurological Exam Neurological Exam: Alert, Awake Neuro motor strength exam: Left Upper Extremity: 2/1, Right Upper Extremity: 3, Left Lower Extremity: 2/1, Right Lower Extremity: 3 - Psychiatric Exam Psychiatric exam: Normal Affect, Normal Mood - Skin Skin Exam: Dry, Normal Color Assessment and Plan (1) Headache Status: Acute (2) Hemorrhagic cerebrovascular accident (CVA) Assessment & Plan: plan for physical, occupational and speech and rec therapy transfers to subacute additional treatment at the facility Status: Acute (3) Intracerebral bleed Status: Acute (4) Prophylactic measure Status: Acute (5) Prophylactic measure Status: Acute
--- NOTE | 2017-09-08 14:24 | CP.PCM.PN ---
Subjective - Date & Time of Evaluation Date of Evaluation: 09/08/17 Time of Evaluation: 11:40 - Subjective Subjective: Patient seen and examined. No complaint. Discharged to [place] was cancelled for next week Objective - Vital Signs/Intake and Output Vital Signs (last 24 hours): Temp Pulse Resp BP Pulse Ox 97.7 F 58 L 18 98/61 L 99 09/08/17 07:37 09/08/17 07:37 09/08/17 07:37 09/08/17 07:37 09/08/17 07:37 - Medications Medications: Current Medications Acetaminophen (Tylenol 325mg Tab) 650 mg PO Q4 PRN PRN Reason: Headache Acetaminophen (Tylenol 325mg Tab) 650 mg PO Q4 PRN PRN Reason: FOR PAIN LEVEL 4-10 Amantadine HCl (Amantadine 100 Mg Cap) 100 mg PO Q12@0900,2100 [facility] Last Admin: 09/08/17 08:04 Dose: 100 mg Dexamethasone (Decadron) 1 mg PO Q12 [facility] Stop: 09/10/17 10:00 Heparin Sodium (Porcine) (Heparin) 2,000 units SC Q12 [facility] PRN Reason: Protocol Levetiracetam (Keppra) 500 mg PO BID [facility] Last Admin: 09/08/17 08:03 Dose: 500 mg Trazodone HCl (Desyrel) 50 mg PO HS [facility] Last Admin: 09/07/17 21:37 Dose: 50 mg - Labs Labs: 08/31/17 05:25 08/31/17 05:25 - Constitutional Appears: No Acute Distress - Head Exam Head Exam: ATRAUMATIC - Eye Exam Eye Exam: absent: Scleral icterus - ENT Exam ENT Exam: Mucous Membranes Moist - Neck Exam Neck Exam: absent: Meningismus - Respiratory Exam Respiratory Exam: absent: Rales, Rhonchi, Wheezes, Respiratory Distress - Cardiovascular Exam Cardiovascular Exam: REGULAR RHYTHM, +S1, +S2 - GI/Abdominal Exam GI & Abdominal Exam: Soft. absent: Tenderness - Rectal Exam Rectal Exam: Deferred - Neurological Exam Neurological Exam: Alert, Oriented x3 - Psychiatric Exam Psychiatric exam: Normal Affect - Skin Skin Exam: Dry, Intact Assessment and Plan - Assessment and Plan (Free Text) Assessment: 46 yo female with no significant PMH was brought to [facility] ED because of sudden onset of headache associated with left sided weakness and left facial droop. CT of head showed right basal ganglia bleed with mass effect and left midline shift. Neurosurgery was consulted and advised conservative management only. Neurology on board advised initially IV Mannitol and Decadron. She was later transferred to [facility] for PT/OT. 1. Right basal ganglia hemorrhage with mass effect and left midline shift appeared more active and uplifted. Aware that transfer to [place] was postponed and was okay with that CTA head and neck: no aneurysm, no AVM patient received 6 units of FFP neurosurgery advised no surgical intervention DC Decadron continue [place] for seizure prophylaxis continue PT/OT Dr Hammer on neuro consults 2. DVT prophylaxis Heparin 2000 units SC q 12hrs
--- NOTE | 2017-09-11 11:04 | CP.PCM.PN ---
Subjective - Date & Time of Evaluation Date of Evaluation: 09/11/17 Time of Evaluation: 11:04 - Subjective Subjective: Ms. Lobo was seen and examined at the therapy room. She is alert, oriented x 3, denies any headache, dizziness, lightheadedness, blurred vision, diplopia. She participates well during her therapy. She is able to follow simple commands with her left side paraplegia and left facial droop. She is participating during her therapy session. There was no untoward events overnight. Objective - Vital Signs/Intake and Output Vital Signs (last 24 hours): Temp Pulse Resp BP Pulse Ox 97.8 F 67 20 99/52 L 99 09/11/17 08:25 09/11/17 08:25 09/11/17 08:25 09/11/17 08:25 09/11/17 08:25 - Medications Medications: Current Medications Acetaminophen (Tylenol 325mg Tab) 650 mg PO Q4 PRN PRN Reason: Headache Acetaminophen (Tylenol 325mg Tab) 650 mg PO Q4 PRN PRN Reason: FOR PAIN LEVEL 4-10 Amantadine HCl (Amantadine 100 Mg Cap) 100 mg PO Q12@0900,2100 [facility] Last Admin: 09/11/17 08:52 Dose: 100 mg Heparin Sodium (Porcine) (Heparin) 2,000 units SC Q12 [facility] PRN Reason: Protocol Last Admin: 09/11/17 08:52 Dose: 2,000 units Levetiracetam (Keppra) 500 mg PO BID [facility] Last Admin: 09/11/17 08:52 Dose: 500 mg Trazodone HCl (Desyrel) 50 mg PO HS [facility] Last Admin: 09/10/17 21:03 Dose: 50 mg - Labs Labs: 08/31/17 05:25 08/31/17 05:25 - Constitutional Appears: No Acute Distress - Head Exam Head Exam: NORMAL INSPECTION - Neurological Exam Neurological Exam: Alert, Awake, Oriented x3 Neuro motor strength exam: Left Upper Extremity: 0, Right Upper Extremity: 4, Left Lower Extremity: 0, Right Lower Extremity: 4 Additional comments: Neurological unchanged from previous examination. Assessment and Plan (1) Hemorrhagic cerebrovascular accident (CVA) Assessment & Plan: Case discussed with Dr. Hammer, continue all current medical, physical, occupational, and speech therapies. Pending repeat Ct scan of the head without contrast. Status: Acute
--- NOTE | 2017-09-11 11:44 | CP.PCM.PN ---
Subjective - Date & Time of Evaluation Date of Evaluation: 09/11/17 Time of Evaluation: 10:00 - Subjective Subjective: Patient was seen and examined in the gym while doing physical therapy. She states that she feels better and stronger today. No new complaints. Denies chest pain, sob, headache, n/v/d. Objective - Vital Signs/Intake and Output Vital Signs (last 24 hours): Temp Pulse Resp BP Pulse Ox 97.8 F 67 20 99/52 L 99 09/11/17 08:25 09/11/17 08:25 09/11/17 08:25 09/11/17 08:25 09/11/17 08:25 - Medications Medications: Current Medications Acetaminophen (Tylenol 325mg Tab) 650 mg PO Q4 PRN PRN Reason: Headache Acetaminophen (Tylenol 325mg Tab) 650 mg PO Q4 PRN PRN Reason: FOR PAIN LEVEL 4-10 Amantadine HCl (Amantadine 100 Mg Cap) 100 mg PO Q12@0900,2100 [facility] Last Admin: 09/11/17 08:52 Dose: 100 mg Heparin Sodium (Porcine) (Heparin) 2,000 units SC Q12 [facility] PRN Reason: Protocol Last Admin: 09/11/17 08:52 Dose: 2,000 units Levetiracetam (Keppra) 500 mg PO BID [facility] Last Admin: 09/11/17 08:52 Dose: 500 mg Magnesium Oxide (Mag-Ox) 400 mg PO BID [facility] Trazodone HCl (Desyrel) 50 mg PO HS [facility] Last Admin: 09/10/17 21:03 Dose: 50 mg - Labs Labs: 08/31/17 05:25 08/31/17 05:25 - Additional Findings Additional findings: Physical exam: Constitutional- cooperative, awake, alert Head- NCAT, PERRL + l facial droop Eye- PERRL, EOMI ENT- normal exam, MMM. Neck- normal inspection, supple, no JVD Respiratory- CTAB, no wheezes rales rhonchi Cardiovascular- RRR, +S1, +S2 no MRG GI/Abdominal- normal bowel sounds, soft, no mass, no hsm Skin- warm, dry Extremities Exam- normal capillary refill, normal inspection Neurological Exam- left sided facial droop and left sided weakness, 4/5 muscle strength left upper and lower extremities. alert, awake, oriented Psych- normal mood, normal affect Assessment and Plan - Assessment and Plan (Free Text) Plan: 46 yo female with no significant PMH was brought to [facility] ED because of sudden onset of headache associated with left sided weakness and left facial droop. CT of head showed right basal ganglia bleed with mass effect and left midline shift. Neurosurgery was consulted and advised conservative management only. Neurology on board advised initially IV Mannitol and Decadron. She was later transferred to [facility] for PT/OT. 1. Right basal ganglia hemorrhage with mass effect and left midline shift clinically appears improved; still with mild weakness. CTA head and neck: no aneurysm, no AVM patient received a total 6 units FFP neurosurgery advised no surgical intervention Decadron discontinued yesterday as per neuro stefania Tate for seizure prophylaxis continue PT/OT Dr Hammer on neuro consultation 2. DVT prophylaxis Heparin 2000 units SC q 12hrs
--- NOTE | 2017-09-11 12:15 | CT ---
PROCEDURE: CT HEAD WITHOUT CONTRAST. HISTORY: follow up ich COMPARISON: Unenhanced head CT 09/04/2017. TECHNIQUE: Axial computed tomography images were obtained through the head/brain without intravenous contrast. Radiation dose: Total exam DLP = 792.35 mGy-cm. This CT exam was performed using one or more of the following dose reduction techniques: Automated exposure control, adjustment of the mA and/or kV according to patient size, and/or use of iterative reconstruction technique. FINDINGS: HEMORRHAGE: Intraparenchymal degradation products are again seen at the right basal ganglia with surrounding edema unchanged in overall apparent volume but with diminishing central density indicating further degradation. Vasogenic vasogenic edema has further receded very mildly in the distant periphery with a diminishing the midline shift of 6 mm compared to approximately 8 mm previously. No interval intracranial hemorrhage is appreciated with remaining supra and infratentorial brain parenchyma appearing otherwise normal. BRAIN: As above. No atrophy or chronic microvascular ischemic changes. VENTRICLES: Unremarkable. No hydrocephalus. CALVARIUM: Unremarkable. PARANASAL SINUSES: Unremarkable as visualized. No significant inflammatory changes. MASTOID AIR CELLS: Unremarkable as visualized. No inflammatory changes. OTHER FINDINGS: None. IMPRESSION: Further improvement in right basal ganglia intraparenchymal hemorrhage manifest by diminishing mass effect, local edema and further degradation of hemorrhagic blood products as compared to 09/04/2017 CT.
[2017-09-11] MEDS: Magnesium Oxide 400 mg Tab UD PO SCH (16:44)
[2017-09-12] MEDS: Magnesium Oxide 400 mg Tab UD PO SCH ×2 (08:41→16:26)
[2017-09-13] MEDS: Lidocaine 5% Patch TD SCH (08:42)
[2017-09-13] MEDS: Magnesium Oxide 400 mg Tab UD PO SCH ×2 (08:42→17:19)
--- NOTE | 2017-09-13 11:38 | CP.PCM.PN ---
Subjective - Date & Time of Evaluation Date of Evaluation: 09/12/17 Time of Evaluation: 19:00 - Subjective Subjective: no acute complaints at present Objective - Vital Signs/Intake and Output Vital Signs (last 24 hours): Temp Pulse Resp BP Pulse Ox 97.9 F 86 20 124/81 97 09/13/17 09:22 09/13/17 09:22 09/13/17 09:22 09/13/17 09:22 09/13/17 07:33 - Medications Medications: Current Medications Acetaminophen (Tylenol 325mg Tab) 650 mg PO Q4 PRN PRN Reason: Headache Acetaminophen (Tylenol 325mg Tab) 650 mg PO Q4 PRN PRN Reason: Pain, moderate (4-7) Last Admin: 09/13/17 10:23 Dose: 650 mg Amantadine HCl (Amantadine 100 Mg Cap) 100 mg PO Q12@0900,2100 [facility] Last Admin: 09/13/17 08:42 Dose: 100 mg Heparin Sodium (Porcine) (Heparin) 2,000 units SC Q12 [facility] PRN Reason: Protocol Last Admin: 09/13/17 08:42 Dose: 2,000 units Levetiracetam (Keppra) 500 mg PO BID [facility] Last Admin: 09/13/17 08:42 Dose: 500 mg Lidocaine (Lidoderm) 1 ea TD DAILY [facility] Last Admin: 09/13/17 08:42 Dose: 1 ea Magnesium Oxide (Mag-Ox) 400 mg PO BID [facility] Last Admin: 09/13/17 08:42 Dose: 400 mg Tramadol HCl (Ultram) 50 mg PO Q4 PRN PRN Reason: Pain, severe (8-10) Trazodone HCl (Desyrel) 50 mg PO HS [facility] Last Admin: 09/12/17 21:01 Dose: 50 mg - Labs Labs: 08/31/17 05:25 08/31/17 05:25 - Head Exam Head Exam: ATRAUMATIC, NORMAL INSPECTION, NORMOCEPHALIC - Eye Exam Eye Exam: EOMI, Normal appearance, PERRL Pupil Exam: NORMAL ACCOMODATION - ENT Exam ENT Exam: Mucous Membranes Moist, Normal Exam - Neck Exam Neck Exam: Full ROM, Normal Inspection - Respiratory Exam Respiratory Exam: NORMAL BREATHING PATTERN - Cardiovascular Exam Cardiovascular Exam: REGULAR RHYTHM - GI/Abdominal Exam GI & Abdominal Exam: Soft, Normal Bowel Sounds - Rectal Exam Rectal Exam: NORMAL INSPECTION - Exam External exam: NORMAL EXTERNAL EXAM - Extremities Exam Extremities Exam: Full ROM, Normal Capillary Refill - Back Exam Back Exam: NORMAL INSPECTION - Neurological Exam Neurological Exam: Alert, Awake Neuro motor strength exam: Left Upper Extremity: 2/1, Right Upper Extremity: 3, Left Lower Extremity: 2/1, Right Lower Extremity: 3 - Psychiatric Exam Psychiatric exam: Normal Affect, Normal Mood - Skin Skin Exam: Dry, Intact Assessment and Plan (1) Headache Status: Acute (2) Hemorrhagic cerebrovascular accident (CVA) Assessment & Plan: plan for physical, occupational rec and speech therapy Status: Acute (3) Intracerebral bleed Status: Acute (4) Prophylactic measure Status: Acute (5) Prophylactic measure Status: Acute
--- NOTE | 2017-09-13 11:50 | CP.PCM.PN ---
Subjective - Date & Time of Evaluation Date of Evaluation: 09/13/17 Time of Evaluation: 11:50 - Subjective Subjective: Ms. Lobo was seen and examined at the bedside. She is alert, oriented x 3, denies any headache, dizziness, lightheadedness, blurred vision, diplopia. She participates well during her therapy. She is able to follow simple commands with her left side paraplegia and left facial droop. She is participating during her therapy session. CT scan of the head without contrast showed further improvement in right basal ganglia intraparenchymal hemorrhage manifest by diminishing mass effect, local edema and further degradation of hemorrhagic blood products as compared.There was no untoward events overnight. Objective - Vital Signs/Intake and Output Vital Signs (last 24 hours): Temp Pulse Resp BP Pulse Ox 97.9 F 86 20 124/81 97 09/13/17 09:22 09/13/17 09:22 09/13/17 09:22 09/13/17 09:22 09/13/17 07:33 - Medications Medications: Current Medications Acetaminophen (Tylenol 325mg Tab) 650 mg PO Q4 PRN PRN Reason: Headache Acetaminophen (Tylenol 325mg Tab) 650 mg PO Q4 PRN PRN Reason: Pain, moderate (4-7) Last Admin: 09/13/17 10:23 Dose: 650 mg Amantadine HCl (Amantadine 100 Mg Cap) 100 mg PO Q12@0900,2100 [facility] Last Admin: 09/13/17 08:42 Dose: 100 mg Heparin Sodium (Porcine) (Heparin) 2,000 units SC Q12 [facility] PRN Reason: Protocol Last Admin: 09/13/17 08:42 Dose: 2,000 units Levetiracetam (Keppra) 500 mg PO BID [facility] Last Admin: 09/13/17 08:42 Dose: 500 mg Lidocaine (Lidoderm) 1 ea TD DAILY [facility] Last Admin: 09/13/17 08:42 Dose: 1 ea Magnesium Oxide (Mag-Ox) 400 mg PO BID [facility] Last Admin: 09/13/17 08:42 Dose: 400 mg Tramadol HCl (Ultram) 50 mg PO Q4 PRN PRN Reason: Pain, severe (8-10) Trazodone HCl (Desyrel) 50 mg PO HS [facility] Last Admin: 09/12/17 21:01 Dose: 50 mg - Labs Labs: 08/31/17 05:25 08/31/17 05:25 - Constitutional Appears: No Acute Distress - Head Exam Head Exam: NORMAL INSPECTION - Neurological Exam Neurological Exam: Alert, Awake, Oriented x3 Neuro motor strength exam: Left Upper Extremity: 0, Right Upper Extremity: 5, Left Lower Extremity: 0, Right Lower Extremity: 5 Additional comments: Neurological unchanged from previous examination. Assessment and Plan (1) Hemorrhagic cerebrovascular accident (CVA) Assessment & Plan: Case discussed with Dr. Hammer, continue all current medical, physical, occupational, and speech therapies. Recommend to follow up with Dr. Hammer/Quintin at [address] [facility] [facility], [address]. tel. [phone]. either 2 weeks or 1 month upon discharge. Patient is schedule for discharge in [place]. Status: Acute
--- NOTE | 2017-09-13 11:58 | CP.PCM.PN ---
Subjective - Date & Time of Evaluation Date of Evaluation: 09/13/17 Time of Evaluation: 09:00 - Subjective Subjective: no acute complaints at present Objective - Vital Signs/Intake and Output Vital Signs (last 24 hours): Temp Pulse Resp BP Pulse Ox 97.9 F 86 20 124/81 97 09/13/17 09:22 09/13/17 09:22 09/13/17 09:22 09/13/17 09:22 09/13/17 07:33 - Medications Medications: Current Medications Acetaminophen (Tylenol 325mg Tab) 650 mg PO Q4 PRN PRN Reason: Headache Acetaminophen (Tylenol 325mg Tab) 650 mg PO Q4 PRN PRN Reason: Pain, moderate (4-7) Last Admin: 09/13/17 10:23 Dose: 650 mg Amantadine HCl (Amantadine 100 Mg Cap) 100 mg PO Q12@0900,2100 [facility] Last Admin: 09/13/17 08:42 Dose: 100 mg Heparin Sodium (Porcine) (Heparin) 2,000 units SC Q12 [facility] PRN Reason: Protocol Last Admin: 09/13/17 08:42 Dose: 2,000 units Levetiracetam (Keppra) 500 mg PO BID [facility] Last Admin: 09/13/17 08:42 Dose: 500 mg Lidocaine (Lidoderm) 1 ea TD DAILY [facility] Last Admin: 09/13/17 08:42 Dose: 1 ea Magnesium Oxide (Mag-Ox) 400 mg PO BID [facility] Last Admin: 09/13/17 08:42 Dose: 400 mg Tramadol HCl (Ultram) 50 mg PO Q4 PRN PRN Reason: Pain, severe (8-10) Trazodone HCl (Desyrel) 50 mg PO HS [facility] Last Admin: 09/12/17 21:01 Dose: 50 mg - Labs Labs: 08/31/17 05:25 08/31/17 05:25 - Head Exam Head Exam: ATRAUMATIC, NORMAL INSPECTION, NORMOCEPHALIC - Eye Exam Eye Exam: EOMI, Normal appearance, PERRL Pupil Exam: NORMAL ACCOMODATION, PERRL - ENT Exam ENT Exam: Mucous Membranes Moist, Normal Exam - Neck Exam Neck Exam: Full ROM, Normal Inspection - Respiratory Exam Respiratory Exam: Clear to Ausculation Bilateral, NORMAL BREATHING PATTERN - Cardiovascular Exam Cardiovascular Exam: REGULAR RHYTHM - GI/Abdominal Exam GI & Abdominal Exam: Soft, Normal Bowel Sounds - Rectal Exam Rectal Exam: NORMAL INSPECTION - Exam External exam: NORMAL EXTERNAL EXAM - Extremities Exam Extremities Exam: Full ROM, Normal Capillary Refill, Normal Inspection - Back Exam Back Exam: NORMAL INSPECTION - Neurological Exam Neurological Exam: Alert, Awake Neuro motor strength exam: Left Upper Extremity: 2/1, Right Upper Extremity: 3, Left Lower Extremity: 2/1, Right Lower Extremity: 3 - Psychiatric Exam Psychiatric exam: Normal Affect, Normal Mood - Skin Skin Exam: Dry, Intact, Normal Color Assessment and Plan (1) Headache Status: Acute (2) Hemorrhagic cerebrovascular accident (CVA) Assessment & Plan: plan for pt, ot res and speech therapy Status: Acute (3) Intracerebral bleed Status: Acute (4) Prophylactic measure Status: Acute (5) Prophylactic measure Status: Acute
--- NOTE | 2017-09-13 12:08 | PSY.TMCNF ---
Nursing - Vital Signs Vital Signs (Last 8 hours): Vital Signs 09/13/17 09/13/17 07:33 09:22 Temperature 97.9 F 97.9 F Pulse Rate 86 86 Respiratory 20 20 Rate Blood Pressure 124/81 124/81 O2 Sat by Pulse 97 Oximetry Pain: 4 - Precautions: Precautions: Fall Prevention, Aspiration, Seizure - Medications/Other Issues Comment: new onset pain on the right knee, started on Ultram PRN and Lidoderm patch. - Consults Comment: Dr. Muniz. Dr. Hammer. Dr. Petersen. Dr. Teresa - Skin Incision Site: Intact - Toileting Toileting: Minimal Assistance - Bladder Management Bladder Pattern: Normal, Incontinent Voiding Method: Toilet, Bedpan, Diaper Bladder Management: Contact Guard - Bowel Management Bowel Pattern: Incontinent Bowel Management: Moderate Assistance - Transfers Transfers: Moderate Assistance - ADL's ADL's: Contact Guard - Pain Management Comments: Tylenol for pain scale 4-7. Ultram for 8-10. - Patient/Family Teaching Comments: Safety precautions and medications. - Goals/Time Frame Comments: Stay safe, seizure-free, and comfortable until next team conference or discharge. - Provider Provider: Harika Duffy RN Physical Therapy - Bed Mobility Bed Mobility: Moderate Assistance - Transfers Wheelchair to Mat: Minimal Assistance, Moderate Assistance Sit to Stand: Minimal Assistance - Ambulation Level of Assistance: Moderate Assistance, Maximum Assistance Distance (ft.): 45 Assistive Devices: Narrow base quad cane - Stair Negotiation Stairs: Level of Assistance: Not Tested - Standing Balance Static Stand: Minimal Assistance Dynamic Stand: Moderate Assistance, Maximal Assistance - Pain Comment: R knee. Relieved with medication and BioFreeze - Insight/Carryover Insight/Carryover: Good - Patient/Family Education Comment: CVA recovery, safety awareness, proper techniques during functional mobility training. - Assessment/Plan Assessment: Pt is agreeable to participate in 1:1 and group recreation therapy sessions. Pt's overall arousal level and mood state has improved since day of admission on unit. Pt participates in group sessions of kari claire, and kade with peers. Pt is oriented to card tasks to improve carryover of task rules and visual awareness to the L side. Pt has also watched a stroke education video in moroccan and provided with resouces. Pt will continue to benefit from participating in recreation therapy sessions throughout length of stay on unit. - Goals Timeframe: 2 weeks Goals: Sit < > supine CGa. Sit < > stand and bed < > chair transfers with CGA. Pt will ambulate 100 ft with NBQC and CGA. Pt will ascend/descend 3 stairs with R handrail and min A - Provider Therapist: evelyn License Number: [id number] Occupational Therapy - Arousal/Attention/Orientation Patient Orientation: Person, Place, Time - ADL/IADL Self Feeding: Independent, Set-up Help Grooming: Verbal Cues, Set-up Help, Minimal Assistance Bathing-Upper Extremity: Verbal Cues, Set-up Help, Moderate Assistance Bathing-Lower Extremity: Verbal Cues, Set-up Help, Moderate Assistance Dressing-Upper Extremity: Verbal Cues, Set-up Help, Minimal Assistance, Moderate Assistance Dressing-Lower Extremity: Verbal Cues, Set-up Help, Moderate Assistance - Sitting Balance Static Sitting: Supervision Dynamic Sitting: Reaches across midline, Reaches out of base of support, Reaches within base of support, Minimal Assistance Comment: unsupported at edge of bed - Transfers Wheelchair to Bed Transfers: Verbal Cues, Set-up Help, Minimal Assistance, Moderate Assistance Toilet Transfers: Verbal Cues, Set-up Help, Minimal Assistance, Moderate Assistance - Wheelchair Management Level of Assistance: Minimal Assistance Distance (ft.): 150 - Upper Extremity Status Right Upper Extremity Comment: AROM is WNLS Left Upper Extremity Comment: PROM IS WNLS; pt has NO AROM at this time ojeda to impaired motor control - Pain Comment: R knee. Relieved with medication and BioFreeze - Insight/Carryover Insight/Carryover: Good - Patient/Family Education Comment: CVA recovery, safety awareness, proper techniques during functional mobility training. - Assessment/Plan Assessment: Pt is agreeable to participate in 1:1 and group recreation therapy sessions. Pt's overall arousal level and mood state has improved since day of admission on unit. Pt participates in group sessions of kari claire, and kade with peers. Pt is oriented to card tasks to improve carryover of task rules and visual awareness to the L side. Pt has also watched a stroke education video in moroccan and provided with resouces. Pt will continue to benefit from participating in recreation therapy sessions throughout length of stay on unit. - Goals Timeframe: 2 weeks Goals: Sit < > supine CGa. Sit < > stand and bed < > chair transfers with CGA. Pt will ambulate 100 ft with NBQC and CGA. Pt will ascend/descend 3 stairs with R handrail and min A - Provider Therapist: Heena Aparicio, OTR/L Speech Therapy - Consult Information Patient on Program: Yes Medical Diagnosis: R hemorrhage Treatment Diagnosis: minimal-mild oral dysphagia - Assessment Dysphagia/Swallowing Impairment: Mild Comment: minimal-mild - Plan Assessment: Pt is agreeable to participate in 1:1 and group recreation therapy sessions. Pt's overall arousal level and mood state has improved since day of admission on unit. Pt participates in group sessions of bingo, tapple, and dominoes with peers. Pt is oriented to card tasks to improve carryover of task rules and visual awareness to the L side. Pt has also watched a stroke education video in moroccan and provided with resouces. Pt will continue to benefit from participating in recreation therapy sessions throughout length of stay on unit. - Provider Therapist: Vivian Veliz License Number: [id number] Recreational Therapy - Participation Participation: Participates in Individual and/or Group Sessions - Attendance Attendance: 3-5 times per week - Activities Leisure Activities: Cards and Games - Socialization Level of Socialization: Initiates/interacts freely with care givers and peer - Diversional Time Diversional Time: television, [facility] - Assessment Assessment/Plan: Pt is agreeable to participate in 1:1 and group recreation therapy sessions. Pt's overall arousal level and mood state has improved since day of admission on unit. Pt participates in group sessions of bingo, tapple, and dominoes with peers. Pt is oriented to card tasks to improve carryover of task rules and visual awareness to the L side. Pt has also watched a stroke education video in moroccan and provided with resouces. Pt will continue to benefit from participating in recreation therapy sessions throughout length of stay on unit. Problems Currently Limiting Participation: decrease arousal, fatigue, decrease leisure awareness level, L side weakness Goals and Time Frame: Pt will be encouraged to participate in 1:1 and group recreation therapy sessions to improve arousal level, directon following, command following, problem solving, leisure awareness level, and overall mood state. - Provider Therapist: Adry Goldberg, [employer] #[id number] Nutrition - Current Diet Current Diet/ Supplement/ Feedings: advanced bite size thin liquids 2 gram Na diet - Appetite Percent Meal Consumed: 75-100% - Comments Comments: Safety precautions and medications. - Assessment/Goals/Time Frame Assessment/Goals/Time Frame: new onset pain on the right knee, started on Ultram PRN and Lidoderm patch. - Provider Provider: Abril Coker RD Case Management - Psychosocial Assessment Support Systems: Daughter Keila/Mother Karly [phone] Psychological Interventions/Needs: Pt is alert and oriented x3 Discharge Concerns: Pt has stairs to negotiate and continues to require min- modA for functional mobility Patient/Family Meeting: CM met with pt and rehab team Intervention/Goal/Outcome:: 1. Plan: Tentative d/c date: 09/08/2017. 2. [facility] auth. 3. Patient for [facility] at [facility] per patient/family's request. 4. continued emotional support - Discharge Plan Discharge Plan: Subacute care - Provider Provider: CHRIS Darling, [employer] License Number: [id number] Rehabilitation Plan - Treatment Plan Treatment Plan: Physical Therapy, Occupational Therapy, Speech, Dietary, Patient /Family Education - Recommendation Recommendation: Physical Therapy, Occupational Therapy, Speech, Dietary, Patient /Family Education - Discharge Plan Discharge to: Subacute (27 for Dc to [facility])
--- NOTE | 2017-09-13 14:00 | CP.PCM.PN ---
Subjective - Date & Time of Evaluation Date of Evaluation: 09/13/17 Time of Evaluation: 10:00 - Subjective Subjective: Patient was seen and examined during recreational therapy. In good spirits. Continues to state she is feeling better. Denies cp, sob, headache, n/v/d. Objective - Vital Signs/Intake and Output Vital Signs (last 24 hours): Temp Pulse Resp BP Pulse Ox 97.9 F 86 20 124/81 97 09/13/17 09:22 09/13/17 09:22 09/13/17 09:22 09/13/17 09:22 09/13/17 07:33 - Medications Medications: Current Medications Acetaminophen (Tylenol 325mg Tab) 650 mg PO Q4 PRN PRN Reason: Headache Acetaminophen (Tylenol 325mg Tab) 650 mg PO Q4 PRN PRN Reason: Pain, moderate (4-7) Last Admin: 09/13/17 10:23 Dose: 650 mg Amantadine HCl (Amantadine 100 Mg Cap) 100 mg PO Q12@0900,2100 [facility] Last Admin: 09/13/17 08:42 Dose: 100 mg Heparin Sodium (Porcine) (Heparin) 2,000 units SC Q12 [facility] PRN Reason: Protocol Last Admin: 09/13/17 08:42 Dose: 2,000 units Levetiracetam (Keppra) 500 mg PO BID [facility] Last Admin: 09/13/17 08:42 Dose: 500 mg Lidocaine (Lidoderm) 1 ea TD DAILY [facility] Last Admin: 09/13/17 08:42 Dose: 1 ea Magnesium Oxide (Mag-Ox) 400 mg PO BID [facility] Last Admin: 09/13/17 08:42 Dose: 400 mg Tramadol HCl (Ultram) 50 mg PO Q4 PRN PRN Reason: Pain, severe (8-10) Trazodone HCl (Desyrel) 50 mg PO HS [facility] Last Admin: 09/12/17 21:01 Dose: 50 mg - Labs Labs: 08/31/17 05:25 08/31/17 05:25 - Additional Findings Additional findings: Physical exam: Constitutional- cooperative, awake, alert Head- NCAT, PERRL + l facial droop Eye- PERRL, EOMI ENT- normal exam, MMM. Neck- normal inspection, supple, no JVD Respiratory- CTAB, no wheezes rales rhonchi Cardiovascular- RRR, +S1, +S2 no MRG GI/Abdominal- normal bowel sounds, soft, no mass, no hsm Skin- warm, dry Extremities Exam- normal capillary refill, normal inspection Neurological Exam- left sided facial droop and left sided weakness, 4/5 muscle strength left upper and lower extremities. alert, awake, oriented Psych- normal mood, normal affect Assessment and Plan - Assessment and Plan (Free Text) Plan: 46 yo female with no significant PMH was brought to [facility] ED because of sudden onset of headache associated with left sided weakness and left facial droop. CT of head showed right basal ganglia bleed with mass effect and left midline shift. Neurosurgery was consulted and advised conservative management only. Neurology on board advised initially IV Mannitol and Decadron. She was later transferred to Acute Rehab for PT/OT. 1. Right basal ganglia hemorrhage with mass effect and left midline shift clinically appears improved; still with mild weakness. CTA head and neck: no aneurysm, no AVM patient received a total 6 units FFP neurosurgery advised no surgical intervention Decadron discontinued yesterday as per neuro stefania Tate for seizure prophylaxis continue PT/OT Dr Hammer on neuro consultation 2. DVT prophylaxis Heparin 2000 units SC q 12hrs
[2017-09-14] MEDS: Lidocaine 5% Patch TD SCH (08:04)
[2017-09-14] MEDS: Magnesium Oxide 400 mg Tab UD PO SCH ×2 (08:04→17:48)
--- NOTE | 2017-09-14 11:41 | CP.PCM.PN ---
Subjective - Date & Time of Evaluation Date of Evaluation: 09/14/17 Time of Evaluation: 11:41 - Subjective Subjective: Ms. Lobo was seen and examined at the bedside. She is alert, oriented x 3, denies any headache, dizziness, lightheadedness, blurred vision, diplopia. She participates well during her therapy. She is able to follow simple commands with her left side paraplegia and left facial droop. She is participating during her therapy session. She is for discharge to a subacute rehab today. There was no untoward events overnight. Objective - Vital Signs/Intake and Output Vital Signs (last 24 hours): Temp Pulse Resp BP Pulse Ox 97.8 F 78 20 128/60 98 09/14/17 08:46 09/14/17 08:46 09/14/17 08:46 09/14/17 08:46 09/14/17 08:46 - Medications Medications: Current Medications Acetaminophen (Tylenol 325mg Tab) 650 mg PO Q4 PRN PRN Reason: Headache Acetaminophen (Tylenol 325mg Tab) 650 mg PO Q4 PRN PRN Reason: Pain, moderate (4-7) Last Admin: 09/13/17 22:51 Dose: 650 mg Amantadine HCl (Amantadine 100 Mg Cap) 100 mg PO Q12@0900,2100 [facility] Last Admin: 09/14/17 08:05 Dose: 100 mg Heparin Sodium (Porcine) (Heparin) 2,000 units SC Q12 [facility] PRN Reason: Protocol Last Admin: 09/14/17 08:04 Dose: 2,000 units Levetiracetam (Keppra) 500 mg PO BID [facility] Last Admin: 09/14/17 08:04 Dose: 500 mg Lidocaine (Lidoderm) 1 ea TD DAILY [facility] Last Admin: 09/14/17 08:04 Dose: 1 ea Magnesium Oxide (Mag-Ox) 400 mg PO BID [facility] Last Admin: 09/14/17 08:04 Dose: 400 mg Tramadol HCl (Ultram) 50 mg PO Q4 PRN PRN Reason: Pain, severe (8-10) Trazodone HCl (Desyrel) 50 mg PO HS [facility] Last Admin: 09/13/17 22:26 Dose: 50 mg - Labs Labs: 08/31/17 05:25 08/31/17 05:25 - Constitutional Appears: No Acute Distress - Head Exam Head Exam: NORMAL INSPECTION - Neurological Exam Neurological Exam: Alert, Awake, Oriented x3 Neuro motor strength exam: Left Upper Extremity: 2/1, Right Upper Extremity: 5, Left Lower Extremity: 2/1, Right Lower Extremity: 5 Additional comments: Neurological unchanged from previous examination. Assessment and Plan (1) Hemorrhagic cerebrovascular accident (CVA) Assessment & Plan: Case discussed with Dr. Hammer, continue all current medical, physical, occupational, and speech therapies. Recommend to follow up with Dr. Hammer/Quintin at [address] [place] [address]. [address] [facility], [address]. tel. [phone]. either 2 weeks or 1 month upon discharge. Patient is schedule for discharge in [place]. Status: Acute
[2017-09-15 08:23] VITALS: BP 108/63; PULSE 73; RESP 19; TEMP 97.5; O2SAT 98
--- NOTE | 2017-09-15 08:35 | CP.PCM.PN ---
Subjective - Date & Time of Evaluation Date of Evaluation: 09/15/17 Time of Evaluation: 08:35 - Subjective Subjective: Ms. Lobo was seen and examined at the bedside. She is alert, oriented x 3, denies any headache, dizziness, lightheadedness, blurred vision, diplopia. She participates well during her therapy. She is able to follow simple commands with her left side paraplegia and left facial droop. She is participating during her therapy session. She is for discharge to a subacute rehab today. There was no untoward events overnight. Objective - Vital Signs/Intake and Output Vital Signs (last 24 hours): Temp Pulse Resp BP Pulse Ox 97.5 F L 73 19 108/63 98 09/15/17 08:22 09/15/17 08:22 09/15/17 08:22 09/15/17 08:22 09/15/17 08:22 - Medications Medications: Current Medications Acetaminophen (Tylenol 325mg Tab) 650 mg PO Q4 PRN PRN Reason: Headache Acetaminophen (Tylenol 325mg Tab) 650 mg PO Q4 PRN PRN Reason: Pain, moderate (4-7) Last Admin: 09/13/17 22:51 Dose: 650 mg Amantadine HCl (Amantadine 100 Mg Cap) 100 mg PO Q12@0900,2100 [facility] Last Admin: 09/14/17 21:51 Dose: 100 mg Heparin Sodium (Porcine) (Heparin) 2,000 units SC Q12 [facility] PRN Reason: Protocol Last Admin: 09/14/17 21:54 Dose: 2,000 units Levetiracetam (Keppra) 500 mg PO BID [facility] Last Admin: 09/14/17 17:48 Dose: 500 mg Lidocaine (Lidoderm) 1 ea TD DAILY [facility] Last Admin: 09/14/17 08:04 Dose: 1 ea Magnesium Oxide (Mag-Ox) 400 mg PO BID [facility] Last Admin: 09/14/17 17:48 Dose: 400 mg Tramadol HCl (Ultram) 50 mg PO Q4 PRN PRN Reason: Pain, severe (8-10) Trazodone HCl (Desyrel) 50 mg PO HS [facility] Last Admin: 09/14/17 21:52 Dose: 50 mg - Labs Labs: 08/31/17 05:25 08/31/17 05:25 - Constitutional Appears: No Acute Distress - Head Exam Head Exam: NORMAL INSPECTION - Neurological Exam Neurological Exam: Alert, Awake, Oriented x3 Neuro motor strength exam: Left Upper Extremity: 2/1, Right Upper Extremity: 5, Left Lower Extremity: 2/1, Right Lower Extremity: 5 Additional comments: Neurological examination unchanged from previous examination. Assessment and Plan (1) Hemorrhagic cerebrovascular accident (CVA) Assessment & Plan: Case discussed with Dr. Hammer, continue all current medical, physical, occupational, and speech therapies. Recommend to follow up with Dr. Hammer/Quintin at [address] [place] [address]. [address] [facility], [address]. tel. [phone]. either 2 weeks or 1 month upon discharge. Patient is schedule for discharge in [place]. Status: Acute
[2017-09-15] MEDS: Lidocaine 5% Patch TD SCH (08:59)
[2017-09-15] MEDS: Magnesium Oxide 400 mg Tab UD PO SCH (08:59)
--- NOTE | 2017-09-15 09:52 | CP.PCM.PN ---
Objective - Vital Signs/Intake and Output Vital Signs (last 24 hours): Temp Pulse Resp BP Pulse Ox 97.5 F L 73 19 108/63 98 09/15/17 08:22 09/15/17 08:22 09/15/17 08:22 09/15/17 08:22 09/15/17 08:22 - Medications Medications: Current Medications Acetaminophen (Tylenol 325mg Tab) 650 mg PO Q4 PRN PRN Reason: Headache Acetaminophen (Tylenol 325mg Tab) 650 mg PO Q4 PRN PRN Reason: Pain, moderate (4-7) Last Admin: 09/13/17 22:51 Dose: 650 mg Amantadine HCl (Amantadine 100 Mg Cap) 100 mg PO Q12@0900,2100 [facility] Last Admin: 09/15/17 08:59 Dose: 100 mg Heparin Sodium (Porcine) (Heparin) 2,000 units SC Q12 [facility] PRN Reason: Protocol Last Admin: 09/15/17 08:59 Dose: 2,000 units Levetiracetam (Keppra) 500 mg PO BID [facility] Last Admin: 09/15/17 08:59 Dose: 500 mg Lidocaine (Lidoderm) 1 ea TD DAILY [facility] Last Admin: 09/15/17 08:59 Dose: 1 ea Magnesium Oxide (Mag-Ox) 400 mg PO BID [facility] Last Admin: 09/15/17 08:59 Dose: 400 mg Tramadol HCl (Ultram) 50 mg PO Q4 PRN PRN Reason: Pain, severe (8-10) Trazodone HCl (Desyrel) 50 mg PO HS [facility] Last Admin: 09/14/17 21:52 Dose: 50 mg - Labs Labs: 08/31/17 05:25 08/31/17 05:25 Assessment and Plan - Assessment and Plan (Free Text) Assessment: 46 yo female with no significant PMH was brought to [facility] ED because of sudden onset of headache associated with left sided weakness and left facial droop. CT of head showed right basal ganglia bleed with mass effect and left midline shift. Neurosurgery was consulted and advised conservative management only. Neurology on board advised initially IV Mannitol and Decadron. She was later transferred to Acute Rehab for PT/OT. 1. Right basal ganglia hemorrhage with mass effect and left midline shift clinically appears improved; still with mild weakness. CTA head and neck: no aneurysm, no AVM patient received a total 6 units FFP neurosurgery advised no surgical intervention Decadron discontinued yesterday as per neuro continue Lea for seizure prophylaxis continue PT/OT Dr Hammer on neuro consultation 2. DVT prophylaxis Heparin 2000 units SC q 12hrs
--- NOTE | 2017-09-15 11:49 | CP.PCM.DIS ---
Provider - Provider Date of Admission: 08/15/17 14:03 Attending physician: Migel Schmidt DO Consults: neuro consult PT/Ot/ speech therapy Time Spent in preparation of Discharge (in minutes): 10 Hospital Course - Lab Results Lab Results: Most Recent Lab Values WBC 6.6 K/uL (4.8-10.8) 08/31/17 05:25 RBC 3.95 Mil/uL (3.80-5.20) 08/31/17 05:25 Hgb 12.8 g/dL (12.0-16.0) 08/31/17 05:25 Hct 38.1 % (34.0-47.0) 08/31/17 05:25 MCV 96.6 fl (81.0-99.0) 08/31/17 05:25 MCH 32.3 pg (27.0-31.0) H 08/31/17 05:25 MCHC 33.5 g/dL (33.0-37.0) 08/31/17 05:25 RDW 16.8 % (11.5-14.5) H 08/31/17 05:25 Plt Count 138 K/uL (130-400) 08/31/17 05:25 Sodium 140 mmol/l (132-148) 08/31/17 05:25 Potassium 3.9 MMOL/L (3.6-5.0) 08/31/17 05:25 Chloride 104 mmol/L (98-107) 08/31/17 05:25 Carbon Dioxide 26 mmol/L (22-30) 08/31/17 05:25 Anion Gap 14 (10-20) 08/31/17 05:25 BUN 15 mg/dl (7-17) 08/31/17 05:25 Creatinine 0.4 mg/dl (0.7-1.2) L 08/31/17 05:25 Est GFR ( Amer) > 60 08/31/17 05:25 Est GFR (Non-Af Amer) > 60 08/31/17 05:25 POC Glucose (mg/dL) 75 mg/dL (65-110) 09/11/17 12:07 Random Glucose 94 mg/dL (65-105) 08/31/17 05:25 Calcium 8.3 mg/dL (8.4-10.2) L 08/31/17 05:25 Phosphorus 4.1 mg/dl (2.5-4.5) 08/24/17 05:30 Magnesium 2.3 MG/DL (1.6-2.3) 08/24/17 05:30 - Hospital Course Hospital Course: 46 yo female with no significant PMH was brought to [facility] ED because of sudden onset of headache associated with left sided weakness and left facial droop. CT of head showed right basal ganglia bleed with mass effect and left midline shift. Neurosurgery was consulted and advised conservative management only. Neurology was consulted and recommended IV Mannitol and Decadron. She was later transferred to Acute Rehab for PT/OT.At present participated well with PT in rehab . Still with left side hemiplegia. Will d/c today to [facility] continuation of PT. 1. Right basal ganglia hemorrhage with mass effect and left midline shift clinically appears improved; still with left side hemiplegia CTA head and neck: no aneurysm, no AVM patient received a total 6 units FFP neurosurgery advised no surgical intervention Received Decadron and manitol IV continue [facility] for seizure prophylaxis continue PT/OT in [facility] Dr Hammer neuro consulted Discharge Exam - Head Exam Head Exam: NORMAL INSPECTION - Eye Exam Eye Exam: EOMI, Normal appearance, PERRL Pupil Exam: NORMAL ACCOMODATION - ENT Exam ENT Exam: Mucous Membranes Moist, Normal Exam - Neck Exam Neck exam: Full Rom, Normal Inspection - Respiratory Exam Respiratory Exam: Clear to PA & Lateral, NORMAL BREATHING PATTERN. absent: Rales, Rhonchi, Wheezes - Cardiovascular Exam Cardiovascular Exam: REGULAR RHYTHM, RRR, +S1, +S2. absent: JVD - GI/Abdominal Exam GI & Abdominal Exam: Normal Bowel Sounds, Soft. absent: Distended, Guarding, Rebound, Tenderness - Rectal Exam Rectal Exam: Deferred - Extremities Exam Extremities exam: normal capillary refill, normal inspection, pedal pulses present - Back Exam Back exam: NORMAL INSPECTION - Neurological Exam Neurological exam: Alert, Oriented x3 Additional comments: left side hemiplegia - Psychiatric Exam Psychiatric exam: Normal Affect - Skin Skin Exam: Dry, Intact, Normal Color, Warm Discharge Plan - Follow Up Plan Condition: GOOD Disposition: TRANSF TO SNF Patient education suggested?: Yes Instructions: Intracerebral Hemorrhage (DC)
--- NOTE | 2017-09-15 13:05 | CP.PCM.PN ---
Subjective - Date & Time of Evaluation Date of Evaluation: 09/15/17 Time of Evaluation: 12:00 - Subjective Subjective: no acute complaints of pain Objective - Vital Signs/Intake and Output Vital Signs (last 24 hours): Temp Pulse Resp BP Pulse Ox 97.5 F L 73 19 108/63 98 09/15/17 08:22 09/15/17 08:22 09/15/17 08:22 09/15/17 08:22 09/15/17 08:22 - Medications Medications: Current Medications Acetaminophen (Tylenol 325mg Tab) 650 mg PO Q4 PRN PRN Reason: Headache Acetaminophen (Tylenol 325mg Tab) 650 mg PO Q4 PRN PRN Reason: Pain, moderate (4-7) Last Admin: 09/13/17 22:51 Dose: 650 mg Amantadine HCl (Amantadine 100 Mg Cap) 100 mg PO Q12@0900,2100 [facility] Last Admin: 09/15/17 08:59 Dose: 100 mg Heparin Sodium (Porcine) (Heparin) 2,000 units SC Q12 [facility] PRN Reason: Protocol Last Admin: 09/15/17 08:59 Dose: 2,000 units Levetiracetam (Keppra) 500 mg PO BID [facility] Last Admin: 09/15/17 08:59 Dose: 500 mg Lidocaine (Lidoderm) 1 ea TD DAILY [facility] Last Admin: 09/15/17 08:59 Dose: 1 ea Magnesium Oxide (Mag-Ox) 400 mg PO BID [facility] Last Admin: 09/15/17 08:59 Dose: 400 mg Tramadol HCl (Ultram) 50 mg PO Q4 PRN PRN Reason: Pain, severe (8-10) Trazodone HCl (Desyrel) 50 mg PO HS [facility] Last Admin: 09/14/17 21:52 Dose: 50 mg - Labs Labs: 08/31/17 05:25 08/31/17 05:25 - Head Exam Head Exam: ATRAUMATIC, NORMAL INSPECTION, NORMOCEPHALIC - Eye Exam Eye Exam: EOMI, Normal appearance, PERRL Pupil Exam: NORMAL ACCOMODATION - ENT Exam ENT Exam: Mucous Membranes Moist, Normal Exam - Neck Exam Neck Exam: Normal Inspection - Respiratory Exam Respiratory Exam: NORMAL BREATHING PATTERN - Cardiovascular Exam Cardiovascular Exam: REGULAR RHYTHM - GI/Abdominal Exam GI & Abdominal Exam: Soft, Normal Bowel Sounds - Rectal Exam Rectal Exam: NORMAL INSPECTION - Exam External exam: NORMAL EXTERNAL EXAM - Extremities Exam Extremities Exam: Full ROM, Normal Capillary Refill - Back Exam Back Exam: NORMAL INSPECTION - Neurological Exam Neurological Exam: Alert, Awake Neuro motor strength exam: Left Upper Extremity: 2/1, Right Upper Extremity: 3, Left Lower Extremity: 2/1, Right Lower Extremity: 3 - Psychiatric Exam Psychiatric exam: Normal Affect - Skin Skin Exam: Dry, Intact, Normal Color Assessment and Plan (1) Headache Status: Acute (2) Hemorrhagic cerebrovascular accident (CVA) Assessment & Plan: plan for physical, occupational speech therapy rec therpy for subacute rehab Status: Acute (3) Intracerebral bleed Status: Acute (4) Prophylactic measure Status: Acute (5) Prophylactic measure Status: Acute
== END 2017-09-15 16:50 | DRG 12 ==
PROVIDERS: ADMIT Internal Medicine; ATTEND Internal Medicine
PROC: F07Z9FZ Gait Training/Functional Ambulation Treatment using Assistive, Adaptive, Supportive or Protective Equipment (ICD-10-PCS; principal; 2017-08-15)
PROC: F08Z4FZ Home Management Treatment using Assistive, Adaptive, Supportive or Protective Equipment (ICD-10-PCS; 2017-08-15)
PROC: F06Z6MZ Communicative/Cognitive Integration Skills Treatment using Augmentative / Alternative Communication Equipment (ICD-10-PCS; 2017-08-15)
PROC: F07L6FZ Therapeutic Exercise Treatment of Musculoskeletal System - Lower Back / Lower Extremity using Assistive, Adaptive, Supportive or Protective Equipment (ICD-10-PCS; 2017-08-16)
PROC: F07J6FZ Therapeutic Exercise Treatment of Musculoskeletal System - Head and Neck using Assistive, Adaptive, Supportive or Protective Equipment (ICD-10-PCS; 2017-08-16)
DX: I69.154 Hemiplegia and hemiparesis following nontraumatic intracerebral hemorrhage affecting left non-dominant side (principal); I69.192 Facial weakness following nontraumatic intracerebral hemorrhage; B37.0 Candidal stomatitis; I69.128 Other speech and language deficits following nontraumatic intracerebral hemorrhage; F43.21 Adjustment disorder with depressed mood; G93.6 Cerebral edema; I10 Essential (primary) hypertension; E11.9 Type 2 diabetes mellitus without complications; R26.2 Difficulty in walking, not elsewhere classified; G47.09 Other insomnia; Z90.710 Acquired absence of both cervix and uterus

== ENCOUNTER 2017-10-08 13:47 | Emergency (ER) | payer OTHER ==
[2017-10-08 13:47] VITALS: BMI 27.0
[2017-10-08 13:54] VITALS: RESP 16
[2017-10-08] MEDS ORDERED: DiphenhydrAMINE 50 mg/ml Inj IVP STA (14:26)
[2017-10-08] MEDS ORDERED: Sodium Chloride 0.9% 1,000 ML IV SCH (14:30)
[2017-10-08] MEDS ORDERED: Famotidine 20mg/50ml 20 MG/50 ML BAG IVPB STA (14:41)
[2017-10-08] MEDS ORDERED: DiphenhydrAMINE 50 mg/ml Inj ONE (14:49)
[2017-10-08 14:56] LABS: BASO # 0.1 K/uL (0.0-0.2); EOS # 0.3 K/uL (0.0-0.7); EOS % 3.3 % (0.0-4.0); HEMOGLOBIN 14.4 g/dL (12.0-16.0); LYMPH # 1.6 K/uL (1.0-4.3); LYMPH % 19.8 % (20.0-40.0); MEAN CELL VOLUME 92.2 fl (81.0-99.0); MEAN CORPUSCULAR HEMOGLOBIN 32.9 pg (27.0-31.0); MEAN CORPUSCULAR HGB CONC 35.6 g/dL (33.0-37.0); MEAN PLATELET VOLUME 8.6 fl (7.2-11.7); MONO # 0.4 K/uL (0.0-0.8); MONO % 4.7 % (0.0-10.0); NEUT # 5.8 K/uL (1.8-7.0); NEUT % 71.2 % (50.0-75.0); RBC 4.37 Mil/uL (3.80-5.20); RED CELL DISTRIBUTION WIDTH 15.4 % (11.5-14.5); WHITE BLOOD COUNT 8.1 K/uL (4.8-10.8)
[2017-10-08] MEDS ORDERED: Famotidine 20mg/50ml 20 MG/50 ML BAG IVPB ONE (14:57)
[2017-10-08 15:03] LABS: ALB/GLOB RATIO 0.9 (1.0-2.1); ALBUMIN 3.3 g/dL (3.5-5.0); ALT/SGPT 179 U/L (9-52); AST/SGOT 128 U/L (14-36); BLOOD UREA NITROGEN 9 mg/dl (7-17); CALCIUM 8.7 mg/dL (8.4-10.2); GFR AFRICAN-AMERICAN > 60; GFR NON-AFRICAN AMERICAN > 60
[2017-10-08 16:11] LABS: SQUAMOUS EPITHIAL < 1 /hpf (0-5); URINE BACTERIA RARE (<OCC); URINE BILIRUBIN NEGATIVE (NEGATIVE); URINE BLOOD NEGATIVE (NEGATIVE); URINE CLARITY CLEAR (Clear); URINE COLOR STRAW (YELLOW); URINE GLUCOSE (UA) NEG (Normal); URINE LEUKOCYTE ESTERASE TRACE Leu/uL (Negative); URINE PROTEIN NEGATIVE (NEGATIVE); URINE UROBILINOGEN 0.2-1.0 mg/dL (0.2-1.0)
--- NOTE | 2017-10-08 17:08 | ED PDOC ---
HPI: Skin/Bite Injury Time Seen by Provider: 10/08/17 14:29 Chief Complaint (Nursing): Abnormal Skin Integrity Chief Complaint (Provider): Rash History Per: Patient, Family History/Exam Limitations: no limitations Onset/Duration Of Symptoms: Days Current Symptoms Are (Timing): Still Present Location Of Injury: Right: Back, Forearm, Hand, Leg, Left: Back, Forearm, Hand, Leg Quality Of Symptoms: Itching, Other (peticial rash) Past Medical History Reviewed: Historical Data, Nursing Documentation, Vital Signs Vital Signs: Last Vital Signs Temp 99 F 10/08/17 13:51 Pulse 105 H 10/08/17 13:51 Resp 16 10/08/17 13:51 BP 105/84 10/08/17 13:51 Pulse Ox 99 10/08/17 17:13 - Medical History PMH: CVA, Depression, HTN, Seizures, TIA Denies: HIV, Chronic Kidney Disease - Family History Family History: States: Unknown Family Hx - Home Medications Home Medications: Ambulatory Orders Medication Instructions Recorded Acetaminophen [Tylenol 650 mg PO Q4 PRN 08/15/17 325MG/10.15ML UD] Fluticasone Propionate [Flonase] 1 spr TREE BID bottle 08/15/17 Loratadine [Claritin] 10 mg PO DAILY 08/15/17 levETIRAcetam [Keppra] 500 mg PO BID #60 tab 08/15/17 Amantadine [Amantadine 100 mg Cap] 100 mg PO Q12@0900,2100 cap 09/15/17 Heparin 2,000 units SC Q12 vial 09/15/17 Lidocaine 5% [Lidoderm] 1 ea TD DAILY patch 09/15/17 Magnesium Oxide [Mag-Ox] 400 mg PO BID tab 09/15/17 traMADol [Ultram] 50 mg PO Q4 PRN #30 tab 09/15/17 traZODone [Desyrel] 50 mg PO HS tab 09/15/17 predniSONE [predniSONE Tab] 20 mg PO BID #14 tab 10/08/17 - Allergies Allergies/Adverse Reactions: Allergies Allergy/AdvReac Type Severity Reaction Status Date / Time No Known Allergies Allergy Verified 10/08/17 13:51 Review of Systems ROS Statement: Except As Marked, All Systems Reviewed And Found Negative Skin: Positive for: Rash ((peticial)), Other (pruritis) Physical Exam - Reviewed Nursing Documentation Reviewed: Yes Vital Signs Reviewed: Yes - Physical Exam Appears: Positive for: Well, Non-toxic Head Exam: Positive for: ATRAUMATIC, NORMAL INSPECTION, NORMOCEPHALIC Skin: Positive for: Rash (peticial rash at bilateral upper and lower arms, upper legs and back) Cardiovascular/Chest: Positive for: Regular Rate, Rhythm, Chest Non Tender. Negative for: Edema, Gallop, Murmur, Bradycardia, Tachycardia Respiratory: Positive for: Normal Breath Sounds. Negative for: Decreased Breath Sounds, Accessory Muscle Use, Crackles, Rales, Rhonchi, Stridor, Wheezing , Respiratory Distress Pulses-Carotid (L): 2+ Pulses-Carotid (R): 2+ - Laboratory Results Result Diagrams: 10/08/17 14:45 10/08/17 14:45 - ECG O2 Sat by Pulse Oximetry: 99 Medical Decision Making Medical Decision Making: clinical signs of vasculitis with heightened liver enzymes will refer to GI specialist for Liver issues will refer to derm/rheum for vasculitis Disposition - Clinical Impression Clinical Impression: Vasculitis - Patient ED Disposition Is Patient to be Admitted: No Doctor Will See Patient In The: Office Counseled Patient/Family Regarding: Diagnosis, Need For Followup, Rx Given - Disposition Referrals: Juan J Mendoza MD [Medical Doctor] - Disposition Time: 17:17 Condition: STABLE Prescriptions: predniSONE [predniSONE Tab] 20 mg PO BID #14 tab Instructions: Vasculitis, Vasculitis (DC) Forms: [employer] (Armenian) Print Language: MONTSERRATIAN
[2017-10-08 22:12] VITALS: BP 122/78; PULSE 86; TEMP 98.2; O2SAT 98
--- NOTE | 2017-10-10 11:21 | CARD ---
APPROVED REPORT EKG Measurement Heart [id number] <Conclusion> Normal sinus rhythm Normal ECG
== END 2017-10-08 19:30 | disposition home or self-care (01) ==
LOC: H.ER 13:47
DX: I77.6 Arteritis, unspecified (principal); I10 Essential (primary) hypertension; Z86.73 Personal history of transient ischemic attack (TIA), and cerebral infarction without residual deficits; Z86.59 Personal history of other mental and behavioral disorders
CPT/HCPCS: 80053; 81003; 84484; 85025; 87086; 93005; 96374; 96375; 99284; J1100; J1200; J7040